=== PATIENT | female | born 1960 | race Caucasian/White ===

== ENCOUNTER 2018-03-18 12:34 | Emergency (ER) | payer OTHER, SELFPAY ==
[2018-03-18 12:35] VITALS: BP 149/80; PULSE 85; RESP 18; TEMP 36.6; O2SAT 100; BMI 21.9
--- NOTE | 2018-03-18 12:49 | CT_ITS ---
STUDY: CT BRAIN WITHOUT CONTRAST REASON FOR EXAM: Female, 57 years old. Hallucinations, mental status change RADIATION DOSAGE (If Supplied By Facility): CTDIvol = ( 44.99 ) mGy, DLP = ( 745.49 ) mGycm TECHNIQUE: Transaxial CT imaging of the brain was performed without administration of intravenous contrast material. Individualized dose optimization techniques were used for this CT. COMPARISON: None. FINDINGS: Normal soft tissue structures. Normal calvarium. Normal size ventricles and extra-axial spaces for the patient's age. Normal white matter tracts of the cerebral hemispheres. Normal basal ganglia and thalami. Normal brainstem. Normal cerebellum. There is no intracranial hemorrhage. There are no findings of an acute ischemic infarction. Normal visualized paranasal sinuses. CT/Brain/Head without Contrast IMPRESSION: Normal unenhanced CT scan of the brain. Electronically Signed: Neal Artis MD at 14:38 EDT , Service support ,
[2018-03-18] MEDS: 0.9% Normal Saline 1,000 ML 150 ML IV (13:20)
[2018-03-18 13:37] LABS: Absolute Lymphocyte Count 2.27 X10^3/ul (0.83-4.51); Absolute Neutrophil Count 6.3 X10^3/uL (2.0-7.7); Basophil# 0.06 X10^3/uL; Basophil% 0.6 % (0-1); Eosinophil# 0.18 X10^3/uL; Eosinophils% 1.9 % (0-5); Hematocrit 42.2 % (37-47); Hemoglobin 13.6 g/dl (12.0-15.0); Lymphocyte # 2.27 X10^3/ul (4.0); Lymphocyte % 23.8 % (19-41); Mean Corp Hgb Conc 32.2 g/gl (32-36); Mean Corpuscular Hgb 32.6 pg (27.0-32.0); Mean Corpuscular Volume 101.2 fL (81-99); Mean Platelet Vol. 10.3 fl (6.2-12.0); Monocyte# 0.68 X10^3/uL; Monocyte% 7.1 % (0-10); Neutrophil # 6.26 X10^3/uL (2.7-7.7); Neutrophil % 65.9 % (47-70); POSITIVE COUNT NO; POSITIVE DIFFERENTIAL NO; POSITIVE MORPHOLOGY NO; Platelet Count 365 K/mm3 (150-450); RBC Distribution Width SD 51.8 fl (35.1-43.9); Red Blood Count 4.17 M/mm3 (4.2-5.4); White Blood Count 9.5 K/mm3 (4.4-11.0)
[2018-03-18 13:48] LABS: ALB/GLOB Ratio 0.8 RATIO (0.9-2.4); AST(SGOT) 16 U/L (15-37); Alanine Aminotransfer ALT/SGPT 27 U/L (13-56); Albumin, Serum 3.3 g/dL (3.2-5.0); Alkaline Phosphatase 120 U/L (45-117); Anion Gap 5 (5-15); BUN 23 mg/dL (7-18); BUN/Creat Ratio 26.9 RATIO (10-20); Calcium,Total 8.8 mg/dL (8.5-10.1); Chloride 109 mmol/L (98-107); Creatinine, Serum 0.86 mg/dL (0.55-1.02); EST Glomerular Filtration Rate 72 mL/min (>60); Est Glom Filt Rate - Afr Amer 87 mL/min (>60); Estimated Creatinine Clearance 60.82 ml/min; Globulin 4.4 g/dL (2.2-4.2); Glucose 80 mg/dL (74-106); Potassium 4.2 mmol/L (3.5-5.1); Protein, Total 7.7 g/dL (6.4-8.2); Sodium Level 143 mmol/L (136-145)
[2018-03-18 14:59] LABS: Mucous, Urine 0 SEEN /hpf (<or=2+); Red Blood Cells-Urine 0 SEEN /hpf (0-5)
[2018-03-18 15:00] LABS: Color, Urine Yellow (Yellow); Glucose, Dipstick Normal (Normal); Ketone-Dipstick Negative (Negative); Leukocyte Esterase-Dipstick 25 /ul (Negative); Nitrite-Dipstick Positive (Negative); Occult Blood-Urine 10 /ul (Negative); Protein-Dipstick Negative (Negative); Urine Bilirubin Dipstick Negative (Negative); Urine Clarity Clear (Clear); Urine Urobilinogen Normal (Normal)
[2018-03-18 15:12] LABS: Bacteria 4+ /hpf (None Seen); Squamous Epithelial Cells - UA 0-5 SEEN /hpf (5-10); White Blood Cells 0-5 SEEN /hpf (0-5)
--- NOTE | 2018-03-18 15:47 | ED.DCSUM_ITS ---
- ER Visit Summary Date of Service: 03/18/18 Chief Complaint: [Wound check] History of Present Illness: The patient is a 57 F [presents the emergency department complaint of concern over her left ring finger. Patient states that she was gardening 4 months ago when she had a thorn from a tomer that she picked up puncture her glove and puncture her left ring finger. Since that time patient feels like there is something in the finger and she continues to pick at it. Patient also feels like the thorn is traveled throughout her body and she scratches at times her neck in different parts of her body and pieces of thorn come out. Patient has been seen by her primary care physician for this and was referred to dermatology who placed her on an antipsychotic. She was told that it could be eczema. Patient states that she only took the antipsychotic a couple of times but did not feel like it was helping her so she discontinued it. Patient denies any fevers. She denies any visual changes or auditory hallucinations. She denies any visual hallucinations otherwise. Patient states that she does not think she is crazy.] Physical Examination: [HEENT-PERRLA, EOMI. Cranial nerves II through XII grossly intact. TMs clear. Mucous membranes moist. No adenopathy. Cardiovascular-regular rate and rhythm without murmur or ectopy Lungs-clear to auscultation, chest wall stable without crepitus or subcu emphysema Abdomen-normoactive bowel sounds, soft, nontender, no rebound or rigidity, no peritoneal signs. Extremities-intact ?4, normal range of motion, normal pulses, atraumatic]. Left ring finger-patient has superficial excoriations over the dorsal lateral aspect of the proximal phalanx. Patient has diffuse excoriations about both hands as well as upper extremities. Patient has excoriations over the base of the neck posteriorly. There is no lymphangitic streaking noted or significant edema noted to the left index finger. She has normal range of motion of all digits. No foreign body palpated over the skin of the PIP joint where the patient states initially she had the puncture wound. Test Results: [CT scan of the brain without contrast was unremarkable. CBC with differential showed a normal white count of 9.5, hemoglobin 13.6, hematocrit 42, platelet 365. Chemistries unremarkable. Urinalysis was positive for nitrites and 0-5 WBCs as well as +4 bacteria. Urine culture was sent.] Emergency Department Course and Treatment: [I discussed results with patient and her daughter who is a nurse. At this point I do not feel any type of imaging is indicated as if there were any type of organic foreign body within the wound would likely would not show up on x-ray. Next step if there is concern for retained foreign body would be to follow-up with a hand surgeon and have the area opened and investigated. Patient's daughter also recommends that they should follow-up with a psychiatrist and I think this would be reasonable in this patient could have some underlying psychosis related to all the picking. She does have a history of anxiety disorder.] Treatment Plan: [Patient will be given referral to orthopedics and advised to follow-up psychiatry. Patient has a follow-up appointment with her engineer booster and exhauster next week.] I will cover patient with Bactrim for 7 days given the suspected UTI and she does state that she has had some dysuria. Disposition: [Discharged home in stable condition.] Impression: [UTI Wound check left index finger-no infection noted] This note was generated with [employer] dictation software. It may contain incorrect words, spelling, and punctuation that were not noted in review of the chart prior to signing ED Disposition - Plan for ED Patient: Chief Complaint: Wound Check Referrals: Judson Kee III, MD [Primary Care Provider] -
--- NOTE | 2018-03-18 15:47 | ED.DEP ---
ED Disposition - Plan for ED Patient: Chief Complaint: Wound Check Instructions: ED UTI Cystitis Female, ED Abrasion Prescriptions: Smz/Tmp Ds [Bactrim Ds] 1 tab PO BID #14 tab Referrals: Judson Kee III, MD [Primary Care Provider] - Jaden Gotti MD [STAFF PHYSICIAN] - 3-5 Days
[2018-03-18 15:54] VITALS: BP 131/70; PULSE 80; RESP 14; O2SAT 97
[2018-03-18] MEDS: Smz/Tmp Ds Tablet 1 TABLET PO (15:57)
== END 2018-03-18 15:59 | disposition home or self-care (01) ==
PROVIDERS: Emergency Provider Emergency Medicine; Family Provider Family Medicine; PCP Family Medicine
DX: Z48.00 Encounter for change or removal of nonsurgical wound dressing (principal); N39.0 Urinary tract infection, site not specified; Z72.0 Tobacco use
CPT/HCPCS: 70450; 80053; 81001; 85025; 87086; 87088; 87186; 96360; 96361; 99284; J7030

== ENCOUNTER 2019-01-31 09:23 | Outpatient (RCR) | payer OTHER, SELFPAY ==
--- NOTE | 2019-01-31 10:11 | BH.SGPN.GN ---
Behaviors/Verbalizations/Mental Status: [Client alert and oriented, casually dressed and groomed. Eye contact good. Motor activity appropriate. Speech within normal limits. Affect congruent, mood anxious. Thoughts linear, logical, no signs of hallucinations or delusions. ] Client Response/Progress/Benefit: [Pt receptive of session, attentive, taking notes, and provided input despite being first day in program. Pt connected with discussion on different types of anxiety, as well as the difference between ?normal? anxiety and anxiety disorders. Pt reported she has never previously received any education on education and could relate to much of what was discussed. Pt provided examples of the various ways anxiety manifests and symptoms associated with thoughts, physical symptoms, and safety behaviors. Pt gained awareness of personal physical symptoms which included: itch scalp and ears, sweating, and beliefs that black stuff is coming out of her skin. Pt also identified safety behaviors she has engaged in that provide short term relief but increase anxiety over time. Pt?s safety behaviors included: isolating, denial, skin picking. Pt appeared to benefit from gaining insight to safety behaviors and how anxiety manifests itself, as well as harmful impact of safety behaviors on mental health. Pt appeared to progress with increasing awareness of her symptoms and better understanding of anxiety. Will continue IOP to increase insight, further improve functioning, and decrease depression and anxiety symptoms.] Narrative Note: []
--- NOTE | 2019-01-31 12:04 | BH.DR.ITP ---
Initial Treatment Plan - Patient Information Visit Information: ADMISSION DATE: EXPECTED LOS: 4-6 weeks - Problems/Symptoms Problem #1:: Depression Symptom:: Sadness, hopelessness, increased desire to sleep, anhedonia Problem #2:: Anxiety Symptom:: Rumination, fear of cancer and aging
--- NOTE | 2019-01-31 12:09 | PCM.BH.PSYEV ---
Psychiatric Evaluation - Initial Evaluation Initial Evaluation: Chief Complaint: [I wish I had come here much sooner.] History of Present Illness: [] Patient is a 58-year-old female who presents with a history of depression and anxiety which is worsened slowly over the past 5 years. Her father 5 years ago and since that time the patient says she has had difficulty accepting that her father . She was her father's favorite and felt very close to him. She says she is always been afraid of since she was 6 to 8 years of age. Her only brother about 18 months after her father from dementia due to alcohol abuse. She is a decent historian but her estimate of time or the timeline of her illnesses a little inconsistent and hard to follow. The patient says that about 1 to 2 years ago she was diagnosed with a basal cell skin cancer and a squamous cell skin cancer. She had surgery to remove these cancers on her nose in June 2018. Since that time she has been afraid of having cancer and dying and aging. She was also had her finger pricked by a tomer thorn 1 to 2 years ago and her finger swelled up a little. 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 During this time she has been upset with her appearance mostly since the skin surgery and currently she hates the way she looks. Denies any specific feature about herself that she hates although she does focus on a scar near her nose where they took off the skin cancer. She also wears a baseball cap because she has pulled out her hair and has patchy baldness according to her. She says she is very ashamed of pulling out her hair and how her scalp looks. Her mood and her functioning worsened even more in the past few months. 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 The patient loves and enjoys her job but when her symptoms worsened over the past few months she was unable to go to work on a consistent basis. She says she may have been on FMLA twice in the past few months and has also used her vacation days to call off work. She is back to work now and is able to function okay at work when she is there. She is able to do the job but she feels unable to go some days. Lives in a house that her dad owns. She lives there with her boyfriend of 35 years. In addition to feeling sad and down but trying to ignore my feelings she also endorses some hopelessness and occasional worthlessness. Her sleep is increased at times due to her depression she feels like sleeping and escaping the world. But she denies fatigue and most nights sleeps 6 to 7 hours. ConCentration is okay most of the time according to the patient. She denies guilt, suicidal ideation, homicidal ideation, hallucinations, delusions, yoel symptoms. She also has no history of head trauma or seizure. She admits to being anxious over having had cancer and over aging in her appearance. She worries about this. She also has a history of skin picking and trichotillomania that have been diagnosed in the past year or 2 but she says that for the past 3 months she no longer pulls her hair out or picks at her skin. She is seeing a cycle analyst for this and has treatment on her scalp. She has twirled her hair since being a small child but never pulled it out until the past few months. She is not enjoying anything she does but she does feel better when she is working. Denies panic attacks. She does get anxious at times and occasionally has tingling in her hands and arms but denies any other symptoms of panic attack. For primary support she says I do not talk. She has no history of eating disorder or OCD or PTSD. She admits to using methamphetamine daily for several months and she thinks she last used it 6 to 12 months ago. Current Psychiatric Medications: [Zoloft 100 mg/day (started 6 months ago and dose was increased 2 months ago from PCP)] Past Psychiatric History: [] Has no previous psychiatric treatment. She feels that this is the first time that she has been significantly depressed but she says that she is not sure because she feels that she is not able to identify her feelings well. She has never had counseling. She has never taken any psychiatric meds until the current Zoloft treatment for the past 6 months. Admits to using Valium for anxiety after her dad's 5 years ago. She took Valium 5 mg 1 p.o. daily until about 6 months ago. She then was able to stop using the Valium. Substance Use History: Smokes cigarettes less than 1 pack/day for 45 years, no marijuana use, had alcohol use disorder after her father but has been completely sober from alcohol since she got a DUI 5 years ago. She now drinks a few times a year only and has only one drink when she does drink. Denies any blackouts or withdrawal symptoms. She has never been to rehab. She stopped her methamphetamine use on her own. She used methamphetamine daily for several months and she is unclear on the time she has been sober from meth. She feels she last used methamphetamine anywhere from 6 to 12 months ago. But she clearly used methamphetamine daily at some point during 2018 or 2019 for several months. [] Allergies: [No known allergies Current medications: Zoloft 100 mg p.o. daily, vitamin D, multivitamin] Past Medical History: [Negative except for history of squamous cell skin cancer and basal cell skin cancer diagnosed 1 to 2 years ago. Postmenopausal with no issues there. 3 para 2 AB 1 with 1 miscarriage and 2 vaginal deliveries.] Family Psychiatric History: There is 86 years old and pretty healthy. Father at age 84 of heart issues. Patient has 1 brother who of alcohol dementia at age 59. This brother she thinks also had depression. No completed suicides in the family. Brother, mother had issue of alcohol abuse and opiate dependence. [] Personal/Social History: Patient was born and raised in [place]. She describes her childhood as pretty good. Even as a child she was sometimes scared that someone would come in their house when her father was outside. She also had a fear of getting cancer even as young as age 8-10. She had one brother 3 years older who she was very close to. This brother helped her raise her children. He 18 months after her father . She describes her mother as loving but her father was not very expressive of his love. Patient was his favorite though and was very close to him. She denies any soft physical or emotional or sexual abuse. She did okay in school but did not graduate high school. She became at age 14 and dropped out of high school. She at age 14 the marriage lasted 8 years. They . She has 2 sons from this one marriage who are now ages 34 and 43 years. She is close to her sons. 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 She has a boyfriend of 35 years . She describes her relationship as okay. Boyfriend is 63 years of age;he is sober now but had issues with alcohol before. Friend tries to be supportive. She has friends also but she says she tends did not be a talker when she is not feeling down. [] Legal History: [DUI x1 5 years ago. She quit alcohol after her DUI. No other arrests or care home issues.] Review of Systems: [View of systems done and negative except as noted in present illness.] Vital Signs: [] Taken from nurse's notes and within normal limits. Mental Status Examination: [Patient is a 58-year-old female who appears older than her stated age. She is wearing a baseball cap. She has no make-up and is casually groomed and dressed. Hygiene is good. She is cooperative and pleasant during the interview. She has good eye contact and speech is normal rate and rhythm and fluent with no pressure. Mood is depressed. Affect is constricted and she is tearful at times. Says is organized and goal-directed but patient seems very uncertain of the timeline of her issues in the past few years. Thought content: No evidence of suicidal or homicidal ideation. No evidence of hallucinations or delusions. Reality testing intact. Intelligence average. Judgment fair. Insight: Some present. Impulsivity moderate. Labs and testing: Her cycle analyst checked her thyroid and vitamin D and she saw many other doctors who checked all her other labs and they were all okay during her work-up for her skin cancer and possible skin infection.] Summary: [] Diagnoses: [] Kent I: [Major depressive disorder, single episode severe without psychosis. ( F 32.2]). Yoel, history of methamphetamine abuse full remission for 6 months., history of alcohol abuse?sober for 5 years. History of somatizations disorder versus illness anxiety disorder which seems to be resolving now. Kent II: Negative [] Kent III: [History of skin cancer, rule out cognitive issues due to methamphetamine abuse history] Plan: [Start the IOP program at [facility] behavioral health unit. The education, support, structure, individual and group therapy will be necessary to prevent worsening of the patient's condition which might require hospitalization. The patient is able to contract for safety and if she is feeling unsafe at any time she will notify the IOP program or go to the emergency room. The risks options and possible complications of her medications were discussed with the patient and she understands and accepts these. She agrees to keep regular sleep-wake hours. She agrees to stay sober completely from methamphetamine and alcohol. She agrees to follow-up with her outpatient medical and psychiatric providers as scheduled. She agrees to find out what shots she is getting in her head for inflammation. She also agrees to increase her Zoloft to 150 mg p.o. daily. She will follow-up with me in 2 weeks.]
--- NOTE | 2019-01-31 14:15 | BH.NOTE ---
BH: Inpatient Note - Notes Behavioral Health Inpatient Note: Per written order from Dr. Guthrie, the following prescription was called into [facility] pharmacy in [place], [place]: Zoloft 100mg, 1.5 tabs PO daily #45, NO refills Duyen Babin, MSN, RN
--- NOTE | 2019-02-01 09:05 | BH.SGPN.GN ---
Behaviors/Verbalizations/Mental Status: []Client alert and oriented, casually dressed and groomed. Eye contact good. Motor activity appropriate. Speech within normal limits. Affect congruent, mood anxious. Thoughts linear, logical, no signs of hallucinations or delusions. Reviewed client?s symptom tracker, no risk for suicidal ideation, plan, or intent as of 02/01/19. Client Response/Progress/Benefit: []Client responded well to session, receptive to supportive feedback from peers. Client reports feeling ?tired and glad? today. Client shared she learned ?so much? from her first day of group yesterday. Client reported she used to not want to learn, but now she wants to continue to learn coping skills and learn about herself. Client?s mental health win today is that she has not picked her skin or pulled her hair for ?a while.? Client has a history of trichotillomania, so this is significant. Client?s current stressor is she has conflicting feelings about setting boundaries with loved ones. Client appeared to benefit from connecting with peers and increasing comfort in the group setting. Will continue IOP tx to prevent decompensation of symptoms and improve daily functioning.
--- NOTE | 2019-02-01 10:10 | BH.SGPN.GN ---
Behaviors/Verbalizations/Mental Status: [] Eye contact is good. Motor activity is appropriate. Appearance is disheveled. Speech is Appropriate. Mood is depressed. Affect is flat. Thoughts are linear and logical. No evidence of psychosis. Client Response/Progress/Benefit: [] Participated at times during discussions providing some insight. Attentive during psychoeducation on differences between fixed and growth mindset. Worked with group to identify how a fixed mindset can impact our mental health which included; not trying new coping skills, believing we can't get better, keeping us stuck, reinforcing fear of failure, decreasing motivation, and avoiding challenges. Group identified the impact that a growth mindset can have on mental health which includes; More likely to embrace challenges, encourages us to try new skills, learn from setbacks rather than ruminate on them, encourages us to believe in ourselves. Pt was able to identify some examples of fixed mindset that she often has. Benefited from group by increasing awareness of how one's mindset impacts our mental health. Narrative Note: []
--- NOTE | 2019-02-01 11:13 | BH.SGPN.GN ---
Behaviors/Verbalizations/Mental Status: [Client alert and oriented, casually dressed and groomed, wearing winter cap to cover hair. Eye contact good. Motor activity appropriate. Speech within normal limits. Affect congruent, mood euthymic and anxious. Thoughts linear, logical, no signs of hallucinations or delusions. ] Client Response/Progress/Benefit: [Pt attentive and remained engaged during discussion and activity. She contributed during discussion on how fixed mindset thoughts experienced in the challenge activity initially impacted ability to complete the task. Pt indicated she struggled with not wanting to let others down which caused her to get anxious. Pt at times struggled with making off topic comments. Pt acknowledged the consequences of fixed thinking. She struggled at first to apply cognitive restructuring to reframe fixed thoughts. With assistance pt was able to take fixed thought of ?Something must be wrong with me? and reframe this to ?I can learn more about my mental health and seek help with getting better?. Benefitted from discussing benefits of growth mindset and strategies for reframing fixed thoughts. Indicated plans to continue challenging herself to be more open to new things in order to further develop growth mindset. Pt made progress with improving ability to challenge negative thoughts. Recommended continued IOP tx to further improve insight and understanding of mental health sx and improve ability to better manage mental health, as well as prevent decompensation. ] Narrative Note: []
--- NOTE | 2019-02-01 13:31 | BH.COMM ---
Communication Note - Communication with Client Communication Note: Therapist attempted to meet with client for an individual session today, but client was unable to stay after group due to work. Client agreed to meet with therapist next week for an individual session.
--- NOTE | 2019-02-02 09:04 | BH.SGPN.GN ---
Behaviors/Verbalizations/Mental Status: []Client alert and oriented, casual dress, hygiene tended to. Eye contact good. Motor activity appropriate. Speech within normal limits. Affect congruent, mood anxious. Thoughts linear, logical, no signs of hallucinations or delusions. Reviewed client?s symptom tracker, no signs of suicidal ideation, plan, or intent as of today. Client Response/Progress/Benefit: []Pt was an engaged participant in group discussion, providing input and openly processing with the group. Emotion for today is positive. Pt noted progress as being able to stay at work last night despite not feeling well and having thoughts of wanting to leave work early. Pt stated she was able to use positive self-talk to keep her at work instead of going to her comfort zone being home and sleeping. Pt stated she is starting to recognize how her mental health symptoms can impact her physically. Additional positive as trying to keep a positive mindset instead of focusing on negatives or what hasn't gone well. Continued IOP tx recommended to increase healthy coping skills, prevent decompensation, and increase awareness of negative thought patterns. Narrative Note: []
--- NOTE | 2019-02-02 10:13 | BH.SGPN.GN ---
Behaviors/Verbalizations/Mental Status: [Client alert and oriented, casually dressed, appropriate grooming. Eye contact good. Motor activity WNL. Speech appropriate rate and tone. Affect congruent, mood dysthymic, anxious. Thoughts linear, logical, no signs of hallucinations or delusions. ] Client Response/Progress/Benefit: [Pt responded well to session, provided input and able to reflect on content discussed throughout. Connected with the quote AEJonathan nodding and reporting agreement with other participants comments. Pt participated in group discussion regarding mental health benefits of change and identified ?I tried to do it on my own in the past, but I?ve realized I can?t keep ignoring it?. Pt identified three small personal changes to improve mental health as: practicing opposite action via cleaning, following through with things she knows will be helpful, and taking more time for self-care. Pt appeared to benefit from gaining awareness of personal changes that would improve mental health and the barriers keeping client stuck. Barriers identified as: fear of the outcome, fear of the unknown, and lack of follow through. Progress noted in pt ability to make connections with topics discussed and reports increased awareness of own mental health symptoms. Continue IOP to further increase understanding and application of healthy coping skills, improve emotion regulation, and prevent decompensation.] Narrative Note: []
--- NOTE | 2019-02-02 11:15 | BH.SGPN.GN ---
Behaviors/Verbalizations/Mental Status: []Client alert and oriented, casually dressed and groomed. Eye contact good. Motor activity appropriate. Speech rambling at times. Affect constricted, mood anxious, hopeful. Thoughts logical, no signs of hallucinations or delusions. Client Response/Progress/Benefit: []Client was engaged during activity and participating in discussion. Helped group members identify connections between activity and strategies for overcoming barriers to making changes. Client reported the activity was difficult, but her motivation to overcome the task helped client stay positive. Identified a specific change she would like to make for her mental health, barriers to making that change, and a SMART goal to reach that change. Shared change she wants to make is following through with the things she says she will do. Client?s barriers include: being scared of the outcomes and fear of the unknown. Client stated her SMART goal is to say out loud to herself once a day the reason she wants to make changes. Client wrote a statement of encouragement to motivate herself to follow through with this goal. Benefited from group as she was able to identify strategies to overcome barriers to change and create a plan for implementing one small change promoting personal growth. Will continue IOP level of care to prevent decompensation and increase healthy coping skills.
--- NOTE | 2019-02-07 10:05 | BH.SGPN.GN ---
Behaviors/Verbalizations/Mental Status: [Client alert and oriented, casually dressed and appropriate grooming. Eye contact good. Motor activity appropriate. Speech within normal limits. Affect congruent, mood anxious and euthymic. Thoughts linear, logical, no signs of hallucinations or delusions. ] Client Response/Progress/Benefit: [Client was an active participant in group discussion and activity. Engaged during discussion, actively listening as group reflected on the quote and noted that ?Change is necessary but hard if we aren?t ready to deal with the negative things we?re doing to ourselves? and provided personal example of unhealthy coping she engaged in prior to IOP tx. Worked with the group to identify benefits to making changes in our lives which included: improving one?s mental health, increasing confidence, personal growth, and reducing unhealthy coping skills. Group identified barriers to change or what keeps us from making changes which included: it is easier to not change, lack of motivation, past negative experiences, lack of awareness as to how to make changes, limited support, negative thinking, and fear. Client participated along with group in activity where they identified and discussed the emotions related to change. Client expressed that change makes her feel anxious as she doesn?t know what to expect but that she is learning how to start seeing it as positive and important to progress. She was attentive during psychoeducation on the change process and provided input regarding different emotions that may be experienced throughout the process. Pt benefited from increased awareness and understating of emotions, benefits, and barriers related to change. Progress noted as shown by client?s report of reduction of depression and anxiety levels. Will continue IOP tx to promote gains, continue to improve mental health sx management, and reinforce healthy coping skills.] Narrative Note: []
--- NOTE | 2019-02-07 11:10 | BH.SGPN.GN ---
Behaviors/Verbalizations/Mental Status: []Client alert and oriented, casually dressed and groomed. Eye contact good. Motor activity appropriate. Speech within normal limits. Affect congruent, mood anxious. Thoughts linear, logical, no signs of hallucinations or delusions Client Response/Progress/Benefit: []Client responded well to session, attentive and engaged throughout. Client participated in the activity and processed emotions and barriers associated with making change. Client appeared to connect with discussion on weighing the pros and cons associated with change and benefited from learning to do so through use of decisional balance sheet. Identified a change she would like to make to improve mental health as: admitting she has a problem. Client reported potential benefits of change as: improved mental and physical health and improved relationships. While the costs of not making the change included: worsened anxiety, ?self-destruction? and making people mad. Progress noted in ability to identify how making this change may promote additional healthy behaviors and thinking patterns. Recommended continued IOP to continue to promote sobriety, increase knowledge of healthy coping skills, and improve mood stability.
--- NOTE | 2019-02-07 14:50 | BH.PSA ---
Source of Information - Presenting Problems/Circumstances Problems, Referral Source, Mental Status, Client: Client is a 58-year-old woman with a history of MDD and substance use. Client has no previous psychiatric admissions and was brought into [facility] by her two sons. Client currently endorses a depressed mood that has been worsening for the past several months. Client's symptoms include lack of motivation, low energy, isolation, avoidance, anhedonia, and increased sleep. 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 Client reports she has not been able to function at her baseline as shown by client not being able to cook, keep her house clean, attend work consistently, and avoiding family activities. Client has a history of substance abuse including alcohol and methamphetamine. Client has been sober from alcohol for several years, but she is only recently sober from methamphetamine. Client's symptoms are currently impacting her social, occupational, and familial functioning. Cooperative and engaged during the assessment. Good eye contact. Motor activity appropriate. Affect constricted, mood anxious and depressed. Speech within normal limits. Psychiatric Presentation - Psych Issues & Need for Admission Psychiatric Issues:: Major depressive disorder, single episode severe without psychosis. ( F 30.2]). Rach, history of methamphetamine abuse, history of alcohol abuse?sober for 5 years. History of somatizations disorder versus illness anxiety disorder which seems to be resolving now. Past Psychiatric History - Treatment Hx Treatment History: Has no previous psychiatric treatment. Client feels that this is the first time that she has been significantly depressed. Client has never had counseling. Client has never taken any psychiatric meds until the current Zoloft treatment for the past 6 months. Admits to using Valium for anxiety after her dad's 5 years ago. She took Valium 5 mg 1 p.o. daily until about 6 months ago and was able to stop using the Valium. Denies Rehab First hospitalization:: n/a Most recent hospitalization:: n/a Medication Trials:: Yes ECT Therapy:: No Age of first mental health symptoms: Client was unable to identify when her mental health symptoms starting and shared mental health is all new for me. Reports belief her current depressive episode is the most depressed I've been. Client's father 5 years ago and she was very close with him. Describe (age, circumstance, etc) any past hospitalizations: Client denies any history of hospitalizations Current providers for mental health treatment (counselor, psychiatrist, catalytic case operator, etc.): Client has never been to therapy and does not have a psychiatrist. Development & Family of Origin - Childhood Significant Childhood Events: Client was at age 14 and reported becoming young. Client shared her mother treated her poorly because of this. - Family Who currently lives in your home?: Client lives with her boyfriend of 35 years in [place]. Client lives in her late father's house. Describe family composition:: Client was born and raised in [place]. Client describes her childhood as pretty good. Client had one brother 3 years older who she was very close to. This brother helped her raise her children. Client's brother 18 months after her father . Client describes her mother as loving but treated client poorly after client became . her father was not very expressive of his love. - Family History Family Hx of Psychiatric or AOD Problems: Client has one brother who of alcohol dementia at age 59. This brother she thinks also had depression. No completed suicides in the family. Brother, mother had issue of alcohol abuse and opiate dependence. Ethnicity - Culture Do you identify yourself with any particular cultural, ethnic background, or community?: No - Sexuality Sexual Orientation: Heterosexual Spirituality - Alevism Do you currently identify with any organized tenriism?: Episcopalian - Has not been to jainism for a while, but reports her raghavendra is very important to her. - Beliefs Is there a particular form of support from this community you can use for your recovery?: Yes Mental Status - Memory Recent Memory: Fair Remote Memory: Fair - Concentration Concentration: Good - Eye Contact Eye Contact: Good - Speech Speech: Articulate - Thought Process Thought Process: Logical, Ruminations Insight: Fair Judgment: Fair Behavior: Calm - Orientation Orientation: Time, Person, Place, Situation - Appearance Appearance: Appropriate - Mood Mood: Anxious, Depressed - Affect Affect: Alert Suicide Assessment - Suicidal Ideation Have you ever felt like hurting yourself?: No Were you using ETOH/drugs at the time?: No Suicidal Intentional Rating Scale (SIRS): No suicidal thoughts (past or present) Physician Notification: If Active suicidal thoughts/Will not contract for safety is checked, contact physician and document in the Physician Notification section below. Violent Behavior/Abuse History - Homicidal Ideation Do you have any homicidal thoughts? If so, explain:: No Is there a known potential victim? If yes, who:: No - Abuse Have you ever been abused?: No Please explain:: Client denies any abuse. However, client shared her mother treated her poorly after finding out client was . Client has had a complicated relationship with her mother since. Client also shared her father was not very expressive of his love, but client had a good relationship with her father. - Life Events Are there any other significant life events?: - Her father 5 years ago and since that time the patient says she has had difficulty accepting that her father . Her brother also 18 months after client's father ., Hardships - The patient says that about 1 to 2 years ago she was diagnosed with a basal cell skin cancer and a squamous cell skin cancer. She had surgery to remove these cancers on her nose in June 2018. Since that time she has been afraid of having cancer and dying and aging. - Safety Do you ever feel threatened in your home? If yes, describe:: No Adult Social History - Age 16 to Present Describe your current support system:: Client's sons are her biggest support as well as client's grandchildren. Client lives with her boyfriend of 35 years and she gets some support from him. In the past client's raghavendra has been a huge support for her. Substance Use - Substance Substance Use Type: Alcohol, Methamphetamine, Tobacco - Specific Drugs What specific drugs have you used?: Smokes cigarettes less than 1 pack/day for 45 years, no marijuana use, had alcohol use disorder after her father but has been completely sober from alcohol since she got a DUI 5 years ago. Client now drinks a few times a year only and has only one drink when she does drink per her report. Denies any blackouts or withdrawal symptoms. Client has never been to rehab. Client used methamphetamine daily for several months and she is unclear on the timeframe that she has been sober from meth. She feels she last used methamphetamine anywhere from 3-6 months ago. Client stopped her methamphetamine use on her own. - IV Substance Use Do you have a history of IV use?: denies Leisure/Social Activities - Interests What do you enjoy or might be interested in learning about?: Client enjoys being with her family, listening to music, spending time outdoors, and watching her grandchildren play sports. Education & Occupational Histo - Education What is your level of education?: Some High School - Client reported she did okay in school but did not graduate high school. She became at age 14 and dropped out of high school. 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 Service - Service Have you ever been in the ?: No Legal History - Records Have you had any past legal charges?: Yes - DUI five years ago Do you have any current legal charges?: No Have you ever been incarcerated? If yes, describe:: Yes - for the DUI - Court Orders Have you had any past court orders for psychiatric treatment?: No Do you have a present court order for psychiatric treatment?: No Problem Checklist - Current Problem Areas Problem List: Nutritional/Eating pattern changes - decreased appetite., Depressed mood/sad - Depressed mood, inability to work on a consistent basis, worthlessness, lack of motivation, anhedonia, and hopelessness., Bereavement - Continues to grieve the loss of her father and brother., Anxiety - Frequent worries about getting cancer, ruminations about past choices, some symptoms of panic including tingling hands, difficulty concentrating, and history of trichotillomania., Inattention - difficulty focusing at work., Substance use - History of alcohol abuse and methamphetamine use. Has not drank in 5 years. Quit Meth on her own and per her report she is 3 months sober., Pertinent health issues - History of squamous cell skin cancer and basal cell skin cancer diagnosed 1 to 2 years ago., Additional psychosocial stressors - issues with her boyfriend, newly sober from methamphetamine, poor self-esteem, and limited insight to her mental health symptoms. Discharge Planning Needs - Anticipated Follow-Up Mental Health Center (Name/Phone Number):: n/a Private Therapist/Psychiatrist:: n/a Release of Information Signed:: No Community Agency Contacts: n/a Electrical Laboratory Technician Name/Phone Number: n/a Form Carpenter's Assessment - Client's Needs What are the client's feelings about the program?: Client reported coming to [facility] has been a good experience thus far and I already feel so much relief. What are the client's goals?: Client identified her treatment goals to be setting boundaries, maintaining sobriety, improving motivation, and better managing her symptoms. What are the client's strengths?: Client presents as a kind, motivated, and receptive woman who wants to improve her mental health. Client has been sober from alcohol for several years and she is recently sober from methamphetamine. Client identifies her family as a support. Diagnoses - Diagnoses Diagnosis #1:: Major depressive disorder, single episode severe without psychosis. ( F 30. Diagnosis #2:: History of methamphetamine abuse Diagnosis #3:: History of alcohol abuse Diagnosis #4:: History of somatization disorder Interpretive Summary - Interpretive Summary Interpretive Summary: Client is a 58-year-old woman with a history of MDD and substance use. Client has no previous psychiatric admissions and was brought into [facility] by her two sons. Client has not participated in mental health treatment before, but client is open to receiving treatment. Client currently endorses a depressed mood that has been worsening for the past several months. Client's symptoms include lack of motivation, low energy, isolation, avoidance, anhedonia, and increased sleep. Client also reports poor self-esteem and ruminations about her past choices. Client denies any suicidal ideations and denies any history of suicide attempts. No family history of completed suicides. 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 Client sees a grey tender for this and is getting treatments. Client wears a hat to hide her hair. Client reports she has not been able to function at her baseline as shown by client not being able to cook, keep her house clean, attend work consistently, and avoiding family activities. Client has a history of substance abuse including alcohol and methamphetamine. Client has been sober from alcohol for several years, but she is only recently sober from methamphetamine. Client reports a family history of alcohol abuse and opiate use. Client denies any history of trauma, but she reports when she got young her mother treated her poorly. Client?s primary supports are her sons and her boyfriend. Client?s boyfriend was also using methamphetamine with client. Client and therapist discussed the potential risks of continuing to stay in this relationship. Client reports belief her home is safe and drug free. Client's symptoms are currently impacting her social, occupational, and familial functioning. Treatment Plan Recommendations - Recommendations Guidelines: Special needs identified to be included in the development of an individualized treatment plan regarding past psychiatric history and treatment, developmental events, family relationships/events/culture, past and/or current educational, occupational, social, and residential experience, and legal status. Recommendations:: Client will participate in the IOP program at [facility] as the education, support, structure, individual and group therapy will be necessary to prevent worsening of the patient's condition which might require hospitalization. Client able to contract for safety and if she is feeling unsafe at any time she will notify the IOP program or go to the emergency room. Client agrees to stay sober completely from methamphetamine and alcohol. Discussed options for support groups to promote sobriety. Client will follow up with her primary care provider for medication management. Client will continue to get treatment for her head. Client?s Zoloft was increased per IOP psychiatrist?s recommendation.
--- NOTE | 2019-02-07 15:05 | BH.MTP ---
[facility] - Patient Information Program Physician:: Ivett Guthrie Primary Therapist:: Susi Davalos - Psychiatric Diagnoses Psychiatric Diagnoses:: Major depressive disorder, single episode severe without psychosis. ( F 32.2). Rach, history of methamphetamine abuse full remission for 6 months., history of alcohol abuse?sober for 5 years. History of somatizations disorder Diagnosis Code(s):: F 32.2 - Estimated LOS Estimated LOS (in weeks):: 6 Problem/Goal #1 - Problem/Goal #1 Stated Goal:: Client will decrease depressive symptoms, hopelessness, and negative thinking due to Major Depressive Disorder. Description of Barriers: Client is recently sober from methamphetamine and she is currently living with her boyfriend who was also using methamphetamine. Client reports she has set a boundary with him and he knows it will have to be over. Client reports limited mental health knowledge, coping skills, and resources. Client endorses numerous negative core beliefs about herself and reports guilt for her past actions that client continues to ruminate about. Functional Impact: Client is a 58-year-old woman with a history of MDD and substance use. Client has no previous psychiatric admissions and was brought into IOP by her two sons. Client currently endorses a depressed mood that has been worsening for the past several months. Client's symptoms include lack of motivation, low energy, isolation, avoidance, anhedonia, and increased sleep. 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 Client reports she has not been able to function at her baseline as shown by client not being able to cook, keep her house clean, attend work consistently, and avoiding family activities. Client has a history of substance abuse including alcohol and methamphetamine. Client has been sober from alcohol for several years, but she is only recently sober from methamphetamine. Client's symptoms are currently impacting her social, occupational, and familial functioning. Goal Relevant Strengths/Supports: Client presents as a kind, motivated, and receptive woman who wants to improve her mental health. Client has been sober from alcohol for several years and she is recently sober from methamphetamine. Client identifies her family as a support. - Objectives Objective #1 Stated Objective: Client will learn and utilize 2-3 healthy coping strategies to better manage depressive symptoms as shown by a reduced DSM-5 score for depression. Interventions: Through group and individual sessions, therapist will help client identify triggers and warning signs of depression and emotional dysregulation including emotional, physical, and behavioral changes. Therapist will teach client various coping skills to manage her symptoms and give client tangible resources to use to regulate emotions. Therapist will use cognitive restructuring techniques and help client gain awareness of negative thoughts that reinforce depressive cycles. Therapist will help client incorporate behavioral activation and assist client in setting SMART goals. Discharge Criteria: Client will have met this goal when she can report learning and using at least 2 coping skills to manage depressive symptoms. Additionally, client will have met this goal when her DSM-5 scores reflect a reduction in symptoms. Target Date: 03/14/19 Review Date: 03/02/19 Status: open Objective #2 Stated Objective: Client will identify and replace 2-3 negative thinking patterns that mediate feelings of self-blame, low self-esteem, and negative core beliefs to reduce depressive symptoms. Interventions: Therapist will assist client in developing an awareness of the cognitive messages that reinforce depressive, self-blaming thinking. Therapist will also assist client in challenging, reframing, and replacing negative thinking patterns. Therapist will provide psychoeducation on depression and help client increase awareness of warning signs and triggers. Therapist will promote client self-empowerment and self-esteem by helping client identify strengths, personal resilience factors, and positives of boundary setting. Discharge Criteria: Client will have achieved this goal when can identify at least 2 negative thinking patterns, replace negative thinking with more positive, affirmative messages. Target Date: 03/14/19 Review Date: 03/02/19 Status: open Problem/Goal #2 - Problem/Goal #2 Stated Goal:: Client will reduce duration, intensity, and frequency of anxiety on a daily basis through Intensive Outpatient Program. Description of Barriers: Client is recently sober from methamphetamine and she is currently living with her boyfriend who was also using methamphetamine. Client reports she has set a boundary with him and he knows it will have to be over. Client reports limited mental health knowledge, coping skills, and resources. Client endorses numerous negative core beliefs about herself and reports guilt for her past actions that client continues to ruminate about. Functional Impact: Client is a 58-year-old woman with a history of MDD and substance use. Client has no previous psychiatric admissions and was brought into [facility] by her two sons. Client currently endorses a depressed mood that has been worsening for the past several months. Client's symptoms include lack of motivation, low energy, isolation, avoidance, anhedonia, and increased sleep. 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 Client reports she has not been able to function at her baseline as shown by client not being able to cook, keep her house clean, attend work consistently, and avoiding family activities. Client has a history of substance abuse including alcohol and methamphetamine. Client has been sober from alcohol for several years, but she is only recently sober from methamphetamine. Client's symptoms are currently impacting her social, occupational, and familial functioning. Goal Relevant Strengths/Supports: Client presents as a kind, motivated, and receptive woman who wants to improve her mental health. Client has been sober from alcohol for several years and she is recently sober from methamphetamine. Client identifies her family as a support. - Objectives Objective #1 Stated Objective: Client will identify 2-3 anxiety and emotional dysregulation triggers and 2 calming coping skills to reduce anxiety as shown by decreased DSM-5 cross-cutting scores for anxiety. Interventions: Therapist will help client increase awareness of anxiety and emotional dysregulation triggers and warning signs. Client will educate client on ways anxiety impacts overall health and will also provide psychoeducation on how substances impact anxiety. Therapist will teach client various calming strategies to promote emotional regulation and reduction of anxiety. Therapist will assist client in identifying warning signs and triggers. Discharge Criteria: Client will have accomplished this goal when can report at least 2 triggers for anxiety and state using 2 calming strategies to manage symptoms. Additionally, client will have accomplished this goal when her DSM-5 cross-cutting scores show a decrease in anxiety. Target Date: 03/14/19 Review Date: 03/03/19 Status: open Objective #2 Stated Objective: Client will identify 2-3 pros and cons of substance use, identify personal use triggers, and complete a relapse prevention plan. Interventions: Therapist will help client explore triggers for substance use including situations, people, and places. Therapist will assist client in establishing pros and cons of substance use to increase client?s awareness of the biopsychosocial impact substances have on mental health. Therapist will assist client in creating a relapse prevention plan and help client gain resources to promote sobriety. Discharge Criteria: Client will have completed this objective when can identify 2-3 pros and cons of substance use, triggers to substance use, and reports using her relapse prevention plan. Target Date: 03/14/19 Review Date: 03/03/19 Status: open
--- NOTE | 2019-02-07 15:20 | BH.MDN_ITS ---
Multi-Disciplinary Note - Note 30-min Individual Time Started:: 09:26 Date: 02/07/19 Purpose of session/treatment goals addressed:: The purpose of this session was to gather information on client's current stressors, symptoms, and treatment goals. Another goal was to build rapport. Eye Contact:: Good Motor Activity:: Appropriate Appearance:: Casual Speech:: Rambling Mood:: Anxious Affect:: Constricted Thoughts:: Circular, No evidence of hallucinations/delusions noted Staff Interventions:: Therapist used active listening and open-ended questions to explore client's current stressors, symptoms, history, and treatment goals. Therapist used strengths perspective to build rapport and help client identify personal resilience factors. Therapist provided psychoeducation on depression, anxiety, and addiction. Therapist discussed possible consequences of staying in a triggering environment and risk facts of relapse. Client Response:: Client responded well to session, visibly anxious at the beginning of session, but then became gradually more comfortable. Client shared she had denied her mental health and substance issues for a long time, but now client is finally ready to admit she has a problem. Client stated she has made terrible choices and it's my fault. Client shared she struggles with forgiving herself for how she has coped over the years. Receptive to discussion on self- compassion. Client reported she is currently sober from both alcohol and methamphetamine. Client shared she has been sober from alcohol for years, but she is only recently sober from meth. Client stated, I have no desire to go back to it. Client's boyfriend, who client lives with, was also using meth with client. Client stated she told her boyfriend he needs to get everything out of the house. Per client's report, he did, and that she has accepted if her boyfriend cannot respect her boundaries, client will have to end the relationship. Client and therapist discussed the consequences of staying in a triggering relationship. Client able to acknowledge the risk factors of relapse and reports she is willing to complete a relapse prevent plan in future sessions. Client also receptive to learning more about substance IOPs as well. Client shared she is ready to learn coping skills and improve her mental health. Client stated she does not know much about mental health and has never been to therapy before. Client shared she feels grateful for coming to the IOP program and stated, it's nice to be around other people that have problems. Risks/Concerns:: Client denies any suicidal ideations, plan, or intent as of 02/07/19. Client is recently sober from methamphetamine, client reported three weeks sober. Client stated she lives with her boyfriend who also used methamphetamine. Client reported she told him to get rid of all his drugs, and per client's report, her boyfriend did. However, there is a concern for relapse due to risk factors in client's environment. Progress Toward Goals/Plan:: Due to client recently starting IOP, there is no progress to document currently. Client reported she finally realizes she has a problem with both substances and mental health. Client stated, ?I?ve made some really terrible choices.? Client currently endorses anxiety, a depressed mood, negative thinking, worthlessness, and thoughts of ?wanting to sleep to escape everything.? Client identified her treatment goals to be setting boundaries, maintaining sobriety, improving motivation, and better managing her symptoms. Will continue tx to prevent further decompensation, maintain sobriety, and improve ability to cope with mental health symptoms. Time Stopped:: 09:53
--- NOTE | 2019-02-08 09:07 | BH.SGPN.GN ---
Behaviors/Verbalizations/Mental Status: [Eye contact is good. Motor activity is appropriate, at times restless. Appearance is casual. Speech is Appropriate rate and tone. Mood is anxious, euthymic. Affect is congruent. Thoughts are linear and logical. No evidence of psychosis. Reviewed daily check in sheet and pt denies any active SI, plan, or intent. ] Client Response/Progress/Benefit: [Pt responded well to session, open to processing with the group. Pt indicated current emotion as ?content? and discussed that this is due to beginning to see improvements in her mental health since beginning IOP tx. Appeared to connect with support and encouragement provided by fellow participants. Pt identified current mental health ?wins? as successfully coping with anxiety while at work previous night and reminding herself to progress with her mental health will take time. Current stressor indicated as trying to take in all the information learned; however, is doing well to remind herself to take things one at a time. Pt appearing to benefit from support and structure of group environment. She continues to make progress in application of coping skills. Recommended continued IOP tx to prevent decompensation, maintain stability, and promote ongoing application of healthy coping skills.] Narrative Note: []
--- NOTE | 2019-02-08 10:14 | BH.SGPN.GN ---
Behaviors/Verbalizations/Mental Status: []Client alert and oriented, casually dressed and groomed. Eye contact good. Motor activity appropriate. Speech within normal limits. Affect constricted, mood euthymic. Thoughts linear, logical, no signs of hallucinations or delusions. Client Response/Progress/Benefit: []Client responded well to session, attentive and participating in small group discussion. Group identified the benefits to setting boundaries as well as the consequences of not setting healthy boundaries. Benefits included: improved mental wellness, improved self-worth, self-love, less stress, less resentment, and avoid being taken advantage of. Group discussed the consequences of not setting boundaries which included: worsening mental health, lack of progress, and staying stuck in unhelpful situations. Client shared ?without boundaries you lose control? and that one has to take care of themselves before one can take care of others. Client attentive during discussion of the different types of boundaries and engaged in the self-assessment activity. Client able to recognize her own mental health suffers when she does not set boundaries. Client seemed to benefit from increased awareness how poor boundaries can negatively impact mental health. Client to continue IOP to maintain sobriety, increase coping skills, and improve mood stability.
--- NOTE | 2019-02-09 09:03 | BH.SGPN.GN ---
Behaviors/Verbalizations/Mental Status: []Client alert and oriented, casual dress, hygiene tended to. Eye contact fair. Motor activity appropriate. Speech within normal limits. Affect constricted, mood depressed and anxious. Thoughts linear, logical, no signs of hallucinations or delusions. Reviewed client?s symptom tracker, no signs of suicidal ideation, plan, or intent as of today. Client Response/Progress/Benefit: []Pt appeared to listen attentively to others and openly shared thoughts and feelings with group. Emotion for today is sad. Pt reported she can't think of a current stressor today. Pt identified a mental health positive as going to work and not feeling physically sick. Pt stated another positive as looking forward to seeing her grandchildren this week. Progress noted with pt's increased self-awareness of negative thoughts and applying skills to challenge negativity. Continued IOP tx recommended to increase healthy coping skills, prevent decompensation, and continue to identify and challenge distorted thoughts. Narrative Note: []
--- NOTE | 2019-02-09 10:15 | BH.SGPN.GN ---
Behaviors/Verbalizations/Mental Status: [] Eye contact is good. Motor activity is appropriate. Appearance is casual. Speech is Appropriate. Mood is euthymic. Affect is full. Thoughts are linear and logical. No evidence of psychosis Client Response/Progress/Benefit: [] Pt was an active participant in group discussion and activity. Attentive during psycho-education. Worked with group to define stress. Group settled on the definition of a reaction to change. Group also identified warning signs to stress and had a discussion on how certain types of stressors can actually be beneficial. Attentive during psycho-education on [place]ress (motivates, encourages growth) and distress (overwhelmed, hopelessness, low energy, anger, worry). Pt was given a worksheet in which she identified the current stressors and their impact on her life and her mental health which she shared with the group. Narrative Note: []
--- NOTE | 2019-02-09 11:15 | BH.SGPN.GN ---
Behaviors/Verbalizations/Mental Status: [Client alert and oriented, casual appearance, wearing bandana to cover hair, appropriate grooming. Eye contact good. Motor activity appropriate. Speech within normal limits. Affect congruent, mood euthymic. Thoughts linear, logical, no signs of hallucinations or delusions.] Client Response/Progress/Benefit: [Pt engaged in session as evidenced by pt listening attentively to others, participating in activity, and providing some input throughout session. Pt appears to be making progress in her ability to connect with materials discussed and remain on topic with comments. She worked with the group to complete the challenge activity and did well to remain engaged while being challenged to manage in the moment stressors. Pt was able to identify barriers encountered that may also impact managing stress in daily life, indicating that negative self-talk can be a barrier in stress management. Pt actively listening during discussion about the 4 A's of managing stress. Expressed wanting to utilize acceptance in order to continue to learn and understand more about her mental health as well as develop improved means of managing mental health symptoms. Pt seemed to benefit from increased awareness of the impact of stress on mental health and increasing repertoire of stress management strategies. Pt to continue in IOP to prevent decompensation, continue to increase awareness, and promote use of healthy coping and thought challenging skills.] Narrative Note: []
--- NOTE | 2019-02-09 11:20 | BH.SGPN.GN ---
Behaviors/Verbalizations/Mental Status: []Client alert and oriented, casual dress, hygiene tended to. Eye contact good. Motor activity appropriate. Speech within normal limits. Affect congruent, mood euthymic and positive. Thoughts linear, logical, no signs of hallucinations or delusions. Client Response/Progress/Benefit: []Pt responded well to session, active participant AEB providing input at times and taking notes throughout. Pt worked with group to further process the self-assessment activity. Pt participated in the discussion reviewing different boundary setting styles and reported connecting with the ?porous? boundary setting type with relation to saying no to others. Pt reported she can be rigid with some things being close minded to others thoughts and opinions and doesn't like to ask for help. She appeared to benefit from increasing awareness of personal boundary style and from learning ways to increase healthy boundaries. Pt progress noted as pt reports increased insight into how her current boundaries are impacting her mental health. Pt to continue IOP level of care to maintain sobriety, mood stability, and prevent decompensation. Narrative Note: []
== END 2019-02-12 23:59 ==
LOC: BHIOP 09:23
PROVIDERS: Family Provider Family Medicine; PCP Family Medicine; Referring Provider Psychiatry & Neurology Psychiatry; Visit Provider Psychiatry & Neurology Psychiatry
DX: F32.2 Major depressive disorder, single episode, severe without psychotic features (principal); F17.210 Nicotine dependence, cigarettes, uncomplicated
CPT/HCPCS: H0035; 90832; 90853

== ENCOUNTER 2019-02-14 09:00 | Outpatient (RCR) | payer OTHER, SELFPAY ==
--- NOTE | 2019-02-14 10:09 | BH.SGPN.GN ---
Behaviors/Verbalizations/Mental Status: [Client alert and oriented, casually dressed and groomed. Eye contact good. Motor activity appropriate. Speech within normal limits. Affect congruent, mood euthymic. Thoughts linear, logical, no signs of hallucinations or delusions.] Client Response/Progress/Benefit: [Client was an active participant throughout, did well to engage via providing input, note-taking, and listening attentively to peers. The group discussed the quote and how the emotion anger is not good or bad, but one can respond to anger in healthy or harmful ways. Client worked with the group to define anger and its causes, as well as the internal and external impacts of anger. Group identified potential consequences of unhealthy management of anger to include: increased stress, loss of relationships, guilt, more problems being created, unhealthy coping habits, and worsening mental health symptoms. Client identified underlying factors of her anger which included: anxiety, feeling taken advantage of, fear of disappointing/failing, denial, and being overwhelmed/stressed. Client stated verbally lashing out, panic, shutting down, and giving up/quitting, and crying are common responses she has when feeling angry. Benefited from group by increasing awareness of the negative impacts of unmanaged anger and underlying factors that contribute to personal anger. Progress noted as client reports increased self-awareness and ability to cope with anxiety related sx in order to prevent escalating to panic. Will continue IOP tx to further increase consistent skill application, promote mood stability, and prevent decompesation.] Narrative Note: []
--- NOTE | 2019-02-14 11:15 | BH.SGPN.GN ---
Behaviors/Verbalizations/Mental Status: []Client alert and oriented, casually dressed and groomed. Eye contact good. Motor activity appropriate. Speech within normal limits. Affect congruent, mood euthymic. Thoughts linear, logical, no signs of hallucinations or delusions Client Response/Progress/Benefit: []Client responded well to session, positive contributions and attentive throughout. Client participated in group activity and able to connect how managing anger takes patience, calming skills, and acceptance. Group identified the benefits of effectively managing anger which included; advocating for oneself, reducing negative consequences, reducing mental health symptoms, and expressing one?s needs. Client reported anger is not good or bad, but there are consequences if one does not learn to effectively manage anger. Client shared she has tried to ignore anger, but ?it only makes things worse.? Client helped the group identify coping skills to more effectively manage anger which included; deep breathing, self-compassion, taking a step back, DDD, challenging perspective, and using S.T.O.P. Client appeared to benefit from gaining coping skills to more effectively manage anger. Will continue IOP level of care to maintain sobriety and increase the use of healthy coping skills.?
--- NOTE | 2019-02-14 14:10 | BH.MDN_ITS ---
Multi-Disciplinary Note - Note 30-min Individual Time Started:: 09:11 Date: 02/14/19 Purpose of session/treatment goals addressed:: The purpose of this session was to address current symptoms, emotions, and application of healthy coping skills. Another goal was to identify positive supports and complete a relapse prevent plan. Eye Contact:: Good Motor Activity:: Appropriate Appearance:: Casual Speech:: Appropriate Mood:: Euthymic Affect:: Congruent Thoughts:: Linear, Logical, No evidence of hallucinations/delusions noted Staff Interventions:: Therapist used active listening and open-ended questions to explore client's current stressors, symptoms, and emotions. Therapist helped client identify positive supports and coping skills to promote maintenance. Therapist provided psychoeducation on relapse and assisted client in filling out a relapse prevention worksheet. Therapist helped client explore her warning signs and triggers for relapse as well as healthy coping skills to utilize. Therapist encouraged ongoing application of coping skills and small goal setting to prevent feeling overwhelmed. Client Response:: Client responded well to session, open to meeting with therapist. Client reported she has been doing better since starting IOP. Client shared she feels less anxiety and she has been using the coping skills discussed in group which helps client manage her symptoms. Client reported she used SMART goal setting over the weekend and it helped client accomplish things without becoming overwhelmed. Client also shared that learning the correct way to breathe has helped client manage anxiety. Client receptive to discussing relapse prevention and creating a plan to prevent relapse. Client was ambivalent at first, sharing ?but I have no desire to use.? However, after gaining more psychoeducation and further exploring the benefits, client was able to acknowledge ways this could help client maintain sobriety. Client identified her triggers and high-risk situations for use which included: work stress, being around her mother, feeling overwhelmed, and being around it. Client identified her protective factors and coping skills to prevent relapse which included: her family, her health, using deep breathing, setting boundaries, setting small goals, and reminding herself of why she wants to stay sober. Client receptive to learning new coping skills as well which included problem-solving strategies, mi ndfulness techniques, and self-talk statements. Risks/Concerns:: Client denies any suicidal ideations, plan, or intent as of 02/14/19. Per client's report, she continues to maintain sobriety. Progress Toward Goals/Plan:: Client is demonstrating progress towards her treatment goals as shown by her report of ongoing sobriety and increased self-awareness. Client stated she has been practicing coping skills she has learned in group which has helped client manage her anxiety. Client receptive to completing a relapse prevention plan. Client continues to endorse ruminative anxiety, tangential thinking, guilt, restlessness, and difficulty concentrating. Client also continues to report interpersonal relationship issues that cause client distress. Will continue tx to prevent further decompensation, maintain sobriety, and improve ability to cope with mental health symptoms. Time Stopped:: 09:42
--- NOTE | 2019-02-15 09:05 | BH.SGPN.GN ---
Behaviors/Verbalizations/Mental Status: [] Eye contact is good. Motor activity is appropriate. Appearance is casual. Speech is Appropriate. Mood is euthymic. Affect is full. Thoughts are linear and logical. No evidence of psychosis. Reviewed daily check in sheet and no reports of suicidal ideations or intent. Client Response/Progress/Benefit: [] Pt participated at times during the group discussion. Emotion for today is HAPPY. Shared with the group that she is feeling positive. Notes being less stress and tense which has improved some of her physical pain as well. She discussed several occurrences yesterday at work in which she utilized mindfulness and breathing skills learned in group while at work. Benefited from group support and encouragement. Progress noted per pt report. Will continue in IOP to prevent decompensation, stabilize mood, and increase healthy coping skills for depression. Narrative Note: []
--- NOTE | 2019-02-15 10:05 | BH.SGPN.GN ---
Behaviors/Verbalizations/Mental Status: []Client alert and oriented, casual dress, hygiene tended to. Eye contact good. Motor activity appropriate. Speech within normal limits. Affect congruent, mood euthymic and positive. Thoughts linear, logical, no signs of hallucinations or delusions. Client Response/Progress/Benefit: []Pt engaged in session as evidenced by pt listening to others and providing input throughout. Pt stated it's easier to run away from own problems because don't want to admit something is wrong. Pt stated she has run away from her problems by isolating from others. Pt worked cooperatively with peers during problem solving activity, able to work through problem by using A,B,C,D,E problem solving method. Pt seemed to benefit from learning about problem solving method and rehearsing problem solving skills in the moment. Pt to continue IOP level of care to stabilize moods, increase utilization of healthy coping, and prevent decompensation. Narrative Note: []
--- NOTE | 2019-02-15 11:05 | BH.SGPN.GN ---
Behaviors/Verbalizations/Mental Status: []Client alert and oriented, casually dressed and groomed. Eye contact good. Motor activity appropriate. Speech off topic and tangential at times. Affect congruent, mood euthymic. No signs of hallucinations or delusions. Loose associations at times. Client Response/Progress/Benefit: []Client was an active participant in group activity and discussion. Client processed challenge activity with fellow participants and made connections with the barriers to problem solving encountered. Client completed a problem-solving worksheet in which she identified a current problem impacting mental health history of lack of follow through and developed a [id number] plan to address this problem. Client struggled at times to stay on topic with the worksheet, but she was receptive to feedback. Client identified steps such as setting boundaries with her ?other half,? challenging guilt, and reminding herself why she wants to change. Client identified barriers to include; toxic people and feeling not worthy. Client did well to brainstorm strategies for addressing this and was open to feedback from the group.? Benefited from creating a personalized plan which client identified barriers and steps to work on a mental health problem. Will continues IOP tx to promote sobriety, reduce negative thinking, and increase healthy coping skills.?
--- NOTE | 2019-02-16 09:00 | BH.SGPN.GN ---
Behaviors/Verbalizations/Mental Status: [] Eye contact is good. Motor activity is appropriate. Appearance is casual. Speech is Appropriate. Mood is euthymic. Affect is full. Thoughts are linear and logical. No evidence of psychosis. Reviewed daily check in sheet and no reports of suicidal ideations or intent. Client Response/Progress/Benefit: [] Pt participated at times during group discussion. Emotion for today is happy. She shared that she has had 2 days with improved mood and is more hopeful about the future. Less ruminations on herself and her somatic concerns. Increased communication with BF at home. Looking forward to grandson's [employer] game tomorrow as opposed to the past were she was avoiding family events. Is actually encouraging her mother to join her for the game. Improved mood and increased socialization. Using skills on a daily basis and seeing results. Progress noted. Will continue in IOP to maintain safety, increase healthy coping, and prevent decompensation. Narrative Note: []
--- NOTE | 2019-02-16 10:03 | BH.SGPN.GN ---
Behaviors/Verbalizations/Mental Status: []Client alert and oriented, neatly dressed and groomed. Eye contact good. Motor activity appropriate. Speech within normal limits. Affect congruent, mood anxious. Thoughts linear, logical, no signs of hallucinations or delusions. Client Response/Progress/Benefit: []Client receptive of session, engaged in discussion and activity. Client discussed the quote and shared she has hurt others and herself in the past when she did not manage her emotions well. Client gave an example of how isolation can hurt self and others. Client helped group identify the consequences of not effectively managing emotions which included; strained relationships, guilt, increased negative thinking, increase mental health symptoms, and impulsive behaviors. Group identified barriers that impact one?s ability to communicate when emotions are high. These barriers included; acting on impulse, shutting down, physical aggression, assumptions, and misinterpretations. Client participated in the activity and did well to regulate her emotions. Client reported she was anxious during the activity because she did not want to let others down. Client able to use self-talk and focusing on her supports to cope in the moment. Client appeared to benefit from increasing awareness of how emotions can impact communication and practicing in the moment coping skills. Will continue IOP tx to promote sobriety and improve mood stability.
--- NOTE | 2019-02-21 09:05 | BH.SGPN.GN ---
Behaviors/Verbalizations/Mental Status: [Client alert and oriented, casual dress, hygiene tended to. Eye contact good. Motor activity appropriate. Speech within normal limits. Affect congruent, mood dysthymic and anxious. Thoughts linear, logical, no signs of hallucinations or delusions. Reviewed client?s symptom tracker, no signs of suicidal ideation, plan, or intent as of today. ] Client Response/Progress/Benefit: [Pt was an active participant AEB engagement in group discussion and openly processing with the group. Emotion for today is anxious as pt indicated struggling with work related stress and is having difficulties not letting it impact her at home. She did well to identify healthy means for coping and expressed telling herself ?I?ll feel better if I do something?. Identified mental health wins as going to her grandson?s football game as well as cleaning up around the house when she didn?t want to. Progress identified in pt self-reported improvements in applying healthy coping and anxiety management skills outside of tx environment. Continued IOP tx recommended to continue to promote application of healthy coping and emotion regulation skills, decrease anxiety, and prevent decompensation.?] Narrative Note: []
--- NOTE | 2019-02-21 10:54 | BH.NA ---
Physical Data - Vital Signs Pulse Rate: 88 Respiratory Rate: 18 Blood Pressure: 160/96 - Height/Weight Height: 1.63 m Weight:: 56.699 kg Weight in Pounds: 125.0 lbs Current Medication Compliance - Medication Compliance Do you take your medication as prescribed?: Yes Do you need assistance with taking medication?: No Have you had side effects from medication?: No Nutritional History - Appetite Nutritional Instructions:: If client shows signs of a swallowing problem, weight change of 10 pounds or more in the last month, or is on a diabetic diet, the physician will review and request a dietitian consult, as appropriate. All unintentional weight loss will be referred to the physician for decision on need for dietitian consult. Describe your appetite:: Good Have you noticed a change in your eating habits lately?: No Functional Assessment - Sleep Pattern Describe any problems with sleeping: Client describes some difficulty falling asleep, but this has been better since starting melatonin. - Activities Motor Activity:: Functional Sensory/Communication Assess - Communication Problems Do you have difficulty understanding what people are saying?: No Do you have trouble putting your thoughts into words or expressing what you want to say?: No Do people ever have trouble understanding what you say?: No What is your primary language?: [place] Learning Assessment - Learning Barriers Learning Barriers:: Ready to learn Medical Problems/History - Pain Assessment Do you have acute or chronic pain?: Yes - Female Reproductive Do you think you may be ?: No Have you reached menopause?: No Do you have any history of breast disease?: No Substance Abuse - Substance Abuse Please describe substance abuse in the last 30 days:: Past use of methamphetamines. Current 0.5ppd cigarette smoker. Denies ETOH use. Mental Status Summary - Mental Status Significant Findings/Observations on Appearance and Mood:: Dottie is A&Ox4, cooperative with interview, and makes fair eye contact. Speech is clear and of normal rate and volume. Moderate depression and anxiety. Mood congruent affect. Suicide Assessment - Suicidal Ideation Are you currently or have you been suicidal in the past?: No Suicidal Intentional Rating Scale (SIRS): No suicidal thoughts (past or present) Physician Notification: If Active suicidal thoughts/Will not contract for safety is checked, contact physician and document in the Physician Notification section below. Past Psychiatric History - MH Treatment Hx ECT Therapy Details:: N/A Fall Risk Assessment - Age Age: 60-70 - Mental Status Mental Status: Willing & able to ask for assistance when needed - Physical Status Physical Status: No problems - Impairments Impairments: None - Elimination Elimination: Continent AND independent - Gait or Balance Gait or Balance: Walks independently - Hx of Falls History of falls in the past 6 months: Near falls OR fear of falling - Medications/Substances Psychotropics:: Antidepressants Medications/substances used within the past 24 hours or ordered to administer: 1-2 of the medications/substances listed above - Total Score Total Points:: 3 RN Summary of Impressions - Impressions Recommendations: Include psychiatric and medical issues, treatment planning recommendations, and discharge planning needs. Impression: General Medical Conditions: ?HTN (hypertensive without formal HTN diagnosis) - Level of Care How do the client's current symptoms and functional deficits support need for this level of care?: Dottie notes that she has been struggling with her mental health for approximately 4 years, but has had an acute decompensation for the past 2 months. She endorses that she has had multiple losses of family members over the past 4 years, which she hasn't dealt with and the grief is becoming overwhelming. Client notes that she finds no pleasure in anything, has difficulty completing work tasks and ADLs, and has been actively avoiding/isolating. Physically, she has been engaging in skin-picking and hair pulling to a severe extent. IOP will provide social support and skills training to promote gains and prevent further decompensation.
--- NOTE | 2019-02-21 12:40 | PCM.BH.PN_ITS ---
Progress Note Progress Note: ] History of Present Illness/Interim History: Patient is a 58-year-old female who is seen in follow-up for depression and anxiety. She states that her mood is much better since increasing her Zoloft to 150 mg daily about 3 weeks ago. She is much less depressed and very much less suicidal. She denies any suicidal thoughts at this time or thoughts of . She also agrees that she is picking her skin much less. She agrees that this is due may be to an improvement in her anxiety and also because she is no longer using methamphetamine. She is making progress in the program and feels she is learning skills such as breathing and relaxation to help her cope with anxiety. She feels she is also learning self-care skills. She feels supported and cared for in the program also. She states that she has not used any methamphetamine for 1 month now. Of interest in the initial visit 3 weeks ago she told me she had not used any methamphetamine for 6 months. She denies any drug use at all including alcohol. She feels she is benefiting from the program and making progress. [] Current Psychiatric Medications: Zoloft 150 mg p.o. daily (increased 3 weeks ago). [] Mental Status Examination: She is a 58-year-old female who appears normal for stated age. She is casually dressed and groomed with good hygiene. She is cooperative during the interview and has good eye contact. Speech is normal rate and rhythm and fluent with no pressure. Mood is approaching euthymia and much less depressed. Affect is full and euthymic. She thought processes organized and goal-directed. Thought content: No evidence of suicidal or homicidal ideation. No evidence of hallucinations or delusions. Judgment fair. Insight: Improving some present. Impulsivity low. [] Diagnoses: [] [place] I: [Major depressive disorder, single episode severe without psychosis (F 32.2); history of methamphetamine abuse (has not used for 1 month]; history of alcohol abuse: Sober for 5 years. History of somatizations disorder. [place] II: [Negative] [place] III: [History of skin cancer ] Plan: [The patient will continue in the IOP program as the structure, education, support, individual and group therapy are benefiting her and preventing her symptoms from exacerbating. Patient felt safe during the interview and if she feels unsafe at any time she will notify the IOP program or go to the emergency room. The risks, options, possible side effects and complications of the medication were discussed with the patient and she understands and accepts these. She will stay on her Zoloft 150 mg p.o. daily as it seems to have really improved her symptoms. She agrees to stay sober completely from methamphetamine, alcohol and any other drugs. She will continue to follow-up with her outpatient medical and psychiatric providers.]
--- NOTE | 2019-02-22 10:10 | BH.SGPN.GN ---
Behaviors/Verbalizations/Mental Status: []Client alert and oriented, neatly dressed and groomed. Eye contact good. Motor activity appropriate. Speech within normal limits, but off topic at times. Affect congruent, mood euthymic. Thoughts linear, logical, no signs of hallucinations or delusions. Client Response/Progress/Benefit: []Client active participant as shown by client?s contribution to discussion and engagement in activity. Client agreed with peers that self-care is important because ?you need it to survive and have good mental health.? Client reported she used to think she was taking care of herself, ?but I wasn?t. I wasn?t paying attention.? Client shared she now views self-care as a priority. Client participated in the discussion of the common myths about self-care including self-care is selfish, self-indulgent, take too much time, and is always fun. Client gave examples of self-care activities such as setting boundaries, taking medication, going to therapy, and admitting one needs help. Client engaged in activity and able to connect how sometimes to make self-care a priority, a person must set boundaries in other areas of their lives. Client seemed to benefit from increased awareness of the importance of self-care. Client showing progress AEB her self-report of reduced depression and anxiety. Client continues to maintain sobriety as well. Can benefit from IOP level of care to promote gains, maintain sobriety, and increase use of healthy coping skills.
--- NOTE | 2019-02-22 11:15 | BH.SGPN.GN ---
Behaviors/Verbalizations/Mental Status: [Client alert and oriented, casually dressed and appropriately groomed. Eye contact good. Motor activity appropriate. Speech within normal limits, at times rambling. Affect congruent, mood anxious. Thoughts linear, logical, no signs of hallucinations or delusions. ] Client Response/Progress/Benefit: [Pt responded well to session, actively listening and willing participant in both discussion and worksheet activity. Worked with the group to further process the activity and discussion on the importance of self-care in management mental health and preventing burnout. Pt engaged in the discussion and self-assessment of the different areas of self-care, noting she has struggled with emotional components of self-care and has previously relied on substances to numb her emotions rather than effectively process and cope with them. Pt reports connecting with discussion on the mental health effects of not making self-care a priority. Pt set a goal to improve in the area of psychological self-care by improving understanding of mental health and ability to apply healthy coping skills moving forward. Pt appeared to benefit from increasing awareness of how she can improve self-care balance. Pt progress noted in pt ability to identify impact current lack of self-care activities has had on mental health and maintaining anxiety. Recommended continued IOP to continue to reduce depression and anxiety, improve emotion regulation and self-care skills, and prevent decompensation.] Narrative Note: []
--- NOTE | 2019-02-22 11:22 | BH.MDN ---
Multi-Disciplinary Note - Note 30-min Individual Time Started:: 09:34 Date: 02/22/19 Purpose of session/treatment goals addressed:: The purpose of this session was to address current symptoms, stressors, and application of coping skills. Another goal was to practice calming coping skills and boundary setting. Eye Contact:: Good Motor Activity:: Appropriate Appearance:: Neat Speech:: Appropriate Mood:: Euthymic Affect:: Congruent Thoughts:: Linear, Logical, No evidence of hallucinations/delusions noted Staff Interventions:: Therapist used active listening and open-ended questions to explore client's current stressors, symptoms, and application of coping skills. Therapist reflected on client's progress and used strengths perspective to empower client. Therapist taught client different calming coping skills and reviewed healthy boundary setting. Therapist discussed expectations for progress and encouraged client to be realistic with her expectations. Therapist gave client resources to increase social support. Client Response:: Client responded well to session, open to meeting with therapist. Client reported I feel so much better since starting [facility]. Client shared she is glad she was receptive to getting help and finally admitting something was wrong. Client reports she continues to be sober and she recognizes she will eventually need to set stricter boundaries with her significant other should he not seek substance counseling. Client shared she is feeling less anxious daily by using positive self-talk and deep breathing. Client reported she also enjoying things again and has been being productive which is significant because before client felt like she needed to use drugs to feel this way. Client and therapist discussed realistic expectations for progress and reviewed relapse prevention strategies. Client receptive to learning new coping skills to promote emotional regulation. Client shared she is worried about what will happen when she graduates from [facility] as client reports high benefit from the social support she receives. Client receptive to resources for [facility] and outpatient counseling. Risks/Concerns:: Client denies any suicidal ideations, plan, or intent as of 02/22/19. Client also continues to report sobriety. Progress Toward Goals/Plan:: Client is demonstrating progress towards her treatment goals as shown by her report of ongoing sobriety and improved mood. Client stated she has been using deep breathing and self-talk to manage anxiety and reported ?I feel less tense.? Client continues to endorse guilt, negative thinking, difficulty setting boundaries, and difficulty concentrating. Client also continues to report interpersonal relationship issues that cause client distress. Will continue tx to maintain sobriety and improve ability to manage mental health symptoms. Time Stopped:: 10:01
--- NOTE | 2019-02-23 09:02 | BH.SGPN.GN ---
Behaviors/Verbalizations/Mental Status: []Client alert and oriented, casual dress, hygiene tended to. Eye contact good. Motor activity appropriate. Speech within normal limits. Affect congruent, mood euthymic and positive. Thoughts linear, logical, no signs of hallucinations or delusions. Reviewed client?s symptom tracker, no signs of suicidal ideation, plan, or intent as of today. Client Response/Progress/Benefit: []Pt was an active participant in group discussion, providing input and openly processing with the group. Emotion for today is excited. Pt noted mental health positive as getting out of bed this morning despite having negative thoughts to stay in bed and cancel attending IOP today. Pt stated she used self-talk to remind her of the consequences of skipping IOP, which helped motivate her to get to IOP this morning. Pt identified another positive as having a positive week at work so far with decreased anxiety and improved attitude while working. Pt reported current stressor is still having mornings in which she wakes up already in a bad mood. Progress noted in application of challenging negative thoughts and using healthy coping skills outside treatment environment. Continued IOP tx recommended to maintain gains, prevent decompensation, and continue to improve emotion regulation skills. Narrative Note: []
--- NOTE | 2019-02-23 10:18 | BH.SGPN.GN ---
Behaviors/Verbalizations/Mental Status: [Client alert and oriented, casual dress, hygiene tended to. Eye contact good. Motor activity appropriate. Speech within normal limits. Affect congruent, mood euthymic. Thoughts linear, logical, no signs of hallucinations or delusions. ] Client Response/Progress/Benefit: [Pt receptive of session, engaged throughout. She did well to work with the group to reflect on the quote and discussed the ways in which perspective can impact mental health and ability to make personal progress in life. Pt indicated that a negative perspective can lead to giving up or turning to self-sabotaging behavior.. Expressed that a positive perspective can improve motivation and willingness to ?keep going? when things get hard. Pt did well to engage in the challenge activity and was an active participant in identifying how perspective impacted ability to complete the task at hand. Pt appeared to benefit from increasing understanding of mental health benefits of a positive perspective and potential consequences to progress when perspective is negative or pessimistic. Pt progress noted in her ability to better manage stressors without turning to unhealthy means for coping. Recommended continued IOP tx to promote continued progress, further promote application of skills learned, and prevent decompensation.] Narrative Note: []
--- NOTE | 2019-02-23 11:15 | BH.SGPN.GN ---
Behaviors/Verbalizations/Mental Status: []Client alert and oriented, neatly dressed and groomed. Eye contact good. Motor activity appropriate. Speech within normal limits. Affect congruent, mood euthymic. Thoughts linear, logical, no signs of hallucinations or delusions. Client Response/Progress/Benefit: []Client responded well to session, participating in the discussion of strengths and how perspective impacts seeing personal strengths. Benefits of recognizing strengths included; improved self-esteem, better relationships, and resilience. Client stated it has always been hard for her to identify her strengths, but she is learning how to. Group identified the barriers that have prevented them from acknowledging their strengths and successes. These barriers included; negative thoughts, self-depreciation, mistaken beliefs, and not feeling allowed to acknowledge strengths. Group identified strategies to overcome barriers that prevent them from seeing strengths. These strategies included; keeping track of progress, practicing self-compassion, and challenging distortions. Client able to identify personal strengths she possesses which included; wisdom, self-control, and spirituality. Appeared to benefit from recognizing personal strengths and identifying strategies to overcome barriers. Will continue IOP tx to promote gains, further maintain sobriety, and reduce anxiety.
--- NOTE | 2019-02-28 09:03 | BH.SGPN.GN ---
Behaviors/Verbalizations/Mental Status: [Eye contact is good. Motor activity is appropriate. Appearance is casual, wearing winter cap. Speech is Appropriate rate and tone. Mood is euthymic. Affect is congruent. Thoughts are linear and logical. No evidence of psychosis. Reviewed daily check in sheet and pt denies any active SI, plan, or intent.] Client Response/Progress/Benefit: [Pt responded well to session and actively participated in group discussion. Emotion for today is anxious and confused. Pt reports this is due to seeing the progress she has made in IOP treatment and with managing mental health sx but is unsure as to how she will sustain this or how to adjust to a less chaotic baseline. Discussed that her baseline has primarily been scattered and high anxiety, and with reduce levels of anxiety she no longer ?feels normal?. Pt did well to identify this as a typical response to change and that her uncomfortable feelings are also indicative of progress. Identified a current win as applying positive self-talk to reduce anxiety this morning when running late for IOP group. Additional win as reminding herself to ?take small steps?, especially when feeling overwhelmed by learning new coping and distress tolerance skills. Will continue in IOP to reduce anxiety, increase healthy coping skill application, and prevent decompensation.] Narrative Note: []
--- NOTE | 2019-02-28 10:20 | BH.SGPN.GN ---
Behaviors/Verbalizations/Mental Status: []Client alert and oriented, casually dressed and groomed. Eye contact good. Motor activity appropriate. Speech within normal limits. Affect congruent. Mood euthymic, slightly anxious Thoughts linear, logical, no signs of hallucinations or delusions. Client Response/Progress/Benefit: []Client attentive and engaged throughout session. Client reported she knows conflict is inevitable and it is vital to your mental health to be able to effectively deal with conflict. Client stated she continues to struggle with applying healthy conflict resolution styles. Client reported when she tries to ignore conflict it typically makes the situation worse. Worked together with the group to define and identify differences between internal and external conflict. Group identified and discussed consequences of ignoring conflict. Client worked with group to identify barriers to addressing conflict. Client stated fear is a barrier that keeps her from addressing conflict. Attentive during psychoeducation on different conflict styles such as avoiding, accommodating, competing, and collaborative. The group began to review benefits and drawbacks to each style and client provided insight to discussion. Benefited as she was able to identify and define conflict as well as increase awareness of how conflict style impacts mental health. Progress noted with increased self-awareness and application of skills outside treatment environment. Will continue IOP tx to prevent decompensation, challenge distorted thoughts and increase consistent healthy coping skills. Narrative Note: []
--- NOTE | 2019-02-28 11:20 | BH.SGPN.GN ---
Behaviors/Verbalizations/Mental Status: []Client alert and oriented, neatly dressed and groomed. Eye contact good. Motor activity appropriate. Speech within normal limits. Affect congruent, mood dysthymic. Thoughts linear, logical, no signs of hallucinations or delusions. Client Response/Progress/Benefit: []Client responded well to session, providing to discussion and activity. Contributed to ongoing discussion of the different conflict resolution styles, drawbacks, and appropriate times of use. Client indicated connecting most with the ?avoiding? approach when dealing with conflict.? Client reported she will avoid conflict which only increased her anxiety, stress, and resentment. Client shared coming to IOP has helped client be more assertive and collaborative when faced with conflict. Client engaged in the activity and did well to practice using a collaborative approach as shown by her contributions. Client attentive during psychoeducation on different conflict resolution strategies. Client appeared to benefit from increasing awareness of her personal conflict resolution style and from learning ways to increase healthy conflict resolution. Progress noted as client continues to report sobriety and reduced anxiety. Will continue IOP tx to promote maintenance, further increase emotional regulation, and decrease negative self-talk.?
--- NOTE | 2019-03-01 09:10 | BH.SGPN.GN ---
Behaviors/Verbalizations/Mental Status: [] Eye contact is good. Motor activity is appropriate. Appearance is casual. Speech is Appropriate. Mood is depressed. Affect is flat. Thoughts are linear and logical. No evidence of psychosis. Reviewed daily check in sheet and no reports of suicidal ideations or intent. Client Response/Progress/Benefit: [] Pt participated at times. Attentive. Notes feeling weird today however had trouble describing her emotions. Appears to be anxiety. States that the last few days have been more challenging. No identifiable cause. Also reported decreased motivation stating that it has been challenging to get moving. Able to identify some upcoming positives. Group provided feedback on progress not being linear and encouraged her to utilize skills to make it through difficult parts. Pt benefited from this. Will continue in IOP to prevent decompensation and to stabilize mood. Narrative Note: []
--- NOTE | 2019-03-01 10:10 | BH.SGPN.GN ---
Behaviors/Verbalizations/Mental Status: []Client alert and oriented, neatly dressed and groomed. Eye contact good. Motor activity appropriate. Speech within normal limits. Affect constricted, mood anxious. Thoughts linear, logical, no signs of hallucinations or delusions. Client Response/Progress/Benefit: []Client responded well to session, attentive and providing occasional input. Client connected with the group topic of crisis and did well to work with group to define crisis. Client identified examples of potential crisis to include emergencies, hardships, and . Connected with discussion on how coping with external crisis by using unhealthy coping skills could lead to personal crisis. Group identified unhealthy coping skills to include; substances, isolation, impulsive behaviors, yelling, and pushing people away. Client shared unmanaged, crisis can make a person overreact to even small situations. Group identified warning signs for crisis which included; increased sleep, irritability, decreased appetite, and negative thoughts. Client completed the personal warning signs worksheet and identified crisis warning signs to include; loss of memory, lack of self-care, and apathy. Benefited from group by increasing awareness of crisis and personal warning signs. Progress noted as client continues to be sober and reports improved mood. Will continue IOP tx to promote gains and further improve symptom management to prevent relapse. Narrative Note: []
--- NOTE | 2019-03-01 13:11 | BH.MTP_ITS ---
Treatment Plan Review Date of Admission:: 01/31/19 Date of Treatment Plan Review:: 03/01/19 Admitting Diagnoses:: Major depressive disorder, single episode severe without psychosis. ( F 32.2). Rach, history of methamphetamine abuse full remission for 6 months., history of alcohol abuse?sober for 5 years. History of somatizations disorder Current Diagnoses:: Major depressive disorder, single episode severe without psychosis. ( F 32.2). Rach, history of methamphetamine abuse full remission for 6 months., history of alcohol abuse?sober for 5 years. History of somatizations disorder Patient's Response to Treatment:: Client is responding well to treatment as shown by her overall consistent attendance, active participation, and reduction of DSM-5 symptoms since admission. Client is an active participant in group sessions as she is attentive, contributes to discussions, and provides supportive statemetns to peers. In individual sessions, client is receptive to learning new coping skills, practicing skills during session, and she is engaged in her treatment. Client often reports she feels grateful for IOP because she did not know ?about these coping skills before? and now client feels more able to deal with daily stressors.. Client has been demonstrating consistent application of coping skills outside of group and is motivated to maintain sobriety and reduce her mental health symptoms. Client?s high involvement in her treatment is likely a contributor to her progress thus far. Client self- identified her progress as feeling more present and joyful, reduced depression and isolation, increased self-awareness, decreased anxiety, and a positive outlook on life. Client also continues to be sober and reports no symptoms of trichotillomania. Client has been working on setting boundaries with her co- workers and her significant other. At review, client?s DSM-5 symptom scores decreased by 43%. Client?s DSM-5 scores for depression decreased 75%, from 8/8 at admission to 2/8 at review. Client?s anxiety decreased by 50% since admission as well going from 6/12 to 3/12 at discharge. Client recognizes she can continue to improve on challenging her guilt and being kinder to herself. Status of Current Problems and Symptoms: Client continues to endorse guilt, negative thinking, unrealistic expectations of self, and difficulty concentrating. Client also reports occasional irritability and ongoing anxiety of reduced intensity. Client's relationships have improved, but she wants to continue to work on setting boundaries and being more assertive in her communication. Problem #1 Problem Name:: Pt will decrease depressive symptoms, hopelessness, and negative thinking Status of Goals:: Objective 1- complete, but recommended to continue working on this goal. Client can identify healthy coping skills to better manage depressive symptoms such as opposite action, self-care, and setting small goals. Client?s DSM-5 scores have decreased by 75% since admission. Objective 2- partially complete. Client has awareness of negative thoughts that reinforce feelings of self-blame and low self-esteem. Client can also challenge these thoughts on a more consistent basis, but she still struggles with unjustified guilt and self- forgiveness. Team Recommendations:: Client encouraged to continue working on this treatment goal to reinforce healthy coping skills and continue to decrease depressive symptoms. Client and therapist currently working on maintenance strategies, boundaries, and challenging negative thoughts that cause guilt. Client encouraged to establish aftercare and maintain sobriety. Problem #2 Problem Name:: Pt will reduce duration, intensity, and frequency of anxiety Status of Goals:: Objective 1- complete, but ongoing work recommended. Client can identify anxiety triggers and she reports actively using calming coping skills such as deep breathing, positive self-talk, and focusing on the positives. Client?s DSM-5 symptoms for anxiety decreased by 50% since admission. Objective 2- complete. Client has created a relapse prevention plan which includes triggers, coping skills, resources for recovery, and supports. Client continues to report sobriety. Team Recommendations:: Client encouraged to continue working on this treatment goal to reinforce healthy coping skills and continue to decrease frequency and duration of anxiety symptoms. Client and therapist currently working on reinforcing calming coping skills, assertive communication, and self-care. Client encouraged to establish aftercare and ongoing sobriety.
--- NOTE | 2019-03-01 14:24 | BH.MDN_ITS ---
Multi-Disciplinary Note - Note 30-min Individual Time Started:: 11:29 Date: 03/01/19 Purpose of session/treatment goals addressed:: The purpose of this session was to address current symptoms, stressors, and application of coping skills. Another goal was to practice calming coping skills. Other topics included; differentiating between self-care and isolation. Eye Contact:: Good Motor Activity:: Appropriate Appearance:: Neat Speech:: Appropriate Mood:: Anxious Affect:: Congruent Thoughts:: Linear, Logical, No evidence of hallucinations/delusions noted Staff Interventions:: Therapist used active listening and open-ended questions to explore client's current stressors, symptoms, and application of coping skills. Therapist reflected on client's progress and used strengths perspective to empower client. Therapist taught client different calming coping skills and practicing progressive muscle relaxation with client. Therapist helped client distinguish the different between self-care versus isolation. Therapist gave client questions to ask herself to increase self-reflection. Therapist discussed expectations for progress and encouraged client to be realistic with her expectations. Therapist gave client homework to practice self-reflecting and PMR. Client Response:: Client responded well to session, open to meeting with therapist. Client continues to report that her mood and energy levels have improved since starting IOP and practicing coping skills. Client shared she continues to feel tense at times, but she has been able to use positive self- talk and deep breathing to reduce anxiety in the moment. Client receptive to learning and practicing another calming coping skill, progressive muscle relaxation. Client did well to practice purposely tensing and relaxing different muscle groups while deep breathing. Client willing to practice this over the weekend. Client shared she is struggling with knowing the difference between self-care and isolation. Client reported ?sometimes I want to be lazy but is that me being depressed?? Client and therapist discussed the differences between taking breaks for self-care versus ignoring responsibilities due to isolation or avoidance. Client able to identify self-reflection questions to ask herself to help distinguish the difference. Client plans to ask herself ?why am I doing this?? ?will this make me feel better?? Client willing to practicing self- reflection over the weekend. Risks/Concerns:: Client denies any suicidal ideations, plan, or intent as of 03/01/19. Future oriented and hopeful throughout session. Progress Toward Goals/Plan:: Client is demonstrating progress towards her treatment goals as shown by her report of ongoing sobriety and improved mood. Client stated she has been able to decrease her tension more easily using self- talk. Client receptive to discussion on self-care versus isolation and willing to apply self-reflection strategies. Client continues to endorse guilt, negative thinking, unrealistic expectations of self, and difficulty concentrating. Will continue tx to maintain sobriety, reduce negative self-talk, and improve ability to manage mental health symptoms. Time Stopped:: 11:55
--- NOTE | 2019-03-07 09:05 | BH.SGPN.GN ---
Behaviors/Verbalizations/Mental Status: []Client alert and oriented, neatly dressed and groomed. Eye contact good. Motor activity appropriate. Speech within normal limits. Affect congruent, mood euthymic. Thoughts linear, logical, no signs of hallucinations or delusions. Reviewed client?s symptom tracker, no risk for suicidal ideation, plan, or intent as of 03/07/19. Client Response/Progress/Benefit: []Client responded well to session, attentive and providing supportive statements to peers. Client reports feeling ?wonderful? today. Client shared she is starting to feel like her old self again and she recognizes she is paying attention to the little things again. Client reported she is learning to relax and has been using deep breathing consistently. Client reported self-talk has also helped client better regulate her emotions. Client reported she does not have many stressors, but she is concerned about maintaining progress after she discharges from IOP. Appeared to benefit from reflecting on gains. Will continue IOP tx to promote mood stability, sobriety, and use of healthy coping skills.? Narrative Note: []
--- NOTE | 2019-03-07 10:20 | BH.SGPN.GN ---
Behaviors/Verbalizations/Mental Status: [Client alert and oriented, casually dressed and groomed. Eye contact good. Motor activity restless. Speech within normal limits. Affect congruent, mood anxious/euthymic. Thoughts linear, logical, no signs of hallucinations or delusions. ] Client Response/Progress/Benefit: [Client was an active participant during session AEB taking notes, providing input, and asking questions when needing clarification. Client appeared to connect with the quote and discussed the importance of celebrating small strides forward, indicating that ?if you don?t realize progress it sets you back?. Client listened as the group defined goals and pt discussed the benefits of developing goals. Shared one benefit as increasing self-confidence and feeling proud of self. Client expressed relating to some of the identified consequences of not setting and working towards goals on mental health. Share that this can keep you stuck and lead to agitation. Attentive during education on developing SMART goals and did well to assist group in defining and processing the various characteristics of each SMART goal criteria. Benefited from increasing awareness of goal-setting methods and practicing goal setting. Client has been demonstrating progress with managing her symptoms of anxiety and reducing urges to engage in unhealthy means of coping by applying healthy coping and thought challenging skills. Will continue IOP tx to prevent decompensation, promote change behaviors, and continue to stabilize mood.?] Narrative Note: []
--- NOTE | 2019-03-08 09:06 | BH.SGPN.GN ---
Behaviors/Verbalizations/Mental Status: [Client alert and oriented, casual dress - wearing winter cap to cover hair, hygiene appropriate. Eye contact good. Motor activity appropriate. Speech within normal limits. Affect congruent, mood euthymic. Thoughts linear, logical, no signs of hallucinations or delusions. Reviewed client?s symptom tracker, no signs of suicidal ideation, plan, or intent as of today. ] Client Response/Progress/Benefit: [Pt was an active participant in group discussion, providing input and openly processing with the group. Emotion for today is proud. Pt indicated that she had a mental health win yesterday in which she was able to finally accept for herself the fact that she has struggled with addiction in her past and that it no longer has to control her. Shared feeling empowered and relieved in her ability to take steps in owning her past rather than denying or avoiding it. Reports additional mental health win as using positive self-talk and encouraging statements to remind herself that she can learn to cope with emotions in healthy ways rather than attempt to numb or hide from them. Current stressor is anxiety about continuing to maintain the gains she has made. Progress noted in pt ability to identify specific skills for managing anxiety and self-doubt, though struggle with consistent application of such. Continued IOP tx recommended to improve anxiety management skills, increase consistent skill application, and prevent decompensation. ] Narrative Note: []
--- NOTE | 2019-03-08 10:12 | BH.SGPN.GN ---
Behaviors/Verbalizations/Mental Status: []Client alert and oriented, neatly dressed and groomed. Eye contact good. Motor activity appropriate. Speech within normal limits. Affect constricted, mood dysthymic. Thoughts linear, logical, no signs of hallucinations or delusions. Client Response/Progress/Benefit: []Client was an active participant during session, connecting to the quote and peers. Group discussed the MH benefits to having open and clear communication with support and providers. Client reported effective communication positivity impacts one?s mental health and relationships. Client shared she struggles with communicating effectively and she has said things she does not mean before. Client agreed with peers that one can assume that their supports know how to help them, when they might not. Group discussed the barriers that tend to impact clear and open communication which include: fear, negative thinking, unregulated emotions, poor body-language, and tone of voice. Client was attentive during psycho-education on communications styles (aggressive, passive, passive-aggressive, and assertive). Also contributed to the pros and cons to each communication style. Client seemed to benefit from increased insight on how the way she communicates impacts her mental health. Progress noted as client continues to report sobriety and improving mood. Client currently reports difficulty with negative self-talk and self-forgiveness. Will continue IOP tx to decrease negative self-talk and promote gains. Narrative Note: []
--- NOTE | 2019-03-08 11:16 | BH.SGPN.GN ---
Behaviors/Verbalizations/Mental Status: []Client alert and oriented, neatly dressed and groomed. Eye contact good. Motor activity appropriate. Speech within normal limits. Affect constricted, mood dysthymic. Thoughts linear, logical, no signs of hallucinations or delusions. Client Response/Progress/Benefit: []Client active participant AEB her attentiveness during discussion and engagement in activity. Client reported she is mostly a passive or an aggressive communicator. Client reported this communication style causes negative consequences for both her mental health and relationships, but she is working on improving her communication skills. Client participating during the activity and able to connect how ineffective communication negatively impacts mental health and relationships. Client recognized that during the activity she started to shut down when she did not know how to communicate. However, client reported she challenged herself to ?at least say something.? Client shared she wants to work on forgiving herself for her past. Client reports belief this will help her communicate better with her supports. Client seemed to benefit from increased insight into how her communication style impacts her mental health and relationships. Client progressing as shown by her report ongoing sobriety and application of healthy coping skills. Client continues to struggle with negative self-talk that reinforces depressive symptoms. Narrative Note: []
--- NOTE | 2019-03-09 09:05 | BH.SGPN.GN ---
Behaviors/Verbalizations/Mental Status: [Client alert and oriented, casual dress - wearing winter cap to cover hair, hygiene tended to. Eye contact good. Motor activity appropriate. Speech within normal limits. Affect congruent, mood euthymic and positive. Thoughts linear, logical, no signs of hallucinations or delusions. Reviewed client?s symptom tracker, no signs of suicidal ideation, plan, or intent as of today. ] Client Response/Progress/Benefit: [Pt was receptive of session, actively listening throughout and providing input to the group. Emotion for today is ?relaxed?. She indicated that this was due to increased ability to self-regulate and noted observing increased improvement in her ability to manage symptoms of anxiety. Expressed that she has noticed this specifically when dealing with work related stressors and indicated an ability to check-in with herself during those times and remind herself ?slow down, this isn?t as big a deal as you?re making it?. Pt able to identify mental health wins despite current stressors. Wins identified as continuing to use self-talk statements when beginning to feel anxious about running late or not knowing something. Additional win noted as practicing deep breathing. Pt appeared to benefit from the supportive feedback and encouragement provided by the group. Pt progress noted in reported application of skills learned outside tx environment. Recommended continued tx to prevent decompensation, continue to increase emotion regulation and reduce anxiety, as well as promote healthy change behaviors. ] Narrative Note: []
--- NOTE | 2019-03-09 13:56 | BH.MDN_ITS ---
Multi-Disciplinary Note - Note 45-min Individual Time Started:: 10:39 Date: 03/09/19 Purpose of session/treatment goals addressed:: The purpose of this session was to address current symptoms, stressors, and application of coping skills. Another goal was to challenge negative self-talk and practice self-forgiveness. Eye Contact:: Good Motor Activity:: Appropriate Appearance:: Neat Speech:: Appropriate Mood:: Euthymic Affect:: Congruent, Other - tearful when discussing self-forgiveness. Thoughts:: Linear, Logical, No evidence of hallucinations/delusions noted Staff Interventions:: Therapist used active listening and open-ended questions to explore client?s symptoms, stressors, and application of coping skills. Therapist used strengths perspective to empower client on her use of healthy coping skills. Therapist explored negative thoughts that continue to reinforce guilt and keep client feeling stuck. Therapist used a self-forgiveness worksheet and exercise to help client identify barriers to self-forgiveness and help client see the physical and mental impacts of not forgiving herself. Therapist helped client reframe distorted thoughts and identify self-compassion statements to promote self-forgiveness. Client Response:: Client responded well to session, open to meeting with therapist. Client shared she was able to use self-talk this morning which prevented client from isolating. Client reported overall, she is doing well, but she continues to struggle with guilt about her past. Client shared it is easy for her to forgive others, but it is a lot more difficult to challenge personal negative thoughts and forgive herself. Client reported she still has thoughts of I used my brother, I wasn't the best mother, and I wasn't nice to my parents. With help from therapist, client was able to see that she has been holding herself to a double standard and that other people have done these things as well, but that does not make them bad people. Client able to verbalize her conflicting emotions about her past, especially about her mother. Through verbal processing, client was able to get to a point where she forgives her mother and is starting to forgive herself. Client participated in an activity where client carried books that represented the guilt and burdens client carries by not forgiving herself. Client became tearful and reported this activity helped her realize how much not forgiving herself and moving on has negatively impacted client. Client willing to work on the self-forgiveness worksheet. Client created positive self-talk statements to help combat distortions that prevent forward progress. Client reminded herself that she deserves the forgiveness she gives others. Risks/Concerns:: Client denies any suicidal ideations, plan, or intent as of 03/09/19. Progress Toward Goals/Plan:: Client is demonstrating progress towards her treatment goals as shown by her report of ongoing sobriety and improved mood. Client continues to endorse guilt, negative thinking, and unrealistic expectations of self which have caused client to feel stuck at times. Client shared she also has a difficult time forgiving herself for her past decisions, but she did well during session today to practice self-forgiveness. Will continue tx to maintain sobriety, reduce negative self-talk, and increase self- forgiveness. Time Stopped:: 11:21
--- NOTE | 2019-03-14 09:06 | BH.SGPN.GN ---
Behaviors/Verbalizations/Mental Status: [Client alert and oriented, casual dress - wearing a winter cap, hygiene tended to. Eye contact good. Motor activity appropriate. Speech within normal limits. Affect congruent, mood anxious, irritable. Thoughts linear, logical, no signs of hallucinations or delusions. Reviewed client?s symptom tracker, no signs of suicidal ideation, plan, or intent as of today.?] Client Response/Progress/Benefit: [Pt was an active participant in group discussion, providing input and openly processing with the group. Emotion for today is tense as pt explained she has been experiencing increased stress in the workplace. Pt did well to problem solve ways she may reduce her current stress and prevent becoming dysregulated in the workplace. Pt did well to identify two current mental health positives which included using calming skills she has learned in IOP tx to manage agitation while at work on previous date. Additional positive identified as using the bracelet her son gave her as a reminder to focus on the positives. Pt appeared to benefit from the structured supportive environment. Progress noted in pt self-report as well as observable improved ability to apply healthy coping skills to better regulate emotions. Pt recommended continued IOP tx to continue to promote change behaviors, increase consistent skill application, and prevent decompensation. Narrative Note: []
--- NOTE | 2019-03-14 10:20 | BH.SGPN.GN ---
Behaviors/Verbalizations/Mental Status: []Eye contact is good. Motor activity is appropriate. Appearance is casual. Speech is Appropriate. Mood is anxious. Affect is congruent. Thoughts are linear and logical. No evidence of psychosis. Client Response/Progress/Benefit: []Participated throughout group discussions providing input and listening attentively to peers comments. Attentive during psychoeducation about fixed mindset. Worked with group to identify how a fixed mindset can impact our mental health which included: not trying new things, believing can't get better, keeping us stuck, decreasing motivation, and avoiding challenges. Pt identified one fixed thought she has is, I'm a bad person because of my past choices. Pt stated this fixed thought makes her feel guilty and increases her depressive symptoms. Benefited from group by increasing awareness of how one's mindset impacts our mental health. Pt to continue IOP level of care to continue utilization of healthy coping skills, challenge distorted thoughts, and prevent decompensation. Narrative Note: []
--- NOTE | 2019-03-14 11:23 | BH.SGPN.GN ---
Behaviors/Verbalizations/Mental Status: []Client alert and oriented, neatly dressed and groomed. Eye contact good. Motor activity appropriate. Speech within normal limits. Affect congruent, mood anxious. Thoughts linear, logical, no signs of hallucinations or delusions Client Response/Progress/Benefit: []Client attentive, engaged during discussion and activity. Contributed to discussion on how the group was successful in the activity because they were encouraging and had growth-mindset thoughts. Client did well to apply cognitive restructuring to reframe previously identified fixed thoughts, transforming her fixed thought from previous group to ?I?m not a bad person.? Client participated as the group brainstormed strategies to promote growth-mindset thinking. Client selected the strategy of practicing self-compassion to improve her growth-mindset thinking. Benefitted from discussing benefits of growth mindset and brainstorming strategies for prompting growth-mindset. Client displaying progress in ability to maintain stability, maintain sobriety, and regulate her emotions. Will continue IOP tx as client can continue to reduce guilt and negative self-talk. Narrative Note: []
--- NOTE | 2019-03-15 09:05 | BH.SGPN.GN ---
Behaviors/Verbalizations/Mental Status: [] Eye contact is good. Motor activity is appropriate. Appearance is casual. Speech is Appropriate. Mood is euthymic. Affect is full. Thoughts are linear and logical. No evidence of psychosis. Reviewed daily check in sheet and no reports of suicidal ideations or intent. Client Response/Progress/Benefit: [] Pt participated at times during the group discussion. Emotion for today is patricia ...at peace Shared that she was assertive with a co-worker yesterday which she is very proud of stating this was a big win for me. Identified how this action was beneficial and how avoiding the issue could have led to rumination and more distress. Notes that the interaction with co-worker was positive. Also overcame another obstacle regarding visiting family which she had been avoiding. Notes again how being assertive and not avoiding has improved her mental wellness. Progress noted per pt report. Benefited from group feedback, support, and encouragement. Will continue in IOP to maintain gains and increase healthy coping strategies. Narrative Note: []
--- NOTE | 2019-03-15 11:14 | BH.SGPN.GN ---
Behaviors/Verbalizations/Mental Status: [Client alert and oriented, casually dressed and well groomed. Eye contact good. Motor activity appropriate. Speech within normal limits. Affect congruent, mood euthymic, anxious. Thoughts linear, logical, no signs of hallucinations or delusions.] Client Response/Progress/Benefit: [Client responded well to session, active participant. Client further processed the group activity and shared that taking time to remain patient helped the group accomplish the activity. Client completed the fear of failure worksheet and reported that fear of failure is keeping her from advocating for herself in the work place. Client reported her barriers for overcoming her fear of failure are second guessing and anxiety/rumination . Client shared she has been able to bounce back from setbacks in the past and the positive thing she has learned from past failures is that failure can make you more resilient. Client selected a goal to help her overcome her fear of failure. Client appeared to benefit from gaining awareness and setting a goal to reduce fear of failure. Client showing progress in utilizing healthy coping to skills to manage emotions. Recommended continued IOP tx to prevent decompensation, improve mood management, and increase anxiety coping skills.] Narrative Note: []
--- NOTE | 2019-03-15 14:03 | BH.MDN_ITS ---
Multi-Disciplinary Note - Note 30-min Individual Time Started:: 10:22 Date: 03/15/19 Purpose of session/treatment goals addressed:: The purpose of this session was to address current stressors, symptoms, and application of coping skills. Another goal was to begin client's maintenance plan and discuss aftercare. Eye Contact:: Good Motor Activity:: Appropriate Appearance:: Neat Speech:: Appropriate Mood:: Euthymic Affect:: Congruent Thoughts:: Linear, Logical, No evidence of hallucinations/delusions noted Staff Interventions:: Therapist used active listening and open-ended questions to explore client's current symptoms, stressors, and application of coping skills. Therapist used cognitive restructuring to help client identify and combat distorted thoughts. Therapist used strengths perspective to empower client on her progress and gave client a maintenance plan to begin. Therapist gave client a list of options of outpatient counselors for aftercare. Therapist gave client homework to call her PCP. Client Response:: Client responded well to session, open to meeting with therapist. Client reported she continues to feel thankful that she came IOP because her mood has improved, and she has been able to appreciate life again. Client reported she now recognizes the benefits of ongoing maintenance and is willing to see an outpatient counselor. Therapist gave client several options and client selected a therapist that client believes will be a good fit for her. Client reported she is nervous about seeing a new therapist, but client was able to easily challenge her anxious thoughts. Client and therapist reviewed st rategies to combat distorted thoughts and improve positive self-talk. Client receptive to working on the maintenance plan provided by therapist. Client and therapist discussed warning signs to stay aware of for both anxiety and depression. Client identified her warning signs as isolation, low energy, negative self-talk, and anhedonia. Client also began identifying coping skills that can help client break unhealthy maintenance cycles. Client's coping skills included: opposite action, positive self-talk, and deep breathing. Client receptive to finishing her maintenance plan for homework. Risks/Concerns:: Client denies any suicidal ideations, plan, or intent as of 03/15/19. Progress Toward Goals/Plan:: Client continues to demonstrate progress towards her treatment goals as shown by her report of ongoing sobriety, reduce anxiety, and decreased depression. Client continues to report use of healthy coping skills which has helped client better manage irritability and conflict. Client?s symptoms have decreased in intensity and durations, but she continues to experience ruminative anxiety, guilt about her past, and negative self-talk. Client will continue IOP tx to promote gains, maintain sobriety, and further combat negative thoughts. Time Stopped:: 10:57
[2019-04-11 12:42] VITALS: BP 160/96; PULSE 88; RESP 18
== END 2019-03-15 23:59 ==
LOC: BHIOP 09:00
PROVIDERS: Family Provider Family Medicine; PCP Family Medicine; Referring Provider Psychiatry & Neurology Psychiatry; Visit Provider Psychiatry & Neurology Psychiatry
DX: F33.2 Major depressive disorder, recurrent severe without psychotic features (principal); F10.21 Alcohol dependence, in remission; F15.21 Other stimulant dependence, in remission
CPT/HCPCS: H0035; 90832; 90834; 90853

== ENCOUNTER 2019-03-16 09:00 | Outpatient (RCR) | payer OTHER, SELFPAY ==
--- NOTE | 2019-03-16 09:05 | BH.SGPN.GN ---
Behaviors/Verbalizations/Mental Status: []Client alert and oriented, casually dressed and groomed. Eye contact good. Motor activity appropriate. Speech within normal limits. Affect constricted, mood dysthymic, slightly anxious Thoughts linear, logical, no signs of hallucinations or delusions. Reviewed client?s symptom tracker, no risk for suicidal ideation, plan, or intent as of today. Client Response/Progress/Benefit: []Pt was an engaged participant in group discussion, providing input and openly processing with the group. Emotion for today is sad. Pt identified a mental health positive was recognizing she was ruminating yesterday evening while at work. Pt stated she initially starting researching on her phone to reassure herself she was okay. Pt reported she was able to stop herself from researching because she has learned from therapy that reassurance makes her anxiety worse. Pt stated she has had some negative thoughts towards herself for spending anytime researching, but is trying to have self-compassion. Progress noted in pt ability to actively apply anxiety reduction skills outside of tx environment. Continued IOP tx recommended to continue application of healthy coping skills, identify and reframe distorted thought patterns, and prevent decompensation. Narrative Note: []
--- NOTE | 2019-03-16 10:15 | BH.SGPN.GN ---
Behaviors/Verbalizations/Mental Status: [Client alert and oriented, casually dressed and appropriately groomed. Eye contact good. Motor activity appropriate. Speech within normal limits. Affect congruent, mood euthymic. Thoughts linear, logical, no signs of hallucinations or delusions] Client Response/Progress/Benefit: [Client active participant in group AEB providing relevant input, listening attentively to peers, and taking notes throughout. Group worked together to identify barriers to making changes or taking action in their lives which included: fear of the unknown, lack of awareness of problem, fear of how others will react, fear of leaving one?s comfort zone, denial of need to change, and lack of motivation. Group also identified the benefits of change which included; improved relationships, improved sense of hope for future, increased confidence, and improved sense of emotion regulation. Client identified areas she would like to take back control over to include: self-confidence, lack of follow-through, and ruminating on other?s opinions of her. Benefited from group through awareness of personal areas she wants to improve and benefits to taking action towards mental wellness. Progress noted in personal reflection of areas she would benefit from making changes for her mental health. Pt is recommended continued IOP level of care to reinforce healthy coping skills, promote healthy change behaviors, and improve emotional regulation.] Narrative Note: []
--- NOTE | 2019-03-16 11:18 | BH.SGPN.GN ---
Behaviors/Verbalizations/Mental Status: []Client alert and oriented, neatly dressed and groomed. Eye contact fair. Motor activity appropriate. Speech within normal limits. Affect constricted, mood anxious. Thoughts linear, logical, no signs of hallucinations or delusions. Client Response/Progress/Benefit: []Client was an active participant AEB client participating in discussion and working well in her small group. Client attentive and providing input to discussion of the different zones of taking action as well as the pros and cons of each. Client agreed with peers that it best to push oneself, but one does not want to set themselves up for failure. Client completed worksheet in which she identified a problem area to focus on, a SMART goal to help work on problem area, and identify additional supports needed to be successful. Client identified she wants to stop putting things off and increase her follow through. Client identified a small goal which is to communicate her boundaries with her significant other once this week. Client stated additional supports needed to be successful with goal include: positive self-talk and reminding herself of why she wants to follow through. Appeared to benefit from creating a small goal to help client increase follow through which will benefit her mental health. Will continue IOP tx as client can continue to benefit from increasing mood stability, maintaining sobriety, and reducing anxiety symptoms. Narrative Note: []
--- NOTE | 2019-03-21 09:05 | BH.SGPN.GN ---
Behaviors/Verbalizations/Mental Status: []Client alert and oriented, casually dressed and groomed. Eye contact good. Motor activity appropriate. Speech within normal limits. Affect constricted, mood anxious. Thoughts linear, logical, no signs of hallucinations or delusions. Reviewed client?s symptom tracker, no risk for suicidal ideation, plan, or intent Client Response/Progress/Benefit: []Pt engaged in session as shown by pt openly expressing thoughts and emotions. Pt identified emotion for today as happy. Pt identified a mental health positive as using self-talk last night at work to remind her that her boss' reaction does not have to dictate how pt feels. Pt stated she no longer wants to allow negative interactions with her boss to impact her mood and day. Pt stated another mental health positive as sitting down with her significant other for dinner that did not result in them arguing with each other. Pt identified current stressor is work, but stated by using her skills she is reducing the size of her work stress. Pt showing progress with increased awareness of distorted thoughts and improved ability to challenge negative perspective. Pt to continue IOP to continue use of healthy coping, challenge negative thoughts, and prevent decompensation. Narrative Note: []
--- NOTE | 2019-03-21 10:22 | BH.SGPN.GN ---
Behaviors/Verbalizations/Mental Status: []Client alert and oriented, neatly dressed and groomed. Eye contact good. Motor activity appropriate. Speech within normal limits. Affect congruent, mood euthymic. Thoughts linear, logical, no signs of hallucinations or delusions. Client Response/Progress/Benefit: []Client was an active participant as evidenced by providing input through session and listening attentively to peers. The group discussed the quote and how anger is not good or bad, rather it is one?s response to anger. Client worked with the group to define anger and its causes, as well as the internal and external impacts of anger. Group identified potential consequences of unhealthy management of anger to include: losing relationships, guilt, increased stress, and worsening mental health symptoms. Client identified underlying factors of her anger which included: guilt, pride, grief, and feeling overwhelmed. Client stated shutting down, crying, yelling, and being sarcastic are common responses she has when feeling angry. Benefited from group by increasing awareness of the negative impacts of unmanaged anger and underlying factors that contribute to her personal anger. Progress noted as client continues to report improved mood stability, but she can continue IOP tx to promote gains. Narrative Note: []
--- NOTE | 2019-03-21 11:53 | PCM.BH.PN ---
Progress Note Progress Note: History of Present Illness/Interim History: [] Patient is a 58-year-old female who is seen in follow-up for depression and anxiety. She was last seen about 1 month ago. The patient states that she feels she is really making progress in the IOP program. She says that her mood is much better and much less depressed than she was before. In fact she says that she does not feel her mood is really depressed anymore. She feels she has a long way to go and her request of self improvement but feels she has made much progress during her IOP participation. She has much less anxiety and has much less skin picking what at all. She states she has not been picking her skin or pulling her hair. She had a recent appointment with her accounts payable bookkeeper and they were very impressed with the progress she is made. She denies any drug use whatsoever. She throughout any leftover drugs she had in her house. She is very committed to her sobriety in the future. She enjoyed seeing her grandkids this weekend and looks forward to continue to enjoy them. She has been able to get out of the house and do things. Denies any passive thoughts of , suicidal ideation or homicidal ideation. Current Psychiatric Medications: [] Zoloft 150 mg p.o. daily (about 5 weeks on this dose) Mental Status Examination: [] Patient is a 58-year-old female who appears normal for stated age. She is casually dressed and groomed with good hygiene and is cooperative during the interview. Eye contact is good. Speech is normal rate and rhythm and fluent with no pressure. Mood is euthymic. Affect is full and euthymic. Thought processes: Organized and goal-directed. Thought content: No evidence of suicidal or homicidal ideation. No evidence of hallucinations or delusions. Judgment: Intact. Insight: Good. Impulsivity low. Diagnoses: [] [place] I: [] Major depressive disorder, single episode severe without psychosis (resolving); history of methamphetamine abuse; history of alcohol abuse (sober for 5 years), history of somatizations disorder [place] II: [] Negative [place] III: [] History of skin cancer [place] IV:[]] Primary support Plan: [] Patient will continue the IOP program as the structure, support, education, individual and group therapy are necessary to prevent worsening of her symptoms. She felt safe during the interview and if she does not feel safe in the future she will contact the IOP program or go to the emergency room. The risks, options, possible complications and side effects of medication were discussed with the patient and she understands and accepts these. She will continue her Zoloft 150 mg p.o. daily. She will continue to stay sober from any drug or alcohol use. She will follow-up with her outpatient medical and psychiatric providers. She has refills on her Zoloft.
--- NOTE | 2019-03-22 10:20 | BH.SGPN.GN ---
Behaviors/Verbalizations/Mental Status: []Client alert and oriented, neatly dressed and groomed. Eye contact good. Motor activity appropriate. Speech within normal limits. Affect full, mood euthymic. Thoughts linear, logical, no signs of hallucinations or delusions. Client Response/Progress/Benefit: []Client responded well to session, attentive and participating in discussion. Client commented on quote and shared certain ?dee? in life are placed by external circumstances, but some dee are put up by us ?for protection to not be hurt.? Participated in discussion of things that can keep people feeling trapped or stuck in life including; fixed thinking, alcohol and drugs, lack support, and lack of confidence. Group discussed the connection between thoughts, emotions, and behaviors as well as how negative thinking can keep a person stuck. Client attentive during psychoeducation on maintenance cycles and reported she has been stuck in a depressive maintenance cycle before. Client able to identify negative thoughts that have reinforced depression and kept client feeling trapped. Client shared a negative thought that has kept her stuck such as ?they are trying to upset me.? Appeared to benefit from gaining awareness of how negative thoughts reinforce mental health symptoms and keep people stuck. Progress noted in client?s report of overall improved mood and less depression. Will continue IOP to promote mood stability and reinforce healthy coping skills. Narrative Note: []
--- NOTE | 2019-03-22 11:22 | BH.SGPN.GN ---
Behaviors/Verbalizations/Mental Status: []Client alert and oriented, casual in appearance. Eye contact fair. Motor activity appropriate. Speech within normal limits. Affect congruent, mood anxious. Thoughts linear, logical, no signs of hallucinations or delusions. Client Response/Progress/Benefit: []Client responded well to session, quiet, participating when prompted. Client appeared to connect with how negative thinking can keep a person stuck. Client struggled with identifying a specific thought that keeps her stuck. Pt able to identify personalizing others comments and guilt as things that keep her stuck. With assistance pt stated one that impacts her is when she thinks That person is talking about me. Pt stated sometimes she can take other people's comments out of context which leads to increased anger and frustration towards others. Pt recognizes importance of not allowing other's actions impact her emotions. Client appeared to benefit from learning about how to challenge negative thinking. Client progressing with decreased anxious symptoms and applying healthy skills outside treatment environment. Client to continue IOP to maintain gains, continue utilization of healthy coping, and prevent decompensation. Narrative Note: []
--- NOTE | 2019-03-22 13:36 | BH.MDN_ITS ---
Multi-Disciplinary Note - Note 30-min Individual Time Started:: 09:31 Date: 03/22/19 Purpose of session/treatment goals addressed:: The purpose of this session was to address current stressors, symptoms, and application of coping skills. Another goal was to challenge negative thoughts and set up aftercare. Eye Contact:: Good Motor Activity:: Appropriate Appearance:: Neat Speech:: Appropriate Mood:: Euthymic Affect:: Congruent Thoughts:: Linear, Logical, No evidence of hallucinations/delusions noted Staff Interventions:: Therapist used active listening and open-ended questions to explore client's current symptoms, stressors, and application of coping skills. Therapist used cognitive restructuring to help client identify and combat distorted thoughts. Therapist used strengths perspective to empower client on her progress and use of coping skills. Therapist and client called [facility] during session to set up aftercare for client. Therapist gave client homework to challenge personalizations. Client Response:: Client responded well to session, open to meeting with therapist. Client shared she has been utilizing her coping skills, especially self-talk. 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 Client stated she has been reminding herself to just let it go but finds that she continues to ruminate and think about it. Therapist and client discussed taking care of emotions rather than trying to just not think about them. Client able to identify reflection questions she can ask herself to help client stop ruminating. Client also recognizes that if these issues with her mobile product manager persist, client will need to confront the conflict. Client reported she continues to struggle with personalizing which she recognizes is a cognitive distortion. Client and therapist discussed techniques to challenge personalization. Client receptive to calling [facility] to schedule with Sandra Zazueta for outpatient counseling. Client left a message and will hopefully hear back by the end of the week. Client was able to get an appointment with her PCP for ongoing medication management. Risks/Concerns:: Client denies any suicidal ideations, plan, or intent as of 03/22/19. Progress Toward Goals/Plan:: Client continues to demonstrate progress towards her treatment goals as shown by her report of ongoing sobriety, reduce anxiety, and improved mood. Client continues to report use of healthy coping skills which has helped client better manage irritability and conflict. Client?s symptoms have decreased in intensity and durations, but she continues to experience ruminative anxiety and negative self-talk. Client will continue IOP tx and graduate next week. Client can benefit from another week of IOP to promote gains, establish aftercare, and further increase mood stability. Time Stopped:: 09:55
--- NOTE | 2019-03-23 09:05 | BH.SGPN.GN ---
Behaviors/Verbalizations/Mental Status: []Client alert and oriented, neatly dressed and groomed. Eye contact good. Motor activity appropriate. Speech within normal limits. Affect congruent, mood euthymic. Thoughts linear, logical, no signs of hallucinations or delusions. Reviewed client?s symptom tracker, no risk for suicidal ideation, plan, or intent as of 03/23/19. Client Response/Progress/Benefit: []Client responded well to session, connecting with peers and providing positive feedback. Client reports feeling ?happy? today and stated that overall her week has been positive. Client reported there were highs and lows throughout her week, but she has become much more equipped to manage stressors. Client identified her mental health wins today which included: ?feeling real emotions again,? being able to move past a stressful situation at work, and actively uses healthy coping skills. Client reported she does not have any major stressors this week, but she would like to continue working on maintaining the progress she has made while in IOP. Client reported self-reflection has been beneficial for her throughout her time in IOP and it has helped client be more proactive and hopeful. Appeared to benefit from connecting with peers and reflecting on the positives of the week. Will continue IOP tx to promote gains, maintain sobriety, and reinforce the use of healthy coping skills. Narrative Note: []
--- NOTE | 2019-03-23 10:22 | BH.SGPN.GN ---
Behaviors/Verbalizations/Mental Status: [Client alert and oriented, casually dressed and groomed, wearing hat to cover hair. Eye contact good. Motor activity appropriate. Speech within normal limits. Affect congruent, mood euthymic. Thoughts linear, logical, no signs of hallucinations or delusions] Client Response/Progress/Benefit: [Client was an active participant in group activity and discussion. Pt providing some insight and asking questions throughout. She connected with the topic and worked with group to identify common internal barriers that keep people stuck. Barriers discussed included; denial, lack of willingness to address personal barriers, and anxiety. Client connected with discussion regarding how these barriers can impact relationships and mental health. Shared how difficulties managing anxious thoughts has impacted her own mental health and resulted in unhealthy coping in the past. Client completed self-reflection activity and identified current reality as feeling as though she has traveled down a long road and come to a stop light where she remained stuck for a very long time but now is at ready to move forward and that the light has turned to green. Shared feeling increased confidence in her ability to cope and challenge negative thoughts but struggles in consistency. Client shared a realistic, desired reality would be maintaining progress she has made and continuing to use healthy skills to keep from being caught at another long red light. Client benefited from group as client was able to identify current mental health state and barriers that are impacting progress. Progress noted in ability to discuss how internal barriers have kept her stuck and impacted emotion regulation. Will continue IOP to increase consistent skill application, improve emotion regulation, and prevent decompensation.] Narrative Note: []
--- NOTE | 2019-03-23 11:22 | BH.SGPN.GN ---
Behaviors/Verbalizations/Mental Status: []Eye contact is good. Motor activity is appropriate. Appearance is casual. Speech is Appropriate. Mood is anxious. Affect is congruent. Thoughts are linear and logical. No evidence of psychosis. Client Response/Progress/Benefit: []Pt was an active participant in group discussion and activity. Able to identify low self-esteem and poor follow through as obstacles which are preventing her from achieving her desired reality which included. Active during activity. Pt along with peers identified various obstacles during the activity and developed 3 strategies to overcome those obstacles to wellness and desired reality. Group wrote down the strategies and added them to their program binder. Benefited from group by identifying obstacles and solutions to desired reality. Narrative Note: []
--- NOTE | 2019-03-28 07:19 | BH.IGGP_ITS ---
Aftercare Plan - Demographics Treatment End Date:: 03/28/19 Psychiatrist:: Ivett Guthrie Psychiatrist Office #:: [id number] [facility]/IOP Therapist:: Susi Davalos Therapist Phone #:: [phone] - Medications Home Medications: Home Medications Sertraline HCl [Zoloft] 150 mg PO DAILY 30 Days #45 tab 03/15/19 - Plan Details Progress/Aftercare Plan Details:: Stefanie has made significant strides since starting IOP as shown by her improved mood and increased ability to cope with her mental health symptoms. When Stefanie started IOP she was experiencing anxiety, depression, isolative behaviors, and low self-esteem. Now, Stefanie is more confident, is spending time with family consistently, and can manage her anxiety better. Stefanie has worked to become more assertive, set boundaries, and apply healthy coping skills daily. Stefanie has maintained sobriety and has completed a relapse prevention plan. Stefanie has worked on challenging negative thoughts, self-compassion, and self-forgiveness. Stefanie reports an improved mood, more motivation, and decreased isolation. Stefanie has been able to enjoy the little things in life again and she reports ?feeling like old Stefanie.? Stefanie has made connections in [facility] and recognizes the importance maintaining social support to promote mental wellness. Stefanie plans to continue outpatient counseling and psychiatric services. Stefanie plans to see her PCP, Dr. Kee, for medication management. Stefanie also plans to follow up with Sandra Zazueta at [facility] for individual counseling. Lastly, tSefanie has information for [facility] groups which include; [facility], [facility], and [facility]. Strategies for Success:: 1. Continue to reflect on your growth, emotions, and responses to situations. Remember to reflect, but not to ruminate. 2. Continue using self-talk and positive affirmations. you can get through this. 3. Opposite action! Remember you feel better when you do things you feel better. 4. Deep breathing, when you are angry, anxious, or overwhelmed. 5. Continue to set boundaries and be assertive! 6. Stick to your values and be the boss of your emotions! Remember you have the power to say no and change situations. 7. Stay connected with supports and be social. 8. Self-care!! Maintenance is important! Continue to take time for your emotional, mental, spiritual, physical, and social needs. 9. Self-compassion! Remember you deserve the love and understanding you give to others. 10. Challenge negative thoughts and give yourself credit for all the effort you put into changing! - Appointments Appointments/Referrals to Other Services:: 1. Dr. Kee for medication management. Appointment on 05/21/19. 2. Follow up with Sandra Zazueta waiting to hear back to schedule an appointment. 3. Follow up with me on 04/13/19 at 2:00pm.
--- NOTE | 2019-03-28 09:04 | BH.SGPN.GN ---
Behaviors/Verbalizations/Mental Status: []Client alert and oriented, neatly dressed and groomed. Eye contact good. Motor activity appropriate. Speech within normal limits. Affect congruent, mood euthymic. Thoughts linear, logical, no signs of hallucinations or delusions. Reviewed client?s symptom tracker, no risk for suicidal ideation, plan, or intent as of 03/28/19. Client Response/Progress/Benefit: []Client responded well to session, last day of IOP and reflecting on progress. Client reports feeling ?excited? today and was expressing her gratitude for [facility] and the people she has meet through the program. Client reflected on her progress since day one in [facility]. Client stated when she first started, she did not know healthy coping skills or how to manage her mental health symptoms. Client shared now she can cope with stressors, she no longer isolates, and she has begun to forgive herself and practice self-love. Client stated now she also has more self-awareness and has healthier boundaries. Client is still sober, and she has been enjoying time with her family. Appeared to benefit from reflecting on her gains and reduced mental health symptoms. Will discharge from [facility] today as client has made significant progress and no longer meets criteria for IOP level of care. Narrative Note: []
--- NOTE | 2019-03-28 11:07 | BH.SGPN.GN ---
Behaviors/Verbalizations/Mental Status: [Client alert and oriented, casually dressed and appropriately groomed - wearing winter cap. Eye contact good. Motor activity appropriate. Speech within normal limits. Affect congruent and mood euthymic and anxious. Thoughts linear, logical, no signs of hallucinations or delusions.] Client Response/Progress/Benefit: [Client willing to participate in activity, provided some input during discussion and did well to encourage fellow participants throughout the activity. Client completed reflection worksheet identifying positive and negative forces impacting life and mental wellness. Client identified positive forces that aid in progressing toward mental health goals include: family, therapy, positive self-talk, and self-awareness. Client indicated negative forces include: self-doubt, anxiety, and lack of follow through. Client reported she believes she has made significant progress towards her goals since beginning IOP program. Expressed that learning the importance of addressing negative forces rather than avoiding has been most helpful. Client seemed to benefit from increased awareness of personal positive and negative forces in life and impact they have on mental health and wellness. Client to discharge from IOP level of care given gains made and step down to individual outpatient care to continue to challenge distorted thought patterns, regulate emotions, and prevent decompensation.] Narrative Note: []
--- NOTE | 2019-03-28 11:23 | BH.MDN_ITS ---
Multi-Disciplinary Note - Note 30-min Individual Time Started:: 10:20 Date: 03/28/19 Purpose of session/treatment goals addressed:: The purpose of this session was to review client's progress and review strategies that will promote mood stability and gains made in [facility]. Another goal was to discuss discharge recommendations. Eye Contact:: Good Motor Activity:: Appropriate Appearance:: Neat Speech:: Appropriate Mood:: Euthymic Affect:: Congruent Thoughts:: Linear, Logical, No evidence of hallucinations/delusions noted Staff Interventions:: Therapist used open-ended questions to explore client's thoughts on personal progress. Therapist reviewed supports, warning signs, and coping skills with client to promote gains and prevent setbacks. Therapist discussed aftercare plan with client and used strengths-perspective to empower client on the goals client has accomplished. Therapist discussed the benefits of ongoing maintenance and use of daily coping skills. Therapist gave client a quote collage for closure. Client Response:: Client responded well to session, open to meeting with therapist. Client reflected on her progress since starting [facility] and shared belief that she has made ?night and day? changes in her life. Client reports increased confidence in herself, improved ability to cope with daily stressors, and denies depressive symptoms. Client has been able to maintain sobriety and reports she is able to feel excited about life again without substances. Client has been working on setting healthy boundaries and assertively communicating her needs. Client shared she has been spending time with her family more and she is looking forward to things again. Client also recognizes that she can continue to work on maintaining a balance in her life and following through with her goals. Client reviewed coping skills that will promote gains and mood stability. Client's coping skills included; taking time to reflect, deep breathing, positive self- talk, opposite action, and challenging negative thoughts. Client has an appointment scheduled with Sandra Zazueta at [facility] next Tuesday. Client also plans to follow up with her PCP for medication management. Risks/Concerns:: Client denies any suicidal ideations, plan, intent as of 03/28/19. Progress Toward Goals/Plan:: Client to discharge from [facility] today as she has met her treatment goals. Client reports ongoing sobriety, reduced anxiety, and improved mood. Client's DSM-5 symptoms have significantly decreased since admission. Client continues to report use of healthy coping skills which has helped client better manage irritability and conflict. Client?s symptoms have decreased in intensity and durations. Client recommended to follow up with Sandra Zazueta for outpatient counseling and client's PCP for medication management. Time Stopped:: 10:55
--- NOTE | 2019-03-28 11:27 | BH.DS ---
Discharge Summary - Demographics Date of Admission:: 01/31/19 Discharge Date: 03/28/19 Presenting Problems at Admission:: Client is a 58-year-old woman with a history of MDD and substance use. Client has no previous psychiatric admissions and was brought into [facility] by her two sons. At admission, client endorsed a depressed mood that had been worsening for the past several months. Client's symptoms included lack of motivation, low energy, isolation, avoidance, anhedonia, and increased sleep. 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 At admission, client reported she was not able to function at her baseline as shown by client not being able to cook, keep her house clean, or attend work consistently. Client had also been avoiding family activities. Client has a history of substance abuse including alcohol and methamphetamine. Client had been sober from alcohol for several years, but she was only recently sober from methamphetamine at admission. Client's symptoms were impacting her social, occupational, and familial functioning. Discharge Diagnoses:: Major depressive disorder, single episode severe without psychosis. ( F 32.2). Rach, history of methamphetamine abuse full remission for 6 months., history of alcohol abuse?sober for 5 years. History of somatizations disorder Reason for Discharge:: Client has demonstrated significant progress towards her treatment goals as shown by her reduced depression and anxiety, ongoing sobriety, and improved mood stability. Client no longer meets criteria for [facility] level of care. - Treatment Progress During Treatment & Response: Client responded well to treatment as shown by her overall consistent attendance, active participation, and significant reduction of DSM-5 symptoms. Client was an active participant in group sessions and often provided supportive statements to peers. In individual sessions, client was receptive to learning new coping skills and was engaged in her treatment. Client often shared she was grateful for coming to [facility] because the knowledge and coping skills she gained have helped client cope and manage daily stressors. Client demonstrated consistent application of coping skills outside of group and was motivated throughout treatment. Client?s high involvement in her treatment is likely a contributor to her significant progress. Client self-identified her progress as increased self-confidence, reduced depression and isolation, increased self-awareness, decreased anxiety, and a positive outlook on life. Client also continues to be sober and reports no symptoms of trichotillomania. At discharge, client?s DSM-5 symptom scores decreased by 75%. Client?s DSM-5 scores for depression decreased 100%, from 8/8 at admission to 0/8 at discharge. Client?s anxiety decreased by 83% since admission as well going from 10/25 to 05/27 at discharge. Client recognizes she will continue to experience stressors throughout her life, but she reports improved ability to cope with these stressors. Issues Still to be Addressed:: Client has made significant strides to improve her mental health and better manage her symptoms. Client can continue to benefit from ongoing counseling to reinforce healthy coping skills, maintain sobriety, and promote self-care. Client would like to continue working on challenging negative thoughts, setting boundaries, and increasing self-forgiveness. Client acknowledges that in the future she can benefit from setting boundaries if people in her life are doing things that do not align with client?s value and goals. Client would also like to continue improving her mood, relationships, and ability to cope with daily stressors. Discharge Recommendations/Instructions:: Client is recommended to follow up with her outpatient providers for continuity of care purposes. Client will be seeing her PCP, Dr. Kee, for medication management. Client's next appointment is 05/21/19. Client also plans to follow up with Sandra Zazueta at [facility] for individual counseling. Client's next appointment is 04/04/19. Client has information for [facility] and understands that she can attend the free groups there such as women in recovery. Discharge Handout: Complete Discharge Handout with client on aftercare options and continuity of care.
== END 2019-03-28 13:00 | disposition home or self-care (01) ==
LOC: BHIOP 09:00
PROVIDERS: Family Provider Family Medicine; PCP Family Medicine; Referring Provider Psychiatry & Neurology Psychiatry; Visit Provider Psychiatry & Neurology Psychiatry
DX: F33.2 Major depressive disorder, recurrent severe without psychotic features (principal); F10.21 Alcohol dependence, in remission; F15.21 Other stimulant dependence, in remission
CPT/HCPCS: H0035; 90832; 90853

== ENCOUNTER 2020-02-20 10:18 | Outpatient (RCR) | payer MEDICAID, SELFPAY ==
--- NOTE | 2020-02-20 11:00 | BH.NA ---
Physical Data - Vital Signs Pulse Rate: 75 Blood Pressure: 157/73 - Height/Weight Height: 1.63 m Weight:: 56.699 kg Weight in Pounds: 125.0 lbs Current Medication Compliance - Medication Compliance Do you take your medication as prescribed?: No - stopped medications in June when she lost her insurance Nutritional History - Appetite Nutritional Instructions:: If client shows signs of a swallowing problem, weight change of 10 pounds or more in the last month, or is on a diabetic diet, the physician will review and request a dietitian consult, as appropriate. All unintentional weight loss will be referred to the physician for decision on need for dietitian consult. Describe your appetite:: Good Functional Assessment - Sleep Pattern Describe any problems with sleeping: Client states she sleeps about 6 hours per night. - Activities Motor Activity:: Functional Sensory/Communication Assess - Communication Problems Do you have difficulty understanding what people are saying?: Yes Medical Problems/History - Cancer History Type of Cancer:: Skin (non-melanoma) - Additional History Additional comments:: trichotillomania Surgical History - Surgical History Have you had any surgeries? If so, list type and date:: Yes - skin cancer removal Substance Abuse - Substance Abuse Please describe substance abuse in the last 30 days:: Client denies alcohol use. Client states she has smoked about 1 pack per day of cigarettes since she was 12 years old. Client states she has used crystal meth in the past, stating last use was 1 month ago. Client states she drinks coffee/iced tea. Mental Status Summary - Mental Status Significant Findings/Observations on Appearance and Mood:: Client is wearing a mask due to COVID19 pandemic. Client is alert and oriented x4. Client makes good eye contact. Clients voice normal rate. Client appears mildly depressed during assessment. Client denies delusions/hallucinations. Client denies SI. Suicide Assessment - Suicidal Ideation Are you currently or have you been suicidal in the past?: No - denies SI this day Suicidal Intentional Rating Scale (SIRS): Suicidal thoughts (past) Physician Notification: If Active suicidal thoughts/Will not contract for safety is checked, contact physician and document in the Physician Notification section below. Past Psychiatric History - MH Treatment Hx Past Psychiatric Medications:: Zoloft, an antipsychotic she got from dermatology office but states she does not know what it was Age of first mental health symptoms: Client states she was first diagnosed with depression in the past couple of years when her dad . Describe (age, circumstance, etc) any past hospitalizations: None. Current providers for mental health treatment (counselor, psychiatrist, bilingual patient support caseworker, etc.): was previously going to [facility] for therapy but has not been there since she lost her health insurance in June. Fall Risk Assessment - Age Age: Less than 60 - Mental Status Mental Status: Willing & able to ask for assistance when needed - Physical Status Physical Status: No problems - Impairments Impairments: None - Elimination Elimination: Continent AND independent - Gait or Balance Gait or Balance: Walks independently - Hx of Falls History of falls in the past 6 months: No known history - Medications/Substances Medications/substances used within the past 24 hours or ordered to administer: None of the medications/substances list above - Total Score Total Points:: 0 RN Summary of Impressions - Impressions Recommendations: Include psychiatric and medical issues, treatment planning recommendations, and discharge planning needs. Impressions: Psychiatric Issues: major depressive disorder, recurrent, moderate. History of methamphetamine abuse. History of alcohol dependence but sober for 5 years. Impression: General Medical Conditions: Clients BP 157/73- discussed with client see needed to see her PCP to discuss. - Level of Care How do the client's current symptoms and functional deficits support need for this level of care?: Client states her mental health has been worsening since she was asked to resign from her job in June 2019. Client states this has caused financial stress. Client states her job was her security in life. Client reports feelings of ruminating, isolation, avoidance, crying spells, decreased concentration, and anger outbursts. Client denies SI. IOP will promote gains and prevent further decompensation while providing social support and skills training.
--- NOTE | 2020-02-20 11:15 | BH.SGPN.GN ---
Behaviors/Verbalizations/Mental Status: []Client alert and oriented, neatly dressed and groomed. Eye contact good. Motor activity appropriate. Speech within normal limits. Affect unable to gather due to wearing a mask for COVID-19 protocol, mood depressed. Thoughts linear, logical, no signs of hallucinations or delusions. Client Response/Progress/Benefit: []Client responded well to session, connecting with the topic, but reports having a difficult time ?grasping everything.? Client attentive during psychoeducation on the change process. Client identified a change she would like to make to improve her mental health which was to ?do something active today.? Client shared being active has always boosted client?s mood. Client unable to identify which stage of change client is currently in. Client?s goal today is to take her dog for a walk and to reach out to her significant other to talk. Appeared to benefit from identifying what stage of change client is in and setting a small goal to promote that change. First week of IOP tx. Will continue IOP to prevent decompensation, improve emotional regulation, and reduce negative thinking. Narrative Note: []
[2020-02-20 12:16] VITALS: BP 157/73; PULSE 75
--- NOTE | 2020-02-20 12:19 | BH.PSY.EVA_ITS ---
Psychiatric Evaluation - Initial Evaluation Initial Evaluation: History of Present Illness: [] The patient is a 59-year-old female who referred herself back to the behavioral health IOP program at [facility]. The patient participated in the IOP program from January to March 2019. She felt the program was helpful. Patient did well until June 2019 when the patient was asked to resign from her job of 43 years. She is not sure why she was asked to resign and she never asked. The patient did resign and now regrets this. She has financial stress from not working and has no senior care benefits and lost her health insurance and had to obtain it elsewhere. She is very stressed by all of this and by not having a job. The patient is always worked and does not like to be taking care of. Patient is living with her boyfriend and they are still doing well. For primary support the patient says she has no one. She tries to deal with her problems herself. After losing her job the patient stopped her Zoloft and all her medications. Her symptoms of depression and anxiety increased in recent weeks. She endorses feeling depressed but says not as depressed as she was when she came in January 2019. She is isolating and avoiding things. She is enjoying her [employer] but not much else. She does enjoy the IOP program and feels that she really benefited from it the last time she was here. Her appetite is good and her weight is stable. She is sleeping about 6 hours a night. Her energy level is a little low and she has some fatigue but she says that she makes herself do things and then she feels more energetic. Patient is somewhat of a minimize her of her symptoms. Concentration is okay at times and at other times it is low. Sometimes she feels guilty. She denies any suicidal ideation or having a plan for suicide. She denies any passive thoughts of . Denies homicidal ideation, hallucinations, delusions, symptoms of yoel. All negative. She does have anxiety and is ruminating. She denies hopelessness and occasionally feels worthless. She has no panic attacks. She denies OCD, eating disorder, trauma, PTSD, history of self-harm and seizure. Current Psychiatric Medications: [] Patient stopped her Zoloft in June 2019. She is on no medications now. Past Psychiatric History: [] The patient to the IOP at [facility] from March to from January to March 2019. She has no psychiatric admissions. No history of suicide attempts. Her only medication that she is taken for psychiatric reasons is the Zoloft. She did use Valium for anxiety after her dad's 5 years ago which was very traumatic for her. She also took Valium 5 mg 1 a day until about a year ago. She feels she very much benefited from the IOP program Substance Use History: [] She smokes cigarettes less than 1 pack a day for 45 years. No marijuana use. She had an alcohol use disorder after her father 5 years ago but she says she has been completely sober from alcohol since she got a DUI 5 years ago. She denies any blackouts or withdrawal symptoms. She has never had rehab. She stopped methamphetamine use on her own and she used it daily for several months and is unclear at the time she has been sober from meth. She last used methamphetamine 1 month ago but only a small amount and she feels that she does not need meth to motivate her now. Allergies: [] No known allergies Medications: [] She stopped her multivitamin and vitamin D due to financial issues but may restart them soon now that she has insurance. Past Medical History: [] She has a history of squamous cell skin cancer and basal cell skin cancer diagnosed 2 years ago. She is postmenopausal and doing well. 3 para 2 AB 1 with 1 miscarriage and 2 vaginal deliveries. She has some mild hypertension but they are observing it for now. Family Psychiatric History: [] Mother is 87 years old and fairly healthy. Father at age 84 of heart issues. Patient has a brother who of alcohol dementia at age 59 and he also had depression. Brother and mother had a history issue of alcohol abuse and opiate dependence. No completed suicides in the family. Personal/Social History: [] Patient was born and raised in [place]. She describes her childhood as pretty good. Even as a child she was sometimes scared that someone would come into their house when her father was outside. She also had a fear of getting cancer even as young as age 6. She had one brother 3 years older who she was very close to and this brother helped her raise her children. He 18 months after her father . She describes her mother as loving but her father was not very expressive of his love. The patient was her dad's favorite though was very close to him. She denies any physical, sexual or emotional abuse ever. She did okay in school but did not graduate high school. She became at age 14 and dropped out of high school. She at age 14 and the marriage lasted 8 years and then they . She has 2 sons from this marriage who are now ages 34 and 43 years. She is close to her sons. 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 She misses her job now. She has a boyfriend of 35 years who she lives with. She describes her relationship as okay. Her boyfriend is 63 years old and he is sober now but had issues with alcohol in the past. She has friends but says she does not tend to be a talker when she is not feeling well. Legal History: [] She had one DUI 5 years ago. She quit alcohol after her DUI. No other arrests or snf issues. Review of Systems: [] Neck pain but this is improving by using hemp which does not contain any THC. Vital Signs: [] Will be reviewed in nurse's notes. Mental Status Examination: [] Patient is a 58-year-old 59-year-old female who appears older than stated age and is seen wearing a mask due to the pandemic. She is casually dressed and groomed with good hygiene. She is cooperative during the interview and has good eye contact. Speech is normal rate and rhythm and fluent with no pressure. Mood is depressed. Affect is constricted. Thought process is organized and goal-directed. Thought content: There is no evidence of suicidal ideation, thoughts of , or homicidal ideation. There is no evidence of hallucinations or delusions. Reality testing is intact. Judgment is intact. Insight: Some present. Impulsivity: Low. Diagnoses: [] [place] I: [] Major depressive disorder, recurrent, moderate; history of methamphetamine abuse (last used methamphetamine 1 month ago); history of alcohol dependence but sober for 5 years; history of somatizations disorder versus illness anxiety disorder [place] II: [] Negative [place] III: [] History of skin cancer [place] IV: [] Job, financial and primary support issues Plan: [] The patient will start the IOP program at [facility] as the structure, education, support, individual and group therapy will hopefully prevent worsening of the patient's symptoms which might require hospitalization. The risks, options, possible side effects and complications of the medication were discussed with the patient and she understands and accepts these. The patient felt safe during the interview and if at any time she is not feel safe she will let us know or go to the emergency room. The patient is going to restart Zoloft as she did okay on it before and hopefully it will help her anxiety and depression. Prescription was sent in for Zoloft 50 mg p.o. daily, #30, 0 refills. The patient will stay sober from all drug use. P I will follow-up with the patient in 2 to 3 weeks.
--- NOTE | 2020-02-20 12:32 | BH.PSY.EVA_ITS ---
Initial Treatment Plan - Patient Information Visit Information: ADMISSION DATE: EXPECTED LOS: 4-6 weeks - Problems/Symptoms Problem #1:: Depression Symptom:: sadness, worthlessness, decreased concentration, guilt, decreased mot ivation Problem #2:: Anxiety Symptom:: Rumination, worry
--- NOTE | 2020-02-21 09:05 | BH.SGPN.GN ---
Behaviors/Verbalizations/Mental Status: []Client alert and oriented, casual dress, hygiene tended to. Eye contact good. Motor activity appropriate. Speech within normal limits. Affect constricted, mood euthymic. Thoughts linear, logical, no signs of hallucinations or delusions. Reviewed client?s symptom tracker, pt denies current suicidal thoughts or intention to date. Client Response/Progress/Benefit: []Client responded well to session, attentive and providing supportive statements to peers. Client reports feeling positive and neutral this morning. Client stated she has been working on looking at the positives in her life and wants to work on acceptance with the things client cannot control. Client reported she has stressors in her life that client wants to reduce, but client recognizes this will take one step at a time. Client shared she has a history of saying she is okay but then stressors eat away at me which client would like to change. Appeared to benefit from connecting with peers and focusing on the positives. Will continue IOP tx to reduce depressive symptoms and increase healthy coping skills to manage anxiety. Narrative Note: []
--- NOTE | 2020-02-21 10:20 | BH.SGPN.GN ---
Behaviors/Verbalizations/Mental Status: []Client alert and oriented, casually dressed. Eye contact good. Motor activity appropriate. Speech within normal limits. Affect unable to gather due to wearing a mask for COVID-19 protocol, mood anxious. Thoughts linear, logical, no signs of hallucinations or delusions. Client Response/Progress/Benefit: []Client responded well to group and actively engaged throughout the session. Client provided input as the group brainstormed positive and negative aspects of stress on physical and mental health. Client agreed with the quote and stated that she accepts her stressors and chooses to reframe her negative thoughts. Client identified her stressors as: job loss, finances, connecting to resources on her own, accessing help for mental health, disability, and relationship. Client stated her stress jar is 50% full. Client has a previous history of minimizing stressors so it is likely that client is experiencing more stress than client reports in session. Progress noted as client engaged throughout her second day in IOP. Client will continue IOP to decrease depressive symptoms, improve mood, and prevent avoidance behaviors. Narrative Note: []
--- NOTE | 2020-02-21 11:23 | BH.SGPN.GN ---
Behaviors/Verbalizations/Mental Status: []Client alert and oriented, casually dressed and groomed. Eye contact good. Motor activity appropriate. Speech within normal limits. Affect unable to gather due to wearing a mask for COVID-19 protocol, mood dysthymic. Thoughts linear, logical, no signs of hallucinations or delusions. Client Response/Progress/Benefit: []Client engaged participant in session AEB client listening attentively to others, taking notes during session, and providing input throughout. Client actively listening during discussion about the 4 A's of managing stress. Noted that she has struggled with acceptance in the past, specifically regarding accepting she is aging and accepting that her mental health is going to be an area for ongoing improvement and not a ?one-time fix?. Identified she wants to work on managing her stressors of her relationship and obtaining disability as a stressor, shared that this will help to improve her hope and outlook in life. Discussed that by adapting her mindset and trying to focus on what is in her control she will be able to adapt a more positive mindset and better accept her own limitations as well as be less likely to give up. Client seemed to benefit from increased awareness of the impact of stress on mental health and increasing repertoire of stress management strategies. Will continue IOP tx to promote use of healthy coping skills, improve mood management, as well as prevent decompensation. Narrative Note: []
--- NOTE | 2020-02-21 14:24 | BH.COMM_ITS ---
Communication Note - Communication with Client Communication Note: Therapist and SW supply chain intern met with client to build rapport, identify treatment goals for IOP, and provide emotional support.
--- NOTE | 2020-02-21 14:24 | BH.COMM ---
Communication Note - Communication with Client Communication Note: Therapist and SW buyer internship met with client to build rapport, identify treatment goals for IOP, and provide emotional support.
--- NOTE | 2020-02-22 09:00 | BH.SGPN.GN ---
Behaviors/Verbalizations/Mental Status: []Client alert and oriented, casually dressed. Eye contact good. Motor activity appropriate. Speech within normal limits. Affect unable to gather due to wearing a mask for COVID-19 protocol, mood anxious. Thoughts linear, logical, no signs of hallucinations or delusions. Reviewed client?s symptom tracker, risk for suicidal ideation below client?s baseline. No plan or intent plan, or intent as of 02/22/20. Client Response/Progress/Benefit: []Client responded well to session and engaged and provided feedback to other group members. Client shared she was feeling anxious today as she applied for social security. Client stated she felt guilty for applying for financial help because she does not have a job. Client stated, ?without a job, I feel worthless and stuck.? Group helped client identify strengths and coping skills to manage stress. Client shared she felt ?at ease? 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 Progress noted as client gained insight and communicated with group members. Client will continue IOP to decrease depressive symptoms and improve daily functioning. Narrative Note: []
--- NOTE | 2020-02-22 10:10 | BH.SGPN.GN ---
Behaviors/Verbalizations/Mental Status: []Client alert and oriented, casual dress, hygiene tended to. Eye contact fair. Motor activity appropriate. Speech within normal limits. Affect unable to gather due to client wearing a mask for COVID protocol, mood low. Thoughts linear, logical, no signs of hallucinations or delusions. Client Response/Progress/Benefit: []Client responded well to session, attentive throughout. Listening and participating throughout group discussion defining conflict and the differences between internal and external conflict. Group reported the benefits of addressing conflict as well as identified and discussed consequences of not addressing conflict. Client attentive and contributing during psychoeducation of the different conflict resolution styles. Client reports her conflict style ?depends on my mood and the trigger? but avoiding conflict has the most negative impact on client. Client benefited from group as she learned new conflict resolution styles and the benefits. Client will continue IOP to decrease depressive symptoms, improve mood, and prevent avoidance behaviors. Narrative Note: []
--- NOTE | 2020-02-22 11:10 | BH.SGPN.GN ---
Behaviors/Verbalizations/Mental Status: []Client alert and oriented, neatly dressed and groomed. Eye contact good. Motor activity appropriate. Speech within normal limits. Affect unable to gather due to wearing a mask for COVID-19 protocol, mood depressed. Thoughts linear, logical, no signs of hallucinations or delusions. Client Response/Progress/Benefit: []Client engaged in session AEB listening attentively to others and providing input to activity. Client further processed her conflict resolution style and connects most with the avoiding style. Client reports she connects with all of the styles ?depending on my mood and the trigger.? However, client shared avoiding conflict has the most negative impact on client?s mental wellbeing. Client did well to participate during the activity in which participants were challenged to eliminate various items through group consensus. Client contributed to discussion of the barriers that occurred during the activity as well as the conflict resolution strategies. Client identified wanting to work on listening without interrupting and asking for feedback to better manage conflict. Progress limited as it is client?s first week of IOP, appears to be assimilating well in group. Will continue IOP tx to prevent decompensation, reduce avoidance behaviors, and improve daily functioning. Narrative Note: []
--- NOTE | 2020-02-26 09:03 | BH.SGPN.GN ---
Behaviors/Verbalizations/Mental Status: []Client alert and oriented, neatly dressed and groomed. Eye contact good. Motor activity appropriate. Speech within normal limits. Affect unable to gather due to wearing a mask for COVID-19 protocol, mood dysthymic. Thoughts linear, logical, no signs of hallucinations or delusions. Reviewed client?s symptom tracker, no risk for suicidal ideation, plan, or intent as of 02/26/20. Client Response/Progress/Benefit: []Client responded well to session, attentive and engaged. Client reports feeling a little anxious this morning as client shared she isolated this weekend. Client stated she plans to be active this week and has written out a schedule for her chores. Client reports being active and accomplishing tasks makes client feel good mentally and physically. Client shared she has been struggling with feeling confused about past events in her life and client wants to work on changing her thinking. Appeared to benefit from interacting with peers and setting goals for today. Will continue IOP tx to prevent decompensation and challenge negative thinking that reinforces depression. Narrative Note: []
--- NOTE | 2020-02-26 11:20 | BH.SGPN.GN ---
Behaviors/Verbalizations/Mental Status: []Client alert and orient. Appearance casual and appropriately groomed. Speech an appropriate rate and tone, quiet. Motor activity WNL. Mood depressed, affect unable to determine as client wearing mask per COVID-19 protocol. No evidence of delusion or hallucinations.? Client Response/Progress/Benefit: []Client receptive of group, attentive during the discussion AEB providing some input and taking notes, though appeared less engaged than in prior sessions. Client remained engaged and actively listened as group worked to identify importance of having balanced sources of motivation. Group noted benefits to include; needs getting met, continued motivation when supports aren?t available as well as using supports when internally ?exhausted?, greater sense of accountability, motivation is more sustainable, and improved ability to accomplish goals. Client helped group brainstorm potential strategies for improving internal motivation and identified a specific strategy she can apply to improve her own internal motivation levels. Identified wanting to focus on working on internal motivating factor of improving her personal awareness and mental health understanding by reminding herself that continuing to attend IOP tx will further increase her ability to understand her own mental health. Client appeared to benefit from increasing awareness of strategies for improving internal motivation. Progress limited as client new to IOP program and continues to struggle with active skill application, though reports ongoing motivation to improve healthy coping repertoire. Client will continue IOP tx to further improve symptom management, promote healthy coping skill application, and improve daily functioning. Narrative Note: []
--- NOTE | 2020-02-28 08:16 | BH.MTP ---
Master Treatment Plan - Patient Information Program Physician:: Dr. 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 Description of Barriers: Client has a history of mental illness and substance abuse. Client often minimizes her negative thoughts and feelings. Functional Impact: Client is a 59 sandie old female with history of MDD and Meth Use D/O. No previous psychiatric admissions. Client has called IOP staff several times in the past weeknot decompenensation and was encouraged to come in for assessment. Client completed [facility] IOP in 03/2019. Report stability until 06/2019 when she lost her job at 41 years. Client reports she was asked to resign however is not sure he reason. Cient agreed and said goodbye to co-workers. Excessive ruminations on this. Numerous regrets for not asking for clarification or fight for her job. Since job loss, she has deplented finances and lost insurance. Without insurance, she has been off her medications (psych and medical). Increased isolation and avoidance. Anxious and fearful of the future. No purpose or goals. Endorses poor sleep, poor concentration, restlessness, anger outbursts, and significant regfret and ruminations. Denies suicidal ideations, plan, or intent. Hx of intrustive thoughts and minimizing feelings. treated at times. Significant psychosocial stressors which are impacting mental health. Denies HI or psychosis. Denies substance abuse. Due to MH impact functioning and significant stressors recomment IOP to provide support, evaluating to start back on meds, and prevent decompensation. Goal Relevant Strengths/Supports: Client presents as open with communication and motivated to decrease depressive symptoms. Client contains self-awareness and obtains a positive mindset to complete treatment. - Objectives Objective #1 Stated Objective: Client will identify 2-3 depressive thinking patterns and be able to challenge and reduce negative thoughts per DSM-5 scores. Interventions: Therapist will assist client in identifying depressive thinking patterns and provide client with resources to help teach client strategies in defeating negative thoughts. Discharge Criteria: Client will have met this objective when can identify at least two depressive thinking patterns and be able to defeat depressive and suicidal thoughts. Target Date: 04/02/20 Review Date: 03/19/20 Status: Open Objective #2 Stated Objective: Client will increase social activity to at least one additional activity per week to increase social engagement and sense of purpose. Interventions: Therapist will help client explore social connection opportunities, and process ways to get the most out of the experience. Discharge Criteria: Client will have met this goal when attends at least one additional social activity. Target Date: 04/02/20 Review Date: 03/19/20 Status: Open Problem/Goal #2 - Problem/Goal #2 Stated Goal:: Stabilize anxiety level while increasing ability to function on daily basis. Description of Barriers: Client has a history of mental illness and substance abuse. Client often minimizes her negative thoughts and feelings. Functional Impact: Client is a 59 sandie old female with history of MDD and Meth Use D/O. No previous psychiatric admissions. Client has called IOP staff several times in the past weeknot decompenensation and was encouraged to come in for assessment. Client completed [facility] IOP in 03/2019. Report stability until 06/2019 when she lost her job at 41 years. Client reports she was asked to resign however is not sure he reason. Cient agreed and said goodbye to co-workers. Excessive ruminations on this. Numerous regrets for not asking for clarification or fight for her job. Since job loss, she has deplented finances and lost insurance. Without insurance, she has been off her medications (psych and medical). Increased isolation and avoidance. Anxious and fearful of the future. No purpose or goals. Endorses poor sleep, poor concentration, restlessness, anger outbursts, and significant regfret and ruminations. Denies suicidal ideations, plan, or intent. Hx of intrustive thoughts and minimizing feelings. treated at times. Significant psychosocial stressors which are impacting mental health. Denies HI or psychosis. Denies substance abuse. Due to MH impact functioning and significant stressors recomment IOP to provide support, evaluating to start back on meds, and prevent decompensation. Goal Relevant Strengths/Supports: Client presents as open with communication and motivated to decrease depressive symptoms. Client contains self-awareness and obtains a positive mindset to complete treatment. - Objectives Objective #1 Stated Objective: Client will learn and implement 2-3 calming skills to reduce overall anxiety and manage anxiety symptoms. Interventions: Therapist will teach client calming/relaxation skills and how to apply these skills to everyday life. Discharge Criteria: Client will have achieved this goal when can verbalize at least 2 calming strategies and have practiced techniques to help reduce anxiety. Target Date: 04/02/20 Review Date: 03/19/20 Status: Open Objective #2 Stated Objective: Client will identify 2-3 anxiety triggers and 2 coping skills to use when feeling anxious. Level of anxiety will decrease per DSM-5 scores. Interventions: Therapist will assist client in exploring what triggers anxiety and teach client coping strategies to effectively manage anxiety symptoms. Discharge Criteria: Client will have met this goal when can identify at least 2 triggers to anxiety and verbalize two healthy ways to cope with feelings of anxiety. Target Date: 04/02/20 Review Date: 03/19/20 Status: Open
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
--- NOTE | 2020-02-28 08:18 | BH.MDN ---
Multi-Disciplinary Note - Note 30-min Individual Time Started:: 11:50 Date: 02/28/20 Purpose of session/treatment goals addressed:: The purpose of this session was to address current symptoms, stressors, and negative thoughts. Another goal was to review homework and practice mindfulness and grounding. Eye Contact:: Good Motor Activity:: Appropriate Appearance:: Casual Speech:: Soft Mood:: Anxious, Dysthymic Affect:: Other - Unable to gather affect due to COVID 19 protocol by wearing face mask. Thoughts:: Linear, Logical Staff Interventions:: Therapist used active listening and open-ended questions to explore client's current symptoms, stressors, and negative thoughts. Therapist provided emotional support as client shared her stressors. Therapist reviewed client's homework and discussed the benefits to practicing breathing excersises and PMR to manage high anxiety. Therpist explained the importance of self-care and taught strategies to incorportate self-care daily. Therapist gave client homework to promote routine. Client Response:: Client responded well to session and engaged throughout. Client explained current stressors of being unemployed and mother being hospitalized. Client practiced breathing exercises with the help of therapist. Client learned the best way to breath by using the diaphram. Client was provided resources to help guide her through PMR as client felt too stressed to practice during the session. Client asked questions and was reassured on directions for homework. Risks/Concerns:: Client denies and suicidal risk, ideation, or plan as of 02/28/20. Client remains positive and future oriented. Progress Toward Goals/Plan:: Progress was noted as client learned breathing techniques and PMR as healthy coping skills to decrease anxiety. With the homework assigned, client will increase awareness to daily behaviors throughout her schedules. Client endorses a depressed mood, lack of energy, increased fatigue, negative thinking, and anxiety. Client aware that challenging and replacing these beliefs will take time and effort. Will continue IOP tx to decrease depressive symptoms, increase healthy coping skills, and improve self-confidence. Time Stopped:: 12:20
--- NOTE | 2020-02-28 09:00 | BH.SGPN.GN ---
Behaviors/Verbalizations/Mental Status: []Client alert and oriented, casually dressed. Eye contact good. Motor activity appropriate. Speech within normal limits. Affect unable to gather due to wearing a mask for COVID-19 protocol, mood anxious and dysthymic. Thoughts linear, logical, no signs of hallucinations or delusions. Reviewed client?s symptom tracker, no risk or plan for suicide ideation as of 02/28/20. Client Response/Progress/Benefit: []Client responded well to group, participated and engaged throughout group discussion. Client shared feeling overwhelmed as her mother is sick and in the hospital. Client had a positive check-in and appeared to be minimizing AEB overwhelmed. Client stated she has support to talk to concerning the stressor of her ill mother, but they are busy with their own lives. Client reported she is happy to come to IOP today as she used opposite action to attend and increase her coping skills. Client stated she is thankful and taking responsibility for her actions. Client benefited to group as she related to other group members and could provide positive feedback. Client will continue IOP to decrease depressive symptoms and improve the use of healthy coping skills. Narrative Note: []
--- NOTE | 2020-02-28 11:22 | BH.SGPN.GN ---
Behaviors/Verbalizations/Mental Status: [] Client alert and orient. Appearance casual, and appropriately groomed. Speech an appropriate rate and tone Motor activity WNL. Mood dysthymic, affect unable to determine as client wearing mask per COVID-19 protocol. No evidence of delusion or hallucinations.? Client Response/Progress/Benefit: [] Client remained an active participant throughout. She did well to provide input as well as make personal connections with materials discussed. Provided personal examples throughout regarding instances in which she has struggled with different thought distortions. Client engaged in group discussion continuing to define the different cognitive distortions and ways in which each distorted thought pattern may impact mental health progress. Client attentive during psychoeducation on T.H.I.N.K. (True, Helpful, Important, Necessary, Kind) acronym as a strategy for identifying and challenging distorted thought patterns. Indicated she often struggles with negative self-talk and unrealistic expectation of herself and others. Expressed she would like to begin asking herself ?Is this thought kind?? to reduce negative self-talk and focus more on the positives. Appeared to benefit from increasing insight into distorted thinking patterns, the impacts they have on mental health, and identifying possible strategies for beginning to reduce negative thoughts. Progress limited as client struggles at times to retain information discussed due to becoming distracted by own thoughts. Recommended continued IOP tx to improve mood stability, promote healthy change behaviors, and prevent decompensation Narrative Note: []
--- NOTE | 2020-02-29 09:00 | BH.SGPN.GN ---
Behaviors/Verbalizations/Mental Status: [] Eye contact is good. Motor activity is appropriate. Appearance is casual. Speech is Appropriate. Mood is anxious. Affect is congruent. Thoughts are linear and logical. No evidence of psychosis. Reviewed daily check in sheet and no reports of suicidal ideations or intent. Client Response/Progress/Benefit: [] Pt participated in group discussions. Provided appropriate feedback. EmShared with the group that she developed a game plan with her therapist yesterday and Stuck with it. She followed through with the plan and felt that it improved her mental health. She liked having a routine and while she struggled and wanted to give up in the end was proud of herself. Continues to struggle with coping with stressors and current life stating I need to learn how to cope with things. Progress noted per pt report. Benefited from group support and encouragement. Will continue in IOP to prevent decompensation, increase health coping, and improve functioning. Narrative Note: []
--- NOTE | 2020-02-29 10:20 | BH.SGPN.GN ---
Behaviors/Verbalizations/Mental Status: []Client alert and oriented, neatly dressed and groomed. Eye contact good. Motor activity appropriate. Speech within normal limits. Affect unable to gather due to wearing a mask for COVID-19 protocol, mood dysthymic. Thoughts linear, logical, no signs of hallucinations or delusions. Client Response/Progress/Benefit: []Client was an active participant AEB client providing input throughout discussion and attentively listening to peers. Client connected with how having a negative perspective can keep you stuck, prevent a person from getting help, and cause worsening mental health symptoms. Client stated this is her second time in IOP and client reports belief having a more positive perspective on getting help. Client worked with group to identify how negative perspective can impact mental health which included: self-fulfilling prophecy, worse mood, and negative thinking.?Client helped group discuss ways a positive perspective can impact mental health such as: seeking treatment, challenging distortions, and improved mood. Client appeared to benefit from increasing understanding of mental health benefits of a positive perspective and potential consequences to progress when perspective is negative. Client will continue IOP tx to prevent decompensation, improve daily functioning, and reduce negative thinking. Narrative Note: []
--- NOTE | 2020-02-29 11:20 | BH.SGPN.GN ---
Behaviors/Verbalizations/Mental Status: [] Eye contact is good. Motor activity is appropriate. Appearance is casual. Speech is Appropriate. Mood is anxious. Affect is congruent. Thoughts are linear and logical. No evidence of psychosis. Client Response/Progress/Benefit: [] Pt was an active participant in group discussion. Attentive during psycho-education. Active participant in group discussion on the impact of perspective on how we view ourselves. Pt worked with the group to develop a working definition of the term strengths and the importance of recognizing one's strengths. Pt was given a worksheet and was asked to [place] at least 3 strengths which she completed. Group then worked together to identify strategies to remind themselves of their strengths which included; picking one strength per day, asking support to tell us one of our strengths, track our accomplishments, daily affirmations, and creating a gratitude journal. Progress noted. Benefited from increased awareness of the role of perspective and strengths in daily mental health wellness. Will continue in IOP to increase coping skills and improve functioning. Narrative Note: []
--- NOTE | 2020-03-04 09:04 | BH.SGPN.GN ---
Behaviors/Verbalizations/Mental Status: [] Client alert and oriented, casually dressed and groomed. Eye contact good. Motor activity appropriate. Speech within normal limits. Affect unable to assess as pt wearing mask per COVID-19 protocol, mood dysthymic and anxious. Thoughts linear, logical, no signs of hallucinations or delusions. Reviewed client?s symptom tracker, no risk for suicidal ideation, plan, or intent as of 03/04/20. Client Response/Progress/Benefit: []Pt receptive to session, actively listening and willing to process with group. Pt reports feeling ?anxious and calm this morning which she attributed to continuing to struggle with stress related to her mothers health, but improving in overall ability to cope. Identified current positives as using deep breathing and thought challenging to reduce anxiety when using catastrophizing thoughts regarding her mother?s health state. Additional win noted as having a positive conversation with her support person about her mental health needs while her mother is ill. Shared taking breaks during the discussion to prevent becoming overwhelmed. Pt appeared to benefit from group support and structure. Progress noted in self-report of improved communication, application of skills learned, and anxiety management, though continues to struggle with consistency. Pt recommended continued IOP tx to further promote healthy change behaviors, improve emotion regulation, as well as prevent decompensation. Narrative Note: []
--- NOTE | 2020-03-04 10:13 | BH.SGPN.GN ---
Behaviors/Verbalizations/Mental Status: []Client alert and oriented, casual dress, hygiene tended to. Eye contact good. Motor activity appropriate. Speech within normal limits. Affect unable to gather due to wearing a mask for COVID-19 protocol, mood anxious and dysthymic. Thoughts linear, logical, no signs of hallucinations or delusions. Client Response/Progress/Benefit: []Client responded well to session, attentive and occasionally contributing to discussion. Client worked cooperatively with the group to identify factors that contributed to how we define ourselves which included: upbringing, societal expectations, culture/environment, how well we function, failures, trauma, and how others view us. Client reported she has experienced the impacts of mental health stigma and shared ?it was hard to admit to myself for a long time that I had a problem.? Client worked with group to identify and discuss social and perceived stigma. Client stated stigma can lead to minimizing and denial. Client seemed to benefit from increased awareness of how mental health stigma can impact progress and self-worth. Client to continue IOP tx to prevent decompensation and increase mood stability. Narrative Note: []
--- NOTE | 2020-03-04 11:20 | BH.SGPN.GN ---
Behaviors/Verbalizations/Mental Status: []Client alert and oriented, casually dressed, hygiene appeared to be tended to. Eye contact fair. Motor activity appropriate. Speech within normal limits. Affect constricted, mood depressed. Thoughts linear, logical, no signs of hallucinations or delusions. Client Response/Progress/Benefit: []Client responded well to session AEB listening and taking notes, as well as providing input at times during session. Engaged in activity about facts and statistics of mental illness. Group connected with the mental health statistics, recognizing the prevalence of mental health. Group brainstormed strategies to combat social and perceived stigma which included: educating others, no longer using negative language about mental illness, being open about mental health, self-compassion and not reinforcing stigma with behaviors or labels. Client stated she would benefit from working on not blaming self for her mental health and focus on building self confidence in order to reduce perceived mental health stigma. Client stated she also would like to understand her own mental illness better so she can educate others. Appeared to benefit from increasing awareness of strategies to combat stigma. Will continue IOP tx to reduce depression, increase healthy coping and prevent decompensation. Narrative Note: []
--- NOTE | 2020-03-05 09:00 | BH.SGPN.GN ---
Behaviors/Verbalizations/Mental Status: []Client alert and oriented, casually dressed and appropriately groomed. Eye contact fair. Motor activity appropriate. Speech within normal limits. Affect constricted, mood anxious and dysthymic. Thoughts linear, logical, no signs of hallucinations or delusions. Client Response/Progress/Benefit: []Pt engaged participant AEB pt listening attentively to others and sharing thoughts and feelings. Pt reported she has been working on her goal of creating a daily routine. Pt reported she followed a morning routine yesterday which seemed to help. Pt stated having a routine helps her feel less scattered. Pt stated she has been feeling more positive and confident recently. Pt identified being stressed about money and work. Pt stated she is anxious because waiting on a decision from disability. Pt reported it's hard not to worry about it since she needs money. Pt stated she has been practicing her breathing techniques to manage anxiety. Pt is to continue IOP to increase healthy coping, challenge negative thoughts and prevent decompensation. Narrative Note: []
--- NOTE | 2020-03-05 10:03 | BH.SGPN.GN ---
Behaviors/Verbalizations/Mental Status: []Client alert and oriented, casually dressed. Eye contact good. Motor activity appropriate. Speech within normal limits. Affect could not be assessed due to pt wearing a mask as a requirement during COVID-19 pandemic. Mood dysthymic and anxious. Thoughts linear, logical, no signs of hallucinations or delusions. Client Response/Progress/Benefit: []Pt remained a mostly passive participant throughout session AEB pt providing limited input to discussion; however, did do well with taking notes, and willing to complete worksheet. Group discussed impacts of anger on mental health and identified triggers of anger to include: feeling disrespected by others, feeling overwhelmed/stressed, high expectations of self, anxiety, grief, and feeling out of control. Pt shared connecting with anger stemming from sadness. Shared her emotions underlying anger include: disappointment, fear, and grief or sadness. Group discussed common ways anger is expressed and Pt identified the following way she expresses anger: slamming things, increased volume and tone, as well as minimizing. Pt seemed to benefit from increased awareness of how unmanaged anger can impact self and others. Progress noted in pt self-report of improved communication with supports and use of self-care, though continues to struggle with consistent skill application and distorted thinking impacting progress. Pt to continue IOP to increase ability to challenge thoughts, increase internal healthy coping skills, and prevent decompensation. Narrative Note: []
--- NOTE | 2020-03-05 11:10 | BH.SGPN.GN ---
Behaviors/Verbalizations/Mental Status: []Client alert and oriented, casually dressed and groomed. Eye contact fair. Motor activity appropriate. Speech within normal limits. Affect unable to gather due to client wearing a mask for COVID-19 protocol. mood dysthymic. Thoughts linear, logical, no signs of hallucinations or delusions. Client Response/Progress/Benefit: []Client was an engaged participant throughout group. Client helped the group identify common warning signs of anger and identified personal warning signs of anger which included: skin irritation, muscle tension, and increased heart rate. Group brainstormed with group healthy coping skills to help manage anger which included: deep breathing, opposite action, exercise, taking breaks, music, slow tempo, and communication with supports. Client selected slow her tempo, asking for clarification, and thought challenging as the coping skills client wants to incorporate this week to manage anger. Client appeared to benefit from identifying different techniques to manage anger as well as gaining awareness of warning signs. Progress noted as client reports practicing calming skills outside IOP. Will continue IOP tx to prevent decompensation of depressive symptoms, improve use of healthy coping skills, and reduce cognitive distortions. Narrative Note: []
--- NOTE | 2020-03-07 09:00 | BH.SGPN.GN ---
Behaviors/Verbalizations/Mental Status: []Client alert and oriented, casually dressed. Eye contact good. Motor activity appropriate. Speech within normal limits. Affect unable to gather due to wearing a mask for COVID-19 protocol, mood anxious. Thoughts linear, logical, no signs of hallucinations or delusions. Reviewed client?s symptom tracker, no risk or plan for suicide ideation as of 03/07/20. Client Response/Progress/Benefit: []Client responded well to session, engaged and participated throughout discussion. Client reported not completing her goal of completing housework in her basement as her stressors became overwhelming. Client reported using breathing techniques and reading positive affirmations as coping skills. Client minimized her stressors and feelings as client stated she tries to have a positive attitude although feeling highly stressed from her job loss and mother?s illness. Client benefited from group as she increased self-awareness. Client will continue IOP to decrease depressive symptoms, increase healthy coping skills, and improve daily functioning. Narrative Note: []
--- NOTE | 2020-03-07 11:19 | BH.SGPN.GN ---
Behaviors/Verbalizations/Mental Status: [] Eye contact is good. Motor activity is appropriate. Appearance is casual. Speech is Appropriate. Mood is anxious, euthymic. Affect congruent. Thoughts are linear and logical. No evidence of psychosis. Client Response/Progress/Benefit: [] Pt receptive of session, provided support to participants throughout the activity, and input to discussion. Group processed the challenge activity and identified positive and negative forces impacting ability to complete the challenge. Pt reflected upon the positive impact of encouragement from peers on group success. She was attentive during psychoeducation and appeared to benefit from increased insight on the impact of negative and positive forces on her own mental wellness. Identified wanting to improve her ability to be honest with supports as a positive force in her life by more actively asking for help and letting them know when she is struggling. Progress in pt self-report of improved overall ability tobegin applying more self-care strategies and make more efforts to reach out to supports despite struggling in this area. Pt recommended continued IOP tx to improve skill application, symptom management, and continue to work on increasing active utilization of healthy supports. Narrative Note: []
--- NOTE | 2020-03-07 12:16 | BH.MDN ---
Multi-Disciplinary Note - Note 30-min Individual Time Started:: 10:55 Date: 03/07/20 Purpose of session/treatment goals addressed:: Purpose of session today was to complete a psychosocial assessment, and check in on client's use of healthy coping skills, and problem solve for homework assignment to decrease anxiety. Eye Contact:: Good Motor Activity:: Appropriate Appearance:: Casual Speech:: Appropriate, Soft Mood:: Anxious, Dysthymic Affect:: Congruent Thoughts:: Linear, Logical Staff Interventions:: Therapist engaged client in problem solving to decrease stressors. Therapist also discussed the importance of self-care and helping self before helping others. Therapist expressed the benefits of vulnerability and completed a psychosocial assessment to build rapport and learn more about client previous trauma and presenting stressors. Client Response:: Client responded well to session and discussed problem solving strategies and practiced relaxation techniques to reduce anxiety and stress. Client was vulnerable and expressed significant life events including current stressors and childhood trauma that client has not processed. Client receptive to focusing on her strengths and challenging unrealistic expectations. Client and therapist discussed the importance of self-care as client shared that she spends a great amount of time with her mother which impacts client's stress and MH symptoms. Client shared she wants to help her mother as much she can, but client recognized that she has to help herself before helping others. Risks/Concerns:: Client denies any suicidal risk, ideation, or plan as of 03/07/20. Client remains positive and future oriented. Progress Toward Goals/Plan:: Client is practicing healthy coping strategies and relaxation techniques as progress towards current goals. Client's current homework allows client to problem solve in which will lessen anxiety symptoms. Client endorses symptoms of anxiety, fatigue, lack of energy, and soreness of muscles. Client will continue IOP to decrease depressive symptoms, increase healthy coping skills, and improve self-confidence. Time Stopped:: 11:30
--- NOTE | 2020-03-11 09:01 | BH.SGPN.GN ---
Behaviors/Verbalizations/Mental Status: [] Client alert and oriented, casually dressed and groomed. Eye contact good. Motor activity appropriate. Speech within normal limits. Affect congruent, mood euthymic. Thoughts linear, logical, no signs of hallucinations or delusions. Reviewed client?s symptom tracker, no risk for suicidal ideation noted as of 03/11/20. Client Response/Progress/Benefit: []Client receptive to session, engaged in discussion and provided supportive feedback throughout. Client reports feeling happy and calm this morning. Attributes current emotions to having a positive weekend in which she was able to practice self-care and effectively communicate with her partner. Discussed current stressor continues to be her mother?s health, but that she is doing better to set boundaries with herself so she does not overwhelm herself with caretaking responsibilities. Discussed current positives as securing employment that is flexible with her caregiving responsibilities, as well as challenging self-doubt related to her ability to complete the new job without assistance. Expressed applying thought challenging and positive self-talk to best address doubts. Progress noted in pt self-report of improved anxiety and stress management, as well as improved skill application. Continues to struggle with consistency and combating distorted thoughts. Will continue IOP tx to prevent decompensation, continue to promote mood stability, and further promote thought challenging skill application. Narrative Note: []
--- NOTE | 2020-03-11 11:19 | BH.SGPN.GN ---
Behaviors/Verbalizations/Mental Status: []Client alert and oriented, neatly dressed and groomed. Eye contact good. Motor activity appropriate. Speech within normal limits. Affect constricted, mood dysthymic. Client Response/Progress/Benefit: []Client responded well to session, connecting with peers and receptive to supportive statements. Client engaged in the boundary self-assessment activity and attentive during psychoeducation on the different boundary styles. Client reported she used to be both porous and rigid with her boundaries. Client stated she had a hard time asking for help, and client would also say yes to too many people. Client shared she now recognizes this is unhealthy and recently moved towards more flexible boundaries which has benefit client. Client participated in brainstorming strategies to improve boundary setting and reports wanting to work on improving her time management and creating a schedule which will help client set healthy boundaries. Progress noted in client?s increased insight, but she continues to struggle with negative thinking. Will continue IOP tx to reduce distortions, improve boundary setting, and improve mood stability. Narrative Note: []
--- NOTE | 2020-03-13 09:00 | BH.SGPN.GN ---
Behaviors/Verbalizations/Mental Status: []Client alert and oriented, casual dress, hygiene tended to. Eye contact fair. Motor activity appropriate. Speech within normal limits. Affect congruent, mood euthymic, slightly anxious. Thoughts linear, logical, no signs of hallucinations or delusions. Reviewed client?s symptom tracker, pt denies current suicidal thoughts or intention to date. Client Response/Progress/Benefit: []Patient responded well to session as evidenced by her sharing thoughts and feelings and appeared to listen attentively to others. Pt reported her she is still working on her game plan of time management. Pt stated her new job has her working from home which she reported is why she needs to have a better structure and routine. Pt reported she is trying to break her tasks up throughout the day. Pt stated a positive was getting herself up from a nap after 50 minutes versus laying in bed for hours. Pt reported she was able to be productive and feels proud of herself. Pt identified her emotion for today to be happy. Progress noted with pt reporting use of healthy coping skills to be productive. Pt is to continue IOP to increase consistent use of healthy coping, improve confidence and prevent decompensation. Narrative Note: []
--- NOTE | 2020-03-13 10:10 | BH.SGPN.GN ---
Behaviors/Verbalizations/Mental Status: []Client alert and oriented, casually dressed and groomed. Eye contact good. Motor activity appropriate. Speech within normal limits. Affect unable to gather due to wearing mask per COVID-19 protocol, mood anxious. Thoughts linear, logical, no signs of hallucinations or delusions. Client Response/Progress/Benefit: []Client engaged and actively listened to others as client took notes. Client connected with discussion on the difference between ?normal? anxiety and when anxiety becomes problematic. Client gained awareness of personal physical symptoms of anxiety which included: blurred vision, neck tension, insomnia, shortness of breath, and high blood pressure. Client reported her safety behavior as avoiding thoughts or behaviors by ?over researching on the internet? to decrease her anxiety symptoms for temporary relief. Client also identified catastrophizing and ?what if? as her common cognitive distortions when experiencing anxiety. Client benefited from group as client gained insight into physical signs of anxiety, safety behaviors, and common cognitive distortions. Client will continue IOP to increase the use of healthy coping skills, decrease depressive symptoms, and improve daily functioning. Narrative Note: []
--- NOTE | 2020-03-13 11:12 | BH.SGPN.GN ---
Behaviors/Verbalizations/Mental Status: []Client alert and oriented, neatly dressed and groomed. Eye contact good. Motor activity appropriate. Speech within normal limits. Affect constricted, mood anxious and euthymic. Thoughts linear, logical, no signs of hallucinations or delusions. Client Response/Progress/Benefit: []Client was an active participant in group discussion and provided insight on group topic. Attentive during psychoeducation on mindfulness coping skills and their impact on mental health wellness. Practiced 5-senses, guided imagery, and PMR with group. Client was able to identify self-soothing and mind-based coping skills client wants to incorporate into current coping skill practice. The skills client chose to practice counting while breathing and taking a hot bath. Appeared to benefit from practicing in the moment coping skills. Progress noted in client?s report of setting boundaries with her mother. Will continue IOP tx to reduce negative thinking, improve healthy coping skills, and improve mood stability. Narrative Note: []
--- NOTE | 2020-03-14 09:05 | BH.SGPN.GN ---
Behaviors/Verbalizations/Mental Status: []Client alert and oriented, casually dressed. Eye contact good. Motor activity appropriate. Speech within normal limits. Affect unable to gather due to wearing a mask for COVID-19 protocol, mood anxious. Thoughts linear, logical, no signs of hallucinations or delusions. Reviewed client?s symptom tracker, no risk or plan for suicide ideation as of 03/14/20. Client Response/Progress/Benefit: []Client responded well to group, engaged and participated throughout discussion. Client?s goal has been to improve time management and be organized with work to promote work-life balance. Client shared her new job has given her a purpose in life and has decreased her depressive symptoms. Client gained insight from other group member who could relate to the new work and sense of purpose. Client benefited from group as client increased self-awareness and confidence. Client will continue IOP to decrease depressive symptoms, increase the use of healthy coping skills, and improve daily functioning. Narrative Note: []
--- NOTE | 2020-03-14 10:20 | BH.SGPN.GN ---
Behaviors/Verbalizations/Mental Status: []Client alert and oriented, casual dress, hygiene tended to. Eye contact good. Motor activity appropriate. Speech within normal limits, quiet. Affect constricted. Mood anxious, euthymic. Thoughts linear, logical, no signs of hallucinations or delusions. Client Response/Progress/Benefit: [] Pt receptive of session AEB taking notes and remaining attentive during discussion about quote and defining resilience. Pt remained an active listener during discussion of the costs of resisting change and the benefits of adapting to adversity. Shared that to her resilience is something that requires a lot of courage and practice. Group identified costs of resisting change to include: staying stuck, difficulty managing crises, not seeing opportunities to improve current situation, and decrease in self-care. Attentive during psychoeducation on various damon factors in developing personal resilience. Pt reported that accepting change as a part of living is something she has been working on doing in regard to her current life stressors but finds it difficult at times. Pt seemed to benefit from increasing awareness of strategies to increase personal resilience and the impacts of resilience on managing mental health sx. Progress noted in pt improved ability to challenge anxiety provoking thoughts though continues to struggle with minimization. Will continue IOP tx to promote the use of healthy coping skills, self-care, and prevent decompensation. Narrative Note: []
--- NOTE | 2020-03-14 12:41 | BH.MDN_ITS ---
Multi-Disciplinary Note - Note 45-min Individual Time Started:: 11:35 Date: 03/14/20 Purpose of session/treatment goals addressed:: Purpose of session today was to complete a self-care assessment to address which self-care practices have been most helpful to decrease depressive symptoms. Previous homework and stressors were addressed as well as discussing client's new job and what it entails. Eye Contact:: Good Motor Activity:: Appropriate Appearance:: Neat Speech:: Appropriate Mood:: Anxious Affect:: Full Thoughts:: Linear, Logical Staff Interventions:: Therapist discussed the importance of self-care and ahving a healthy work life balance. Therapist engaged client in discussing the benefits of self-care and the importance of practicing self-care daily throughout client's schedule. Therapist helped client complete a self-care asssessment and explained the self-care wheel. Client Response:: Client responded well to session and discussed which self-care practices would be most beneficial to her. Client was anxious to discuss self- care from the occupational standpoint, as client started a new job working from home. Client stated she would implement some new self-care practices into her weekly schedule that includes: taking bubble baths, buying herself a scented candle, dance more frequently, make two doctor appointments, and take mental health days for herself from her job to remind herself the importance of treating mental health symptoms. Risks/Concerns:: Client denies any suicidal risk, ideation, or plan as of 03/14/20. Client remains positive and future oriented. Progress Toward Goals/Plan:: Client is practicing healthy coping skills like breathing and self-care as progress towards current goals. Client stated the new job she has began has given her a sense of purpose and worth. Client's current homework allows client to try new healthy self-care strategies throughout her week, as well as practicing to schedule self-care into daily routine. Client will continue IOP to increase the use of healthy coping skills, decrease depressive symptoms, and improve daily functioning. Time Stopped:: 12:20
--- NOTE | 2020-03-21 14:31 | BH.COMM ---
Communication Note - Communication with Client Communication Note: Client unable to meet with individual therapist the week of 03/17/20-03/21/20 due to client canceling all of her scheduled IOP days. Client canceled due to caring for her mother and work. Client reports plan to return to group next week on Tuesday.
--- NOTE | 2020-03-26 09:21 | BH.COMM_ITS ---
Communication Note - Communication with Client Communication Note: Client unable to see individual therapist the week of 03/24/20-03/28/20 due to client canceling her scheduled IOP group and individual sessions. Client reports she canceled this week due to medical appointments and plans to return to [facility] next week.
== END 2020-03-15 23:59 ==
LOC: BHIOP 10:18
PROVIDERS: Referring Provider Psychiatry & Neurology Psychiatry; Visit Provider Psychiatry & Neurology Psychiatry
DX: F33.1 Major depressive disorder, recurrent, moderate (principal); F15.10 Other stimulant abuse, uncomplicated; F17.210 Nicotine dependence, cigarettes, uncomplicated; Z85.828 Personal history of other malignant neoplasm of skin; I10 Essential (primary) hypertension; Z79.899 Other long term (current) drug therapy
CPT/HCPCS: 90792; H0035; H2012; H2020; T1002; 90832; 90834

== ENCOUNTER 2020-03-31 09:00 | Outpatient (RCR) | payer MEDICAID, SELFPAY ==
[2020-03-16 00:37] VITALS: BP 157/73; PULSE 75
--- NOTE | 2020-03-31 09:05 | BH.SGPN.GN ---
Behaviors/Verbalizations/Mental Status: [] Client alert and oriented, casual dress, hygiene tended to. Eye contact fair to good. Motor activity appropriate. Speech within normal limits, quiet. Affect constricted, mood depressed and anxious. Thoughts linear, logical, no signs of hallucinations or delusions. Reviewed client?s symptom tracker, no signs of suicidal ideation, plan, or intent as of today. Client Response/Progress/Benefit: [] Client responded well to session, actively listening and willing to process with group. Client identified emotion today as ?happy?; however appeared to be minimizing. This is evidenced by client describing several stressors including work, lack of time for self-care, her mother?s health, her own health, and finances. Despite noting these stressors, client indicated ?It?s not that bad though and I?m just trying to focus on the positives?. Client has struggled consistently with attendance due to being overwhelmed by external stressors/responsibilities. Lack of boundaries in this area and poor self-care may continue to impede progress. Client appeared to benefit from supportive feedback provided by fellow participants. Recommended continued IOP tx to encourage client to make her mental health a priority, improve application of skills, continue to work on independent mood management, and prevent decompensation. Narrative Note: []
--- NOTE | 2020-03-31 10:20 | BH.SGPN.GN ---
Behaviors/Verbalizations/Mental Status: []Client alert and oriented, casually dressed. Eye contact fair to good. Motor activity appropriate. Speech within normal limits, quiet. Affect constricted, mood anxious, depressed. Thoughts linear, logical, no signs of hallucinations or delusions. Client Response/Progress/Benefit: []Client engaged throughout session AEB providing input when prompted, remaining attentive throughout, as well as taking notes. Remained mostly passive throughout. Appeared to connect with discussion on crisis development and how unhealthy coping could result in a personal crisis. Nodding as others shared impacts of limited self-care on reinforcing sx of depression. Group reflected on the importance of having awareness of personal warning signs in order to prevent reaching crisis point. Client appeared to connect with this, as well as group discussion identifying potential warning signs for crisis. Client completed the personal warning signs worksheet. Client identified personal crisis warning signs to include: isolation, reduced self-care, and difficulties concentrating. Client benefited from increasing awareness of what leads to crisis and personal warning signs. Progress remains variable as client continues to struggle with independent application of skills and isolation. Lack of attendance may also be impeding ability to get full benefit of group. Will continue IOP tx to increase consistency of attendance and use of healthy coping skills, reduce isolation, as well as prevent decompensation. Narrative Note: []
--- NOTE | 2020-04-03 09:00 | BH.SGPN.GN ---
Behaviors/Verbalizations/Mental Status: []Client alert and oriented, casually dressed. Eye contact good. Motor activity appropriate. Speech within normal limits. Affect constricted, mood anxious and dysthymic. Thoughts linear, logical, no signs of hallucinations or delusions. Reviewed client?s symptom tracker, no risk or plan for suicide ideation as of 04/03/20. Client Response/Progress/Benefit: []Client responded well to session, engaged and participated throughout discussion. Client reported feeling ?stuck? as she stated she does not know what decision to make about work. Client reported having little to no motivation to complete self-care as her goal has been ?getting back to herself and be happier.? Client stated the only self-care she has completed has been to schedule doctor appointments. Client benefited from group as other group members related her little motivation and other group members offered feedback to possibly improve motivation and the use of healthy coping skills. Client will continue IOP to increase the use of healthy coping skills, improve mood, and decrease depressive symptoms. Narrative Note: []
--- NOTE | 2020-04-03 10:10 | BH.SGPN.GN ---
Behaviors/Verbalizations/Mental Status: []Client alert and oriented, casually dressed, hygiene appeared to be tended to. Eye contact fair. Motor activity appropriate. Speech within normal limits. Affect constricted, mood anxious and dysthymic. Thoughts linear, logical, no signs of hallucinations or delusions. Client Response/Progress/Benefit: []Client responded well to session, attentive and engaged throughout discussion and activity. Client related to the quote as she stated ?you have to take chances in life to change the outcome of depression.? Client reported past experiences and mistakes have held her back from making changes as failure is scary. The group concluded many impacts of fear of failure: cognitive distortions increase, keeps us from trying something new, keeps us from revisiting previous experiences, fear of judgement from others or forming new relationships. Client seemed to connect how failures can lead to positive changes. Client appeared to benefit from gaining awareness of the impact fear of failure can have on one?s mental health and wellbeing. Will continue IOP to increase the use of healthy coping skills and improve mood. Narrative Note: []
--- NOTE | 2020-04-03 12:12 | BH.COMM_ITS ---
Communication Note - Communication with Client Communication Note: Pt was not able to come into IOP ON 03/21, 03/26, 04/02, or 04/07 to meet with psychiatrist. 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 Having to take mother to [place] for medical appts. She met with PCP last week who has agreed to manage her psych medications and actually made some adjustments.
--- NOTE | 2020-04-04 07:37 | BH.MDN ---
Multi-Disciplinary Note - Note 30-min Individual Time Started:: 11:25 Date: 04/04/20 Purpose of session/treatment goals addressed:: Purpose of today's session was to update therpaist on current stressors or goals, as client has not seen therapist since 03/14/20. Client and therapist discussed current gameplan and upcoming discharge plan. Client updated therapist on new job, progress on goals, as well as homework of individual sessions. Eye Contact:: Good Motor Activity:: Appropriate Appearance:: Casual Speech:: Appropriate Mood:: Anxious, Irritable Affect:: Flat Thoughts:: Linear, Logical Staff Interventions:: Therapist engaged client in session by asking questions about current stressors and updates on client homelife. Therapist discussed with client pros, cons, and consquences if client stays or quits her job. Therapist also discussed importance of self-care and mental health as over working self can be damaging to client well-being. Therapist also discussed upcoming discharge in two weeks and provided ideas of expectations and follow up appointments for after IOP program. Client Response:: Client responded well to session, engaged in discussion. Client shared feeling agitated easily as her job has been a stressor and detrimental to her physical and mental wellbeing. Client shared she no longer wants to work and wants to work until she is able to get social security in May 2020. Client told therapist she had not been practicing self-care, as she has been busy with work and feels a lack of motivation. Client stated feeling stuck because she does not want to work, but needs an income. Client reported decreased neck pain, a change in anxiety medication, and will stop smoking soon as her doctor gave her nicotine patches. Client agreed to writing down pros and cons to her employment and agreed to complete self-care on a daily basis. Risks/Concerns:: Client denies any suicidal risk, ideation, or plan as of 04/04/20. Progress Toward Goals/Plan:: Client was making progress, current regression in symptoms as client reports feeling overwhelmed with her job and missing IOP for two weeks. Client endorses low motivation, easy agitation, increased stress, and decreased sleep. Client will continue IOP to increase mood and the use of healthy coping skills. Client plans to discharge the first week of April. Time Stopped:: 11:45
--- NOTE | 2020-04-04 09:00 | BH.SGPN.GN ---
Behaviors/Verbalizations/Mental Status: []Client alert and oriented, casually dressed. Eye contact fair. Motor activity appropriate. Speech within normal limits. Affect constricted, mood anxious. Thoughts linear, logical, no signs of hallucinations or delusions. Reviewed client?s symptom tracker, no risk or plan for suicide ideation as of 04/04/20. Client Response/Progress/Benefit: []Client responded well to session, engaged and participated throughout discussion. Client reported feeling ?good and anxious? as she stated she has been working on her goal of not overworking herself. Client shared she understands her capabilities and the importance of self-care. Client told the group she was going to quit her job after the weekend, as it has caused a lot of stress and physical pain to her hands. Client recognized she was setting boundaries for herself and felt it was necessary to quit. Client benefited from group as she had a positive outlook of being unemployed, rather than ruminating. Client will continue IOP to increase the use of healthy coping skills and improve daily functioning. Narrative Note: []
--- NOTE | 2020-04-04 10:05 | BH.SGPN.GN ---
Behaviors/Verbalizations/Mental Status: []Client alert and oriented, casual dress, hygiene tended to. Eye contact fair. Motor activity appropriate. Speech within normal limits. Affect constricted, mood anxious. Thoughts linear, logical, no signs of hallucinations or delusions. Client Response/Progress/Benefit: []Client responded well to session, providing feedback to peers and insight to discussion. Engaged during psychoeducation portion reviewing fixed mindset. Client connected with traits of the fixed mindset and worked with group to identify how a fixed mindset can impact our mental health which included: increased distortions, negative self-talk, ruminations, all or nothing thinking, self-fulfilling prophecies, unchanging mindset, and keeps us from accomplishing tasks/goals. Client reported a fixed thought she encounters is ?I cannot complete something, so why try?? Client reported the impact of her fixed mindset leads to not working towards goals as well as negative self talk. Benefited from group by increasing awareness of how one's mindset impacts mental health. Client?s attendance has been inconsistent, but client still reports progress in symptom management. Client will continue IOP to continue using healthy coping skills and decrease MH symptoms. Narrative Note: []
--- NOTE | 2020-04-04 11:15 | BH.SGPN.GN ---
Behaviors/Verbalizations/Mental Status: []Client alert and oriented, casually dressed and groomed. Eye contact good. Motor activity appropriate. Speech within normal limits. Affect congruent. mood anxious, depressed. Thoughts linear, logical, no signs of hallucinations or delusions. Client Response/Progress/Benefit: []Client actively listening, attentive during discussion, and taking notes throughout. Remained mostly passive throughout, however. Client did well to work with group on identifying characteristics and benefits of adopting a growth mindset. Client provided input during activity in which participants helped reframe example fixed thoughts into growth mindset thoughts. Reports that being able to reframe her own fixed thoughts could improve self-care and continue to reduce overall anxiety & depression levels. Client worked to apply skills learned to reframe own personal fixed thoughts. Reframed thought of ?I can?t do this? with growth mindset thought of ?Even though this is hard, I know I will feel better and can still learn something if I at least try?. Benefitted from discussing benefits of growth mindset and brainstorming strategies for prompting a growth-mindset. Client progress remains variable as she continues to struggle with minimizing her emotions which has reinforced negative thoughts impacting depression and anxiety levels. Some progress noted in client self-reports of improved communication with his supports. Will continue IOP tx to continue to promote active thought challenging and skill application as well as improve healthy coping repertoire. Narrative Note: []
--- NOTE | 2020-04-09 10:15 | BH.SGPN.GN ---
Behaviors/Verbalizations/Mental Status: []Client alert and oriented, casually dressed and groomed. Eye contact fair to good. Motor activity appropriate. Speech within normal limits. Affect congruent, mood dysthymic. Thoughts linear, logical, no signs of hallucinations or delusions. Client Response/Progress/Benefit: []Client was an engaged participant AEB client taking notes and attentively listening to peers throughout session, though remained mostly passive during discussion. Client connected with group topic of perspective and the impacts of one?s perspective on mental health. She shared that it can be difficult to find the positives in a situation when we are so used to ?looking for the negatives?. Worked with group to identify how negative perspective can impact mental health which included: self-fulfilling prophecy, maintain unhealthy mental health cycles, and lead to more negative thinking.?Client remained attentive as group discussed ways a positive perspective can impact mental health such as: be more willing to keep trying when faced with setbacks, be more open to new experiences and new relationships, as well as improve self-confidence. Client appeared to benefit from increasing understanding of mental health benefits of a positive perspective and potential consequences to progress when perspective is negative. Progress continues to remain limited due to client difficulties in active application of thought challenging outside tx environment. Due to outside responsibilities, client is to discharge from IOP program at this time. Is encouraged to continue with individual outpatient tx to prevent decompensation, further improve symptom management, and continue to make gains. Narrative Note: []
--- NOTE | 2020-04-09 11:17 | BH.SGPN.GN ---
Behaviors/Verbalizations/Mental Status: []Eye contact is good. Motor activity is appropriate. Appearance is casual. Speech is Appropriate. Mood is euthymic. Affect is constricted. Thoughts are linear and logical. No evidence of psychosis. Client Response/Progress/Benefit: []Client was an active participant in group discussion. Attentive during psychoeducation. Active participant in group discussion on the impact of perspective on how we view ourselves. Client worked with the group to develop a working definition of the term strengths and the importance of recognizing one's strengths. Client was given a worksheet and was asked to [place] at least 3 strengths which client selected: honesty, kindness, and forgiveness. Group then worked together to identify strategies to remind themselves of their strengths and client selected keeping her worksheet from group visible as her strategy. Progress noted AEB client?s self-report of improved ability to cope with stressors. Benefited from increased awareness of the role of perspective and strengths in daily mental health wellness. Will discharge from [facility] today as client reports improved mood stability and wishes to transition to outpatient counseling. Narrative Note: []
--- NOTE | 2020-04-09 14:06 | BH.MDN ---
Multi-Disciplinary Note - Note 30-min Individual Time Started:: 09:05 Date: 04/09/20 Purpose of session/treatment goals addressed:: The purpose of this session was to review application of coping skills, establish aftercare, and practice cognitive restructuring. Eye Contact:: Good Motor Activity:: Appropriate Appearance:: Neat Speech:: Appropriate Mood:: Euthymic Affect:: Congruent Thoughts:: Linear, Logical, No evidence of hallucinations/delusions noted Staff Interventions:: Therapist used active listening and open-ended questions to gather information on client's current symptoms, stressors, and application of coping skills. Therapist used cognitive restructuring to gently challenge client's distortions and encourage self-compassion. Therapist gave client resources at [facility] for outpatient therapy and discussed IOP aftercare. Client Response:: Client responded well to session, open to meeting with therapist. Client acknowledges that although she has not completed the entirety of IOP, client feels ready to discharge. Client stated she has quit her job that has been causing client significant mental and physical stress. Client shared since making this decision she has been feeling less anxious and depressed. Client feels more motivated at home and more at peace. Client no longer admits to feeling worthless or confused with her life. Client's DSM-5 scores have decreased by 52% since admission and she reports less self-depreciating talk. Client continues to struggle with scheduling time for self-care and minimizing. Receptive to discussion of using outpatient counseling and IOP aftercare to promote mood stability and act as maintenance for client's well-being. Client and therapist reviewed healthy coping skills such as self-care, positive self-talk, communicating needs, and setting boundaries. Risks/Concerns:: Client denies any suicidal ideations, plan, or intent as of 04/09/20. Progress Toward Goals/Plan:: Client wishes to discharge from IOP tx as client's DSM-5 scores have significantly decreased and client feels she has received the full benefit of IOP tx. Client no longer meets criteria for IOP level of care and will pursue outpatient counseling to maintain mood stability. Client was undecided about IOP aftercare and therapist will follow up with client. Time Stopped:: 09:35
--- NOTE | 2020-04-09 14:11 | BH.DS_ITS ---
Discharge Summary - Demographics Date of Admission:: 02/20/20 Discharge Date: 04/09/20 Presenting Problems at Admission:: Client is a 59-year-old female with history of MDD and Meth Use D/O. No previous psychiatric admissions. Prior to admission, client called [facility] staff several times due to decompensation and was encouraged to come in for assessment. Client completed [facility] IOP in 03/2019. Report stability until 06/2019 when she lost her job of 43 years. Client reported she was asked to resign however is not sure the reason. Client had numerous regrets for not asking for clarification or fighting for her job. Since job loss, she had depleted finances and lost insurance. Without insurance, she has been off her medications (psych and medical). Increased isolation and avoidance. Anxious and fearful of the future. No purpose or goals. At admission, client endorsed poor sleep, poor concentration, restlessness, anger outbursts, and significant regret and ruminations. Denies suicidal ideations, plan, or intent. Hx of intrusive thoughts and minimizing feelings. Denies HI or psychosis. Denies current substance abuse. Significant psychosocial stressors which were impacting mental health and daily functioning at admission. 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 Client no longer meets criteria for [facility] level of care and will transition to outpatient counseling and potentially IOP aftercare. - Treatment Progress During Treatment & Response: Client responded well to treatment and demonstrated progress towards her treatment goals AEB a 52% reduction in DSM-5 scores and engagement in group and individual sessions. Client?s scores for depression decreased by 50% and anxiety decreased by 67% since admission. Client missed two weeks of IOP due to medical appointments, work, and caregiving for her mother. Client was mostly consistent with applying healthy coping skills, but when client got a new job, she struggled to implement self-care which resulted in worsening depressive symptoms for a week. Client decided to quit this job and focus more on her mental health. Client was an active group member who often gave insight to discussion, feedback to peers, and connects the topics to her daily life. Client was engaged in her individual sessions and was mostly consistent with homework and skill utilization outside of group. Client will follow up with [facility] for outpatient counseling and her PCP for medication management. Issues Still to be Addressed:: Client can benefit from ongoing counseling to reinforce healthy coping skills such as self-care, thought challenging, and boundary setting. Client struggles with minimizing her symptoms at times and asking for help which could present as barriers to maintenance following IOP discharge. Discharge Recommendations/Instructions:: Client was provided options for outpatient therapy at [facility]. Client plans to call and schedule an appointment. Client receptive to IOP aftercare and can see benefits, but client was still undecided at time of discharge. Therapist will follow up with client. Discharge Handout: Complete Discharge Handout with client on aftercare options and continuity of care.
== END 2020-04-14 23:59 ==
LOC: BHIOP 09:00
PROVIDERS: Referring Provider Psychiatry & Neurology Psychiatry; Visit Provider Psychiatry & Neurology Psychiatry
DX: F33.2 Major depressive disorder, recurrent severe without psychotic features (principal); F15.10 Other stimulant abuse, uncomplicated
CPT/HCPCS: H0035; H2012; H2020; 90832

== ENCOUNTER 2022-05-16 10:22 | Observation (INO) | payer BC, MEDICAID, SELFPAY ==
[2022-05-16] VITALS (15 sets, daily range): BP systolic 114–138; BP diastolic 64–99; PULSE 68–98; RESP 16–20; TEMP 36.6–37.2; O2SAT 93–97; BMI 22.9; BMI 22.6
--- NOTE | 2022-05-16 10:34 | NURSING ---
NO OLD EKGS
--- NOTE | 2022-05-16 10:39 | EKG12_ITS ---
Test Reason : CHEST PAIN Blood Pressure : / mmHG Vent. Rate : 085 BPM Atrial Rate : 085 BPM P-R Int : 138 ms QRS Dur : 088 ms QT Int : 382 ms P-R-T Axes : 068 064 127 degrees QTc Int : 454 ms Normal sinus rhythm Possible Left atrial enlargement T wave abnormality, consider lateral ischemia Poor R wave progression Abnormal ECG Confirmed by TOMAS RODRIGUEZ, BÁRBARA ([id number]), editorial assistant REGAN GODINEZ ([id number]) on 05/18/2022 1:13:09 PM Referred By: HERIBERTO Confirmed By:BÁRBARA MARIN MD
--- NOTE | 2022-05-16 10:40 | RAD_ITS ---
EXAM: XR CHEST, 1 VIEW CLINICAL INDICATION: Chest pain. TECHNIQUE: Frontal view of the chest. This report was created using [employer] report generation technology. COMPARISON: None. FINDINGS: LUNGS AND PLEURAL SPACES: Multifocal ill-defined interstitial infiltrates involving both lungs. No pneumothorax. No effusion. HEART: Mild cardiomegaly. MEDIASTINUM: Central airways and mediastinal contour are unremarkable. BONES/JOINTS: Unremarkable. SOFT TISSUES: Unremarkable. RAD/Chest 1 View (Portable) IMPRESSION: Suspicious interstitial pneumonitis in both lungs worrisome for Covid-19 pneumonia. Electronically Signed: Jasmeet Mcdonald MD at 11:20 EST ,
[2022-05-16 10:54] LABS: Absolute Lymphocyte Count 2.14 X10^3/uL (0.83-4.51); Basophil# 0.09 X10^3/uL; Basophil% 0.9 % (0-1); Eosinophils% 5.2 % (0-5); Hematocrit 46.2 % (37-47); Hemoglobin 14.7 g/dL (12.0-15.0); Lymphocyte # 2.14 X10^3/ul (0.83-4.51); Lymphocyte % 22.2 % (19-41); Mean Corp Hgb Conc 31.8 g/dL (32-36); Mean Corpuscular Hgb 31.1 pg (27.0-32.0); Mean Corpuscular Volume 97.7 fL (81-99); Mean Platelet Vol. 11.5 fl (6.2-12.0); Monocyte# 0.89 X10^3/uL; Monocyte% 9.2 % (0-10); NRBC Flagged by Analyzer 0 % (0-5); Neutrophil # 5.98 X10^3/uL (2.7-7.7); Neutrophil % 62.2 % (47-70); Platelet Count 241 K/mm3 (150-450); RBC Distribution Width CV 14.6 % (11.6-14.6); RBC Distribution Width SD 52.7 fl (35.1-43.9); Red Blood Count 4.73 M/mm3 (4.2-5.4); White Blood Count 9.6 K/mm3 (4.4-11.0)
--- NOTE | 2022-05-16 10:56 | EDS_ITS ---
HPI History of Present Illness Chief Complaint: Chest Pain Informant: patient Narrative Narrative: 61-year-old female presenting with shortness of breath. She states she has been short of breath since and this has been progressively worsening. She saw her primary care physician and had pulmonary function testing and echo ordered which are scheduled for this week. She states last night she had left- sided chest pain that was intermittent and worsened with coughing. No chest pain currently. Denies PE/DVT risk factors. Denies fever. States she quit smoking today. Prior similar symptoms: Yes Recent Illness/Hospitalization: No PFSH PFSH Medical History History of alcohol dependence History of methamphetamine abuse Major depressive disorder, recurrent, moderate Home Medications albuterol sulfate 90 mcg/actuation aerosol inhaler 1 - 2 puff inhalation Q4H PRN Shortness Of Breath 05/16/22 [History Last Taken Unknown] Allergy/AdvReac Type Severity Reaction Status Date / Time No Known Allergies Allergy Verified 05/16/22 10:25 Social History Smoking Status: Current every day smoker tobacco type: cigarettes ROS ROS ED Constitutional Constitutional ED: Denies fever(s) Eyes Eyes: Denies change in vision ENT ENT ED: Denies rhinorrhea or sore throat Cardiovascular Cardiovascular: Reports chest pain; Denies palpitations Respiratory/Chest Respiratory/Chest: Reports cough, dyspnea and dyspnea on exertion Gastrointestinal Gastrointestinal: Denies abdominal pain, diarrhea, nausea or vomiting Genitourinary Genitourinary ED: Denies dysuria Musculoskeletal Musculoskeletal: Denies myalgias Integumentary Denies rash Neurologic Neurologic: Denies headache(s) Psychiatric Psychiatric: Denies suicidal thoughts EXAM Physical Exam Const Vital Signs: 05/16/22 10:23 05/16/22 10:32 05/16/22 11:04 Temperature 97.8 F Temperature Source Temporal Pulse Rate 94 75 Respiratory Rate 18 16 Respiratory Effort Short of Breath Blood Pressure 138/73 H Blood Pressure Mean 94 Pulse Ox 95 Oxygen Delivery Method Room Air 05/16/22 10:39 05/16/22 11:22 05/16/22 12:17 Temperature Temperature Source Pulse Rate 88 Respiratory Rate 16 Respiratory Effort Blood Pressure 114/99 H 114/99 H Blood Pressure Mean 104 104 Pulse Ox 93 95 Oxygen Delivery Method Room Air Room Air Positive well nourished and well developed General Appearance ED: well developed HEENT Reports normocephalic and head/scalp atraumatic Eyes PERRL and EOMs intact bilaterally Neck supple General: Negative for tenderness Chest Wall inspection of chest normal Resp normal respiratory effort Auscultation: wheezes and diminished lung sounds Cardio regular rate and regular rhythm GI non-tender and non-distended Palpation: soft; Negative for guarding or rebound tenderness present no CVA tenderness Extremity normal to inspection Neuro oriented x3 Sensorium / Orientation: alert Psych mental status grossly normal MDM MDM MDM Narrative Medical decision making narrative: Patient was given DuoNeb aerosol. CBC, chemistries are unremarkable. Troponin is negative. BNP 1933.8. Chest x-ray read by myself and radiology shows interstitial pneumonitis. D-dimer was elevated. CTA chest shows no PE, or dissection. Multifocal groundglass opacities and nodules in both lungs which are nonspecific. She is given Solu-Medrol, Rocephin, Zithromax IV. With ambulation her pulse ox dropped to 86% on room air. She does not wear home oxygen. Discussed with hospitalist for admission. Lab Data Attestation: I reviewed the patient's lab results. Labs: Laboratory Results - last 24 hr 05/16/22 05/16/22 05/16/22 10:30 10:30 10:30 WBC 9.6 RBC 4.73 Hgb 14.7 Hct 46.2 MCV 97.7 MCH 31.1 MCHC 31.8 L RDW Std Deviation 52.7 H RDW Coeff of Rick 14.6 Plt Count 241 MPV 11.5 Immature Gran % (Auto) 0.300 Neut % (Auto) 62.2 Lymph % (Auto) 22.2 [place] % (Auto) 9.2 Eos % (Auto) 5.2 H Baso % (Auto) 0.9 Absolute Neuts (auto) 6.0 Absolute Lymphs (auto) 2.14 Nucleated RBC % 0 D-Dimer Quant (PE/DVT) 0.85 H* Sodium 141 Potassium 3.9 Chloride 110 H Carbon Dioxide 24.0 Anion Gap 7 BUN 13 Creatinine 0.73 Estim Creat Clear Calc 70.98 Est GFR (MDRD) Af Amer 103 Est GFR (MDRD) Non-Af 85 BUN/Creatinine Ratio 17.7 Glucose 110 H Calcium 8.8 Troponin I High Sens 28 B-Natriuretic Peptide 05/16/22 10:30 WBC RBC Hgb Hct MCV MCH MCHC RDW Std Deviation RDW Coeff of Rick Plt Count MPV Immature Gran % (Auto) Neut % (Auto) Lymph % (Auto) [place] % (Auto) Eos % (Auto) Baso % (Auto) Absolute Neuts (auto) Absolute Lymphs (auto) Nucleated RBC % D-Dimer Quant (PE/DVT) Sodium Potassium Chloride Carbon Dioxide Anion Gap BUN Creatinine Estim Creat Clear Calc Est GFR (MDRD) Af Amer Est GFR (MDRD) Non-Af BUN/Creatinine Ratio Glucose Calcium Troponin I High Sens B-Natriuretic Peptide 1933.8 H Radiography Chest X-Ray - ED: 1 View, Read by ED Physician and Read by Radiologist Diagnostic Testing: Clinical Impression(s) from Imaging Studies Chest X-Ray 05/16/22 10:40 IMPRESSION: Suspicious interstitial pneumonitis in both lungs worrisome for Covid-19 pneumonia. Electronically Signed: Jasmeet Mcdonald MD at 11:20 EST , Chest CTA 05/16/22 12:01 IMPRESSION: 1. No CTA evidence of pulmonary thromboemboli, thoracic aortic aneurysm or dissection. 2. Multifocal groundglass opacities and nodules in both lungs, more in the upper lobes. They''re nonspecific. Pneumonia versus pulmonary mass. Advise clinical correlation. 3. Mild to moderate bilateral posterior pleural fluid, atypical for Covid-19 pneumonia. RECOMMENDATION: Follow up CT chest to ensure infectious rather than pulmonary metastatic disease. Electronically Signed: Jasmeet Mcdonald MD at 12:35 EST , EKG Initial EKG: Attestation: I personally reviewed and interpreted this EKG as follows: Interpretation: Sinus Rhythm and No Acute Injury Pattern Discharge Plan Triage Chief Complaint: Chest Pain ED Provider: Geraldine Rodriguez Dx/Rx/DC Orders Clinical Impression: Acute dyspnea, Hypoxia Prescriptions: No Action albuterol sulfate 90 mcg/actuation HFA aerosol inhaler 1 - 2 puff INHALATION Q4H PRN (Reason: Shortness Of Breath) Label Comments: Inhale 2 Puffs as instructed every 6 hours as needed. Primary Care Provider: Rola Pickens NP Referrals: Care Physician,No Primary [Non-Staff] - Disposition Disposition: Acute Care Hospital [facility]
[2022-05-16 11:03] LABS: Anion Gap 7 (5-15); BUN 13 mg/dL (7-18); BUN/Creat Ratio 17.7 RATIO (10-20); Calcium,Total 8.8 mg/dL (8.5-10.1); Chloride 110 mmol/L (98-107); Creatinine, Serum 0.73 mg/dL (0.55-1.02); EST Glomerular Filtration Rate 85 mL/min (>60); Est Glom Filt Rate - Afr Amer 103 mL/min (>60); Estimated Creatinine Clearance 70.98 ml/min; Glucose 110 mg/dL (74-106); Potassium 3.9 mmol/L (3.5-5.1); Sodium Level 141 mmol/L (136-145); Troponin-I HS 28 pg/mL (3.0-54.0)
[2022-05-16] MEDS: Ipratropium/Albuterol Sulfate 3 ML AMPUL.NEB INHALATION ×3 (11:03→23:16)
[2022-05-16 11:28] LABS: BNP,B-Type NATRIURETIC PEPTIDE 1933.8 pg/mL (0-100)
[2022-05-16 11:43] LABS: D-Dimer Quantitative (DVT/PE) 0.85 FEU/ug/m (0.27-0.49)
--- NOTE | 2022-05-16 12:01 | CT_ITS ---
EXAM: CT ANGIOGRAPHY CHEST WITHOUT AND WITH INTRAVENOUS CONTRAST CLINICAL INDICATION: r/o PE TECHNIQUE: Helically acquired angiography images were obtained of the chest without and with intravenous contrast. This CT exam was performed using one or more of the following dose reduction techniques: automated exposure control, adjustment of the mA and/or kV according to patient size, and/or use of iterative reconstruction technique. This report was created using [employer] report generation technology. MIP reconstructed images were created and reviewed. CONTRAST: IV 100mL [id number]-370 RADIATION DOSE: CTDIvol = 6.76 mGy, DLP = 219.01 mGy-cm COMPARISON: None. FINDINGS: PULMONARY ARTERIES: Unremarkable. Normal in caliber. No evidence of pulmonary embolism. AORTA: Unremarkable. Normal in caliber. No evidence of dissection. GREAT VESSELS OF AORTIC ARCH: Unremarkable. Normal in caliber. No evidence of dissection. LUNGS AND PLEURAL SPACES: Mild to moderate bilateral posterior pleural fluid. Pulmonary hyperinflation with mild flattening of the hemidiaphragms. Ill-defined multifocal groundglass opacities and nodules in both upper lobes more than the lower lobes. No pneumothorax. HEART: Unremarkable. Heart size is normal. No pericardial effusion. No signs of right heart strain, ratio of right ventricle to left ventricle measures less than 1. MEDIASTINUM: Unremarkable. No mediastinal or hilar adenopathy. Esophagus is unremarkable. No hiatal hernia. THYROID: Unremarkable. No thyroid lesions. BONES/JOINTS: Unremarkable. No suspicious lytic or blastic abnormality. CT/CTA Chest W/WO Contrast IMPRESSION: 1. No CTA evidence of pulmonary thromboemboli, thoracic aortic aneurysm or dissection. 2. Multifocal groundglass opacities and nodules in both lungs, more in the upper lobes. They''re nonspecific. Pneumonia versus pulmonary mass. Advise clinical correlation. 3. Mild to moderate bilateral posterior pleural fluid, atypical for Covid-19 pneumonia. RECOMMENDATION: Follow up CT chest to ensure infectious rather than pulmonary metastatic disease. Electronically Signed: Jasmeet Mcdonald MD at 12:35 EST ,
--- NOTE | 2022-05-16 13:43 | ECHOD_ITS ---
Reason For Study: Other Procedure This was a 2D Doppler, Color Flow transthoracic echocardiogram. Exam performed portable in patient room. Left Ventricle Severely dilated left ventricle. Moderately severe global left ventricular systolic dysfunction. The estimated ejection fraction is 25 %. Stage 2 diastolic dysfunction. Right Ventricle Normal RV size. Normal systolic function. Atria The left atrium is mildly enlarged. Normal right atrium. No doppler evidence for ASD. Mitral Valve There is no mitral annular calcification. Mild diffuse mitral valve thickening. Moderate (2+) eccentric mitral valve insufficiency. Tricuspid Valve Normal tricuspid valve. Mild to moderate (1-2+) tricuspid valve insufficiency. Right ventricular systolic pressure estimated to be 54 mmHg. Aortic Valve Trisinus/trileaflet aortic valve. Mild diffuse aortic valve thickening. Mild-Moderate (1-2+) aortic valve insufficiency. Pulmonic Valve The pulmonic valve is not well visualized. Mild (1+) pulmonic valve insufficiency. Great Vessels Normal sized aortic root. Pericardium/Pleural Trivial pericardial effusion. There are no echocardiographic indications of cardiac tamponade. MMode/2D Measurements & Calculations LVIDd: 6.4 cm IVSd: 1.0 cm Ao root diam: 3.6 cm LVIDs: 5.7 cm LVPWd: 0.63 cm RVDd: 3.7 cm FS: 10.4 % LAV(MOD-bp): 70.4 ml LVAd ap4: 38.6 cm2 SV(MOD-sp4): 47.7 ml LAV(MOD-bp) Indexed: 42.6 ml/m2 LVLd ap4: 8.6 cm LAV(MOD-sp2): 67.9 ml EDV(MOD-sp4): 145.6 ml LAV(MOD-sp4): 69.3 ml EDV(sp4-el): 147.1 ml LVAs ap4: 30.5 cm2 LVLs ap4: 8.0 cm ESV(MOD-sp4): 97.9 ml ESV(sp4-el): 98.9 ml EF(MOD-sp4): 32.8 % EF(sp4-el): 32.8 % SV(sp4-el): 48.2 ml LA A4 area: 22.5 cm2 LA dimension(2D): 4.7 cm RA A4 area: 14.5 cm2 Time Measurements MV dec time: 0.34 sec Doppler Measurements & Calculations MV E max gael: 107.8 cm/sec Lat Peak E' Gael: 7.6 cm/sec Med Peak E' Gael: 5.1 cm/sec MV A max gael: 119.1 cm/sec E/E' lat: 14.3 E/E' med: 21.1 MV E/A: 0.91 Ao V2 max: 192.8 cm/sec AI max gael: 418.8 cm/sec LV V1 max: 146.5 cm/sec Ao max P.9 mmHg AI max P.2 mmHg LV V1 max P.6 mmHg Ao V2 mean: 135.9 cm/sec Ao mean P.1 mmHg AI dec slope: 309.7 cm/sec2 Ao V2 VTI: 35.2 cm AI P1/2t: 396.1 msec PA V2 max: 100.7 cm/sec TR max gael: 337.1 cm/sec TR max P.5 mmHg ECHO/Echo Complete Interpretation Summary Severely dilated left ventricle. Moderately severe global left ventricular systolic dysfunction. The estimated ejection fraction is 25 %. The left atrium is mildly enlarged. Mild diffuse mitral valve thickening. Moderate (2+) eccentric mitral valve insufficiency. Mild to moderate (1-2+) tricuspid valve insufficiency. Mild diffuse aortic valve thickening. Mild-Moderate (1-2+) aortic valve insufficiency. Mild (1+) pulmonic valve insufficiency. Trivial pericardial effusion. There are no echocardiographic indications of cardiac tamponade. Right ventricular systolic pressure estimated to be 54 mmHg. Stage 2 diastolic dysfunction. Ordering Physician: Monisha Hernandez Referring Physician: Rola Pickens NP Performed By: Naheed Smart, CHAUNCEY, RVT
--- NOTE | 2022-05-16 13:45 | HP.PCM.HOS_ITS ---
HPI - General General Date of Admission: 05/16/22 Date of Service: 05/16/22 Chief Complaint: SOB HPI Narrative RACHEL TOBIAS,61-year-old female with a history of tobacco use who presented to [facility] 05/16/2022 for worsening shortness of breath. She reports her breathing has been worsening since Thanksgi but overnight significantly worsened and she had some possible tightness in her chest and it concerned her so she presented today to the emergency department. D-dimer very mildly elevated so CTA obtained which showed no PE, multifocal groundglass opacities and nodules in both lungs more in the upper lobes that are nonspecific. Pneumonia versus pulmonary mass, and mild to moderate bilateral posterior pleural fluid. Given Rocephin, Zithromax, neb, Solu-Medrol in the ED with some improvement though still feels she has a hard time catching her breath. BNP elevated in the ED as well. Hospitalist consulted for admission. Patient reports since she was given the steroid and breathing treatment the wheezing that she was able to hear audibly last night has improved but she still does have some shortness of breath, has been having cough over the past few weeks which is intermittently productive of green sputum. Just recently began work-up for the shortness of breath and had PFTs so she is unsure what they showed. Supposed to go in about a week to have further work-up. Currently 93 to 95% on room air but reportedly had dropped to the 80s with ambulation. Denies fever, no weight loss or night sweats, unsure if she has swelling in her lower extremities. Denies other complaints at this time. [facility] Medical History History of alcohol dependence History of methamphetamine abuse Major depressive disorder, recurrent, moderate Home Medications albuterol sulfate 90 mcg/actuation aerosol inhaler 1 - 2 puff inhalation Q4H PRN Shortness Of Breath 05/16/22 [History Last Taken Unknown] Allergy/AdvReac Type Severity Reaction Status Date / Time No Known Allergies Allergy Verified 05/16/22 10:25 Social History Smoking Status: Current every day smoker tobacco type: cigarettes ROS Constitutional Constitutional: Denies change in weight, chills, fever(s) or night sweats Eyes Eyes: Denies change in vision ENT HEENT: Denies headache(s), nasal congestion or sore throat Cardiovascular Cardiovascular: Denies chest pain or palpitations Respiratory/Chest Respiratory/Chest: Reports cough and shortness of breath with exertion Gastrointestinal Gastrointestinal: Reports other Details: denies changes in bowel or bladder ; Denies abdominal pain Genitourinary Genitourinary: Reports other Details: denies changes in urination Musculoskeletal Musculoskeletal: Reports joint pain and other Details: Reports history of arthritis Neurologic Neurologic: Denies dizziness, focal weakness, headache(s), numbness or tingling Psychiatric Psychiatric: Denies anxiety Hematologic/Lymphatic Hematologic/Lymphatic: Denies easy bleeding Allergic/Immunologic Allergic/Immunologic: Reports other Details: denies rashes Vital Signs Vital Signs Vital Signs: 05/16/22 10:23 05/16/22 10:32 05/16/22 11:04 Temperature 97.8 F Temperature Source Temporal Pulse Rate 94 75 Respiratory Rate 18 16 Respiratory Effort Short of Breath Blood Pressure 138/73 H Blood Pressure Mean 94 Pulse Ox 95 Oxygen Delivery Method Room Air 05/16/22 10:39 05/16/22 11:22 05/16/22 12:17 Temperature Temperature Source Pulse Rate 88 Respiratory Rate 16 Respiratory Effort Blood Pressure 114/99 H 114/99 H Blood Pressure Mean 104 104 Pulse Ox 93 95 Oxygen Delivery Method Room Air Room Air Weight Weight: 62.596 kg Body Mass Index (BMI) 22.9 Physical Exam Const alert and oriented x3 General Appearance: cooperative HEENT normocephalic and head/scalp atraumatic Eyes EOMs intact bilaterally Neck supple Resp normal respiratory effort Resp Narrative: Diminished at the bases Cardio regular rate and regular rhythm GI soft to palpation, non-tender and non-distended Extremity normal to inspection Extremity Narrative: Trace bilateral lower extremity pitting edema Skin no rashes or lesions noted Neuro moves all extremities Psych Psych Narrative: Appears anxious Results Lab / Micro Data Result Diagrams: 05/16/22 10:30 05/16/22 10:30 Labs: Laboratory Results - last 24 hr 05/16/22 10:30: WBC 9.6, RBC 4.73, Hgb 14.7, Hct 46.2, MCV 97.7, MCH 31.1, MCHC 31.8 L, RDW Std Deviation 52.7 H, RDW Coeff of Rick 14.6, Plt Count 241, MPV 11.5, Immature Gran % (Auto) 0.300, Neut % (Auto) 62.2, Lymph % (Auto) 22.2, [place] % (Auto) 9.2, Eos % (Auto) 5.2 H, Baso % (Auto) 0.9, Absolute Neuts (auto) 6.0, Absolute Lymphs (auto) 2.14, Nucleated RBC % 0 05/16/22 10:30: Sodium 141, Potassium 3.9, Chloride 110 H, Carbon Dioxide 24.0, Anion Gap 7, BUN 13, Creatinine 0.73, Estim Creat Clear Calc 70.98, Est GFR (MDRD) Af Amer 103, Est GFR (MDRD) Non-Af 85, BUN/Creatinine Ratio 17.7, Glucose 110 H, Calcium 8.8, Troponin I High Sens 28 05/16/22 10:30: D-Dimer Quant (PE/DVT) 0.85 H* 05/16/22 10:30: B-Natriuretic Peptide 1933.8 H Micro: Microbiology 05/16/22 11:07 Nasal Secretion SARS-CoV-2 & FLU Antigen (Rapid) - Final Radiology Impression Chest X-Ray 05/16/22 10:40 IMPRESSION: Suspicious interstitial pneumonitis in both lungs worrisome for Covid-19 pneumonia. Electronically Signed: Jasmeet Mcdonald MD at 11:20 EST Reading Location ID and State: [address] [place] [address] , Service support , Chest CTA 05/16/22 12:01 IMPRESSION: 1. No CTA evidence of pulmonary thromboemboli, thoracic aortic aneurysm or dissection. 2. Multifocal groundglass opacities and nodules in both lungs, more in the upper lobes. They''re nonspecific. Pneumonia versus pulmonary mass. Advise clinical correlation. 3. Mild to moderate bilateral posterior pleural fluid, atypical for Covid-19 pneumonia. RECOMMENDATION: Follow up CT chest to ensure infectious rather than pulmonary metastatic disease. Electronically Signed: Jasmeet Mcdonald MD at 12:35 EST , Assessment & Plan Assessment/Plan (1) Shortness of breath: PLAN: Plan #Worsening shortness of breath Possible AECOPD, versus pneumonia versus heart failure Has had long tobacco use history and reports she quit today, did have wheezing and has had progressive shortness of breath which may indicate underlying COPD with acute worsening since yesterday CT also suggestive of possible pneumonia and she does have effusions and elevated BNP Will obtain echo, respiratory panel, sputum culture, urinary antigens Will give dose of lasix Continue nebs and steroids Daily weights, incentive spirometry CT recommended follow-up for resolution/to assess if pneumonia versus malignancy Of note it was listed elsewhere possible history of amphetamine use but this was not endorsed during interview Will obtain HIV and UDS as HIV would alter diagnostic work-up to some extent #Tobacco use Reports she is quitting as of today #DVT ppx: Yariel Hernandez MD Charges/Coding Visit Charges Inpatient E&M: 94570 Init Hosp L2
[2022-05-16] MEDS: Ceftriaxone 1 GM/50 ML BAG IV (13:58)
[2022-05-16] MEDS: MethylPREDNISolone 125 MG/2 ML Vial IV (13:58)
--- NOTE | 2022-05-16 14:00 | NURSING ---
PCU RICHARDSON DYSPNEA
[2022-05-16] MEDS: Furosemide 20 MG/2 ML VIAL IV (18:36)
[2022-05-16 18:37] LABS: Probe Check PASS; Specimen Processing Control NPN
[2022-05-16 19:55] LABS: Bacteria 0 SEEN /hpf (None Seen); Mucous, Urine 0 SEEN /hpf (<or=2+); Red Blood Cells-Urine 0 SEEN /hpf (0-5); White Blood Cells 0 SEEN /hpf (0-5)
[2022-05-16 20:19] LABS: Color, Urine Straw (Yellow); Glucose, Dipstick Normal (Normal); Ketone-Dipstick Negative (Negative); Leukocyte Esterase-Dipstick Negative /ul (Negative); Nitrite-Dipstick Negative (Negative); Occult Blood-Urine Negative /ul (Negative); Protein-Dipstick 15 mg/dl (Negative); Urine Bilirubin Dipstick Negative (Negative); Urine Clarity Clear (Clear); Urine Urobilinogen Normal (Normal)
[2022-05-16 21:32] LABS: Amphetamine Urine VISTA NEGATIVE (<1000 ng/mL); Barbiturate Urine VISTA NEGATIVE (< 200 ng/mL); Benzodiazepine Urine VISTA NEGATIVE (< 200 ng/mL); Cocaine Urine VISTA NEGATIVE (< 300 ng/mL); Ecstacy Urine VISTA NEGATIVE (< 500 ng/mL); Methadone Urine VISTA NEGATIVE (< 300 ng/mL); PCP Urine VISTA NEGATIVE (< 25 ng/mL); THC Urine VISTA NEGATIVE (< 50 ng/mL); Vista UDS pH Range 6
[2022-05-16] MEDS: guaiFENesin 600 MG Tablet PO (21:43)
[2022-05-16] MEDS: 0.9% Saline Lock 10 ML Syringe IV (21:43)
[2022-05-16 22:22] LABS: Squamous Epithelial Cells - UA 0-5 SEEN /hpf (5-10)
[2022-05-16] MEDS: Acetaminophen 325 MG Tablet 650 MG PO (23:48)
[2022-05-17] VITALS (14 sets, daily range): BP systolic 113–128; BP diastolic 69–81; PULSE 70–100; RESP 15–20; TEMP 36.6–36.9; O2SAT 94–98
[2022-05-17] MEDS: Ipratropium/Albuterol Sulfate 3 ML AMPUL.NEB INHALATION ×5 (02:23→19:26)
--- NOTE | 2022-05-17 03:12 | EKG12_ITS ---
Test Reason : RHYTHM CHANGE Blood Pressure : / mmHG Vent. Rate : 068 BPM Atrial Rate : 068 BPM P-R Int : 136 ms QRS Dur : 094 ms QT Int : 558 ms P-R-T Axes : 069 033 247 degrees QTc Int : 593 ms Sinus rhythm with Premature atrial complexes and inferior ischemia Marked T wave abnormality, consider anterolateral ischemia Prolonged QT Abnormal ECG Confirmed by TOMAS RODRIGUEZ, BÁRBARA ([id number]), health editor REGAN GODINEZ ([id number]) on 05/19/2022 10:11:11 AM Referred By: DYLAN Confirmed By:BÁRBARA MARIN MD
[2022-05-17 04:38] LABS: Absolute Lymphocyte Count 1.07 X10^3/uL (0.83-4.51); Absolute Neutrophil Count 6.6 X10^3/uL (2.0-7.7); Basophil# 0.02 X10^3/uL; Basophil% 0.3 % (0-1); Eosinophil# 0.03 X10^3/uL; Eosinophils% 0.4 % (0-5); Hematocrit 45.5 % (37-47); Hemoglobin 15.3 g/dL (12.0-15.0); Lymphocyte # 1.07 X10^3/ul (0.83-4.51); Lymphocyte % 13.4 % (19-41); Mean Corp Hgb Conc 33.6 g/dL (32-36); Mean Corpuscular Hgb 32.2 pg (27.0-32.0); Mean Corpuscular Volume 95.8 fL (81-99); Mean Platelet Vol. 11.6 fl (6.2-12.0); Monocyte# 0.16 X10^3/uL; NRBC Flagged by Analyzer 0 % (0-5); Neutrophil # 6.64 X10^3/uL (2.7-7.7); Neutrophil % 83.3 % (47-70); Platelet Count 250 K/mm3 (150-450); RBC Distribution Width CV 14.3 % (11.6-14.6); RBC Distribution Width SD 50.4 fl (35.1-43.9); Red Blood Count 4.75 M/mm3 (4.2-5.4)
[2022-05-17 04:53] LABS: Magnesium 1.9 mg/dL (1.6-2.6)
[2022-05-17 05:13] LABS: ALB/GLOB Ratio 0.8 RATIO (0.9-2.4); AST(SGOT) 28 U/L (15-37); Alanine Aminotransfer ALT/SGPT 80 U/L (13-56); Albumin, Serum 3.1 g/dL (3.2-5.0); Alkaline Phosphatase 135 U/L (45-117); Anion Gap 9 (5-15); BUN 18 mg/dL (7-18); BUN/Creat Ratio 22.9 RATIO (10-20); Calcium,Total 8.9 mg/dL (8.5-10.1); Chloride 105 mmol/L (98-107); Creatinine, Serum 0.78 mg/dL (0.55-1.02); EST Glomerular Filtration Rate 79 mL/min (>60); Est Glom Filt Rate - Afr Amer 95 mL/min (>60); Estimated Creatinine Clearance 66.43 ml/min; Globulin 3.8 g/dL (2.2-4.2); Glucose 157 mg/dL (74-106); Potassium 3.9 mmol/L (3.5-5.1); Protein, Total 6.9 g/dL (6.4-8.2); Sodium Level 137 mmol/L (136-145)
[2022-05-17] MEDS: 0.9% Saline Lock 10 ML Syringe IV ×3 (05:13→14:17)
--- NOTE | 2022-05-17 09:21 | PN.HOSP_ITS ---
Subjective Subjective Follow-up on dyspnea/probable acute COPD exacerbation: Patient was seen and examined. She stated that her breathing is slightly better. She has been coughing. Denies any fever or chills. Objective Data Objective Data Vital Signs: Vital Signs Temp Pulse Resp BP Pulse Ox O2 Del Method 98.5 F 80 18 117/81 H 96 Room Air 05/17/22 04:10 05/17/22 07:16 05/17/22 07:16 05/17/22 04:10 05/17/22 04:10 05/17/22 04:10 Oxygen Delivery Method Room Air Weight: 59.7 kg Body Mass Index (BMI) 22.6 Intake & Output: Intake and Output for Last 24 Hours 05/15/22 05/16/22 05/17/22 23:59 23:59 23:59 Intake Total 545 / 545 240 / 240 Output Total 200 / 200 550 / 550 Balance 345 / 345 -310 / -310 Lab / Micro Data Result Diagrams: 05/17/22 04:22 05/17/22 04:22 Labs: Laboratory Results - last 24 hr 05/16/22 10:30: WBC 9.6, RBC 4.73, Hgb 14.7, Hct 46.2, MCV 97.7, MCH 31.1, MCHC 31.8 L, RDW Std Deviation 52.7 H, RDW Coeff of Rick 14.6, Plt Count 241, MPV 11.5, Immature Gran % (Auto) 0.300, Neut % (Auto) 62.2, Lymph % (Auto) 22.2, [place] % (Auto) 9.2, Eos % (Auto) 5.2 H, Baso % (Auto) 0.9, Absolute Neuts (auto) 6.0, Absolute Lymphs (auto) 2.14, Nucleated RBC % 0 05/16/22 10:30: Sodium 141, Potassium 3.9, Chloride 110 H, Carbon Dioxide 24.0, Anion Gap 7, BUN 13, Creatinine 0.73, Estim Creat Clear Calc 70.98, Est GFR (MDRD) Af Amer 103, Est GFR (MDRD) Non-Af 85, BUN/Creatinine Ratio 17.7, Glucose 110 H, Calcium 8.8, Troponin I High Sens 28 05/16/22 10:30: D-Dimer Quant (PE/DVT) 0.85 H* 05/16/22 10:30: B-Natriuretic Peptide 1933.8 H 05/16/22 15:07: COVID-19 (YEHUDA) Not Detected 05/16/22 18:40: Urine Opiates Screen NEGATIVE, Urine Methadone Screen NEGATIVE, Ur Barbiturates Screen NEGATIVE, Ur Phencyclidine Scrn NEGATIVE, Ur Amphetamines Screen NEGATIVE, MDMA (Ecstasy) Screen NEGATIVE, U Benzodiazepines Scrn NEGATIVE, Urine Cocaine Screen NEGATIVE, U Cannabinoids Screen NEGATIVE, Ur Drug Screen Comment 05/16/22 18:40: Urine Color Straw, Urine Clarity Clear, Urine pH 7.0, Ur Specific [place] 1.010, Urine Protein 15 H, Urine Glucose (UA) Normal, Urine Ketones Negative, Urine Occult Blood Negative, Urine Nitrite Negative, Urine Bilirubin Negative, Urine Urobilinogen Normal, Ur Leukocyte Esterase Negative, Urine RBC 0 SEEN, Urine WBC 0 SEEN, Ur Squamous Epith Cells 0-5 SEEN, Urine Bacteria 0 SEEN, Urine Mucus 0 SEEN 05/17/22 04:22: WBC 8.0, RBC 4.75, Hgb 15.3 H, Hct 45.5, MCV 95.8, MCH 32.2 H, MCHC 33.6 D, RDW Std Deviation 50.4 H, RDW Coeff of Rick 14.3, Plt Count 250, MPV 11.6, Immature Gran % (Auto) 0.600, Neut % (Auto) 83.3 H, Lymph % (Auto) 13.4 L, [place] % (Auto) 2.0, Eos % (Auto) 0.4, Baso % (Auto) 0.3, Absolute Neuts (auto) 6.6, Absolute Lymphs (auto) 1.07, Nucleated RBC % 0 05/17/22 04:22: Sodium 137, Potassium 3.9, Chloride 105, Carbon Dioxide 23.0, Anion Gap 9, BUN 18, Creatinine 0.78, Estim Creat Clear Calc 66.43, Est GFR (MDRD) Af Amer 95, Est GFR (MDRD) Non-Af 79, BUN/Creatinine Ratio 22.9 H, Glucose 157 H, Calcium 8.9, Total Bilirubin 0.40, AST 28, ALT 80 H, Alkaline Phosphatase 135 H, Total Protein 6.9, Albumin 3.1 L, Globulin 3.8, Albumin/Globulin Ratio 0.8 L, TSH 0.40 05/17/22 04:22: Magnesium 1.9 Micro: Microbiology 05/16/22 17:30 Mucosa - Nasopharyngeal Respiratory Panel (PCR) - Final 05/16/22 18:40 Urine, Clean Catch Legionella Antigen - Final 05/16/22 18:40 Urine, Clean Catch Streptococcus pneumoniae Antigen (M - Final 05/16/22 11:07 Nasal Secretion SARS-CoV-2 & FLU Antigen (Rapid) - Final Radiography Diagnostic Testing: Radiology Impression Chest X-Ray 05/16/22 10:40 IMPRESSION: Suspicious interstitial pneumonitis in both lungs worrisome for Covid-19 pneumonia. Electronically Signed: Jasmeet Mcdonald MD at 11:20 EST , Chest CTA 05/16/22 12:01 IMPRESSION: 1. No CTA evidence of pulmonary thromboemboli, thoracic aortic aneurysm or dissection. 2. Multifocal groundglass opacities and nodules in both lungs, more in the upper lobes. They''re nonspecific. Pneumonia versus pulmonary mass. Advise clinical correlation. 3. Mild to moderate bilateral posterior pleural fluid, atypical for Covid-19 pneumonia. RECOMMENDATION: Follow up CT chest to ensure infectious rather than pulmonary metastatic disease. Electronically Signed: Jasmeet Mcdonald MD at 12:35 EST , Physical Exam Narrative Physical exam: General: Alert, Oriented x3, Cooperative, not on oxygen HEENT: Atraumatic Oral: Moist Mucosa Neck: Supple Lungs: Diminished to auscultation Cardiovascular: HS I+II, regular, no murmurs Abdomen: Bowel Sounds Present, Soft, Non Tender Extremities: No edema Skin: No rashes, No breakdown Neurological: Grossly intact Psych/Mental Status: Appropriate Assessment & Plan Assessment/Plan (1) Acute dyspnea: PLAN: Plan 1. Dyspnea, unclear etiology for now, probable acute COPD exacerbation Patient is a known smoker, who quit 2 days prior to admission No known history of COPD Chest x-ray independently reviewed and showed interstitial pneumonitis CTA of the chest showed multifocal groundglass opacities and nodules in both lungs COVID-19 rapid antigen test, as well as influenza screen, urine antigen and streptococcal antigen were negative Continue with IV Solu-Medrol and azithromycin as well as symptomatic treatment with Mucinex Follow-up on 2D echo ordered 2. Nicotine dependence, advised to quit, not on replacement, continue to monitor 3. Polycythemia, probably secondary secondary to smoking, will need to be trended in the outpatient 4. DVT Prophylaxis?Lovenox subcu Charges/Coding Addendum Addendum: Total time spent: 35 minutes of which more > 50% was spent in reviewing patient's chart, going over laboratory investigations, imaging, talking to nursing and auxillary staff. Visit Charges Inpatient E&M: 70885 Subs Hosp L2
[2022-05-17] MEDS: Azithromycin 250 MG Tablet 500 MG PO (10:22)
[2022-05-17] MEDS: Acetaminophen 325 MG Tablet 650 MG PO ×2 (10:22→22:16)
[2022-05-17] MEDS: Enoxaparin 40 MG/0.4 ML Syringe SC (10:22)
[2022-05-17] MEDS: guaiFENesin 600 MG Tablet PO ×2 (10:22→22:15)
[2022-05-17] MEDS: FLU VACC QS2022-23(6MOS UP)/PF 60 MCG/0.5 ML SYRINGE IM (10:23)
[2022-05-18] VITALS (7 sets, daily range): BP systolic 95–130; BP diastolic 64–86; PULSE 67–95; RESP 16–18; TEMP 36.3–37.1; O2SAT 93–95
[2022-05-18] MEDS: Acetaminophen 325 MG Tablet 650 MG PO (05:55)
[2022-05-18] MEDS: Ipratropium/Albuterol Sulfate 3 ML AMPUL.NEB INHALATION ×2 (07:27→11:22)
[2022-05-18] MEDS: predniSONE 20 MG Tablet 40 MG PO (08:28)
[2022-05-18 09:19] LABS: HIV - WCH Non-Reactive (Nonreactive)
[2022-05-18] MEDS: 0.9% Saline Lock 10 ML Syringe IV (10:19)
[2022-05-18] MEDS: Enoxaparin 40 MG/0.4 ML Syringe SC (10:19)
[2022-05-18] MEDS: guaiFENesin 600 MG Tablet PO (10:20)
[2022-05-18] MEDS: Azithromycin 250 MG Tablet 500 MG PO (10:20)
--- NOTE | 2022-05-18 11:45 | CASEMGMT ---
RN CM REMOTE SENSING TECHNICIAN CM to room to meet with patient for initial transition planning/care coordination assessment. RN CM introduced self and role at [facility].? Pt voices understanding and consents to assessment at this time.? Pt resting in bed in no distress at this time.? Pt is A/O at this time and answers all questions appropriately.?? Care providers, pharmacy, and demographics verified/updated at this time. PCP: Rola Pickens NP Specialists: [employer]. Has an upcoming appt 05/24, to get established as a new pt. Preferred Pharmacy: [facility] Retail Insurance: [employer] Prescription Benefit:? Yes LNOK: 2 kids. Mother, Maliha. DIL, Izabela. Living Arrangements: Lives w/sig other in 2-story home w/2 steps to enter. Does okay w/stairs. Works full-time @ [employer]. Independent. Transportation: Pt states drives self and states no transportation concerns at this time.? DME: ?Has a pulse ox. Pt states no need for further DME at this time.? HHC/SNF: No hx of either. No needs identified. Pt wishes to return home and states has no concerns with going home at time of discharge.? Pt states she smoked for about 50 yrs, about 1 PPD, but states just quit [place] 's [place] and states is trying to go cold turkey for now. CM to follow for home oxygen needs and any further discharge planning/needs.? Pt voices no further concerns/needs at this time.? Advised pt to ask for CM if any further questions/concerns/needs arise.? Voices understanding. PLAN: ?Home. Follow for any home O2 needs @ d/c. Uyen AMBROSION BLAYNE CALHOUN
--- NOTE | 2022-05-18 12:27 | PCM.DC ---
Discharge Instructions Diet Discharge Diet: No restrictions Activity Discharge Activity: Return to Normal Activity Follow Up Care Test Results: Test results from this visit will be discussed in further detail at your follow-up appointment, if applicable. Discharge Plan Admission Admit Date/Time: 05/16/22 13:31 Primary Reason for Your Visit: Acute COPD exacerbation Attending Provider: Mireya Lindo Primary Care Provider: Rola Pickens NP Consulting Providers: Monisha Hernandez Instructions Additional Instructions / Restrictions: Continue to use your incentive spirometer. Complete your prednisone burst. Follow-up with your pulmonology appointment as scheduled Discharge Orders/Prescriptions Prescriptions: New azithromycin 250 mg Tablet 500 mg PO Q24 3 Days Qty: 6 0RF prednisone 20 mg Tablet 40 mg PO DAILY@0800 5 Days Qty: 10 0RF guaifenesin [Mucus Relief ER] 600 mg Tablet Extended Release 12hr 600 mg PO BID 7 Days Qty: 14 0RF Continued albuterol sulfate 90 mcg/actuation HFA aerosol inhaler 1 - 2 puff INHALATION Q4H PRN (Reason: Shortness Of Breath) Label Comments: Inhale 2 Puffs as instructed every 6 hours as needed. Referrals / Follow Up: Care Physician,No Primary [Non-Staff] - Rola Pickens NAPPER FIXER, NAPPER FIXER-C [Primary Care Provider] - Disposition Disposition (needs filled in before D/C Order can be placed): Home, Self Care
--- NOTE | 2022-05-18 12:33 | DS.PCM_ITS ---
Providers Date of Admission: 05/16/22 Date of Discharge: 05/18/22 Primary Care Physician: COCO Benito Reason For Visit: WORSENING SOB Diagnosis Discharge Diagnosis (1) Acute dyspnea: Status: Acute Code(s): R06.00 - Dyspnea, unspecified Plan 1. Acute COPD exacerbation 2. Nicotine dependence 3. Polycythemia Medications at Discharge Home Medications albuterol sulfate 90 mcg/actuation aerosol inhaler 1 - 2 puff inhalation Q4H PRN Shortness Of Breath 05/16/22 azithromycin 250 mg tablet 500 mg PO Q24 3 days #6 tabs 05/18/22 guaifenesin 600 mg tablet, extended release 12 hr (Mucus Relief ER) 600 mg PO BID 7 days #14 tabs 05/18/22 prednisone 20 mg tablet 40 mg PO DAILY@0800 5 days #10 tabs 05/18/22 Hospital Course Operations None Procedures None Summary of Care Provided Minutes Spent on Discharge: 35 Hospital Course: 61-year-old female with past medical history of nicotine abuse who comes in with progressive shortness of breath. Patient stated that her breathing has been worsening since Thanksgi. However 1 day prior to admission, she had progressive chest discomfort with shortness of breath. In the emergency room, her D-dimer was elevated. CTA of the chest showed no acute PE but showed multifocal groundglass opacities and nodules in both lungs. COVID-19 rapid antigen test as well as PCR, influenza screen were all negative. Respiratory p josue was also negative. [facility] and managed on breathing treatments, IV azithromycin, Rocephin, Solu-Medrol. Patient did improve and did not require oxygen at discharge. She was discharged on a short burst of prednisone 40 mg daily. She was discharged on 3 more days of azithromycin making a total of 5 days. She had an outpatient pulmonology appointment coming up in about a week. She was strongly advised to follow-up with that. She was also strongly advised to quit smoking. She will need to also follow-up with the primary care doctor within 1 week. Physical Exam Narrative Physical exam: General: Alert, Oriented x3, Cooperative, not on oxygen HEENT: Atraumatic Oral: Moist Mucosa Neck: Supple Lungs: Diminished to auscultation Cardiovascular: HS I+II, regular, no murmurs Abdomen: Bowel Sounds Present, Soft, Non Tender Extremities: No edema Skin: No rashes, No breakdown Neurological: Grossly intact Psych/Mental Status: Appropriate Weight / BMI Weight Weight: 59.7 kg Body Mass Index (BMI) 22.6 ABG / Lab / Microbiology Data Result Diagrams: 05/17/22 04:22 05/17/22 04:22 Laboratory: Laboratory Results - last 24 hr 05/18/22 05:27: HIV 1&2 Antibody Non-Reactive Microbiology: Microbiology 05/16/22 17:30 Mucosa - Nasopharyngeal Respiratory Panel (PCR) - Final 05/16/22 18:40 Urine, Clean Catch Legionella Antigen - Final 05/16/22 18:40 Urine, Clean Catch Streptococcus pneumoniae Antigen (M - Fin al 05/16/22 11:07 Nasal Secretion SARS-CoV-2 & FLU Antigen (Rapid) - Final Radiography Diagnostic Testing: Radiology Impression Echocardiogram 05/16/22 13:43 Interpretation Summary Severely dilated left ventricle. Moderately severe global left ventricular systolic dysfunction. The estimated ejection fraction is 25 %. The left atrium is mildly enlarged. Mild diffuse mitral valve thickening. Moderate (2+) eccentric mitral valve insufficiency. Mild to moderate (1-2+) tricuspid valve insufficiency. Mild diffuse aortic valve thickening. Mild-Moderate (1-2+) aortic valve insufficiency. Mild (1+) pulmonic valve insufficiency. Trivial pericardial effusion. There are no echocardiographic indications of cardiac tamponade. Right ventricular systolic pressure estimated to be 54 mmHg. Stage 2 diastolic dysfunction. Ordering Physician: Monisha Hernandez Referring Physician: Rola Pickens ACCESS DEVELOPER Performed By: Naheed Smart RDCS, RVT D/C Instructions Discharge Diet: No restrictions Meaningful Use Info Meaningful Use Diagnoses (Choose all that apply): None applicable Discharge Plan Admission Admit Date/Time: 05/16/22 13:31 Primary Reason for Your Visit: Acute COPD exacerbation Attending Provider: Nuamah,Brainard Primary Care Provider: Rola Pickens NP Consulting Providers: Monisha Hernandez Instructions Additional Instructions / Restrictions: Continue to use your incentive spirometer. Complete your prednisone burst. Follow-up with your pulmonology appointment as scheduled Discharge Orders/Prescriptions Prescriptions: New azithromycin 250 mg Tablet 500 mg PO Q24 3 Days Qty: 6 0RF prednisone 20 mg Tablet 40 mg PO DAILY@0800 5 Days Qty: 10 0RF guaifenesin [Mucus Relief ER] 600 mg Tablet Extended Release 12hr 600 mg PO BID 7 Days Qty: 14 0RF Continued albuterol sulfate 90 mcg/actuation HFA aerosol inhaler 1 - 2 puff INHALATION Q4H PRN (Reason: Shortness Of Breath) Label Comments: Inhale 2 Puffs as instructed every 6 hours as needed. Referrals / Follow Up: Care Physician,No Primary [Non-Staff] - Rola Pickens NP, ACCESS DEVELOPER-C [Primary Care Provider] - Disposition Disposition (needs filled in before D/C Order can be placed): Home, Self Care Charges/Coding Visit Charges Inpatient E&M: 77214 Disch Hosp >30min
== END 2022-05-18 13:45 | disposition home or self-care (01) | DRG 192 ==
LOC: ED 13:57 → MS2 05-17 07:11
PROVIDERS: Hospitalist; Admitting Provider Internal Medicine; Emergency Provider Emergency Medicine; PCP Registered Nurse; Visit Provider Internal Medicine
DX: J44.1 Chronic obstructive pulmonary disease with (acute) exacerbation (principal); J84.89 Other specified interstitial pulmonary diseases; D75.1 Secondary polycythemia; F17.210 Nicotine dependence, cigarettes, uncomplicated; R09.02 Hypoxemia; Z23 Encounter for immunization
CPT/HCPCS: 36415; 71045; 71275; 80048; 80053; 80307; 81001; 83735; 83880; 84443; 84484; 85025; 85379; 86703; 87428; 87449; 87633; 87635; 93005; 93306; 94640; 94762; 96365; 96366; 96367; 96372; 96375; 96376; 99221; 99252; 99285; J7050; Q9967; 90686; A4216; G0378; G0463; J0696; J1940; U0003; U0005

== ENCOUNTER 2022-06-18 16:03 | Emergency (ER) | payer BC, MEDICAID, SELFPAY ==
[2022-06-18 16:04] VITALS: BP 126/91; PULSE 107; RESP 18; TEMP 35.9; O2SAT 95; BMI 23.4
--- NOTE | 2022-06-18 16:40 | RAD_ITS ---
STUDY: XR Chest 1 View 06/18/2022 4:50 PM REASON FOR EXAM: Female, 62 years old. CHEST PAIN SOB COMPARISON: 05.16.22 TECHNIQUE: XR Chest 1 View FINDINGS: There are bilateral pleural effusions. There are bilateral infiltrates. Normal heart size. Normal mediastinum. Normal sancho. Prominent appearing increased interstitial lung markings. Normal visualized pulmonary arteries. There is atherosclerotic calcification of the aortic arch with tortuosity. There are diffuse degenerative changes of the visualized thoracic spine. There is degenerative osteoarthritis of the bilateral shoulders. There is no demonstrated abnormality of the visualized soft tissue structures of the upper abdomen. RAD/Chest 1 View (Portable) IMPRESSION: There are bilateral pleural effusions. There are bilateral infiltrates. This is worse. Electronically Signed: Frank Palomino MD at 16:52 EST ,
--- NOTE | 2022-06-18 18:55 | EKG12_ITS ---
Test Reason : SOB Blood Pressure : / mmHG Vent. Rate : 072 BPM Atrial Rate : 072 BPM P-R Int : 128 ms QRS Dur : 092 ms QT Int : 424 ms P-R-T Axes : 029 054 134 degrees QTc Int : 464 ms Sinus rhythm with Premature atrial complexes Nonspecific ST and T wave abnormality Abnormal ECG Confirmed by MAREN RODRIGUEZ, SHAKIR ([id number]), graphic editor DOLORES URIOSTEGUI ([id number]) on 06/21/2022 11:12:00 AM Referred By: Confirmed By:SHAKIR ENGEL MD
[2022-06-18] MEDS: Albuterol 2.5 MG/3 ML VIAL.NEB. INHALATION (19:02)
[2022-06-18] MEDS: Ipratropium/Albuterol Sulfate 3 ML AMPUL.NEB INHALATION (19:02)
--- NOTE | 2022-06-18 19:04 | EDS_ITS ---
HPI History of Present Illness Chief Complaint: Shortness of Breath Informant: patient Narrative Narrative: Comes in, planing of shortness of breath for about a month. She is still smoking but states she is in the process of quitting. She is coughing but not bringing up sputum. No fevers or chills. No chest pain. No hemoptysis. No leg pain or swelling. She does have a history of COPD. She states she has an inhaler at home that is albuterol. It sounds like she has a steroid inhaler also that she takes once a day but does not know the name of this. I reviewed her chart from recent visit. She had not mention 1 word to me that she was here and actually admitted a month ago. I reviewed both her emergency department visit as well as her inpatient visit, discharge summary. She had a CTA of the chest. She had steroids and antibiotics given. She was sent home on prednisone. She was on azithromycin. At that time she had quit smoking also. PFSH PFSH Medical History Cancer Chest pain Depression History of alcohol dependence History of methamphetamine abuse Major depressive disorder, recurrent, moderate Rheumatoid arthritis Smoker Home Medications albuterol sulfate 90 mcg/actuation aerosol inhaler 1 - 2 puff inhalation Q4H PRN Shortness Of Breath 05/16/22 [History Last Taken Unknown] azithromycin 250 mg tablet 500 mg PO Q24 3 days #6 tabs 05/18/22 [Rx Last Taken Unknown] guaifenesin 600 mg tablet, extended release 12 hr (Mucus Relief ER) 600 mg PO BID 7 days #14 tabs 05/18/22 [Rx Last Taken Unknown] prednisone 20 mg tablet 40 mg PO DAILY@0800 5 days #10 tabs 05/18/22 [Rx Last Taken Unknown] doxycycline monohydrate 100 mg capsule 100 mg PO BID #20 CAPSULES 06/18/22 [Rx Last Taken Unknown] prednisone 20 mg tablet 60 mg PO DAILY #15 TABLETS 06/18/22 [Rx Last Taken Unknown] Allergy/AdvReac Type Severity Reaction Status Date / Time No Known Allergies Allergy Verified 06/18/22 16:06 Social History Smoking Status: Current every day smoker tobacco type: cigarettes ROS ROS ED Constitutional Constitutional ED: Denies chills or fever(s) Eyes Eyes: Denies change in vision ENT ENT ED: Denies rhinorrhea or sore throat Cardiovascular Cardiovascular: Denies chest pain, palpitations or racing heartbeat Respiratory/Chest Respiratory/Chest: Reports cough and dyspnea; Denies sputum Gastrointestinal Gastrointestinal: Denies abdominal pain, nausea or vomiting Genitourinary Genitourinary ED: Denies dysuria Musculoskeletal Musculoskeletal: Denies myalgias Integumentary Denies rash Neurologic Neurologic: Denies headache(s), paresthesias or weakness Endocrine Endocrinology: Denies polydipsia or polyuria Hematologic/Lymphatic Hematologic/Lymphatic: Denies easy bleeding or easy bruising Allergic/Immunologic Allergic/Immunologic ED: Denies urticaria EXAM Physical Exam Narrative Exam Narrative: Patient is awake alert. She is sitting comfortably in bed. No acute distress. She carries on normal conversation. HEENT shows moist mucous membranes. No thrush. No exudate. Voice is normal. Eyes show no pallor. Neck shows no JVD. No stridor. Lungs have decreased breath sounds throughout. Mild expiratory wheeze just at end expiration. No rales. No pain with a deep breath. Heart is regular but is borderline tachycardic at about 80-100 when I listen. Peripheral pulses are equal Abdomen is soft and nontender shows no CVA or suprapubic tenderness. Extremities show no edema cords tenderness along deep venous system or asymmetry. No peripheral cyanosis. Patient is awake alert with no focal deficit Const Vital Signs: 06/18/22 16:04 06/18/22 19:05 06/18/22 19:14 Temperature 96.7 F L Temperature Source Temporal Pulse Rate 107 H 110 H Respiratory Rate 18 18 Respiratory Effort Blood Pressure 126/91 H Blood Pressure Mean 102 Pulse Ox 95 95 Oxygen Delivery Method Room Air Room Air 06/18/22 19:14 Temperature Temperature Source Pulse Rate Respiratory Rate Respiratory Effort Short of Breath Blood Pressure Blood Pressure Mean Pulse Ox Oxygen Delivery Method Positive well nourished and well developed General Appearance ED: well developed and NAD MDM MDM MDM Narrative Medical decision making narrative: My independent interpretation of the patient's single AP chest x-ray shows some chronic appearing changes. There may be just a hint of effusion or blunting. Minimal change from prior. Official reading shows bilateral effusions and bilateral infiltrates and is worse. However, looking at this this is not a marked change to me. I talk with him again. She states that she did get better after she left the hospital. But the symptoms are really only come back within the last few days to a week. She has been wheezing more. She does have her 2 inhalers at home although she is not sure the name of her other inhaler. We we will try her on doxycycline and prednisone. She does not want to come in the hospital for it. She feels much better after treatments. She is moving air much better and I am not hearing wheezing now. Radiography Diagnostic Testing: Clinical Impression(s) from Imaging Studies Chest X-Ray 06/18/22 16:40 IMPRESSION: There are bilateral pleural effusions. There are bilateral infiltrates. This is worse. Electronically Signed: Frank Palomino MD at 16:52 EST , EKG Initial EKG: Comments: My independent interpretation of patient's EKG for dyspnea shows a normal sinus rhythm with occasional PACs and overall rate of 72. No ventricular ectopy. No acute ST elevation or depression. She does have nonspecific diffuse changes. MN interval, QRS duration and QTc are normal. Discharge Plan Triage Chief Complaint: Shortness of Breath ED Provider: Wenceslao Rodas Dx/Rx/DC Orders Clinical Impression: COPD with exacerbation, Tobacco abuse disorder Instructions: ED COPD Flare Prescriptions: New prednisone 20 mg tablet 60 mg PO DAILY Qty: 15 0RF doxycycline monohydrate 100 mg capsule 100 mg PO BID Qty: 20 0RF No Action albuterol sulfate 90 mcg/actuation HFA aerosol inhaler 1 - 2 puff INHALATION Q4H PRN (Reason: Shortness Of Breath) Label Comments: Inhale 2 Puffs as instructed every 6 hours as needed. azithromycin 250 mg Tablet 500 mg PO Q24 3 Days Qty: 6 0RF prednisone 20 mg Tablet 40 mg PO DAILY@0800 5 Days Qty: 10 0RF guaifenesin [Mucus Relief ER] 600 mg Tablet Extended Release 12hr 600 mg PO BID 7 Days Qty: 14 0RF Primary Care Provider: Rola Pickens NP Referrals: Rola Pickens NP, [employer] MAINTENANCE SUPERVISOR-C [Primary Care Provider] - 3-5 Days if not improving Activity Restrictions/Additional Instructions: Follow-up with your health record technician at [facility] next week. Disposition Disposition: Home, Self Care
[2022-06-18 19:05] VITALS: PULSE 110; RESP 18
[2022-06-18 19:14] VITALS: O2SAT 95
[2022-06-18] MEDS: predniSONE 20 MG Tablet 60 MG PO (19:27)
== END 2022-06-18 21:31 | disposition home or self-care (01) ==
PROVIDERS: Emergency Provider Emergency Medicine; PCP Registered Nurse; Visit Provider Emergency Medicine
DX: J44.1 Chronic obstructive pulmonary disease with (acute) exacerbation (principal); F17.210 Nicotine dependence, cigarettes, uncomplicated; F32.A Depression, unspecified
CPT/HCPCS: 71045; 87811; 93005; 94640; 94760; 99282

== ENCOUNTER 2022-06-22 22:22 | Emergency (ER) | payer BC, MEDICAID, SELFPAY ==
[2022-06-22 22:23] VITALS: BP 143/96; PULSE 104; RESP 20; TEMP 36.6; O2SAT 95; BMI 24.9
--- NOTE | 2022-06-22 22:56 | EKG12_ITS ---
Test Reason : DYSRHYTHMIA Blood Pressure : / mmHG Vent. Rate : 084 BPM Atrial Rate : 084 BPM P-R Int : 122 ms QRS Dur : 094 ms QT Int : 400 ms P-R-T Axes : 078 060 109 degrees QTc Int : 472 ms NSR with PAC's Nonspecific T wave abnormality Abnormal ECG Confirmed by MAREN RODRIGUEZ, SHAKIR ([id number]), videotape editor REGAN GODINEZ ([id number]) on 06/24/2022 11:45:21 AM Referred By: BB Confirmed By:SHAKIR ENGEL MD
--- NOTE | 2022-06-22 22:58 | ED.VIS.DYS ---
HPI History of Present Illness Chief Complaint: Shortness of Breath Informant: patient Onset/Context/Timing Onset: Month(s) (1 or more) Context: gradual and onset Timing: Continuous Quality: Positive for Dyspnea on exertion Current Severity: Severe Maximum Severity: Severe Worsened by: Exertion and Lying flat Relieved by: Rest Associated Symptoms cough Chest Pain: Positive for Tightness Narrative Narrative: Patient stated she has been having exertional chest tightness and dyspnea for the past month or more. She was seen here on Tuesday, 4 days ago, and prescribed antibiotics and prednisone for COPD exacerbation. She states none of it is helping. She has maintenance COPD inhaler, and rescue albuterol. It is not helping. She does not have an aerosol machine. She denies any leg swelling. She denies any fevers or chills but she does have a cough that is nonproductive. She states she was seen by Dr. Sandoval [facility] pulmonology this past month and had pulmonary function tests and was diagnosed with COPD. She does not require home oxygen. She states she had a stress test yesterday. She states that when she rests she is better, but with any light activity or any exertion she is extremely dyspneic and is not sure what to do. I reviewed an outpatient echocardiogram that the patient had 1 month ago. It shows severely dilated LV, global LV systolic dysfunction, and an EF of 25% with stage II diastolic dysfunction and valvular abnormalities including mitral insufficiency, aortic insufficiency, pulmonic insufficiency, and tricuspid insufficiency. She also has right ventricular systolic pressures that are significantly elevated. There was a trivial pericardial effusion but no signs of cardiac tamponade. I went back to asked the patient about this echocardiogram. It then became evident that she had an appointment with cardiology about this because it was so significant, but she missed it because she did not want to miss work. She has not seen cardiology yet. PFSH PFS Medical History Cancer Chest pain Depression History of alcohol dependence History of methamphetamine abuse Major depressive disorder, recurrent, moderate Rheumatoid arthritis Smoker Home Medications albuterol sulfate 90 mcg/actuation aerosol inhaler 1 - 2 puff inhalation Q4H PRN Shortness Of Breath 05/16/22 [History Last Taken Unknown] doxycycline monohydrate 100 mg capsule 100 mg PO BID #20 CAPSULES 06/18/22 [Rx Last Taken Unknown] umeclidinium 62.5 mcg-vilanterol 25 mcg/actuation powdr for inhalation (Anoro Ellipta) 1 inh inhalation DAILY 06/22/22 [History Last Taken Unknown] carvedilol 3.125 mg tablet (Coreg) 3.125 mg PO BID #60 tabs 06/23/22 [Rx Last Taken Unknown] furosemide 40 mg tablet 40 mg PO DAILY #30 tabs 06/23/22 [Rx Last Taken Unknown] losartan 25 mg tablet 25 mg PO DAILY #30 tabs 06/23/22 [Rx Last Taken Unknown] Allergy/AdvReac Type Severity Reaction Status Date / Time No Known Allergies Allergy Verified 06/18/22 16:06 Social History Smoking Status: Former smoker ROS ROS ED Constitutional Constitutional ED: Denies chills or fever(s) Eyes Eyes: Denies change in vision or diplopia ENT ENT ED: Denies rhinorrhea or sore throat Cardiovascular Cardiovascular: Reports chest pain and orthopnea; Denies leg edema or palpitations Respiratory/Chest Respiratory/Chest: Reports chest tightness, cough, dyspnea, dyspnea on exertion and orthopnea; Denies sputum Gastrointestinal Gastrointestinal: Reports constipation; Denies abdominal pain, diarrhea, nausea or vomiting Genitourinary Genitourinary ED: Denies dysuria or hematuria Musculoskeletal Musculoskeletal: Denies back pain or neck pain Integumentary Denies abscess or rash Neurologic Neurologic: Denies headache(s), paresthesias or weakness Psychiatric Psychiatric: Denies anxiety or suicidal thoughts EXAM Physical Exam Const Vital Signs: 06/22/22 22:23 06/22/22 23:55 Temperature 97.8 F Temperature Source Temporal Pulse Rate 104 H Respiratory Rate 20 H Respiratory Effort Short of Breath Labored Respiratory Depth Normal Blood Pressure 143/96 H Blood Pressure Mean 111 Pulse Ox 95 Oxygen Delivery Method Room Air Room Air Positive well nourished and well developed General Appearance ED: well developed and NAD HEENT Reports moist mucous membranes normocephalic and atraumatic Eyes PERRL and EOMs intact bilaterally Neck full ROM, supple and no JVD Resp normal respiratory effort and clear to auscultation bilaterally Resp Narrative: diminished at bases, symmetrically Cardio no murmurs Cardio Narrative: Mostly regular occasionally irregular heartbeat. No tachycardia. GI non-tender and non-distended Auscultation: normoactive bowel sounds Palpation: soft Back/Spine no CVA tenderness General Back: other FROM Extremity normal to inspection General Extremety ED: Negative for edema, pulses abnormal or tenderness General Extremity: Negative for edema or pulses abnormal Neuro oriented x3, CN's II-XII intact bilaterally and no sensory deficits noted Sensorium / Orientation: awake and alert Motor Exam: strength 5/5 throughout Skin no rashes or lesions noted and no wounds MDM MDM MDM Narrative Medical decision making narrative: Given the information that the patient has a severely dilated left ventricular cardiomyopathy, multiple valvular insufficiencies, and not improving with COPD treatment with antibiotic, I suspect she is not getting better because the etiology of her dyspnea is cardiac. Chest x-ray from a couple days ago showed bilateral pleural effusions and infiltrates, these may have been cardiogenic pulmonary edema. I am repeating this, as well as a cardiac work-up with a BNP, and giving her Lasix 40 mg IV in the meantime. She urinated multiple times and was feeling better, ambulatory from the room to the bathroom, down the campos in the ER without significant dyspnea, and without any hypoxemia on multiple checks. Her work-up is consistent with this being related to her congestive heart failure. I discussed that with her. Given all of that, as well as the last visit where aerosols really helped her breathing and she was having acute cough, I would recommend discontinuing the prednisone but continuing antibiotic. The prednisone could increase her fluid retention. I do not think she needs to be admitted to the hospital clinically, but her heart failure needs to be addressed pharmacologically since she does not a follow-up appointment for over 1 month from now given when she could reschedule her missed cardiology appointment. I discussed with cardiology on-call Dr. Bird, he agrees with all the and recommends putting her on Coreg, Lasix, losartan. I will prescribe those for her so she can start them. She is in agreement with this plan, her vital signs look really good on reevaluation. Lab Data Attestation: I reviewed the patient's lab results. Labs: Laboratory Results - last 24 hr 06/22/22 06/22/22 06/22/22 23:40 23:40 23:40 WBC 14.4 H RBC 4.77 Hgb 14.8 Hct 46.6 MCV 97.7 MCH 31.0 MCHC 31.8 L RDW Std Deviation 52.8 H RDW Coeff of Rick 14.6 Plt Count 249 MPV 12.0 Immature Gran % (Auto) 1.500 H Neut % (Auto) 56.5 Lymph % (Auto) 30.6 [place] % (Auto) 10.5 H Eos % (Auto) 0.3 Baso % (Auto) 0.6 Absolute Neuts (auto) 8.1 H Absolute Lymphs (auto) 4.41 Nucleated RBC % 0 Diff Path Review May foll Sodium 140 Potassium 4.0 Chloride 111 H Carbon Dioxide 20.0 L Anion Gap 9 BUN 30 H Creatinine 0.80 Estim Creat Clear Calc 61.35 Est GFR (MDRD) Af Amer 93 Est GFR (MDRD) Non-Af 77 BUN/Creatinine Ratio 37.5 H Glucose 99 Calcium 8.5 Troponin I High Sens 50 B-Natriuretic Peptide 3245.1 H Radiography Chest X-Ray - ED: 2 View, Read by ED Physician and CHF (mild, with possible small pleural effusions bilaterally) Diagnostic Testing: Clinical Impression(s) from Imaging Studies Chest X-Ray 06/23/22 00:00 IMPRESSION: Stable mild cardiomegaly with interstitial disease, small left pleural effusion and pulmonary vascular congestion. Probable mild CHF with interstitial edema. Electronically Signed: Manoj Anderson MD at 0:23 EST , Rhythm Strip Rhythm Strip: Sinus Rhythm Rate: 85 Ectopy: PVC(s) EKG Initial EKG: Interpretation: No Acute Injury Pattern Comments: Wandering pacemaker and occasional nonconducted beat and PVCs Discharge Plan Triage Chief Complaint: Shortness of Breath ED Provider: Gordon Cha Dx/Rx/DC Orders Clinical Impression: Acute CHF (congestive heart failure) Instructions: ED Heart Failure, Congestive (CHF) Prescriptions: New carvedilol [Coreg] 3.125 mg tablet 3.125 mg PO BID Qty: 60 1RF Rx Instructions: must administer with a meal/food furosemide 40 mg tablet 40 mg PO DAILY Qty: 30 1RF losartan 25 mg tablet 25 mg PO DAILY Qty: 30 1RF Continued albuterol sulfate 90 mcg/actuation HFA aerosol inhaler 1 - 2 puff INHALATION Q4H PRN (Reason: Shortness Of Breath) Label Comments: Inhale 2 Puffs as instructed every 6 hours as needed. doxycycline monohydrate 100 mg capsule 100 mg PO BID Qty: 20 0RF Anoro Ellipta 62.5-25 mcg/actuation blister with device 1 inh INHALATION DAILY Label Comments: Inhale 1 Inhalation as instructed once daily. Primary Care Provider: Rola Pickens NP Referrals: Jose Bird MD [Med Staff - Active Staff] - Keep Jesus Alberto appointment (or sooner, w/ first-available provider) Rola Pickens NP, [employer] MACHINE OPERATOR-C [Primary Care Provider] - Activity Restrictions/Additional Instructions: Discontinue your prednisone since it is not helping and could possibly make your breathing worse. Disposition Disposition: Home, Self Care
[2022-06-22] MEDS: Furosemide 40 MG/4 ML Vial IV (23:45)
[2022-06-22 23:54] LABS: Absolute Lymphocyte Count 4.41 X10^3/uL (0.83-4.51); Absolute Neutrophil Count 8.1 X10^3/uL (2.0-7.7); Basophil# 0.08 X10^3/uL; Basophil% 0.6 % (0-1); Eosinophil# 0.05 X10^3/uL; Eosinophils% 0.3 % (0-5); Hematocrit 46.6 % (37-47); Hemoglobin 14.8 g/dL (12.0-15.0); Lymphocyte # 4.41 X10^3/ul (0.83-4.51); Lymphocyte % 30.6 % (19-41); Mean Corp Hgb Conc 31.8 g/dL (32-36); Mean Corpuscular Volume 97.7 fL (81-99); Monocyte# 1.51 X10^3/uL; Monocyte% 10.5 % (0-10); NRBC Flagged by Analyzer 0 % (0-5); Neutrophil # 8.13 X10^3/uL (2.7-7.7); Neutrophil % 56.5 % (47-70); POSITIVE DIFFERENTIAL YES; Platelet Count 249 K/mm3 (150-450); RBC Distribution Width CV 14.6 % (11.6-14.6); RBC Distribution Width SD 52.8 fl (35.1-43.9); Red Blood Count 4.77 M/mm3 (4.2-5.4); White Blood Count 14.4 K/mm3 (4.4-11.0)
[2022-06-22 23:59] LABS: Differential Indicated SCAN CRITERIA MET
[2022-06-23] VITALS: BP 117/79; PULSE 84; RESP 21; O2SAT 96
--- NOTE | 2022-06-23 | RAD_ITS ---
EXAM: XR CHEST, 2 VIEWS CLINICAL INDICATION: dyspnea, chest tightness TECHNIQUE: Frontal and lateral views of the chest. This report was created using [employer] report generation technology. COMPARISON: 06/18/2022. FINDINGS: LUNGS AND PLEURAL SPACES: Small left pleural effusion. Persistent mild interstitial disease with Kay B lines noted in the lower lungs. Pulmonary vascular congestion. No pneumothorax. HEART: Stable mild cardiomegaly. MEDIASTINUM: Central airways and mediastinal contour are unremarkable. BONES/JOINTS: Unremarkable. SOFT TISSUES: Unremarkable. RAD/Chest PA and Lateral IMPRESSION: Stable mild cardiomegaly with interstitial disease, small left pleural effusion and pulmonary vascular congestion. Probable mild CHF with interstitial edema. Electronically Signed: Manoj Anderson MD at 0:23 EST ,
[2022-06-23 00:15] LABS: Anion Gap 9 (5-15); BUN 30 mg/dL (7-18); BUN/Creat Ratio 37.5 RATIO (10-20); Calcium,Total 8.5 mg/dL (8.5-10.1); Chloride 111 mmol/L (98-107); EST Glomerular Filtration Rate 77 mL/min (>60); Est Glom Filt Rate - Afr Amer 93 mL/min (>60); Estimated Creatinine Clearance 61.35 ml/min; Glucose 99 mg/dL (74-106); Sodium Level 140 mmol/L (136-145); Troponin-I HS 50 pg/mL (3.0-54.0)
[2022-06-23 00:18] LABS: BNP,B-Type NATRIURETIC PEPTIDE 3245.1 pg/mL (0-100)
[2022-06-24 13:53] LABS: Pathologist Review Reviewed
== END 2022-06-23 01:43 | disposition home or self-care (01) ==
PROVIDERS: Emergency Provider Emergency Medicine; PCP Registered Nurse; Visit Provider Emergency Medicine
DX: I50.41 Acute combined systolic (congestive) and diastolic (congestive) heart failure (principal); M06.9 Rheumatoid arthritis, unspecified; J44.9 Chronic obstructive pulmonary disease, unspecified; Z79.899 Other long term (current) drug therapy; Z87.891 Personal history of nicotine dependence
CPT/HCPCS: 71046; 80048; 83880; 84484; 85025; 93005; 99285; A4216; J1940

== ENCOUNTER → 2022-07-07 | Day surgery (SDC) | payer BC, MEDICAID, SELFPAY ==
[2022-07-07 07:44] VITALS: BMI 22.4
--- NOTE | 2022-07-07 09:40 | CL.D_ITS ---
Patient Name: RACHEL TOBIAS Study Date: 07/07/2022 Performing: oDt Bella MD Ht: 64 inches 162.56 cm : 1960 Wt: 131 lbs 59.42 kg Age: 62 Gender: female BSA: 1.63 PROCEDURE(S) PERFORMED [id number])LHC/COR/LV CLINICAL PROFILE AND INDICATIONS Indications: LV Dysfunction Heart Failure: NYHA Class: 2 Stress/Imaging Stress/Image Study Performed: No CAD Presentations: No Sxs, no angina. CONCLUSIONS 40% Prox LAD; 70% ostial D1 LVEF 20%, non-ischemic CMP RECOMMENDATIONS Medical therapy DESCRIPTION OF PROCEDURE The patient arrived to the procedure lab. The risks and benefits of the procedure as well as a full description of our services here and current unavailability of surgical backup were fully explained to the patient and/or their significant other prior to the catheterization. The Timeout was completed, verifying the correct patient and procedure. The patient's procedural site was prepped and draped in the usual fashion. Local anesthetic was given subcutaneously to right radial region with Lidocaine 2%. Using a modified Seldinger technique, arterial access was obtained via the right radial artery, a 6Fr sheath was inserted. Left Coronary Artery selective angiography was performed in multiple views using a 5 Fr. 4.0 [place] catheter. Right Coronary Artery selective angiography was then performed in multiple views using a 5 Fr. 4.0 [place] catheter. Left Ventriculography was performed in [place] projection using a 5 Fr. Pigtail catheter. LV to AO pullback pressures were then recorded.The arterial sheath was pulled and a TR Band was applied for hemostasis CORONARY ANGIOGRAPHY DOMINANCE: Right Dominant LEFT HEART ASSESSMENT Left Ventricular Ejection Fraction: by LV Gram 20 % LVEDP: 21 mmHg LEFT MAIN: Tubular 20% Distal lesion in Left Main LEFT ANTERIOR DESCENDING ARTERY: LAD: Tubular 40% Proximal lesion in LAD DIAGONAL 1: Tubular 70% Ostial lesion in 1st Diagonal CIRCUMFLEX ARTERY: Angiographically normal RIGHT CORONARY ARTERY: RCA: Tubular 50% Proximal lesion in RCA COMPLICATIONS No Complications PROCEDURE MEDICATIONS Versed 1 mg IV Fentanyl 25 mcg IV Oxygen: 2 L/min via nasal cannula Heparin given IA 07/07/2022 08:54:39 Verapamil 2.5mg, Ntg 200mcgs, 2000 units of Heparin given IA 07/07/2022 08:54:39 SUMMARY OF HEMODYNAMIC DATA Time AIR REST ECG 08:02:23 AO 84/54 (64) SA 08:57:39 AO 90/58 (69) 08:58:05 AO 95/57 (74) 08:58:47 LV 119/16, 21 09:03:50 LV 113/15, 21 09:03:58 LV 111/23, 28 09:05:12 LVp 109/18, 25 09:05:17 AOp 114/-259 (80) 09:05:24 AIR REST 09:39:09 Signed By Dot Bella MD On 07/07/2022 09:39:46 Dot Bella MD
== END | disposition home or self-care (01) ==
LOC: CLSP 07:35
PROVIDERS: PCP Registered Nurse; Visit Provider Internal Medicine Cardiovascular Disease
DX: I50.22 Chronic systolic (congestive) heart failure (principal); R06.02 Shortness of breath; R05.9 Cough, unspecified; Z82.49 Family history of ischemic heart disease and other diseases of the circulatory system; F17.200 Nicotine dependence, unspecified, uncomplicated; I34.0 Nonrheumatic mitral (valve) insufficiency; I35.1 Nonrheumatic aortic (valve) insufficiency
CPT/HCPCS: 93458; 99152; 99153; J7040; Q9967; C1769; C1894

== ENCOUNTER 2023-07-06 16:19 | Emergency (ER) | payer BC, SELFPAY ==
[2023-07-06 16:19] VITALS: BP 165/86; PULSE 77; RESP 20; TEMP 35.8; O2SAT 99; BMI 24.7
[2023-07-06] MEDS: HYDROcodone Bitartrate/Apap 5/325 Tablet PO (16:38)
[2023-07-06] MEDS: Ketorolac 15 MG/ML Vial IM (16:38)
[2023-07-06 17:10] VITALS: BP 165/86; PULSE 77; RESP 16; TEMP 35.8; O2SAT 99
--- NOTE | 2023-07-06 17:34 | ED.VIS.BACK ---
HPI History of Present Illness Chief Complaint: Back Narrative Narrative: 63-year-old female presenting with right gluteal pain. She states it started a couple days ago. Nontraumatic in nature. She does do some heavy lifting with her job. Denies any direct trauma. Pain is in the right gluteal region radiates to the thigh. No history of sciatica. No back pain above this level. Patient has tried ibuprofen and aspirin at home. Is been no relief. [facility] Medical History Acute CHF (congestive heart failure) Anxiety with somatization Cancer Chest pain Chronic insomnia COPD with exacerbation Depression History of alcohol dependence History of left heart catheterization (LHC) (~07/07/22) History of methamphetamine abuse Lung nodules Major depressive disorder, recurrent, moderate Neurodermatitis Nonischemic cardiomyopathy Nonrheumatic aortic (valve) insufficiency Nonrheumatic mitral (valve) insufficiency Other hyperlipidemia PAH (pulmonary artery hypertension) Post herpetic neuralgia Rheumatoid arthritis Shift work sleep disorder Smoker Tobacco abuse disorder Home Medications doxycycline monohydrate 100 mg capsule 100 mg PO BID #20 CAPSULES 06/18/22 [Rx Last Taken Unknown] umeclidinium 62.5 mcg-vilanterol 25 mcg/actuation powdr for inhalation (Anoro Ellipta) 1 inh inhalation DAILY 06/22/22 [History Last Taken Unknown] carvedilol 3.125 mg tablet (Coreg) 3.125 mg PO BID #60 tabs 06/23/22 [Rx Last Taken Unknown] furosemide 40 mg tablet 40 mg PO DAILY #30 tabs 06/23/22 [Rx Last Taken Unknown] losartan 25 mg tablet 25 mg PO DAILY #30 tabs 06/23/22 [Rx Last Taken 07/07/22] albuterol sulfate 90 mcg/actuation aerosol inhaler 2 puff inhalation Q4H PRN Shortness Of Breath 06/24/22 [History Last Taken Unknown] aspirin 81 mg tablet,delayed release 81 mg PO DAILY 06/29/22 [History Last Taken 07/07/22] buspirone 10 mg tablet 10 mg PO TID 06/29/22 [History Last Taken 07/07/22] atorvastatin 10 mg tablet 10 mg PO QHS #30 tabs 07/08/22 [Rx Last Taken Unknown] hydrocodone-acetaminophen 5-325mg 5mg-325mg 1 tab PO Q6H 3 days #12 TABLETS 07/06/23 [Rx Last Taken Unknown] Allergy/AdvReac Type Severity Reaction Status Date / Time No Known Allergies Allergy Verified 06/29/22 13:59 Family History Mother Heart disease Father Heart disease Brother Alzheimer's dementia Surgical History H/O Mohs micrographic surgery for skin cancer (~06/2018) Social History Smoking Status: Unknown if ever smoked how long ago did patient quit smoking: working on quitting now quit status: considering quitting alcohol intake: former substance use type: does not use and former substance user caffeine: Yes Type: coffee Number of servings: 3 and tea Number of servings: 2 ROS ROS ED Constitutional Constitutional ED: Denies chills, fever(s) or sweats Eyes Eyes: Denies blurry vision or change in vision ENT ENT ED: Denies ear pain or sore throat Cardiovascular Cardiovascular: Denies chest pain, palpitations or racing heartbeat Respiratory/Chest Respiratory/Chest: Denies cough, dyspnea or sputum Gastrointestinal Gastrointestinal: Denies abdominal pain, constipation, diarrhea, nausea or vomiting Genitourinary Genitourinary ED: Denies dysuria, hematuria or urinary frequency Musculoskeletal Musculoskeletal: Reports other Details: Right gluteal pain ; Denies arthralgias, myalgias or neck pain Integumentary Denies abscess, Abrasions or rash Neurologic Neurologic: Denies headache(s), paresthesias or weakness Psychiatric Psychiatric: Denies anxiety, depression, suicidal ideation or suicidal thoughts Endocrine Endocrinology: Denies polydipsia or polyuria EXAM Physical Exam Const Vital Signs: 07/06/23 16:19 07/06/23 17:10 Temperature 96.5 F L 96.5 F L Temperature Source Temporal Pulse Rate 77 77 Respiratory Rate 20 H 16 Blood Pressure 165/86 H 165/86 H Blood Pressure Mean 112 112 Pulse Ox 99 99 Oxygen Delivery Method Room Air Positive well nourished HEENT Reports moist mucous membranes Eyes PERRL and EOMs intact bilaterally Back/Spine Back/Spine Narrative: Tenderness to palpation right gluteal region. No lumbar spinal tenderness, deformity, step-off. No rashes no ecchymosis. Extremity normal to inspection Neuro oriented x3 Sensorium / Orientation: alert Motor Exam: strength 5/5 throughout Psych mental status grossly normal MDM MDM MDM Narrative Medical decision making narrative: Patient presenting with pain in the right gluteal region. I suspect she has sciatica. She is treated with Hildreth and Toradol. I will give her some Hildreth for home. I discussed stretching exercises and follow-up with PCP to ensure resolution. Return precautions discussed. Impression: 1. Sciatica Discharge Plan Triage Chief Complaint: Back ED Provider: Jude Alonso Dx/Rx/DC Orders Instructions: Sciatica Exercise, ED Sciatica Prescriptions: New hydrocodone-acetaminophen 5-325 mg tablet 1 tab PO Q6H 3 Days Qty: 12 0RF No Action buspirone 10 mg tablet 10 mg PO TID aspirin 81 mg tablet,delayed release (DR/EC) 81 mg PO DAILY albuterol sulfate 90 mcg/actuation HFA aerosol inhaler 2 puff INHALATION Q4H PRN (Reason: Shortness Of Breath) doxycycline monohydrate 100 mg capsule 100 mg PO BID Qty: 20 0RF Anoro Ellipta 62.5-25 mcg/actuation blister with device 1 inh INHALATION DAILY Patient Comments: Inhale 1 Inhalation as instructed once daily. carvedilol [Coreg] 3.125 mg tablet 3.125 mg PO BID Qty: 60 1RF Rx Instructions: must administer with a meal/food furosemide 40 mg tablet 40 mg PO DAILY Qty: 30 1RF losartan 25 mg tablet 25 mg PO DAILY Qty: 30 1RF atorvastatin 10 mg tablet 10 mg PO QHS Qty: 30 11RF Primary Care Provider: Rola Pickens NP Referrals: Rola Pickens NP, [employer]ANN[employer]ST-[facility] [Primary Care Provider] - Disposition Disposition: Home, Self Care
--- OUTSIDE RECORDS SUMMARY | 2023-07-06 19:52 | XMS RPT_ITS | CCD ---
Author Name Unknown Address [address] [place] [address] Organization [facility] Care Team Providers Care Terrazzo Layer Helper Name Role Phone JACINTO, DION DO Unavailable Unavailable JACINTO, DION DO Unavailable Unavailable NO, DOCTOR ON Unavailable Unavailable JACINTO, DION DO Unavailable Unavailable NO, DOCTOR ON Unavailable Unavailable WALDO, KAREN E Unavailable Unavailable WALDO, KAREN E Unavailable Unavailable CEBUL, HAILEY III Unavailable Unavailable WALDO, KAREN E Unavailable Unavailable CEBUL, HAILEY III Unavailable Unavailable PROVIDER, UNKNOWN Unavailable Unavailable Haagen REPAIR DEPARTMENT SUPERVISOR.BALLISTICS TESTER, Rola Primary Care Provider Haagen REPAIR DEPARTMENT SUPERVISOR.BALLISTICS TESTER, Rola Primary Care Provider HAAGEN, ROLA Primary Care Unavailable HAAGEN, ROLA Referring Unavailable HAAGEN, ROLA Primary Care Unavailable HAAGEN, ROLA Referring Unavailable HAAGEN, ROLA Attending Unavailable HAAGEN, ROLA Primary Care Unavailable HAAGEN, ROLA Referring Unavailable HAAGEN, ROLA Primary Care Unavailable HAAGEN, ROLA Primary Care Unavailable HAAGEN, ROLA Referring Unavailable KASI, NEETU E Attending Unavailable HAAGEN, ROLA Primary Care Unavailable HAAGEN, ROLA Primary Care Unavailable HAAGEN, ROLA Primary Care Unavailable HAAGEN, ROLA Attending Unavailable HAAGEN, ROLA Primary Care Unavailable KASI, NEETU E Referring Unavailable HAAGEN, ROLA Referring Unavailable HAAGEN, ROLA Primary Care Unavailable HAAGEN, ROLA Attending Unavailable HAAGEN, ROLA Primary Care Unavailable HAAGEN, ROLA Primary Care Unavailable ALLY SANDOVAL Attending Unavailable HAAGEN, ROLA Referring Unavailable HAAGEN, ROLA Primary Care Unavailable HAAGEN, ROLA Referring Unavailable HAAGEN, ROLA Referring Unavailable HAAGEN, ROLA Primary Care Unavailable HAAGEN, ROLA Primary Care Unavailable MATTI WOODS Referring Unavailable HAAGEN, ROLA Attending Unavailable HAAGEN, ROLA Primary Care Unavailable HAAGEN, ROLA Referring Unavailable ROLA PICKENS Primary Care Unavailable Medications Current Medications Medication Drug Class(es) Dates Sig (Normalized) Sig (Original) atorvastatin 40 mg oral tablet (8 sources) HMG-CoA Reductase Inhibitor Start: 07-26-2022 End: 06-28-2024 take 1 tablet by mouth once daily atorvastatin (LIPITOR) 40 mg tablet Take 1 tablet by mouth once daily. 90 tablet 3 06/29/2023 06/28/2024 Active Completed/Discontinued Medications Medication Drug Class(es) Dates Sig (Normalized) Sig (Original) [id number] 200 actuat albuterol 0.09 mg/actuat metered dose inhaler (20 sources) beta2-Adrenergic Agonist Start: 05-24-2022 take 2 puff(s) by inhalation every four hours as needed albuterol HFA (PROAIR HFA) 90 mcg/actuation inhaler Inhale 2 Puffs as instructed every 4 hours as needed. 1 Each 5 05/24/2022 Active Problems Active Problems Problem Classification Problem Date Documented Da te Episodic/Chronic Anxiety disorders (20 sources) Chronic anxiety; Translations: [Anxiety disorder, unspecified] Onset: 06-04-2015 06-04-2015 Chronic Asthma (1 source) Unspecified asthma, uncomplicated; Translations: [Unspecified asthma, uncomplicated] Onset: 03-06-2018 Chronic Chronic obstructive pulmonary disease and bronchiectasis (20 sources) Mild chronic obstructive pulmonary disease; Translations: [Chronic obstructive pulmonary disease, unspecified] Onset: 05-24-2022 Chronic Congestive heart failure; nonhypertensive (5 sources) Acute congestive heart failure; Translations: [Heart failure, unspecified] Onset: 12-23-2022 Chronic Diabetes mellitus without complication (1 source) Type 2 diabetes mellitus without complications; Translations: [Type 2 diabetes mellitus without complications] Onset: 03-06-2018 Chronic Disorders of lipid metabolism (20 sources) Hyperlipidemia; Translations: [Other hyperlipidemia] Onset: 12-29-2020 12-29-2020 Chronic Headache; including migraine (2 sources) Headache; Translations: [Headache] Onset: 03-06-2018 Episodic Heart valve disorders (20 sources) Non-rheumatic mitral regurgitation ; Translations: [Nonrheumatic mitral (valve) insufficiency] Onset: 04-15-2020 04-15-2020 Chronic Miscellaneous mental health disorders (20 sources) Chronic insomnia; Translations: [Psychophysiologic insomnia] Onset: 05-20-2014 05-20-2014 Chronic Mood disorders (20 sources) Recurrent major depressive episodes, severe, with psychosis ; Translations: [Major depressive disorder, recurrent, severe with psychotic symptoms] Onset: 05-22-2018 05-22-2018 Chronic Other liver diseases (2 sources) Elevated liver enzymes level; Translations: [Abnormal levels of other serum enzymes] Episodic Other lower respiratory disease (4 sources) Dyspnea; Translations: [Shortness of breath] Episodic Other nervous system disorders (20 sources) Circadian rhythm sleep disorder of shift work type; Translations: [Circadian rhythm sleep disorder, shift work type] Onset: 07-21-2015 07-21-2015 Chronic Other upper respiratory infections (1 source) Chronic sinusitis, unspecified; Translations: [Chronic sinusitis, unspecified] Onset: 03-06-2018 Chronic Other upper respiratory infections (1 source) Acute upper respiratory infection; Translations: [Acute upper respiratory infection, unspecified] Episodic Enriqueta-; endo-; and myocarditis; cardiomyopathy (except that caused by tuberculosis or sexually transmitted disease) (2 sources) Dilated cardiomyopathy; Translations: [Dilated cardiomyopathy] Chronic Pulmonary heart disease (20 sources) Pulmonary arterial hypertension; Translations: [Secondary pulmonary arterial hypertension] Onset: 05-24-2022 Chronic Substance-related disorders (2 sources) Nicotine dependence, cigarettes, uncomplicated; Translations: [Cigarette smoker ] Onset: 03-06-2018 Chronic Past or Other Problems Problem Classification Problem Date Documented Da te Episodic/Chronic Other inflammatory condition of skin (20 sources) Inflammatory dermatosis; Translations: [Lichen simplex chronicus] Onset: 05-02-2018 05-02-2018 Episodic Other liver diseases (1 source) Abnormal levels of other serum enzymes; Translations: [Elevated liver enzymes] Onset: 07-05-2022 Episodic Other lower respiratory disease (20 sources) Multiple nodules of lung; Translations: [Other nonspecific abnormal finding of lung field] Onset: 05-24-2022 Episodic Other lower respiratory disease (1 source) Shortness of breath; Translations: [SOB (shortness of breath)] Onset: 06-25-2022 Episodic Other lower respiratory disease (1 source) Wheezing; Translations: [Wheeze] Onset: 04-05-2022 Episodic Other screening for suspected conditions (not mental disorders or infectious disease) (20 sources) Patient encounter status; Translations: [Encounter for screening mammogram for malignant neoplasm of breast] Onset: 11-29-2014 Episodic Other skin disorders (20 sources) Non-scarring alopecia; Translations: [Nonscarring hair loss, unspecified] Onset: 10-16-2018 10-16-2018 Episodic Residual codes; unclassified (20 sources) Tobacco user; Translations: [Tobacco use] Onset: 05-20-2014 05-20-2014 Episodic Residual codes; unclassified (1 source) Tobacco use; Translations: [Tobacco abuse] Onset: 05-20-2014 Episodic Viral infection (20 sources) Postherpetic neuralgia; Translations: [Other postherpetic nervous system involvement] Onset: 05-20-2014 05-20-2014 Episodic Results Test Name Value Interpretation Reference Range Facil ity Vital Signs Date Time Vital Sign Value Performing Clinician Faci lity 07-28-2022 10:04-0400 Diastolic blood pressure 72 mm[Hg] Rola Pickens APRN.LE Work Phone: [facility] 07-28-2022 10:04-0400 Heart rate 75 /min Rola Pickens APRN.BALLISTICS TESTER Work Phone: [facility] 07-28-2022 10:04-0400 Respiratory rate 18 /min Rola Pickens APRN.BALLISTICS TESTER Work Phone: [facility] 07-28-2022 10:04-0400 SaO2% (BldA) [Mass fraction] 98 % Rola Pickens APRN.BALLISTICS TESTER Work Phone: [facility] 07-28-2022 10:04-0400 Systolic blood pressure 118 mm[Hg] Rola Pickens APRN.CNP Work Phone: [facility] 07-26-2022 08:59-0400 Body weight 63.05 kg Neetu Hair APRN.CNP Work Phone: [facility] 07-26-2022 08:59-0400 Diastolic blood pressure 84 mm[Hg] Neetu Hair APRN.CNP Work Phone: [facility] 07-26-2022 08:59-0400 Heart rate 84 /min Neetu Hair REPAIR DEPARTMENT SUPERVISOR.BALLISTICS TESTER Work Phone: [facility] 07-26-2022 08:59-0400 Systolic blood pressure 130 mm[Hg] Neetu Kasi REPAIR DEPARTMENT SUPERVISOR.BALLISTICS TESTER Work Phone: [facility] 06-23-2022 16:26-0500 Body weight 59.88 kg Rola Haagen REPAIR DEPARTMENT SUPERVISOR.BALLISTICS TESTER Work Phone: [facility] 06-23-2022 13:41-0500 Diastolic blood pressure 78 mm[Hg] Rola Haagen REPAIR DEPARTMENT SUPERVISOR.BALLISTICS TESTER Work Phone: [facility] 06-23-2022 13:41-0500 Heart rate 74 /min Rola Haagen REPAIR DEPARTMENT SUPERVISOR.BALLISTICS TESTER Work Phone: [facility] 06-23-2022 13:41-0500 Respiratory rate 18 /min Rola Haagen REPAIR DEPARTMENT SUPERVISOR.BALLISTICS TESTER Work Phone: [facility] 06-23-2022 13:41-0500 SaO2% (BldA) [Mass fraction] 96 % Rola Haagen REPAIR DEPARTMENT SUPERVISOR.BALLISTICS TESTER Work Phone: [facility] 06-23-2022 13:41-0500 Systolic blood pressure 110 mm[Hg] Rola Haagen REPAIR DEPARTMENT SUPERVISOR.BALLISTICS TESTER Work Phone: [facility] 05-24-2022 10:56-0500 Body height 162.6 cm Ally Sandoval MD Work Phone: [facility] 05-24-2022 10:56-0500 Body weight 63.05 kg Ally Sandoval MD Work Phone: [facility] 05-24-2022 10:56-0500 Diastolic blood pressure 74 mm[Hg] Ally Sandoval MD Work Phone: [facility] 05-24-2022 10:56-0500 Heart rate 88 /min Ally Sandoval MD Work Phone: [facility] 05-24-2022 10:56-0500 Respiratory rate 12 /min Ally Sandoval MD Work Phone: [facility] 05-24-2022 10:56-0500 SaO2% (BldA) [Mass fraction] 99 % Ally Sandoval MD Work Phone: [facility] 05-24-2022 10:56-0500 Systolic blood pressure 120 mm[Hg] Ally Sandoval MD Work Phone: [facility] 05-06-2022 13:21-0500 Body height 162.6 cm Pulm Wstr Work Phone: [facility] 05-06-2022 13:21-0500 Body weight 61.69 kg Pulm Wstr Work Phone: [facility] 05-04-2022 13:46-0500 Body weight 62.05 kg Rola Haagen REPAIR DEPARTMENT SUPERVISOR.BALLISTICS TESTER Work Phone: [facility] 05-04-2022 13:46-0500 Diastolic blood pressure 82 mm[Hg] Rola Haagen REPAIR DEPARTMENT SUPERVISOR.BALLISTICS TESTER Work Phone: [facility] 05-04-2022 13:46-0500 Heart rate 101 /min Rola Haagen REPAIR DEPARTMENT SUPERVISOR.BALLISTICS TESTER Work Phone: [facility] 05-04-2022 13:46-0500 Respiratory rate 18 /min Rola Haagen REPAIR DEPARTMENT SUPERVISOR.BALLISTICS TESTER Work Phone: [facility] 05-04-2022 13:46-0500 SaO2% (BldA) [Mass fraction] 97 % Rola Haagen REPAIR DEPARTMENT SUPERVISOR.BALLISTICS TESTER Work Phone: [facility] 05-04-2022 13:46-0500 Systolic blood pressure 140 mm[Hg] Rola Haagen REPAIR DEPARTMENT SUPERVISOR.BALLISTICS TESTER Work Phone: [facility] 04-05-2022 11:45-0500 Body temperature 97.81 [degF] Matti Woods PA-C Work Phone: [facility] 04-05-2022 11:45-0500 Body weight 63.32 kg Matti Jonhy PA-C Work Phone: [facility] 04-05-2022 11:45-0500 Diastolic blood pressure 94 mm[Hg] Matti Borjaspencer PA-C Work Phone: [facility] 04-05-2022 11:45-0500 Heart rate 96 /min Matti Borjay PA-C Work Phone: [facility] 04-05-2022 11:45-0500 Respiratory rate 20 /min Matti Borjay PA-C Work Phone: [facility] 04-05-2022 11:45-0500 SaO2% (BldA) [Mass fraction] 98 % Matti Woods PA-C Work Phone: [facility] 04-05-2022 11:45-0500 Systolic blood pressure 140 mm[Hg] Matti Woods PA-C Work Phone: [facility] Encounters Encounter Date Encounter Type Care Provider Facility Start: 06-29-2023 Refill Rola Pickens APRN.LE Work Phone: [facility] Procedures Date Procedure Procedure Detail Performing Clinician Start: 12-23-2022 Echo tthrc r-t 2d w/wom-mode compl spec&colr d Neetumatty Hair REPAIR DEPARTMENT SUPERVISOR.LE Work Phone: Start: 07-05-2022 Us abdominal real ti me w/image limited Rola Pickens APRN.LE Work Phone: Start: 06-25-2022 Lipid 1996 panel - S danial or Plasma Rola Pickens APRN.LE Work Phone: Start: 06-21-2022 Myocardial spect mul tiple studies Rola Pickens APRN.LE Work Phone: Start: 05-06-2022 Brncdilat rspse spmt ry pre&post-brncdilat admn Rola Pickens APRN.LE Work Phone: Start: 04-18-2020 Mammography Rola vora APRN.LE Work Phone: Plan of Treatment Date Care Activity Detail Author Start: 06-25-2027 Lipid 1996 panel - Serum or Plasma Lipid Screening [facility] Start: 06-25-2027 Lipid panel Lipid Screening [facility] Start: 06-25-2027 LIPID SCREEN LIPID SCREEN [facility] Start: 12-15-2025 HPV TESTING HPV TESTING [facility] Start: 12-15-2025 PAP TESTING PAP TESTING [facility] Start: 12-15-2025 Screening for malignant neoplasm of cervix Pap Testing [facility] Start: 11-04-2025 LIPID SCREEN LIPID SCREEN [facility] Start: 06-25-2025 DIABETES SCREEN DIABETES SCREEN [facility] Start: 06-25-2025 Diabetes Screening Diabetes Screening [facility] Start: 05-20-2024 Urine microalbumin profile [facility] Start: 11-05-2023 DIABETES SCREEN DIABETES SCREEN [facility] Start: 07-29-2023 ANNUAL PCP TEAM CHRONIC DISEASE VISIT ANNUAL PCP TEAM CHRONIC DISEASE VISIT [facility] Start: 06-23-2023 ANNUAL PCP TEAM CHRONIC DISEASE VISIT ANNUAL PCP TEAM CHRONIC DISEASE VISIT [facility] Start: 2023 Advance Directive Discussion Advance Directive Discussion [facility] Start: 2023 PNEUMOCOCCAL (3 - PPSV23 if available, else PCV20) PNEUMOCOCCAL (3 - PPSV23 if available, else PCV20) [facility] Start: 2023 PNEUMOCOCCAL (3 - PPSV23 or PCV20) PNEUMOCOCCAL (3 - PPSV23 or PCV20) [facility] Start: 2023 Pneumococcal vaccination Pneumococcal Vaccine (3 - PPSV23 or PCV20) [facility] Start: 2023 Pneumococcal Vaccine: 65+ (3 of 3 - PPSV23 or PCV20) Pneumococcal Vaccine: 65+ (3 of 3 - PPSV23 or PCV20) [facility] Start: 2023 Screening for osteoporosis Bone Density Screening [facility] Start: 05-21-2023 ANNUAL PCP TEAM CHRONIC DISEASE VISIT ANNUAL PCP TEAM CHRONIC DISEASE VISIT [facility] Start: 01-14-2023 Covid-19 Vaccine ( season) Covid-19 Vaccine ( season) [facility] Start: 01-14-2023 Influenza vaccination [facility] Start: 10-26-2022 End: 07-27-2023 Echocardiography ECHO Cardiology Routine Chronic systolic heart failure (HCC) Expected: 10/26/2022, Expires: 07/27/2023 [facility] Work Phone: Immunizations Immunization Date Immunization Notes Care Provider Nehal crow 05-17-2022 influenza, seasonal, injectable Rola Pickens REPAIR DEPARTMENT SUPERVISOR.BALLISTICS TESTER Work Phone: [facility] 05-17-2022 influenza virus vacc ine, unspecified formulation Rola Pickens REPAIR DEPARTMENT SUPERVISOR.BALLISTICS TESTER Work Phone: [facility] 11-02-2020 COVID-19 vaccine, fu ll dose (MODERNA) Rola Pickens REPAIR DEPARTMENT SUPERVISOR.BALLISTICS TESTER Work Phone: [facility] 03-25-2020 influenza, injectabl e, quadrivalent, contains preservative Rola Pickens REPAIR DEPARTMENT SUPERVISOR.BALLISTICS TESTER Work Phone: [facility] 11-11-2015 pneumococcal polysaccharide vaccine, 23 valent Rola Pickens REPAIR DEPARTMENT SUPERVISOR.BALLISTICS TESTER Work Phone: [facility] 11-05-2014 pneumococcal conjuga te vaccine, 13 valent Rola Pickens REPAIR DEPARTMENT SUPERVISOR.BALLISTICS TESTER Work Phone: [facility] 05-20-2014 tetanus toxoid, redu jennifer diphtheria toxoid, and acellular pertussis vaccine, adsorbed Rola Pickens REPAIR DEPARTMENT SUPERVISOR.BALLISTICS TESTER Work Phone: [facility] Payers Date Payer Category Payer Unknown [employer] [id number] 2021-Present [phone] [address] [place] [address] PPO [id number] 2021 Unknown [id number] 2020 Medicaid [employer] [id number] 2020-Present [phone] [address] [place] [address] Medicaid [id number] 2020 Medicaid [id number] 2020 Medicaid [id number] 1960 Unknown [id number] 1960 Unknown [id number] Unknown [id number] Social History Date Type Detail Facility Start: 05-20-2014 End: 05-24-2022 Tobacco smoking status NHIS Smokes tobacco daily [facility] Start: 05-20-2014 End: 06-01-2022 Cigarettes smoked current (pack per day) - Reported 0.5 [facility] Start: 05-20-2014 End: 05-24-2022 Tobacco use and exposure Smokeless tobacco non-user [facility] Start: 07-27-2021 End: 05-06-2022 Alcohol intake Current drinker of alcohol (finding) [facility] Start: 05-20-2014 History SDOH Alcohol Comment socially [facility] Start: 1960 Sex Assigned At Not on file [facility] History of tobacco use Cigarette Smoker [facility] Start: 03-26-2022 End: 04-05-2022 Exposure to SARS-CoV-2 (event) Not sure [facility] Start: 05-24-2022 End: 07-28-2022 Alcohol intake Ex-drinker (finding) [facility] Start: 05-24-2022 Tobacco [facility] Start: 06-01-2022 End: 07-28-2022 Tobacco use panel [facility] National Score (1-10 0), lower number is lower risk 42 [facility] Clinical Notes 04-05-2022 to 06-29-2023 Telephone Encounter - Rola Pickens APRN.CNP - 06/29/2023 3:11 PM ESTTelephone Encounter - Marielena Lim - 06/29/2023 2:41 PM ESTTelephone Encounter - Geri Lee - 02/16/2023 1:45 PM EDT Note Date & Type Note Facility 06-29-2023 Miscellaneous Notes Script sent. Rola Haagen, REPAIR DEPARTMENT SUPERVISOR.BALLISTICS TESTER Patient has been identified by name and date of : Yes Last office visit in this department: Visit date not found RX INSTRUCTIONS: Patient aware RX will be sent to pharmacy. No need to notify patient. Patient phones requesting refills as follows: patient is scheduled for a physical 07/07/23 Requested Prescriptions Pending Prescriptions Disp Refills furosemide (LASIX) 40 mg tablet 90 tablet 1 Sig: Take 1 tablet by mouth once daily. carvedilol (COREG) 3.125 mg tablet 180 tablet 3 Sig: Take 1 tablet by mouth two times a day with meals. busPIRone (BUSPAR) 10 mg tablet 90 tablet 5 Sig: Take 1 tablet by mouth three times a day. atorvastatin (LIPITOR) 40 mg tablet 90 tablet 3 Sig: Take 1 tablet by mouth once daily. losartan (COZAAR) 25 mg tablet 90 tablet 3 Sig: Take 1 tablet by mouth once daily. Please review and advise. Marielena Bartlett documented in this encounter [facility] 02-16-2023 Miscellaneous Notes Patient has been identified by name and date of : Yes Requested Prescriptions Pending Prescriptions Disp Refills furosemide (LASIX) 40 mg tablet 90 tablet 1 Sig: Take 1 tablet by mouth once daily. DANA-07/28/22 Labs-07/06/22 NOV-none RX INSTRUCTIONS: Patient aware RX will be sent to pharmacy. No need to notify patient. Geri Lee documented in this encounter [facility] 12-27-2022 Miscellaneous Notes Pt. notified. Denies questions/ concerns. Nafisa Villalobos RN Left message for pt to return call. Please notify of below and close encounter when pt. calls back. Thank you. Nafisa Villalobos RN ----- Message from Neetu Hair APRN.BALLISTICS TESTER sent at 12/24/2022 7:18 AM EDT ----- Please call patient and notify her of echocardiogram. LV function looks good, EF 50%, no wall motion abnormality, no significant valvular abnormalities. Thank you! documented in this encounter [facility] 12-24-2022 Miscellaneous Notes Please call patient and notify her of echocardiogram. LV function looks good, EF 50%, no wall motion abnormality, no significant valvular abnormalities. Thank you! documented in this encounter [facility] 11-17-2022 Note Patient Outreach (IN [facility]) STEFANIE TOBIAS ([id number]) 1960 F Date Time Provider Department 11/17/22 ROLA PICKENS During your visit today, we recorded the following information about you: Allergies As of Date: 11/17/2022 (No Known Allergies) Date Reviewed: 07/28/2022 Reviewed by: Jony Miller LPN - Fully Assessed Visit Diagnosis:Encounter for screening mammogram for breast cancer [Z12.31] Order(s):[facility] SCREENING [[id number]] Order #: [id number] FUTURE Prescriptions as of 11/22/2022 - furosemide (LASIX) 40 mg tablet Take 1 tablet by mouth once daily. - atorvastatin (LIPITOR) 40 mg tablet Take 1 tablet by mouth once daily. - carvedilol (COREG) 3.125 mg tablet Take 1 tablet by mouth twice daily with meals. - losartan (COZAAR) 25 mg tablet Take 1 tablet by mouth once daily. - busPIRone (BUSPAR) 10 mg tablet Take 1 tablet by mouth three times daily. - umeclidinium-vilanterol (ANORO ELLIPTA) 62.5-25 mcg/actuation inhaler Inhale 1 Inhalation as instructed once daily. - albuterol HFA (PROAIR HFA) 90 mcg/actuation inhaler Inhale 2 Puffs as instructed every 4 hours as needed. 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] 07/21/2015 Abnormal mammogram [R92.8] 11/21/2016 Anxiety and depression [F41.9, F32.A] 08/15/2017 Neurodermatitis [L28.0] 05/02/2018 Severe recurrent depression with psychosis (HCC*05/22/2018 Anxiety with somatization [F41.9, F45.0] 10/16/2018 Non-scarring hair loss [L65.9] 10/16/2018 Toxicologic finding abnormality [R89.2] 11/10/2018 Nonrheumatic mitral valve regurgitation [I34.0] 04/15/2020 Nonrheumatic aortic valve insufficiency [I35.1] 04/15/2020 Other hyperlipidemia [E78.49] 12/29/2020 Stage 1 mild COPD by GOLD classification ([facility]) *05/24/2022 Lung nodules [R91.8] 05/24/2022 PAH (pulmonary artery hypertension) ([facility]) [I27.*05/24/2022 Encounter Status:Closed by KENNY, PRODUSER on 11/22/22 [facility] 07-28-2022 Note HNO ID: [id number] Author: Rola Pickens APRN.BALLISTICS TESTER Service: ? Author Type: Nurse Practitioner Type: Progress Notes Filed: 07/29/2022 1:41 PM Note Text: This is a 62 year old female who presents today with: Patient presents with: Recheck: 1 month follow up HISTORY OF PRESENT ILLNESS: Stefanie Tobias is a 62 year old female. Patient presents with: Recheck: 1 month follow up Pt presents today for 1 month follow-up. She reports that she is doing well. She had a cardiac cath by [facility]. She has follow-up with [facility] cardiology. She will have a repeat echo in 3 months and follow-up with cardiology in 6 months. She has been compliant with medication therapy. She has been completing daily weights. She is down to smoking 4 cigarettes daily. No CP, SOB, palpitations. No swelling. No orthopnea. Some fatigue, but has been working increased hours. 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 MEDICATIONS Current Outpatient Medications Medication Sig atorvastatin (LIPITOR) 40 mg tablet Take 1 tablet by mouth once daily. carvedilol (COREG) 3.125 mg tablet Take 1 tablet by mouth twice daily with meals. losartan (COZAAR) 25 mg tablet Take 1 tablet by mouth once daily. furosemide (LASIX) 40 mg tablet Take 1 tablet by mouth once daily. busPIRone (BUSPAR) 10 mg tablet Take 1 tablet by mouth three times daily. umeclidinium-vilanterol (ANORO ELLIPTA) 62.5-25 mcg/actuation inhaler Inhale 1 Inhalation as instructed once daily. albuterol HFA (PROAIR HFA) 90 mcg/actuation inhaler Inhale 2 Puffs as instructed every 4 hours as needed. guaiFENesin (MUCINEX) 600 mg 12 hr tablet Take 2 tablets by mouth twice daily as needed for cold/allergy symptoms. Current Facility-Administered Medications Medication Dose Route Frequency perflutren lipid microspheres 1.3 mL in NaCl (PF) 0.9% 10 mL injection (DEFINITY) INTRAVENOUS DIRECTED PRN sodium chloride 0.9 % (flush) 10 mL (BD POSIFLUSH) 10 mL INTRAVENOUS DIRECTED PRN perflutren lipid microspheres 1.3 mL in NaCl (PF) 0.9% 10 mL injection (DEFINITY) INTRAVENOUS DIRECTED PRN sodium chloride 0.9 % (flush) 10 mL (BD POSIFLUSH) 10 mL INTRAVENOUS DIRECTED PRN FAMILY HISTORY Problem Relation Age of Onset Heart Mother Heart Father Alzheimer's Disease Brother Dementia None Maternal Grandmother None Maternal Grandfather None Paternal Grandmother None Paternal Grandfather None Son None Son Social History Tobacco Use Smoking status: Every Day Packs/day: 0.50 Years: 34.00 Pack years: 17.00 Types: Cigarettes Smokeless tobacco: Never Tobacco comments: One ppd Vaping Use Vaping Use: Never used Substance Use Topics Alcohol use: Not Currently Comment: socially Drug use: No EXAM: BP 118/72 Pulse 75 Resp 18 SpO2 98% PHYSICAL EXAM: General Appearance: Well appearing, alert, in no acute distress, well-hydrated, well nourished.. Skin: Skin color, texture, turgor normal, no suspicious rashes or lesions. Head: Normocephalic, no masses, lesions, tenderness or abnormalities. Eyes: Anicteric sclera. Extraocular movements are intact. . Lungs: Lungs clear to auscultation. No wheezing, rhonchi, rales.. Heart: RRR without murmur, gallop, or rubs. No ectopy. Neurologic: Gait normal. ASSESSMENT/PLAN: 1. Acute congestive heart failure, unspecified heart failure type (HCC) - ICD9: 428.0, ICD10: I50.9 (primary diagnosis) Stable. Continue on current medication regimen. Continue daily weights. Continue per cardiology, as advised. 2. Cardiac left ventricular ejection fraction 21-40 percent - ICD9: 785.9, ICD10: R94.30 Repeat echo, as planned. 3. Tobacco abuse - ICD9: 305.1, ICD10: Z72.0 Pt is down to 4 cigarettes daily. Continued to work on cessation. Discussed treatment plan and patient voices understanding. Patient's questions answered appropriately. Medications and potential side effects were discussed and patient voices understanding. Return to the office as scheduled or as needed for worsening/no improvement. Rola Pickens APRN.CNP [facility] 07-28-2022 Instructions Rola Pickens APRN.CNP - 07/28/2022 10:30 AM EDT Same medications. Continue daily weights. Recheck in 3 months. documented in this encounter [facility] 07-28-2022 History of Presen t illness Narrative This is a 62 year old female who presents today with: Patient presents with: Recheck: 1 month follow up HISTORY OF PRESENT ILLNESS: Stefanie Tobias is a 62 year old female. Patient presents with: Recheck: 1 month follow up Pt presents today for 1 month follow-up. She reports that she is doing well. She had a cardiac cath by [facility]. She has follow-up with [facility]. She will have a repeat echo in 3 months and follow-up with cardiology in 6 months. She has been compliant with medication therapy. She has been completing daily weights. She is down to smoking 4 cigarettes daily. No CP, SOB, palpitations. No swelling. No orthopnea. Some fatigue, but has been working increased hours. 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 MEDICATIONS Current Outpatient Medications Medication Sig atorvastatin (LIPITOR) 40 mg tablet Take 1 tablet by mouth once daily. carvedilol (COREG) 3.125 mg tablet Take 1 tablet by mouth twice daily with meals. losartan (COZAAR) 25 mg tablet Take 1 tablet by mouth once daily. furosemide (LASIX) 40 mg tablet Take 1 tablet by mouth once daily. busPIRone (BUSPAR) 10 mg tablet Take 1 tablet by mouth three times daily. umeclidinium-vilanterol (ANORO ELLIPTA) 62.5-25 mcg/actuation inhaler Inhale 1 Inhalation as instructed once daily. albuterol HFA (PROAIR HFA) 90 mcg/actuation inhaler Inhale 2 Puffs as instructed every 4 hours as needed. guaiFENesin (MUCINEX) 600 mg 12 hr tablet Take 2 tablets by mouth twice daily as needed for cold/allergy symptoms. Current Facility-Administered Medications Medication Dose Route Frequency perflutren lipid microspheres 1.3 mL in NaCl (PF) 0.9% 10 mL injection (DEFINITY) INTRAVENOUS DIRECTED PRN sodium chloride 0.9 % (flush) 10 mL (BD POSIFLUSH) 10 mL INTRAVENOUS DIRECTED PRN perflutren lipid microspheres 1.3 mL in NaCl (PF) 0.9% 10 mL injection (DEFINITY) INTRAVENOUS DIRECTED PRN sodium chloride 0.9 % (flush) 10 mL (BD POSIFLUSH) 10 mL INTRAVENOUS DIRECTED PRN FAMILY HISTORY Problem Relation Age of Onset Heart Mother Heart Father Alzheimer's Disease Brother Dementia None Maternal Grandmother None Maternal Grandfather None Paternal Grandmother None Paternal Grandfather None Son None Son Social History Tobacco Use Smoking status: Every Day Packs/day: 0.50 Years: 34.00 Pack years: 17.00 Types: Cigarettes Smokeless tobacco: Never Tobacco comments: One ppd Vaping Use Vaping Use: Never used Substance Use Topics Alcohol use: Not Currently Comment: socially Drug use: No EXAM: BP 118/72 Pulse 75 Resp 18 SpO2 98% PHYSICAL EXAM: General Appearance: Well appearing, alert, in no acute distress, well-hydrated, well nourished.. Skin: Skin color, texture, turgor normal, no suspicious rashes or lesions. Head: Normocephalic, no masses, lesions, tenderness or abnormalities. Eyes: Anicteric sclera. Extraocular movements are intact. . Lungs: Lungs clear to auscultation. No wheezing, rhonchi, rales.. Heart: RRR without murmur, gallop, or rubs. No ectopy. Neurologic: Gait normal. ASSESSMENT/PLAN: 1. Acute congestive heart failure, unspecified heart failure type (HCC) - ICD9: 428.0, ICD10: I50.9 (primary diagnosis) Stable. Continue on current medication regimen. Continue daily weights. Continue per cardiology, as advised. 2. Cardiac left ventricular ejection fraction 21-40 percent - ICD9: 785.9, ICD10: R94.30 Repeat echo, as planned. 3. Tobacco abuse - ICD9: 305.1, ICD10: Z72.0 Pt is down to 4 cigarettes daily. Continued to work on cessation. Discussed treatment plan and patient voices understanding. Patient's questions answered appropriately. Medications and potential side effects were discussed and patient voices understanding. Return to the office as scheduled or as needed for worsening/no improvement. Rola Pickens APRN.LE documented in this encounter [facility] 07-26-2022 Note HNO ID: [id number] Author: Neetu Hair APRN.LE Service: ? Author Type: Nurse Practitioner Type: Progress Notes Filed: 07/26/2022 11:53 AM Note Text: Chief Complaint Patient presents with: Established Patient Follow-Up History of Present Illness: Stefanie Tobias is a pleasant 62 year old female who presents for overdue follow up. She has a PMhx of chronic systolic heart failure (nonischemic based on heart catheterization 07/07/2022), mitral valve regurgitation, aortic regurgitation, dyslipidemia, tobacco use. She is known to Dr. Hanley. Last seen in office on 12/29/2020. Since then, she experienced significant shortness of breath and went to [facility] for further evaluation. Echocardiogram revealed severely reduced LV function at 25%. She underwent heart catheterization at [facility] which revealed mild LAD disease D1 branch no intervention and was diagnosed with nonischemic cardiomyopathy. Viral versus stress-induced. Unfortunately, she shares with me her significant other passed in May so possibly stress-induced. She was placed on medication therapy. Today, her son accompanies her for her office visit. She states her symptoms have largely resolved. Her shortness of breath is back to baseline. She denies chest discomfort, dizziness, palpitations, orthopnea, LE swelling. We reviewed cardiac risk factors modifications. She reports taking medications as prescribed. Refills were sent to her pharmacy of choice. We will plan to repeat an echocardiogram 90 days after medical management. 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 Shingles 12/2013 PAST SURGICAL HISTORY Procedure Laterality Date MOHS MICROGRAPHIC H/N/H/F/G 1ST STAGE 5 BLOCKS Left 06/2018 Basal Cell Cancer FAMILY HISTORY Problem Relation Age of Onset Heart Mother Heart Father Alzheimer's Disease Brother Dementia None Maternal Grandmother None Maternal Grandfather None Paternal Grandmother None Paternal Grandfather None Son None Son Social History Tobacco Use Smoking status: Every Day Packs/day: 0.50 Years: 34.00 Pack years: 17.00 Types: Cigarettes Smokeless tobacco: Never Tobacco comments: One ppd Vaping Use Vaping Use: Never used Substance Use Topics Alcohol use: Not Currently Comment: socially Drug use: No ALLERGIES No Known Allergies Medications: Current Outpatient Medications Medication Sig Dispense Refill furosemide (LASIX) 40 mg tablet Take 1 tablet by mouth once daily. 30 tablet 1 busPIRone (BUSPAR) 10 mg tablet Take 1 tablet by mouth three times daily. 90 tablet 5 umeclidinium-vilanterol (ANORO ELLIPTA) 62.5-25 mcg/actuation inhaler Inhale 1 Inhalation as instructed once daily. 1 Each 5 albuterol HFA (PROAIR HFA) 90 mcg/actuation inhaler Inhale 2 Puffs as instructed every 4 hours as needed. 1 Each 5 guaiFENesin (MUCINEX) 600 mg 12 hr tablet Take 2 tablets by mouth twice daily as needed for cold/allergy symptoms. atorvastatin (LIPITOR) 40 mg tablet Take 1 tablet by mouth once daily. 90 tablet 3 carvedilol (COREG) 3.125 mg tablet Take 1 tablet by mouth twice daily with meals. 180 tablet 3 losartan (COZAAR) 25 mg tablet Take 1 tablet by mouth once daily. 90 tablet 3 Current Facility-Administered Medications Medication Dose Route Frequency Provider Last Rate Last Admin perflutren lipid microspheres 1.3 mL in NaCl (PF) 0.9% 10 mL injection (DEFINITY) INTRAVENOUS DIRECTED PRCelestine Hair APRN.CNP sodium chloride 0.9 % (flush) 10 mL (BD POSIFLUSH) 10 mL INTRAVENOUS DIRECTED FAUSTINA Hair APRN.CNP perflutren lipid microspheres 1.3 mL in NaCl (PF) 0.9% 10 mL injection (DEFINITY) INTRAVENOUS DIRECTED FAUSTINA Pickens APRN.CNP sodium chloride 0.9 % (flush) 10 mL (BD POSIFLUSH) 10 mL INTRAVENOUS DIRECTED MAGENN Rola Pickens APRN.CNP Review of Systems Constitutional: Negative for chills, diaphoresis, fever, malaise/fatigue and weight loss. HENT: Negative for congestion, ear pain, nosebleeds, sinus pain and sore throat. Eyes: Negative for pain. Respiratory: Positive for shortness of breath. Negative for cough and wheezing. Cardiovascular: Negative for chest pain, palpitations and leg swelling. Gastrointestinal: Negative for abdominal pain, blood in stool and melena. Genitourinary: Negative for hematuria. Musculoskeletal: Negative for falls. Neurological: Negative for dizziness, tingling, sensory change, speech change, focal weakness, loss of consciousness, weakness and headaches. Endo/Heme/Allergies: Does not bruise/bleed easily. Psychiatric/Behavioral: Negative for depression, memory loss and suicidal ideas. The patient is not nervous/anxious and crawford (more content not included)... [facility] 07-26-2022 Instructions Neetu Hair APRN.LE - 07/26/2022 9:24 AM EDT Images from the original note were not included. CORONARY ARTERY DISEASE View image View image WHAT IS CORONARY ARTERY DISEASE? Coronary artery disease (CAD) is a type of heart disease caused by a problem with the blood vessels that bring blood and oxygen to the heart muscle. These arteries are called the coronary arteries. This disease increases your risk for heart attack and sudden . WHAT IS THE CAUSE? Fatty deposits called plaque may build up in blood vessels and make them narrower. The narrowing decreases the amount of blood flow to the heart. Plaque also increases the chance that blood clots may form and block a blood vessel, which can cause a heart attack or stroke. Your risk for CAD may be higher if you: Have a family history of coronary artery disease at an early age Smoke Have high blood pressure Have diabetes Are very overweight Don t get enough exercise Have high levels of blood fat--for example, high cholesterol WHAT ARE THE SYMPTOMS? Coronary artery disease may not cause any symptoms. When there are symptoms, the most common one is chest pain, called angina. You may feel: A feeling of tightness or heaviness in the chest Squeezing, pressure, or burning in the chest Angina symptoms usually: Last for 5 minutes or less and go away with rest or medicine such as nitroglycerin. Happen when the heart has to work harder, such as after a heavy meal or during physical activity or emotional stress. Angina may also happen when you are resting. Call 911 for emergency help right away if you have symptoms of a heart attack. The most common symptoms include: Chest pain or pressure, squeezing, or fullness in the center of your chest that lasts more than a few minutes, or goes away and comes back (may feel like indigestion or heartburn) Pain or discomfort in one or both arms or shoulders, or in your back, neck, jaw, or stomach Trouble breathing Breaking out in a cold sweat for no known reason If your provider has prescribed nitroglycerin for angina, pain that does not go away after taking your nitroglycerin as directed Along with these symptoms, you may also feel very tired, faint, or be sick to your stomach. HOW IS IT DIAGNOSED? Your healthcare provider will ask about your symptoms and medical history and examine you. Tests may include: Blood tests An ECG (also called an EKG or electrocardiogram), which measures and records your heartbeat. An exercise treadmill test to see how your heart works when you exercise An echocardiogram, which uses sound waves (ultrasound) to see how well your heart is pumping Angiogram, which is a series of X-rays taken after your healthcare provider injects a special dye into your blood vessels to show the dee of the arteries and any blockage CT scan, which uses X-rays and a computer to show detailed pictures of the arteries HOW IS IT TREATED? Your treatment depends on many factors, such as your age, heart muscle function, and other health problems. At first, treatment may include diet changes and an exercise program. Your healthcare provider may prescribe medicine. Many people need to take 2 or more medicines to help prevent a heart attack or stroke. It may take several weeks or months to find the best treatment for you. Your provider may also prescribe other types of medicine to lower blood pressure, help stop chest pain, control an irregular heartbeat, help prevent blood clots, or lower blood fat (cholesterol). Your provider may recommend a daily low dose of aspirin. Taking an aspirin every day may lower your risk for a heart attack or stroke. Not everyone should take aspirin. Daily use of aspirin can cause problems, such as stomach irritation, bleeding, and hearing loss. Ask your healthcare provider if you should take aspirin and if so, how much to take. If your coronary arteries are badly blocked, you may need balloon angioplasty or bypass surgery. A balloon angioplasty opens blocked blood vessels and improves blood flow. A metal mesh device called a stent is usually left in the blood vessels to help keep them open. Bypass surgery uses blood vessels from other parts of the body, or manmade material, to make a new path around a blocked area. HOW CAN I TAKE CARE OF MYSELF? CC If you have coronary artery disease, there are things you can do to take care of yourself now and prevent problems in the future. Follow your provider's advice about activity, exercise, medicine, and follow-up visits. Lower the amount of salt, saturated and trans fats, and cholesterol in your diet. Work with your healthcare provider to control diabetes, blood pressure, or other health problems you may have. Try to keep a healthy weight. If you are overweight, talk to your provider about ways to lose weight. If you smoke, try to quit. Talk to your healthcare provider about ways to quit smoking. Ask your healthcare provider: How and when you will hear your test results How long it will take to recover What activities you should avoid and when you can return to your normal activities How to take care of yourself at home What symptoms or problems you should watch for and what to do if you have them Make sure you know when you should come back for a checkup. HOW CAN I HELP PREVENT CORONARY ARTERY DISEASE? You can prevent this disease with a heart-healthy lifestyle: Eat a healthy diet and keep a healthy weight. Stay fit with the right kind of exercise for you. Find ways to manage stress. Don t smoke. Limit your use of alcohol. Talk to your healthcare provider about your personal and family medical history and your lifestyle habits. This will help you know what you can do to lower your risk for coronary artery disease. If you have a strong family history of CAD, a healthy lifestyle may slow the start of the disease and maybe even keep you from getting it. However, you must have regular checkups to keep a close watch on the health of your heart. Developed by [employer]. Published by [employer]. Copyright 2014 [employer] and/or one of its subsidiaries. All rights reserved. documented in this encounter [facility] 07-26-2022 History of Presen t illness Narrative Chief Complaint Patient presents with: Established Patient Follow-Up History of Present Illness: Stefanie Tobias is a pleasant 62 year old female who presents for overdue follow up. She has a PMhx of chronic systolic heart failure (nonischemic based on heart catheterization 07/07/2022), mitral valve regurgitation, aortic regurgitation, dyslipidemia, tobacco use. She is known to Dr. Hanley. Last seen in office on 12/29/2020. Since then, she experienced significant shortness of breath and went to [facility] for further evaluation. Echocardiogram revealed severely reduced LV function at 25%. She underwent heart catheterization at [facility] which revealed mild LAD disease D1 branch no intervention and was diagnosed with nonischemic cardiomyopathy. Viral versus stress-induced. Unfortunately, she shares with me her significant other passed in May so possibly stress-induced. She was placed on medication therapy. Today, her son accompanies her for her office visit. She states her symptoms have largely resolved. Her shortness of breath is back to baseline. She denies chest discomfort, dizziness, palpitations, orthopnea, LE swelling. We reviewed cardiac risk factors modifications. She reports taking medications as prescribed. Refills were sent to her pharmacy of choice. We will plan to repeat an echocardiogram 90 days after medical management. 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 Shingles 12/2013 PAST SURGICAL HISTORY Procedure Laterality Date MOHS MICROGRAPHIC H/N/H/F/G 1ST STAGE 5 BLOCKS Left 06/2018 Basal Cell Cancer FAMILY HISTORY Problem Relation Age of Onset Heart Mother Heart Father Alzheimer's Disease Brother Dementia None Maternal Grandmother None Maternal Grandfather None Paternal Grandmother None Paternal Grandfather None Son None Son Social History Tobacco Use Smoking status: Every Day Packs/day: 0.50 Years: 34.00 Pack years: 17.00 Types: Cigarettes Smokeless tobacco: Never Tobacco comments: One ppd Vaping Use Vaping Use: Never used Substance Use Topics Alcohol use: Not Currently Comment: socially Drug use: No ALLERGIES No Known Allergies Medications: Current Outpatient Medications Medication Sig Dispense Refill furosemide (LASIX) 40 mg tablet Take 1 tablet by mouth once daily. 30 tablet 1 busPIRone (BUSPAR) 10 mg tablet Take 1 tablet by mouth three times daily. 90 tablet 5 umeclidinium-vilanterol (ANORO ELLIPTA) 62.5-25 mcg/actuation inhaler Inhale 1 Inhalation as instructed once daily. 1 Each 5 albuterol HFA (PROAIR HFA) 90 mcg/actuation inhaler Inhale 2 Puffs as instructed every 4 hours as needed. 1 Each 5 guaiFENesin (MUCINEX) 600 mg 12 hr tablet Take 2 tablets by mouth twice daily as needed for cold/allergy symptoms. atorvastatin (LIPITOR) 40 mg tablet Take 1 tablet by mouth once daily. 90 tablet 3 carvedilol (COREG) 3.125 mg tablet Take 1 tablet by mouth twice daily with meals. 180 tablet 3 losartan (COZAAR) 25 mg tablet Take 1 tablet by mouth once daily. 90 tablet 3 Current Facility-Administered Medications Medication Dose Route Frequency Provider Last Rate Last Admin perflutren lipid microspheres 1.3 mL in NaCl (PF) 0.9% 10 mL injection (DEFINITY) INTRAVENOUS DIRECTED PRN Neetu Hair, MAYUR.BALLISTICS TESTER sodium chloride 0.9 % (flush) 10 mL (BD POSIFLUSH) 10 mL INTRAVENOUS DIRECTED PRN Neetu Hair, REPAIR DEPARTMENT SUPERVISOR.BALLISTICS TESTER perflutren lipid microspheres 1.3 mL in NaCl (PF) 0.9% 10 mL injection (DEFINITY) INTRAVENOUS DIRECTED PRN Rola Pickens APRN.BALLISTICS TESTER sodium chloride 0.9 % (flush) 10 mL (BD POSIFLUSH) 10 mL INTRAVENOUS DIRECTED PRN Rola Pickens APRN.BALLISTICS TESTER Review of Systems Constitutional: Negative for chills, diaphoresis, fever, malaise/fatigue and weight loss. HENT: Negative for congestion, ear pain, nosebleeds, sinus pain and sore throat. Eyes: Negative for pain. Respiratory: Positive for shortness of breath. Negative for cough and wheezing. Cardiovascular: Negative for chest pain, palpitations and leg swelling. Gastrointestinal: Negative for abdominal pain, blood in stool and melena. Genitourinary: Negative for hematuria. Musculoskeletal: Negative for falls. Neurological: Negative for dizziness, tingling, sensory change, speech change, focal weakness, loss of consciousness, weakness and headaches. Endo/Heme/Allergies: Does not bruise/bleed easily. Psychiatric/Behavioral: Negative for depression, memory loss and suicidal ideas. The patient is not nervous/anxious and does not have insomnia. Physical Examination: Vitals:BP 130/84 Pulse 84 Wt 139 lb (63.1kg) Last 2 Encounter Wt Readings: Date: Wt: 06/23/2022 132 lb (59.9 kg) 05/24/2022 139 lb (63 kg) Physical Exam HENT: Head: Normocephalic. Eyes: Pupils: Pupils are equal, round, and reactive to light. Cardiovascular: Rate and Rhythm: Normal rate and regular rhythm. Pulses: Radial pulses are 2+ on the right side and 2+ on the left side. Dorsalis pedis pulses are 2+ on the right side and 2+ on the left side. Heart sounds: S1 normal and S2 normal. Murmur heard. Pulmonary: Effort: Pulmonary effort is normal. No accessory muscle usage or respiratory distress. Breath sounds: Normal breath sounds. Abdominal: General: Bowel sounds are normal. Palpations: Abdomen is soft. Musculoskeletal: General: Normal range of motion. Cervical back: Normal range of motion. Right lower leg: No edema. Left lower leg: No edema. Skin: General: Skin is warm and dry. Neurological: Mental Status: She is alert and oriented to person, place, and time. Gait: Gait is intact. Psychiatric: Mood and Affect: Affect normal. Cognition and Memory: Memory normal. Judgment: Judgment normal. Most Recent Cardiac Testing Echocardiogram 04/11/20: CONCLUSIONS: - Exam indication: Cardiac murmur - The left ventricle is mildly dilated. Left ventricular systolic function is mildly decreased. EF = 50 5% (2D 4-ch.) Left ventricular diastolic function was not evaluated due to >2+ MR. - The right ventricle is normal in size. Right ventricular systolic function is normal. - The left atrial cavity is moderately dilated. - There is moderate (2+ - 3+) mitral valve regurgitation. Regurgitant orifice area (PISA) is 0.10 cm . - There is moderate (2+) aortic valve regurgitation. - The patient has not had a prior CC echocardiographic exam for comparison. PVR 04/14/20: IMPRESSION RIGHT SIDE Resting right ankle brachial index: 1.07 Normal ankle brachial index at rest in the right leg. Right ankle: Normal at rest. Right small vessel disease versus vasoconstriction. LEFT SIDE Resting left ankle brachial index: 1.07 Normal ankle brachial index at rest in the left leg. Left ankle: Normal at rest. Left small vessel disease versus vasoconstriction. Assessment and Plan: Chronic systolic heart failure/ NICM -nonischemic based on heart catheterization 07/07/2022 -compensated on exam -continue coreg, losartan, lasix -recommended heart healthy, 2g low sodium diet, daily weights -repeat echocardiogram after 90 days medication therapy. If EF remains depressed less than 35%, consider ICD for primary prevention of ventricular arrhythmia mediated sudden cardiac -routine lab work in follow up from new medication management Mitral valve regurgitation -moderate -repeat echocardiogram Aortic regurgitation -moderate -repeat echocardiogram Dyslipidemia -lipid panel 06/2022 LDL 114 -continue Lipitor 40 mg -repeat FLP Tobacco use -Encouraged cessation -Physiologic and physical aspects of tobacco addiction as well as strategies for quitting were discussed. -Counseling was given focusing on the harmful effects of this addiction especially given the patient's medical condition(s) which will be worsened because of the chemicals in tobacco. Follow up with Dr. Hanley in 6 months. Patient to call with any issues or concerns prior to then. Electronically signed by Neetu Hair APRN.CNP on July 26, 2022, 8:57 AM documented in this encounter [facility] 07-05-2022 Note HNO ID: [id number] Author: Judie Leblanc RDMS Service: ? Author Type: Rn Corrections Type: Progress Notes Filed: 07/05/2022 10:25 AM Note Text: Radiology Service Progress Note PATIENT NAME: Stefanie Tobias DATE OF SERVICE: July 05, 2022 TIME: 10:25 AM PATIENT IDENTITY VERIFICATION COMPLETED USING TWO (2) IDENTIFIERS: Name and Date of confirmed by patient verbally. FALL SCREENING: Has the patient had 2 falls in the last year or 1 fall with injury or currently using an Ambulatory Assistive Device (Walker, Cane, Wheelchair, Crutches, etc.)? No PATIENT GENDER DATA: Female. status: : No status: NO. PATIENT RELEVANT IMPLANT DATA REVIEWED: Not Applicable RADIOLOGY DEPARTMENT: Ultrasound PERIPHERAL IV DATA: Not applicable SIGNED BY: Judie Leblanc RDMS July 05, 2022 10:25 AM [facility] 07-05-2022 History of Presen t illness Narrative Radiology Service Progress Note PATIENT NAME: Stefanie Tobias DATE OF SERVICE: July 05, 2022 TIME: 10:25 AM PATIENT IDENTITY VERIFICATION COMPLETED USING TWO (2) IDENTIFIERS: Name and Date of confirmed by patient verbally. FALL SCREENING: Has the patient had 2 falls in the last year or 1 fall with injury or currently using an Ambulatory Assistive Device (Walker, Cane, Wheelchair, Crutches, etc.)? No PATIENT GENDER DATA: Female. status: : No status: NO. PATIENT RELEVANT IMPLANT DATA REVIEWED: Not Applicable RADIOLOGY DEPARTMENT: Ultrasound PERIPHERAL IV DATA: Not applicable SIGNED BY: Judie Leblanc RDMS July 05, 2022 10:25 AM documented in this encounter [facility] 06-29-2022 Miscellaneous Notes Letter faxed. Pt notified. Jony Miller LPN Please fax note, as requested. Can please let patient know. Rola Pickens APRN.BALLISTICS TESTER Patient returned call and states she spoke with Pamella NIXNO today at [facility], and Pamella states patient is ok to return to work. Pt states cardiology note was to be faxed to Rola this afternoon as well. Pt asking if Rola will follow through with request below. Please call patient with update. Thank you. Left message to return call to office. Jony Miller LPN Pt notified of provider message. 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 Pt is going to call cardiologists office and then will call back. Thelma Up LPN Can we please check with patient to inquire if cardiology was okay with her returning to work. Can we also please get a copy of cardiology note. Rola Pickens APRN.LE Patient calls and states that she had cardiology appointment today. Patient states that she is getting heart frieda done next Tue. Patient is wanting to go back to work at [employer]. Patient is asking if provider would write her a letter clearing her to go back to work tomorrow? Asking if this could be faxed to [phone]? Please review and advise, Trudi Pulliam RN documented in this encounter [facility] 06-28-2022 Miscellaneous Notes Noted. Rola Pickens APRN.LE Patient notified of results and provider's instructions. Patient verbalizes understanding. Patient states that she has been taking her lasix. It is helping her to feel better. Patient reports that she is feel 95% better. Trudi Pulliam RN Placed call to patient with no answer. Left VM advising her to return call for results. Joleensherrill Vaughan Can please let patient know that I received her lab results. Her BNP was elevated. Please ensure that she is continuing the lasix that was started in the ER. How is her breathing feeling? Her one liver enzyme is elevated. I would like to have her repeat this. I would also like to have her get an ultrasound of her liver. The orders are in. Please help schedule. Please encouraged patient to follow-up at cardiology appointment on 06/29/22, as scheduled. Can we please fax recent labs and stress testing to [facility]. 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 Copy of forms sent to scanning. Jony Miller LPN Form complete. Can please fax for patient. Send copy to scanning. 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 documented in this encounter [facility] 06-23-2022 Note HNO ID: [id number] Author: Rola Pickens APRN.LE Service: ? Author Type: Nurse Practitioner Type: Progress Notes Filed: 06/23/2022 4:32 PM Note Text: This is a 62 year old female who presents today with: Patient presents with: ER F/U: [facility] ER 06/22 dx: shortness of breath HISTORY OF PRESENT ILLNESS: Stefanie Tobias is a 62 year old female. Patient presents with: ER F/U: [facility] ER 06/22 dx: shortness of breath Pt presents today for ER follow-up. She quit smoking - on 06/19/22. Was at the ER on 06/18/22. She presented with complaints of shortness of breath for about a month. She did nonproductive cough. She had a history of COPD. She had a chest x-ray that showed bilateral pleural effusions. Bilateral infiltrates. This is worse. She was placed on doxycycline and prednisone. She was discharged to home. Return to ER on 06/22/22. Refers she was having SOB. Couldn't catch her breath. + cough. Dry in nature. + orthopnea. A little chest tightness. No swelling in the legs. Sometimes toes felt weird. Went to the emergency room via ambulance. Review his records were reviewed and revealed that she did have an echocardiogram a month prior which showed an EF of 25%. Repeat chest x-ray showed stable mild cardiomegaly with interstitial disease, small left pleural effusion and pulmonary vascular congestion. Probable mild CHF with interstitial edema. BNP was 3245. She was treated with Lasix 40 mg IV. Treated with Lasix 40 mg IV. She was also started on lisinopril and carvedilol. Discharged with losartan 25 mg, furosemide 40 mg daily, carvedilol BID. She is feeling improved today. Tremendously. Refers that she has a cardiology appt scheduled with [facility] on 06/29/22. Refers some increased anxiety. Previously treated with buspar, which was helpful. 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 MEDICATIONS Current Outpatient Medications Medication Sig umeclidinium-vilanterol (ANORO ELLIPTA) 62.5-25 mcg/actuation inhaler Inhale 1 Inhalation as instructed once daily. albuterol HFA (PROAIR HFA) 90 mcg/actuation inhaler Inhale 2 Puffs as instructed every 4 hours as needed. guaiFENesin (MUCINEX) 600 mg 12 hr tablet Take 2 tablets by mouth twice daily as needed for cold/allergy symptoms. carvedilol (COREG) 3.125 mg tablet furosemide (LASIX) 40 mg tablet losartan (COZAAR) 25 mg tablet Current Facility-Administered Medications Medication Dose Route Frequency perflutren lipid microspheres 1.3 mL in NaCl (PF) 0.9% 10 mL injection (DEFINITY) INTRAVENOUS DIRECTED PRN sodium chloride 0.9 % (flush) 10 mL (BD POSIFLUSH) 10 mL INTRAVENOUS DIRECTED PRN FAMILY HISTORY Problem Relation Age of Onset Heart Mother Heart Father Alzheimer's Disease Brother Dementia None Maternal Grandmother None Maternal Grandfather None Paternal Grandmother None Paternal Grandfather None Son None Son Social History Tobacco Use Smoking status: Every Day Packs/day: 0.50 Years: 34.00 Pack years: 17.00 Types: Cigarettes Smokeless tobacco: Never Tobacco comments: One ppd Vaping Use Vaping Use: Never used Substance Use Topics Alcohol use: Not Currently Comment: socially Drug use: No EXAM: BP 110/78 Pulse 74 Resp 18 SpO2 96% PHYSICAL EXAM: General Appearance: Well appearing, alert, in no acute distress, well-hydrated, well nourished.. Skin: Skin color, texture, turgor normal, no suspicious rashes or lesions. Head: Normocephalic, no masses, lesions, tenderness or abnormalities. Eyes: Anicteric sclera. Extraocular movements are intact. . Oropharynx: Lips, mucosa, and tongue normal, teeth and gums normal, oropharynx normal. Neck: Supple, no adenopathy; thyroid symmetric, normal size, no bruits. Lungs: Lungs clear to auscultation. No wheezing, rhonchi, rales. Decreased right base. Heart: RRR without gallop, or rubs. No ectopy. + murmur. Abdomen: Abdomen soft, non-tender. Bowel sounds normal. No masses, organomegaly. Extremities: No deformities, edema, skin discoloration, clubbing or cyanosis. Good capillary refill. . Neurologic: Gait normal. ASSESSMENT/PLAN: 1. Acute congestive heart failure, unspecified heart failure type (HCC) - ICD9: 428.0, ICD10: I50.9 (primary diagnosis) Newly diagnosed Continue current medications. Follow-up with cardiology as planned. Start daily weights. 2. Chronic anxiety - ICD9: 300.00, ICD10: F41.9 Restart: - BUSPIRONE 10 MG TABLET 3. Cardiac left ventricular (more content not included)... [facility] 06-23-2022 Instructions Rola Pickens APRN.CNP - 06/23/2022 2:04 PM EST Come in Tuesday or Tuesday for fasting labwork. 2. Restart the buspar. 3. Let us know if trouble sleeping. 4. Recheck in 1 month. documented in this encounter [facility] 06-23-2022 History of Presen t illness Narrative This is a 62 year old female who presents today with: Patient presents with: ER F/U: [facility] ER 06/22 dx: shortness of breath HISTORY OF PRESENT ILLNESS: Stefanie Tobias is a 62 year old female. Patient presents with: ER F/U: [facility] ER 06/22 dx: shortness of breath Pt presents today for ER follow-up. She quit smoking - on 06/19/22. Was at the ER on 06/18/22. She presented with complaints of shortness of breath for about a month. She did nonproductive cough. She had a history of COPD. She had a chest x-ray that showed bilateral pleural effusions. Bilateral infiltrates. This is worse. She was placed on doxycycline and prednisone. She was discharged to home. Return to ER on 06/22/22. Refers she was having SOB. Couldn't catch her breath. + cough. Dry in nature. + orthopnea. A little chest tightness. No swelling in the legs. Sometimes toes felt weird. Went to the emergency room via ambulance. Review his records were reviewed and revealed that she did have an echocardiogram a month prior which showed an EF of 25%. Repeat chest x-ray showed stable mild cardiomegaly with interstitial disease, small left pleural effusion and pulmonary vascular congestion. Probable mild CHF with interstitial edema. BNP was 3245. She was treated with Lasix 40 mg IV. Treated with Lasix 40 mg IV. She was also started on lisinopril and carvedilol. Discharged with losartan 25 mg, furosemide 40 mg daily, carvedilol BID. She is feeling improved today. Tremendously. Refers that she has a cardiology appt scheduled with [facility] on 06/29/22. Refers some increased anxiety. Previously treated with buspar, which was helpful. 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 MEDICATIONS Current Outpatient Medications Medication Sig umeclidinium-vilanterol (ANORO ELLIPTA) 62.5-25 mcg/actuation inhaler Inhale 1 Inhalation as instructed once daily. albuterol HFA (PROAIR HFA) 90 mcg/actuation inhaler Inhale 2 Puffs as instructed every 4 hours as needed. guaiFENesin (MUCINEX) 600 mg 12 hr tablet Take 2 tablets by mouth twice daily as needed for cold/allergy symptoms. carvedilol (COREG) 3.125 mg tablet furosemide (LASIX) 40 mg tablet losartan (COZAAR) 25 mg tablet Current Facility-Administered Medications Medication Dose Route Frequency perflutren lipid microspheres 1.3 mL in NaCl (PF) 0.9% 10 mL injection (DEFINITY) INTRAVENOUS DIRECTED PRN sodium chloride 0.9 % (flush) 10 mL (BD POSIFLUSH) 10 mL INTRAVENOUS DIRECTED PRN FAMILY HISTORY Problem Relation Age of Onset Heart Mother Heart Father Alzheimer's Disease Brother Dementia None Maternal Grandmother None Maternal Grandfather None Paternal Grandmother None Paternal Grandfather None Son None Son Social History Tobacco Use Smoking status: Every Day Packs/day: 0.50 Years: 34.00 Pack years: 17.00 Types: Cigarettes Smokeless tobacco: Never Tobacco comments: One ppd Vaping Use Vaping Use: Never used Substance Use Topics Alcohol use: Not Currently Comment: socially Drug use: No EXAM: BP 110/78 Pulse 74 Resp 18 SpO2 96% PHYSICAL EXAM: General Appearance: Well appearing, alert, in no acute distress, well-hydrated, well nourished.. Skin: Skin color, texture, turgor normal, no suspicious rashes or lesions. Head: Normocephalic, no masses, lesions, tenderness or abnormalities. Eyes: Anicteric sclera. Extraocular movements are intact. . Oropharynx: Lips, mucosa, and tongue normal, teeth and gums normal, oropharynx normal. Neck: Supple, no adenopathy; thyroid symmetric, normal size, no bruits. Lungs: Lungs clear to auscultation. No wheezing, rhonchi, rales. Decreased right base. Heart: RRR without gallop, or rubs. No ectopy. + murmur. Abdomen: Abdomen soft, non-tender. Bowel sounds normal. No masses, organomegaly. Extremities: No deformities, edema, skin discoloration, clubbing or cyanosis. Good capillary refill. . Neurologic: Gait normal. ASSESSMENT/PLAN: 1. Acute congestive heart failure, unspecified heart failure type (HCC) - ICD9: 428.0, ICD10: I50.9 (primary diagnosis) Newly diagnosed Continue current medications. Follow-up with cardiology as planned. Start daily weights. 2. Chronic anxiety - ICD9: 300.00, ICD10: F41.9 Restart: - BUSPIRONE 10 MG TABLET 3. Cardiac left ventricular ejection fraction 21-40 percent - ICD9: 785.9, ICD10: R94.30 Follow-up with cardiology as planned. 4. Chronic obstructive pulmonary disease, unspecified COPD type (HCC) - ICD9: 496, ICD10: J44.9 Stable. Discussed treatment plan and patient voices understanding. Patient's questions answered appropriately. Medications and potential side effects were discussed and patient voices understanding. Return to the office as scheduled or as needed for worsening/no improvement. Rola Pickens APRN.BALLISTICS TESTER Rola Pickens APRN.BALLISTICS TESTER The patient indicates understanding of these issues and agrees with the plan. documented in this encounter [facility] 06-21-2022 Note HNO ID: [id number] Author: Neftali Rodriguez RN Service: ? Author Type: Registered Nurse Type: Progress Notes Filed: 06/21/2022 10:56 AM Note Text: Mild RLL wheezing heard on auscultation. All other lobes clear. RADIOLOGY SERVICE PROGRESS NOTE SERVICE DATE: 06/21/2022 SERVICE TIME: 814 PATIENT IDENTITY VERIFICATION COMPLETED USING TWO (2) METHODS: Patient confirmed name and Date of verbally. ALLERGIES REVIEWED: KIRSTEN/Tate MEDICATIONS REVIEWED BY: Darinel PROCEDURE TYPE: NM STRESS: 0.4 mg of Lexiscan was administered IV at 0837 over 10 Seconds by Neftali Rodriguez RN Reversal agent used:NA LOT [id number] EXP 12/14/2025 IV SITE: IV palced by nuclear tecnologist POST EXAM PIV STATUS: Discontinued by Youth Counselor PATIENT DISCHARGED TO: Nuclear Medicine Department for post stress imaging A Diagnostic radioactive procedure has taken place, with no further precautions necessary other than routine body substance precautions. More information regarding radiation safety can be found using this link: [email or web address]%20Me dicine%[email or web address] SIGNATURE: NEFTALI RODRIGUEZ RN PATIENT NAME: Stefanie Tobias DATE: 06/21/22 TIME: 0845 AM [facility] 06-21-2022 History of Presen t illness Narrative Mild RLL wheezing heard on auscultation. All other lobes clear. RADIOLOGY SERVICE PROGRESS NOTE SERVICE DATE: 06/21/2022 SERVICE TIME: 814 PATIENT IDENTITY VERIFICATION COMPLETED USING TWO (2) METHODS: Patient confirmed name and Date of verbally. ALLERGIES REVIEWED: KIRSTEN/Tate MEDICATIONS REVIEWED BY: Darinel PROCEDURE TYPE: NM STRESS: 0.4 mg of Lexiscan was administered IV at 0837 over 10 Seconds by Neftali Rodriguez RN Reversal agent used:NA LOT [id number] EXP 12/14/2025 IV SITE: IV palced by nuclear tecnologist POST EXAM PIV STATUS: Discontinued by Youth Counselor PATIENT DISCHARGED TO: Nuclear Medicine Department for post stress imaging A Diagnostic radioactive procedure has taken place, with no further precautions necessary other than routine body substance precautions. More information regarding radiation safety can be found using this link: [email or web address]%20N uclear%20Medicine%[email or web address] df SIGNATURE: NEFTALI RODRIGUEZ RN PATIENT NAME: Stefanie Tobias DATE: 06/21/22 TIME: 0845 AM documented in this encounter [facility] 06-21-2022 Note HNO ID: [id number] Author: RT Anna(R) Service: Nuclear Medicine Author Type: Technologist Type: Progress Notes Filed: 06/21/2022 2:04 PM Note Text: RADIOLOGY SERVICE PROGRESS NOTE SERVICE DATE: 06/21/2022 SERVICE TIME: 07:06 AM PATIENT IDENTITY VERIFICATION COMPLETED USING TWO (2) STANDARD IDENTIFIERS: Name and Date of confirmed by patient verbally FALL SCREENING: Has the patient had 2 falls in the last year or 1 fall with injury or currently using an Ambulatory Assistive Device (Walker, Cane, Wheelchair, Crutches, etc.)? No PATIENT GENDER DATA: .female : No ALLERGIES: Reviewed and unchanged MEDICATIONS REVIEWED: No PATIENT RELEVANT IMPLANT DATA REVIEWED: Not Applicable CREATININE: Creatinine Date Value Ref Range Status 11/04/2020 0.63 0.58 - 0.96 mg/dL Final 03/28/2020 0.68 0.58 - 0.96 mg/dL Final 10/06/2018 0.63 0.58 - 0.96 mg/dL Final eGFR-All Other Races Date Value Ref Range Status 11/04/2020 >60 . Final Comment: eGFR (Estimated GFR) Units of measure: mL/min/1.73 meters squared eGFR is derived from the reexpressed MDRD Study equation using the following parameters: serum creatinine, age, gender and race. The creatinine assay has been calibrated to be traceable to IDMS. An eGFR <60 mL/min/1.73m2 for >3 months is consistent with chronic kidney disease. Refer to KDOQI guidelines for clinical interpretation. In patients with unstable renal function, e.g. those with acute kidney injury, the eGFR may not accurately reflect actual GFR. eGFR- Date Value Ref Range Status 11/04/2020 >60 Final P.O.C.T. RESULTS: N/A June 21, [address] PERFORMED: No IV SITE: Ambulatory: A peripheral IV was started in the Left antecubital site with a Angio cath: 22 gauge. POST EXAM PIV STATUS: Discontinued PROCEDURE TYPE: NM Stress: 12 mCi [id number]-Ezgvqon was administered IV for Rest Imaging at 07:20 by Holli Gan. 32.2 mCi [id number] was administered IV for Stress Imaging at 08:37 by Holli Gan. ADMINISTRATION TIME: PATIENT DISCHARGED TO: Ambulatory patient, left NM department area. A Diagnostic radioactive procedure has taken place, with no further precautions necessary other than routine body substance precautions. More information regarding radiation safety can be found using this link: [email or web address] %[email or web address]%20Nuclear%20Me dicine%20Procedures.pdf SIGNATURE: RT Anna(R) PATIENT NAME: Stefanie Tobias DATE: June 21, 2022 TIME: 09:35 AM PAGER/CONTACT #: [facility] 06-21-2022 History of Presen t illness Narrative RADIOLOGY SERVICE PROGRESS NOTE SERVICE DATE: 06/21/2022 SERVICE TIME: 07:06 AM PATIENT IDENTITY VERIFICATION COMPLETED USING TWO (2) STANDARD IDENTIFIERS: Name and Date of confirmed by patient verbally FALL SCREENING: Has the patient had 2 falls in the last year or 1 fall with injury or currently using an Ambulatory Assistive Device (Walker, Cane, Wheelchair, Crutches, etc.)? No PATIENT GENDER DATA: .female : No ALLERGIES: Reviewed and unchanged MEDICATIONS REVIEWED: No PATIENT RELEVANT IMPLANT DATA REVIEWED: Not Applicable CREATININE: Creatinine Date Value Ref Range Status 11/04/2020 0.63 0.58 - 0.96 mg/dL Final 03/28/2020 0.68 0.58 - 0.96 mg/dL Final 10/06/2018 0.63 0.58 - 0.96 mg/dL Final eGFR-All Other Races Date Value Ref Range Status 11/04/2020 >60 . Final Comment: eGFR (Estimated GFR) Units of measure: mL/min/1.73 meters squared eGFR is derived from the reexpressed MDRD Study equation using the following parameters: serum creatinine, age, gender and race. The creatinine assay has been calibrated to be traceable to IDMS. An eGFR <60 mL/min/1.73m2 for >3 months is consistent with chronic kidney disease. Refer to KDOQI guidelines for clinical interpretation. In patients with unstable renal function, e.g. those with acute kidney injury, the eGFR may not accurately reflect actual GFR. eGFR- Date Value Ref Range Status 11/04/2020 >60 Final P.O.C.T. RESULTS: N/A June 21, [address] PERFORMED: No IV SITE: Ambulatory: A peripheral IV was started in the Left antecubital site with a Angio cath: 22 gauge. POST EXAM PIV STATUS: Discontinued PROCEDURE TYPE: NM Stress: 12 mCi [id number]-Qfodhzm was administered IV for Rest Imaging at 07:20 by Holli Gan. 32.2 mCi Jz04m-Pupgqdy was administered IV for Stress Imaging at 08:37 by Holli Gan. ADMINISTRATION TIME: PATIENT DISCHARGED TO: Ambulatory patient, left [place] department area. A Diagnostic radioactive procedure has taken place, with no further precautions necessary other than routine body substance precautions. More information regarding radiation safety can be found using this link: [email or web address] SIGNATURE: LELIA Castillo) PATIENT NAME: Stefanie Tobias DATE: June 21, 2022 TIME: 09:35 AM PAGER/CONTACT #: documented in this encounter [facility] 06-15-2022 Miscellaneous Notes Left message on voicemail for pt to call back and reschedule appt. Please schedule with Dr. Hanley, Neetu Hair or Dr. Mack next available when pt returns call. Thank you. Nafisa Villalobos RN Patient called stating that she is unable to come to her appointment that was tentatively scheduled for today at 3:00 pm. 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 Please contact the patient with another appointment offer that Dr. Hanley has approved. Per Dr. Hanley, ok to schedule pt with him on 06/14/22. Voicemail left for pt to call office to schedule appt. Please schedule for 3pm on 06/14/22 when pt. calls back. Thank you. Nafisa Villalobos RN Yes, that's ok. Thank you for checking. Nafisa Villalobos RN May we use your July 12 slot at 4:20 for this patient as you have no openings until December. Lakeshia PSS Yes please. Rola Pickens APRN.LE Est Patients for [facility] are scheduling out until December 27, 2022 are you wanting this sooner? Lakeshia PSS Pt is known to cardiology. She has had a change in clinical status and needs follow-up. Please assist her in scheduling with cardiology. Rola Pickens APRN.LE documented in this encounter [facility] 05-24-2022 Note HNO ID: [id number] Author: Ally Sandoval MD Service: ? Author Type: Physician Type: Progress Notes Filed: 05/24/2022 5:40 PM Note Text: . Respiratory Monument Note Patient name: Stefanie Tobias PCP: Rola Pickens APRN.CNP Referring Physician: same Consultation requested by Rola Damian for an opinion regarding SOB. My final recommendations will be communicated back to the requesting physician by way of shared Medical record or letter to requesting physician via US mail. CC: Shortness of breath HPI: Stefanie Tobias 61 year old female current smoker for greater than 30 years with PMH significant for AI/MR, being referred for evaluation of SOB. Recently hospitalized [facility] for COPD exacerbation . Symptoms included nonproductive cough when lying supine, occasional wheezing and severe shortness of breath. She was unable to walk from her home to the car. She felt as if she was suffocating. No sputum production, no fevers, no chills or chest pain. Treated for COPD exacerbation with antibiotics and steroids. Discharged with albuterol to use as needed which she states has helped her dyspnea. Respiratory viral panel negative. Chest CT pertinent for bilateral pleural effusions, evidence of congestive heart failure as well as multifocal pneumonia. Echocardiogram pertinent for dilated cardiomyopathy. Patient pending cardiology evaluation. She did not have any significant edema or weight gain at the time. DATA: PFT: Review pulmonary function test show restriction and small airways obstruction. Diffusing capacity normal Labs: CBC from [facility] normal. No eosinophils Natriuretic peptide B (Bld) [Mass/Vol] 1933.8 pg/mL Normal Reference Range = Not Detected Resp path 12b Pnl Spec YEHUDA+probe Nucleic acid amplification test method ADENOVIRUS Not Detected INFLUENZA A Not Detected INFLUENZA A (SUBTYPE H1) Not Detected INFLUENZA A (SUBTYPE H3) Not Detected INFLUENZA B Not Detected HUMAN METAPHNEUMO Not Detected PARAINFLUENZA 1 Not Detected PARAINFLUENZA 2 Not Detected PARAINFLUENZA 3 Not Detected PARAINFLUENZA 4 Not Detected RHINOVIRUS Not Detected RSV A Not Detected RSV B Not Detected Imaging / Diagnostic Studies: PCP: Rola Pickens DIRECTOR FUNDS DEVELOPMENT-C Status: REG ER Study: CTA Chest W/WO Contrast Date of Exam: 05/16/22 COMPARISON: None. FINDINGS: PULMONARY ARTERIES: Unremarkable. Normal in caliber. No evidence of pulmonary embolism. AORTA: Unremarkable. Normal in caliber. No evidence of dissection. GREAT VESSELS OF AORTIC ARCH: Unremarkable. Normal in caliber. No evidence of dissection. LUNGS AND PLEURAL SPACES: Mild to moderate bilateral posterior pleural fluid. Pulmonary hyperinflation with mild flattening of the hemidiaphragms. Ill-defined multifocal groundglass opacities and nodules in both upper lobes more than the lower lobes. No pneumothorax. HEART: Unremarkable. Heart size is normal. No pericardial effusion. No signs of right heart strain, ratio of right ventricle to left ventricle measures less than 1. MEDIASTINUM: Unremarkable. No mediastinal or hilar adenopathy. Esophagus is unremarkable. No hiatal hernia. THYROID: Unremarkable. No thyroid lesions. BONES/JOINTS: Unremarkable. No suspicious lytic or blastic abnormality. CT/CTA Chest W/WO Contrast IMPRESSION: 1. No CTA evidence of pulmonary thromboemboli, thoracic aortic aneurysm or dissection. 2. Multifocal groundglass opacities and nodules in both lungs, more in the upper lobes. They''re nonspecific. Pneumonia versus pulmonary mass. Advise clinical correlation. 3. Mild to moderate bilateral posterior pleural fluid, atypical for Covid-19 pneumonia. RECOMMENDATION: Follow up CT chest to ensure infectious rather than pulmonary metastatic disease. 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 Shingles 12/2013 ALLERGIES No Known Allergies guaiFENesin (MUCINEX) 600 mg 12 hr tabletTake 2 tablets by mouth twice daily as needed for cold/allergy symptoms.Disp: Rfl: umeclidinium-vilanterol (ANORO ELLIPTA) 62.5-25 mcg/actuation inhalerInhale 1 Inhalation as instructed once daily.Disp: 1 EachRfl: 5 albuterol HFA (PROAIR HFA) 90 mcg/actuation inhalerInhale 2 Puffs as instructed every 4 hours as needed.Disp: 1 EachRfl: 5 Social History Tobacco Use Smoking status: Every Day Packs/day: 0.50 Years: 34.00 Pack years: 17.00 Types: Cigarettes Smokeless tobacco: Never Tobacco comments: One ppd Vaping Use Vaping Use: Never used Substance Use (more content not included)... [facility] 05-24-2022 History of Presen t illness Narrative Images from the original note were not included. . Respiratory Monument Note Patient name: Stefanie Tobias PCP: Rola Pickens APRN.BALLISTICS TESTER Referring Physician: same Consultation requested by Rola Damian for an opinion regarding SOB. My final recommendations will be communicated back to the requesting physician by way of shared Medical record or letter to requesting physician via US mail. CC: Shortness of breath HPI: Stefanie Tobias 61 year old female current smoker for greater than 30 years with PMH significant for AI/MR, being referred for evaluation of SOB. Recently hospitalized [facility] for COPD exacerbation . Symptoms included nonproductive cough when lying supine, occasional wheezing and severe shortness of breath. She was unable to walk from her home to the car. She felt as if she was suffocating. No sputum production, no fevers, no chills or chest pain. Treated for COPD exacerbation with antibiotics and steroids. Discharged with albuterol to use as needed which she states has helped her dyspnea. Respiratory viral panel negative. Chest CT pertinent for bilateral pleural effusions, evidence of congestive heart failure as well as multifocal pneumonia. Echocardiogram pertinent for dilated cardiomyopathy. Patient pending cardiology evaluation. She did not have any significant edema or weight gain at the time. DATA: PFT: Review pulmonary function test show restriction and small airways obstruction. Diffusing capacity normal Labs: CBC from [facility] normal. No eosinophils Natriuretic peptide B (Bld) [Mass/Vol] 1933.8 pg/mL Normal Reference Range = Not Detected Resp path 12b Pnl Spec YEHUDA+probe Nucleic acid amplification test method ADENOVIRUS Not Detected INFLUENZA A Not Detected INFLUENZA A (SUBTYPE H1) Not Detected INFLUENZA A (SUBTYPE H3) Not Detected INFLUENZA B Not Detected HUMAN METAPHNEUMO Not Detected PARAINFLUENZA 1 Not Detected PARAINFLUENZA 2 Not Detected PARAINFLUENZA 3 Not Detected PARAINFLUENZA 4 Not Detected RHINOVIRUS Not Detected RSV A Not Detected RSV B Not Detected Imaging / Diagnostic Studies: PCP: Rola Pickens DIRECTOR [employer]DS DEVELOPMENT-C Status: REG ER Study: CTA Chest W/WO Contrast Date of Exam: 05/16/22 COMPARISON: None. FINDINGS: PULMONARY ARTERIES: Unremarkable. Normal in caliber. No evidence of pulmonary embolism. AORTA: Unremarkable. Normal in caliber. No evidence of dissection. GREAT VESSELS OF AORTIC ARCH: Unremarkable. Normal in caliber. No evidence of dissection. LUNGS AND PLEURAL SPACES: Mild to moderate bilateral posterior pleural fluid. Pulmonary hyperinflation with mild flattening of the hemidiaphragms. Ill-defined multifocal groundglass opacities and nodules in both upper lobes more than the lower lobes. No pneumothorax. HEART: Unremarkable. Heart size is normal. No pericardial effusion. No signs of right heart strain, ratio of right ventricle to left ventricle measures less than 1. MEDIASTINUM: Unremarkable. No mediastinal or hilar adenopathy. Esophagus is unremarkable. No hiatal hernia. THYROID: Unremarkable. No thyroid lesions. BONES/JOINTS: Unremarkable. No suspicious lytic or blastic abnormality. CT/CTA Chest W/WO Contrast IMPRESSION: 1. No CTA evidence of pulmonary thromboemboli, thoracic aortic aneurysm or dissection. 2. Multifocal groundglass opacities and nodules in both lungs, more in the upper lobes. They''re nonspecific. Pneumonia versus pulmonary mass. Advise clinical correlation. 3. Mild to moderate bilateral posterior pleural fluid, atypical for Covid-19 pneumonia. RECOMMENDATION: Follow up CT chest to ensure infectious rather than pulmonary metastatic disease. 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 Shingles 12/2013 ALLERGIES No Known Allergies guaiFENesin (MUCINEX) 600 mg 12 hr tablet^Take 2 tablets by mouth twice daily as needed for cold/allergy symptoms.^Disp: ^Rfl: umeclidinium-vilanterol (ANORO ELLIPTA) 62.5-25 mcg/actuation inhaler^Inhale 1 Inhalation as instructed once daily.^Disp: 1 Each^Rfl: 5 albuterol HFA (PROAIR HFA) 90 mcg/actuation inhaler^Inhale 2 Puffs as instructed every 4 hours as needed.^Disp: 1 Each^Rfl: 5 Social History Tobacco Use Smoking status: Every Day Packs/day: 0.50 Years: 34.00 Pack years: 17.00 Types: Cigarettes Smokeless tobacco: Never Tobacco comments: One ppd Vaping Use Vaping Use: Never used Substance Use Topics Alcohol use: Not Currently Comment: socially Drug use: No Significant occupational exposure history. Worked in a [employer] for 30 years Pets: 2 cats and a dog FAMILY HISTORY Problem Relation Age of Onset Heart Mother Heart Father Alzheimer's Disease Brother Dementia None Maternal Grandmother None Maternal Grandfather None Paternal Grandmother None Paternal Grandfather None Son None Son PAST SURGICAL HISTORY Procedure Laterality Date MOHS MICROGRAPHIC H/N/H/F/G 1ST STAGE 5 BLOCKS Left 06/2018 Basal Cell Cancer PMH, Social history, family history and surgical history reviewed and updated in EMR REVIEW OF SYSTEMS: CONSTITUTIONAL: No fevers, chills, nightsweats, unintended weight loss, fatigue HEENT: Denies nasal congestion/sinus symptoms, allergy problems. EYES: No diplopia or blurry vision. CARDIOVASCULAR: No chest pain, palpitations, orthopnea, PND, edema. PULM: See HPI GI: No dysphagia/odynophagia, problematic reflux, constipation, diarrhea, changes in stool habits : No urinary complaints, including dysuria, gross hematuria, or recurrent urinary tract infections NEURO: No balance problems, peripheral weakness/paresthesias or numbness of concern. MUSC-SKEL: No swelling, or erythema. Hand arthritis PSY: No concerns regarding depression, anxiety INTEGUMENTARY: No new skin changes or rashes PHYSICAL EXAMINATION: BP 120/74 Pulse 88 Resp 12 Ht 5' 4 (1.63m) Wt 139 lb (63.1kg) SpO2 99% BMI 23.85 kg/(m^2). General Appearance: Appears older than her chronologic age, NAD Skin: Skin color, texture, turgor normal, no suspicious rashes or lesions. Head: Normocephalic, no masses, lesions, tenderness or abnormalities. Eyes: Sclera, conjunctiva normal Oropharynx: Upper plate, no oral lesions or thrush Neck: No JVD, no masses, no thyromegaly Lungs: Dullness to percussion left base, no wheezes or crackles, not labored Heart: Regular rate and rhythm, no murmurs or gallops Extremities: Minimal pretibial edema, no clubbing Musculoskeletal: No joint deformities or effusions Neurologic: Alert and oriented, no focal findings Lymph Nodes: No cervical lymphadenopathy and No supraclavicular lymphadenopathy. Assessment/Plan: 1. Mild COPD -Mild COPD by pulmonary function tests -Smoking cessation recommended -Continue albuterol as needed -Started Anoro Ellipta 2. Pulmonary nodularity -Pattern consistent with inflammatory/infectious process -Will require follow-up CT 3. Dilated cardiomyopathy -Pending cardiology evaluation 4. Pulmonary artery hypertension -Probable WHO group 2. WHO group 3 unlikely based on pulmonary function testing 5. Cigarette smoker -Current smoker with sequelae of COPD -Smoking cessation strongly recommended Ally Sandoval MD Respiratory Monument documented in this encounter [facility] 05-21-2022 Note HNO ID: [id number] Author: Rola Pickens APRN.BALLISTICS TESTER Service: ? Author Type: Nurse Practitioner Type: Progress Notes Filed: 05/21/2022 6:14 PM Note Text: This is a 61 year old female who presents today with: Patient presents with: Hospital Follow Up: [facility] dx: COPD exacerbation; dc'd 05/18/22; follow up with Pulm on 05/24/22 HISTORY OF PRESENT ILLNESS: Stefanie Tobias is a 61 year old female. Patient presents with: Hospital Follow Up: [facility] dx: COPD exacerbation; dc'd 05/18/22; follow up with Pulm on 05/24/22 Pt presents today for hospital follow-up. Admitted on 05/16/22 and discharged 05/18/22. Per the discharge summary, she presented to the emergency room with progressive shortness of breath. She had developed progressive chest discomfort with shortness of breath. Her D-dimer was elevated. She did CT of the chest which showed no acute PE but showed multifocal groundglass opacities and nodules in both lungs. She had negative COVID and influenza screening. Respiratory panel was negative. She was admitted to the [facility] floor and managed with breathing treatments, IV azithromycin, Rocephin, and Solu-Medrol. She did report improvement did not require oxygen at discharge. She was discharged on a short burst of prednisone and 3 more days of azithromycin. She does have a follow-up appointment scheduled with pulmonology. So feeling better. Finished the antibiotic last night. Finishing the prednisone. Breathing feeling better. Cough is not too bad. Mucinex helped that, refers cough was more dry. Doesn't noticed a wheeze anymore. No CP, palpitations. Eating and drinking okay. Has a little more energy. Urinating and moving bowels. No hematochezia/melena. She did have an echocardiogram in the hospital. She reports that was she was told everything was normal. Echocardiogram received and shows that the severely dilated left ventricle. Moderately severe global left ventricular systolic dysfunction. EF 25%. She had been following with cardiology, however has not seen them in a little over a year. She does report that her breathing is better at this time. No chest pain. No palpitations. No orthopnea. No significant swelling of the feet or ankles. 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 MEDICATIONS Current Outpatient Medications Medication Sig predniSONE (DELTASONE) 20 mg tablet Take 2 tablets by mouth once daily. For 5 days (starting on 05/18/22) guaiFENesin (MUCINEX) 600 mg 12 hr tablet Take 2 tablets by mouth twice daily as needed for cold/allergy symptoms. benzonatate (TESSALON PERLES) 100 mg capsule Take 2 capsules by mouth three times daily as needed. albuterol HFA (PROAIR HFA) 90 mcg/actuation inhaler Inhale 2 Puffs as instructed every 6 hours as needed. rosuvastatin (CRESTOR) 10 mg tablet Take 1 tablet by mouth daily at bedtime. busPIRone (BUSPAR) 10 mg tablet Take 1 tablet by mouth three times daily. Current Facility-Administered Medications Medication Dose Route Frequency perflutren lipid microspheres 1.3 mL in NaCl (PF) 0.9% 10 mL injection (DEFINITY) INTRAVENOUS DIRECTED PRN sodium chloride 0.9 % (flush) 10 mL (BD POSIFLUSH) 10 mL INTRAVENOUS DIRECTED PRN FAMILY HISTORY Problem Relation Age of Onset Heart Mother Heart Father Alzheimer's Disease Brother Dementia None Maternal Grandmother None Maternal Grandfather None Paternal Grandmother None Paternal Grandfather None Son None Son Social History Tobacco Use Smoking status: Every Day Packs/day: 0.50 Years: 34.00 Pack years: 17.00 Types: Cigarettes Smokeless tobacco: Never Substance Use Topics Alcohol use: Yes Comment: socially Drug use: No EXAM: BP 122/82 Pulse 88 Resp 18 Wt 62.1 kg (137 lb) SpO2 97% BMI 23.52 kg/m? PHYSICAL EXAM: General Appearance: Well appearing, alert, in no acute distress, well-hydrated, well nourished.. Skin: Skin color, texture, turgor normal, no suspicious rashes or lesions. Head: Normocephalic, no masses, lesions, tenderness or abnormalities. Eyes: Anicteric sclera. Pupils are equally round and reactive to light. Extraocular movements are intact. . Ears: External ears normal, canals clear. Lungs: Lungs clear to auscultation. No wheezing, rhonchi, rales.. Heart: RRR without murmur, gallop, or rubs. No ectopy. Extremities: No deformities, edema, skin discoloration, clubbing or cyanosis. Good capillary refill. . Neurologic: Gait normal. Reflexes normal and symmetric. Sensation g (more content not included)... [facility] 05-21-2022 Miscellaneous Notes Summary: Lung Volumes Called PT to schedule lung volumes, PT is already scheduled with pulmonary on Tuesday, [facility] for PT to call back and schedule the procedure. Thanks, Akosua Brindle, PSS Schedulers; Please assist patient with scheduling lung volumes and Pulmonology consult appts. Patient returned call and went over results, notes from Rola Pickens DIRECTOR FUNDS DEVELOPMENT with understanding. Patient has to go to work so she will call tomorrow to get Pulmonary consult and lung volume breathing test appt set up. TC to pt. LM to call office, ask for triage nurse to get results. Princess Barton LPN I received the results of the breathing test. It does look like there could be some restrictive lung disease, which prevents the lungs from expanding fully. Lets have her do an additional breathing test and have her get set up with pulmonology for further evaluation. Orders are in. Rola Pickens APRN.BALLISTICS TESTER documented in this encounter [facility] 05-20-2022 Miscellaneous Notes Pt notified. Appt scheduled. Jony Miller LPN TC to pt, left message to return call to office. PLEASE ASSIST PT WITH SCHEDULING 40 MIN HOSPITAL FOLLOW UP WITH PCP. Jony Miller LPN Patient called to update that she has been admitted to [facility] and received her echocardiogram yesterday, 05/17/22. She reports that they plan to discharge her today. Her appointment with cardiology for today has been cancelled. documented in this encounter [facility] 05-06-2022 Note HNO ID: [id number] Author: KIMBERLY Yusuf Service: ? Author Type: Respiratory Therapist Type: Progress Notes Filed: 05/06/2022 1:41 PM Note Text: PULM FUNCTION SMARTBLOCK: Provider: Rola Pickens APRN.BALLISTICS TESTER Assisting Tech: KIMBERLY Yusuf Spirometry: 1 DLCO: 1 [facility] 05-06-2022 History of Presen t illness Narrative PULM FUNCTION SMARTBLOCK: Provider: Rola Pickens APRN.BALLISTICS TESTER Assisting Tech: KIMBERLY Yusuf Spirometry: 1 DLCO: 1 documented in this encounter [facility] 05-04-2022 Note HNO ID: [id number] Author: Rola Pickens APRN.BALLISTICS TESTER Service: ? Author Type: Nurse Practitioner Type: Progress Notes Filed: 05/04/2022 5:20 PM Note Text: This is a 61 year old female who presents today with: Patient presents with: Recheck: Urg Care follow up- shortness of breath HISTORY OF PRESENT ILLNESS: Stefanie Tobias is a 61 year old female. Patient presents with: Recheck: Urg Care follow up- shortness of breath Pt presents today with complaint of SOB. Has been going on for the last month, since seen in urgent care. Concerned about previous heart murmur, which she never followed up on. She did have an x-ray in urgent care which showed interstitial changes in the lungs that could be chronic or could be due to minimal congestion. She was treated with prednisone, Tessalon Perles, and albuterol inhaler. Did have some wheezing. Still a little bit, but not as bad. Cough is not as bad. More of a dry cough. No chest pains. Gets a little bit of palpitations at night -- just occasionally. No dizziness. No orthopnea. No edema. Smoker -- 1/2 ppd. History of hyperlipidemia. Family history of heart disease. Refers that she has a decrease in her activity tolerance. Become short of breath much more easily with just even walking. No chest pain. 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 MEDICATIONS Current Outpatient Medications Medication Sig albuterol HFA (PROAIR HFA) 90 mcg/actuation inhaler Inhale 2 Puffs as instructed every 6 hours as needed. benzonatate (TESSALON PERLES) 100 mg capsule Take 2 capsules by mouth three times daily as needed. rosuvastatin (CRESTOR) 10 mg tablet Take 1 tablet by mouth daily at bedtime. busPIRone (BUSPAR) 10 mg tablet Take 1 tablet by mouth three times daily. (Patient not taking: Reported on 04/05/2022) No current facility-administered medications for this visit. FAMILY HISTORY Problem Relation Age of Onset Heart Mother Heart Father Alzheimer's Disease Brother Dementia None Maternal Grandmother None Maternal Grandfather None Paternal Grandmother None Paternal Grandfather None Son None Son Social History Tobacco Use Smoking status: Every Day Packs/day: 0.50 Years: 34.00 Pack years: 17.00 Types: Cigarettes Smokeless tobacco: Never Substance Use Topics Alcohol use: Yes Comment: socially Drug use: No EXAM: BP 140/82 Pulse 101 Resp 18 Wt 62.1 kg (136 lb 12.8 oz) SpO2 97% BMI 23.48 kg/m? PHYSICAL EXAM: General Appearance: Well appearing, alert, in no acute distress, well-hydrated, well nourished.. Skin: Skin color, texture, turgor normal, no suspicious rashes or lesions. Head: Normocephalic, no masses, lesions, tenderness or abnormalities. Eyes: Anicteric sclera. Pupils are equally round and reactive to light. Extraocular movements are intact. Ears: External ears normal, canals clear. Oropharynx: Lips, mucosa, and tongue normal, teeth and gums normal, oropharynx normal. Neck: Supple, no adenopathy; thyroid symmetric, normal size, no bruits. Lungs: Lungs clear to auscultation. No wheezing, rhonchi, rales.. Heart: RRR without gallop, or rubs. No ectopy. + murmur. Abdomen: Abdomen soft, non-tender. Bowel sounds normal. No masses, organomegaly. Extremities: No deformities, edema, skin discoloration, clubbing or cyanosis. Good capillary refill. Neurologic: Gait normal. ASSESSMENT/PLAN: 1. SOB (shortness of breath) - ICD9: 786.05, ICD10: R06.02 (primary diagnosis) - ECG COMPLETE -sinus rhythm without ectopy. Possible left atrial enlargement. T wave abnormality in the lateral leads. - ECHO - PERFLUTREN LIPID MICROSPHERES 1.1 MG/ML INJECTION IN NS 10 ML - SODIUM CHLORIDE 0.9 % (FLUSH) INJECTION SYRINGE - CBC + DIFF - COMP METABOLIC PANEL - NT PRO BNP - LIPID PANEL, NONFASTING - MAGNESIUM BLD - TSH BLD - T4 FREE/FREE THYROX - XR CHEST 2V FRONTAL/LAT - SPIROMETRY WITH DILATOR IF OBSTRUCTED - LUNG DIFFUSION CAPACITY (DLCO) - NM CARDIAC PERF STRESS/PHARM - LEXISCAN 0.4 MG/5 ML INTRAVENOUS SYRINGE - INSERT IV ([place]) - IV DISCONTINUE We will go ahead and repeat echo to rule out progression of mitral valve and aortic valve regurg. We will go ahead and get stress testing due to worsening activity intolerance and the patient with tobacco abuse, hyperlipidemia and family history of heart disease. Patient cannot walk on the treadmill due to her shortness of breath and activity intolerance. We will go ahead and get PFTs due to yessy (more content not included)... [facility] 05-04-2022 Instructions Rola Pickens APRN.CNP - 05/04/2022 2:37 PM EST Get lab work. Get chest x-ray. Schedule echocardiogram. Schedule stress test. Schedule appointment to follow-up with cardiology. Schedule the breathing tests. Continue the albuterol inhaler as needed. documented in this encounter [facility] 05-04-2022 History of Presen t illness Narrative This is a 61 year old female who presents today with: Patient presents with: Recheck: Urg Care follow up- shortness of breath HISTORY OF PRESENT ILLNESS: Stefanie Tobias is a 61 year old female. Patient presents with: Recheck: Urg Care follow up- shortness of breath Pt presents today with complaint of SOB. Has been going on for the last month, since seen in urgent care. Concerned about previous heart murmur, which she never followed up on. She did have an x-ray in urgent care which showed interstitial changes in the lungs that could be chronic or could be due to minimal congestion. She was treated with prednisone, Tessalon Perles, and albuterol inhaler. Did have some wheezing. Still a little bit, but not as bad. Cough is not as bad. More of a dry cough. No chest pains. Gets a little bit of palpitations at night -- just occasionally. No dizziness. No orthopnea. No edema. Smoker -- 1/2 ppd. History of hyperlipidemia. Family history of heart disease. Refers that she has a decrease in her activity tolerance. Become short of breath much more easily with just even walking. No chest pain. 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 MEDICATIONS Current Outpatient Medications Medication Sig albuterol HFA (PROAIR HFA) 90 mcg/actuation inhaler Inhale 2 Puffs as instructed every 6 hours as needed. benzonatate (TESSALON PERLES) 100 mg capsule Take 2 capsules by mouth three times daily as needed. rosuvastatin (CRESTOR) 10 mg tablet Take 1 tablet by mouth daily at bedtime. busPIRone (BUSPAR) 10 mg tablet Take 1 tablet by mouth three times daily. (Patient not taking: Reported on 04/05/2022) No current facility-administered medications for this visit. FAMILY HISTORY Problem Relation Age of Onset Heart Mother Heart Father Alzheimer's Disease Brother Dementia None Maternal Grandmother None Maternal Grandfather None Paternal Grandmother None Paternal Grandfather None Son None Son Social History Tobacco Use Smoking status: Every Day Packs/day: 0.50 Years: 34.00 Pack years: 17.00 Types: Cigarettes Smokeless tobacco: Never Substance Use Topics Alcohol use: Yes Comment: socially Drug use: No EXAM: BP 140/82 Pulse 101 Resp 18 Wt 62.1 kg (136 lb 12.8 oz) SpO2 97% BMI 23.48 kg/m PHYSICAL EXAM: General Appearance: Well appearing, alert, in no acute distress, well-hydrated, well nourished.. Skin: Skin color, texture, turgor normal, no suspicious rashes or lesions. Head: Normocephalic, no masses, lesions, tenderness or abnormalities. Eyes: Anicteric sclera. Pupils are equally round and reactive to light. Extraocular movements are intact. Ears: External ears normal, canals clear. Oropharynx: Lips, mucosa, and tongue normal, teeth and gums normal, oropharynx normal. Neck: Supple, no adenopathy; thyroid symmetric, normal size, no bruits. Lungs: Lungs clear to auscultation. No wheezing, rhonchi, rales.. Heart: RRR without gallop, or rubs. No ectopy. + murmur. Abdomen: Abdomen soft, non-tender. Bowel sounds normal. No masses, organomegaly. Extremities: No deformities, edema, skin discoloration, clubbing or cyanosis. Good capillary refill. Neurologic: Gait normal. ASSESSMENT/PLAN: 1. SOB (shortness of breath) - ICD9: 786.05, ICD10: R06.02 (primary diagnosis) - ECG COMPLETE -sinus rhythm without ectopy. Possible left atrial enlargement. T wave abnormality in the lateral leads. - ECHO - PERFLUTREN LIPID MICROSPHERES 1.1 MG/ML INJECTION IN NS 10 ML - SODIUM CHLORIDE 0.9 % (FLUSH) INJECTION SYRINGE - CBC + DIFF - COMP METABOLIC PANEL - NT PRO BNP - LIPID PANEL, NONFASTING - MAGNESIUM BLD - TSH BLD - T4 FREE/FREE THYROX - XR CHEST 2V FRONTAL/LAT - SPIROMETRY WITH DILATOR IF OBSTRUCTED - LUNG DIFFUSION CAPACITY (DLCO) - NM CARDIAC PERF STRESS/PHARM - LEXISCAN 0.4 MG/5 ML INTRAVENOUS SYRINGE - INSERT IV ([place]) - IV DISCONTINUE We will go ahead and repeat echo to rule out progression of mitral valve and aortic valve regurg. We will go ahead and get stress testing due to worsening activity intolerance and the patient with tobacco abuse, hyperlipidemia and family history of heart disease. Patient cannot walk on the treadmill due to her shortness of breath and activity intolerance. We will go ahead and get PFTs due to long-term smoking history. Encouraged to follow-up with cardiology as she is already known to them. Also get basic labs. Repeat chest x-ray. 2. Nonrheumatic mitral valve regurgitation - ICD9: 424.0, ICD10: I34.0 As above. - ECHO - PERFLUTREN LIPID MICROSPHERES 1.1 MG/ML INJECTION IN NS 10 ML - SODIUM CHLORIDE 0.9 % (FLUSH) INJECTION SYRINGE 3. Nonrheumatic aortic valve insufficiency - ICD9: 424.1, ICD10: I35.1 As above. - ECHO - PERFLUTREN LIPID MICROSPHERES 1.1 MG/ML INJECTION IN NS 10 ML - SODIUM CHLORIDE 0.9 % (FLUSH) INJECTION SYRINGE 4. Tobacco abuse - ICD9: 305.1, ICD10: Z72.0 - Cessation encouraged. - Physiologic and physical aspects of tobacco addiction as well as strategies for quitting were discussed. - Counseling was given focusing on the harmful effects of this addiction especially given the patient's medical condition(s) which will be worsened because of the chemicals in tobacco. - SPIROMETRY WITH DILATOR IF OBSTRUCTED - LUNG DIFFUSION CAPACITY (DLCO) Discussed treatment plan and patient voices understanding. Patient's questions answered appropriately. Medications and potential side effects were discussed and patient voices understanding. Return to the office as scheduled or as needed for worsening/no improvement. Rola Pickens APRN.LE This note was partially generated using [employer] voice recognition system. Note was reviewed for accuracy. There may be minor misspellings or grammar miscues with [employer] voice recognition. documented in this encounter [facility] 04-05-2022 Note HNO ID: [id number] Author: Matti Woods PA-C Service: ? Author Type: Physician Production Manufacturing Worker Type: Progress Notes Filed: 04/05/2022 2:51 PM Note Text: This note was created using Note[employer]. Subjective Stefanie Tobias is a 61 year old female. HPI Patient presents with cough and shortness of breath over the past week. She is a smoker. Denies known history of asthma or COPD. The past few days she has gotten short of breath so she came in for evaluation. She does have a history of aortic valve insufficiency. Denies history of heart failure. No leg pain or swelling. She has had nasal congestion as well. Did have diarrhea for a day. No chest pain. No home COVID test done. Review of Systems Constitutional: Negative for fever. HENT: Positive for congestion. Negative for sore throat. Respiratory: Positive for cough. Negative for shortness of breath and wheezing. Cardiovascular: Negative. All other systems reviewed and are negative. 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 10 tablet 0 benzonatate (TESSALON PERLES) 100 mg capsule Take 2 capsules by mouth three times daily as needed. 30 capsule 0 albuterol HFA (PROAIR HFA) 90 mcg/actuation inhaler Inhale 2 Puffs as instructed every 6 hours as needed. 1 Each 0 rosuvastatin (CRESTOR) 10 mg tablet Take 1 tablet by mouth daily at bedtime. (Patient not taking: Reported on 04/05/2022) 90 tablet 3 busPIRone (BUSPAR) 10 mg tablet Take 1 tablet by mouth three times daily. (Patient not taking: Reported on 04/05/2022) 90 tablet 11 No current facility-administered medications for this visit. PAST SURGICAL HISTORY Procedure Laterality Date MOHS MICROGRAPHIC H/N/H/F/G 1ST STAGE 5 BLOCKS Left 06/2018 Basal Cell Cancer FAMILY HISTORY Problem Relation Age of Onset Heart Mother Heart Father Alzheimer's Disease Brother Dementia None Maternal Grandmother None Maternal Grandfather None Paternal Grandmother None Paternal Grandfather None Son None Son Social History Tobacco Use Smoking status: Every Day Packs/day: 0.50 Years: 34.00 Pack years: 17.00 Types: Cigarettes Smokeless tobacco: Never Substance Use Topics Alcohol use: Yes Comment: socially Drug use: No Objective BP 140/94 Pulse 96 Temp 36.6 ?C (97.8 ?F) Resp 20 Wt 63.3 kg (139 lb 9.6 oz) SpO2 98% BMI 23.96 kg/m? Physical Exam Vitals reviewed. Constitutional: Appearance: Normal appearance. HENT: Head: Normocephalic and atraumatic. Right Ear: Tympanic membrane, ear canal and external ear normal. Left Ear: Tympanic membrane, ear canal and external ear normal. Nose: Congestion present. Mouth/Throat: Mouth: Mucous membranes are moist. Pharynx: Oropharynx is clear. Cardiovascular: Rate and Rhythm: Normal rate and regular rhythm. Heart sounds: Normal heart sounds. Pulmonary: Effort: Pulmonary effort is normal. No respiratory distress. Breath sounds: Wheezing present. No rhonchi or rales. Musculoskeletal: Cervical back: Neck supple. Skin: General: Skin is warm and dry. Findings: No rash. Neurological: General: No focal deficit present. Mental Status: She is alert. Assessment and Plan ASSESSMENT/PLAN: 1. Acute URI - ICD9: 465.9, ICD10: J06.9 - Discussed viral etiology and rationale for treatment. - Symptomatic treatment with prn analgesia - Supportive care with fluids and rest -We will treat with prednisone, Tessalon and albuterol inhaler. Chest x-ray shows no focal consolidation. There are interstitial changes that are likely old per radiology. She does have cardiomegaly. No leg pain or swelling. No history of heart failure. I did make her a 2-day appointment with PCP and also give report on her. Discussed red flags for ER care. COVID and flu pending. Patient agreeable with plan. - XR CHEST 2V FRONTAL/LAT - COVID WITH FLUA+B, ROUTINE Matti Woods PA-C [facility] 04-05-2022 History of Presen t illness Narrative This note was created using [employer]. Subjective Stefanie Tobias is a 61 year old female. HPI Patient presents with cough and shortness of breath over the past week. She is a smoker. Denies known history of asthma or COPD. The past few days she has gotten short of breath so she came in for evaluation. She does have a history of aortic valve insufficiency. Denies history of heart failure. No leg pain or swelling. She has had nasal congestion as well. Did have diarrhea for a day. No chest pain. No home COVID test done. Review of Systems Constitutional: Negative for fever. HENT: Positive for congestion. Negative for sore throat. Respiratory: Positive for cough. Negative for shortness of breath and wheezing. Cardiovascular: Negative. All other systems reviewed and are negative. 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 10 tablet 0 benzonatate (TESSALON PERLES) 100 mg capsule Take 2 capsules by mouth three times daily as needed. 30 capsule 0 albuterol HFA (PROAIR HFA) 90 mcg/actuation inhaler Inhale 2 Puffs as instructed every 6 hours as needed. 1 Each 0 rosuvastatin (CRESTOR) 10 mg tablet Take 1 tablet by mouth daily at bedtime. (Patient not taking: Reported on 04/05/2022) 90 tablet 3 busPIRone (BUSPAR) 10 mg tablet Take 1 tablet by mouth three times daily. (Patient not taking: Reported on 04/05/2022) 90 tablet 11 No current facility-administered medications for this visit. PAST SURGICAL HISTORY Procedure Laterality Date MOHS MICROGRAPHIC H/N/H/F/G 1ST STAGE 5 BLOCKS Left 06/2018 Basal Cell Cancer FAMILY HISTORY Problem Relation Age of Onset Heart Mother Heart Father Alzheimer's Disease Brother Dementia None Maternal Grandmother None Maternal Grandfather None Paternal Grandmother None Paternal Grandfather None Son None Son Social History Tobacco Use Smoking status: Every Day Packs/day: 0.50 Years: 34.00 Pack years: 17.00 Types: Cigarettes Smokeless tobacco: Never Substance Use Topics Alcohol use: Yes Comment: socially Drug use: No Objective BP 140/94 Pulse 96 Temp 36.6 C (97.8 F) Resp 20 Wt 63.3 kg (139 lb 9.6 oz) SpO2 98% BMI 23.96 kg/m Physical Exam Vitals reviewed. Constitutional: Appearance: Normal appearance. HENT: Head: Normocephalic and atraumatic. Right Ear: Tympanic membrane, ear canal and external ear normal. Left Ear: Tympanic membrane, ear canal and external ear normal. Nose: Congestion present. Mouth/Throat: Mouth: Mucous membranes are moist. Pharynx: Oropharynx is clear. Cardiovascular: Rate and Rhythm: Normal rate and regular rhythm. Heart sounds: Normal heart sounds. Pulmonary: Effort: Pulmonary effort is normal. No respiratory distress. Breath sounds: Wheezing present. No rhonchi or rales. Musculoskeletal: Cervical back: Neck supple. Skin: General: Skin is warm and dry. Findings: No rash. Neurological: General: No focal deficit present. Mental Status: She is alert. Assessment and Plan ASSESSMENT/PLAN: 1. Acute URI - ICD9: 465.9, ICD10: J06.9 - Discussed viral etiology and rationale for treatment. - Symptomatic treatment with prn analgesia - Supportive care with fluids and rest -We will treat with prednisone, Tessalon and albuterol inhaler. Chest x-ray shows no focal consolidation. There are interstitial changes that are likely old per radiology. She does have cardiomegaly. No leg pain or swelling. No history of heart failure. I did make her a 2-day appointment with PCP and also give report on her. Discussed red flags for ER care. COVID and flu pending. Patient agreeable with plan. - XR CHEST 2V FRONTAL/LAT - COVID WITH FLUA+B, ROUTINE Matti Woods PA-C documented in this encounter [facility] 04-05-2022 Influenza virus A and B RNA and SARS-CoV-2 (COVID-19) N gene panel YEHUDA+probe (Resp) COVID 19 RESULT: SARS-CoV-2 (Agent of COVID-19) Not Detected by RT-PCR or equivalent method. perry [id number] (OTONIEL)_EUA This test was developed and its performance characteristics determined by [facility]. This test has been authorized by FDA under an Emergency Use Authorization (EUA). This test has been validated in accordance with the FDA's Guidance Document Policy for Diagnostics Testing in Laboratories Certified to Perform High Complexity Testing under CLIA prior to Emergency use Authorization for Coronavirus Disease 2019 during the Public Health Emergency issued on July 14, 2019. Test performed by [facility], [facility] [place], [address] [place] [address]. INFLUENZA A PCR: Negative for Influenza A by RT-PCR INFLUENZA B PCR: Negative for Influenza B by RT-PCR [facility] Diagnosis Acute URI- Primary Acute upper respiratory infections of unspecified site [facility] Diagnosis SOB (shortness of breath)- Primary Shortness of breath Nonrheumatic mitral valve regurgitation Nonrheumatic aortic valve insufficiency Aortic valve disorders Tobacco abuse Tobacco use disorder [facility] Diagnosis SOB (shortness of breath) Shortness of breath Tobacco abuse Tobacco use disorder [facility] Diagnosis SOB (shortness of breath) Shortness of breath Tobacco abuse Tobacco use disorder [facility] Diagnosis Stage 1 mild COPD by GOLD classification ([facility])- Primary Lung nodules Other nonspecific abnormal finding of lung field Dilated cardiomyopathy (HCC) Other primary cardiomyopathies PAH (pulmonary artery hypertension) ([facility]) Other chronic pulmonary heart diseases Cigarette smoker Tobacco use disorder [facility] Diagnosis SOB (shortness of breath)- Primary Shortness of breath [facility] Diagnosis Screening for ischemic heart disease- Primary [facility] Diagnosis Acute congestive heart failure, unspecified heart failure type (HCC)- Primary Chronic anxiety Anxiety state, unspecified Cardiac left ventricular ejection fraction 21-40 percent Other symptoms involving cardiovascular system Chronic obstructive pulmonary disease, unspecified COPD type ([facility]) [facility] Diagnosis Elevated liver enzymes- Primary Other nonspecific abnormal serum enzyme levels [facility] Diagnosis Chronic systolic heart failure (HCC)- Primary Chronic systolic heart failure NICM (nonischemic cardiomyopathy) ([facility]) Other primary cardiomyopathies Mixed hyperlipidemia Nonrheumatic aortic valve insufficiency Aortic valve disorders Mitral valve insufficiency, unspecified etiology Tobacco abuse Tobacco use disorder documented in this encounter [facility] note* Diagnosis Acute congestive heart failure, unspecified heart failure type (HCC)- Primary Cardiac left ventricular ejection fraction 21-40 percent Other symptoms involving cardiovascular system Tobacco abuse Tobacco use disorder documented in this encounter [facility] note* Diagnosis Encounter for screening mammogram for breast cancer documented in this encounter [facility] note* Diagnosis Chronic systolic heart failure (HCC) Chronic systolic heart failure documented in this encounter [facility] note* Diagnosis Elevated liver enzymes Other nonspecific abnormal serum enzyme levels documented in this encounter [facility] note* Diagnosis Chronic anxiety Anxiety state, unspecified documented in this encounter [facility] for referral (narrative)* Diagnostic Procedure Only (Routine) - Pending Review Specialty Diagnoses / Procedures Referred By Kaitlin clay Referred To Contact [facility] Diagnoses Encounter for screening mammogram for breast cancer Procedures VANNESA SCREENING SCREENING MAMMOGRAPHY BI 2-VIEW BREAST INC CAD Rola Pickens APRN.CNP [address] [place] [address] [facility] [address] [place] [address] Referral ID Status Reason Start Date Expiration Date Visits Requested Visits Authorized [id number] Pending Review Auto-Generat ed Referral 11/25/2021 12/25/2022 1 1 [facility] for referral (narrative)* Diagnostic Procedure Only (Routine) - Pending Review Specialty Diagnoses / Procedures Referred By Kaitlin clay Referred To Contact [facility]LECULAR [facility]AG[facility] Diagnoses SOB (shortness of breath) Procedures NM CARDIAC PERF STRESS/PHARM MYOCARDIAL SPECT MULTIPLE STUDIES Rola Pickens APRN.CNP [address] [place] [address] Molecular [facility] Functional Imaging [address] [place] [address] Referral ID Status Reason Start Date Expiration Date Visits Requested Visits Authorized [id number] Pending Review Auto-Generat ed Referral 06/03/2023 1 1 * Outpatient Procedure (Routine) - Authorized Specialty Diagnoses / Procedures Referred By Contac t Referred To Contact [facility] Diagnoses SOB (shortness of breath) Tobacco abuse Procedures LUNG DIFFUSION CAPACITY (DLCO) DIFFUSING CAPACITY Rola Pickens APRN.BALLISTICS TESTER [address] [place] [address] [facility] [place] [address] [place] [id number] Referral ID Status Reason Start Date Expiration Date Visits Requested Visits Authorized [id number] Authorized Auto-Generat ed Referral 2 06/03/2023 1 1 * Outpatient Procedure (Routine) - Authorized Specialty Diagnoses / Procedures Referred By Kaitlin t Referred To Contact [facility] Diagnoses SOB (shortness of breath) Tobacco abuse Procedures SPIROMETRY WITH DILATOR IF OBSTRUCTED BRNCDILAT RSPSE SPMTRY PRE&POST-BRNCDILAT ADMN Rola Pickens APRN.BALLISTICS TESTER [address] [place] [address] [facility] [place] [address] [place] [id number] Referral ID Status Reason Start Date Expiration Date Visits Requested Visits Authorized [id number] Authorized Auto-Generat ed Referral 2 06/03/2023 1 1 * Outpatient Procedure (Routine) - Additional Clinical Info Needed Specialty Diagnoses / Procedures Referred By Contac t Referred To Contact [facility] Diagnoses SOB (shortness of breath) Nonrheumatic mitral valve regurgitation Nonrheumatic aortic valve insufficiency Procedures ECHO ECHO TTHRC R-T 2D W/WOM-MODE COMPL SPEC&COLR D Rola Pickens APRN.BALLISTICS TESTER [address] [place] [address] [facility] [place] [address] [place] [address] Referral ID Status Reason Start Date Expiration Date Visits Requested Visits Authorized [id number] Additional Clinical Info Needed Auto-Generat ed Referral 2 05/04/2023 1 1 * Outpatient Procedure (Routine) - Closed Specialty Diagnoses / Procedures Referred By Contac t Referred To Contact [facility] Diagnoses SOB (shortness of breath) Procedures ECG COMPLETE ECG ROUTINE ECG W/LEAST 12 LDS W/I&R Rola Pickens APRN.BALLISTICS TESTER [address] [place], [place] [id number] [facility] [address] [address] Referral ID Status Reason Start Date Expiration Date V isits Requested Visits Authorized [id number] Closed Auto-Generate d Referral 05/04/2022 05/04/2023 1 1 [facility] for referral (narrative)* Outpatient Procedure (Routine) - Pending Review Specialty Diagnoses / Procedures Referred By Contac t Referred To Contact [facility] Diagnoses SOB (shortness of breath) Procedures LUNG VOLUMES Rola Pickens APRN.BALLISTICS TESTER [address] [place] [address] [facility] [place] [address] [place] [id number] Referral ID Status Reason Start Date Expiration Date Visits Requested Visits Authorized [id number] Pending Review Auto-Generat ed Referral 2 06/11/2023 1 1 [facility] for referral (narrative)* Diagnostic Procedure Only (Routine) - Authorized Specialty Diagnoses / Procedures Referred By Contac t Referred To Contact US IMAGING Diagnoses Elevated liver enzymes Procedures US ABD RT UPPER QUADRANT US ABDOMINAL REAL TIME W/IMAGE LIMITED Rola Pickens APRN.BALLISTICS TESTER [address] [place] [address] Us Imaging Referral ID Status Reason Start Date Expiration Date Visits Requested Visits Authorized [id number] Authorized Auto-Generat ed Referral 06/27/2022 07/27/2023 1 1 [facility] for referral (narrative)* Outpatient Procedure (Routine) - Pending Review Specialty Diagnoses / Procedures Referred By Kaitlin t Referred To [facility] Diagnoses Chronic systolic heart failure (HCC) Procedures ECHO ECHO TTHRC R-T 2D W/WOM-MODE COMPL SPEC&COLR D Neetu Hair APRN.BALLISTICS TESTER [address] [place] [address] [facility] [place] [address] [place] [address] Referral ID Status Reason Start Date Expiration Date Visits Requested Visits Authorized [id number] Pending Review Auto-Generat ed Referral 10/26/2022 07/26/2023 1 1 [facility] for referral (narrative)* Diagnostic Procedure Only (Routine) - Pending Review Specialty Diagnoses / Procedures Referred By Kaitlin t Referred To Contact [facility] IM[facility] Diagnoses Encounter for screening mammogram for breast cancer Procedures VANNESA SCREENING SCREENING MAMMOGRAPHY BI 2-VIEW BREAST INC CAD Rola Pickens APRN.BALLISTICS TESTER [address] [place] [address] [facility] [address] [place] [address] Referral ID Status Reason Start Date Expiration Date Visits Requested Visits Authorized [id number] Pending Review Auto-Generat ed Referral 11/17/2022 12/17/2023 1 1 [facility] for referral (narrative)* Diagnostic Procedure Only (Routine) - Closed Specialty Diagnoses / Procedures Referred By Kaitlin t Referred To Contact US IMAGING Diagnoses Elevated liver enzymes Procedures US ABD RT UPPER QUADRANT US ABDOMINAL REAL TIME W/IMAGE LIMITED Rola Pickens APRN.BALLISTICS TESTER [address] [place] [address] [place] [id number] Referral ID Status Reason Start Date Expiration Date V isits Requested Visits Authorized [id number] Closed Auto-Generate d Referral 06/27/2022 07/27/2023 1 1 [facility] for visit Narrative* Diagnostic Procedure Only (Routine) - Closed Specialty Diagnoses / Procedures Referred By Kaitlin t Referred To Contact [facility]AL [facility] Diagnoses SOB (shortness of breath) Procedures NM CARDIAC PERF STRESS/PHARM MYOCARDIAL SPECT MULTIPLE STUDIES Rola Pickens, MAYUR.BALLISTICS TESTER [address] [place] [address] Molecular & Functional Imaging [address] [place] [address] Referral ID Status Reason Start Date Expiration Date V isits Requested Visits Authorized [id number] Closed Auto-Generate d Referral 05/04/2022 06/03/2023 1 1 [facility] for visit Narrative* Outpatient Procedure (Routine) - Closed Specialty Diagnoses / Procedures Referred By Kaitlin t Referred To [facility] Diagnoses Chronic systolic heart failure (HCC) Procedures ECHO ECHO TTHRC R-T 2D W/WOM-MODE COMPL SPEC&COLR D Neetu Hair REPAIR DEPARTMENT SUPERVISOR.BALLISTICS TESTER [address] [place] [address] [facility] [place] [address] [place] [address] Referral ID Status Reason Start Date Expiration Date V isits Requested Visits Authorized [id number] Closed Auto-Generate d Referral 10/26/2022 07/26/2023 1 1 [facility] Summary Purpose Family History No Family History Records FoundNo Family History Records Found Advance Directives No Advanced Directives Records FoundNo Advanced Directives Records Found Health Concerns Infection Onset Date Last Indicated Resolved Time COVID-19 Rule-Out 04/05/2022 04/05/2022 Reason for Referral Specialty Diagnoses / Procedures Referred By Contac t Referred To Contact CT IMAGING Diagnoses Lung nodules Procedures CT CHEST WO IVCON DIAGNOSTIC COMPUTED TOMOGRAPHY THORAX W/O Ally Peres MD [address] [place] [address] Ct Imaging Referral ID Status Reason Start Date Expiration Date Visits Requested Visits Authorized [id number] Pending Review Auto-Generat ed Referral 07/26/2022 06/23/2023 1 1 Specialty Diagnoses / Procedures Referred By Kaitlin clay Referred To Contact Ally Sandoval MD [address] [place] [address] Referral ID Status Reason Start Date Expiration Date V isits Requested Visits Authorized [id number] Pending Review 1 1 Additional Source Comments INFORMATION SOURCE (unrecogn ized section and content) DATE CREATED AUTHOR AUTHOR'S ORGANIZ ATION 12/28/2022 [facility] Source Comments (unrecognize d section and content) In the event this informatio n is protected by the Federal Confidentiality of Alcohol and Drug Abuse Patient Records regulations: The Federal rules restrict any use of the information to criminally investigate or prosecute any alcohol or drug abuse patient.[facility] the event this information is protected by the Federal Confidentiality of Alcohol and Drug Abuse Patient Records regulations: The Federal rules restrict any use of the information to criminally investigate or prosecute any alcohol or drug abuse patient.[facility] the event this information is protected by the Federal Confidentiality of Alcohol and Drug Abuse Patient Records regulations: The Federal rules restrict any use of the information to criminally investigate or prosecute any alcohol or drug abuse patient.[facility] the event this information is protected by the Federal Confidentiality of Alcohol and Drug Abuse Patient Records regulations: The Federal rules restrict any use of the information to criminally investigate or prosecute any alcohol or drug abuse patient.[facility] the event this information is protected by the Federal Confidentiality of Alcohol and Drug Abuse Patient Records regulations: The Federal rules restrict any use of the information to criminally investigate or prosecute any alcohol or drug abuse patient.[facility] the event this information is protected by the Federal Confidentiality of Alcohol and Drug Abuse Patient Records regulations: The Federal rules restrict any use of the information to criminally investigate or prosecute any alcohol or drug abuse patient.[facility] the event this information is protected by the Federal Confidentiality of Alcohol and Drug Abuse Patient Records regulations: The Federal rules restrict any use of the information to criminally investigate or prosecute any alcohol or drug abuse patient.[facility] the event this information is protected by the Federal Confidentiality of Alcohol and Drug Abuse Patient Records regulations: The Federal rules restrict any use of the information to criminally investigate or prosecute any alcohol or drug abuse patient.[facility] the event this information is protected by the Federal Confidentiality of Alcohol and Drug Abuse Patient Records regulations: The Federal rules restrict any use of the information to criminally investigate or prosecute any alcohol or drug abuse patient.[facility] the event this information is protected by the Federal Confidentiality of Alcohol and Drug Abuse Patient Records regulations: The Federal rules restrict any use of the information to criminally investigate or prosecute any alcohol or drug abuse patient.[facility] the event this information is protected by the Federal Confidentiality of Alcohol and Drug Abuse Patient Records regulations: The Federal rules restrict any use of the information to criminally investigate or prosecute any alcohol or drug abuse patient.[facility] the event this information is protected by the Federal Confidentiality of Alcohol and Drug Abuse Patient Records regulations: The Federal rules restrict any use of the information to criminally investigate or prosecute any alcohol or drug abuse patient.[facility] Hospital[facility] the event this information is protected by the Federal Confidentiality of Alcohol and Drug Abuse Patient Records regulations: The Federal rules restrict any use of the information to criminally investigate or prosecute any alcohol or drug abuse patient.[facility] the event this information is protected by the Federal Confidentiality of Alcohol and Drug Abuse Patient Records regulations: The Federal rules restrict any use of the information to criminally investigate or prosecute any alcohol or drug abuse patient.[facility] the event this information is protected by the Federal Confidentiality of Alcohol and Drug Abuse Patient Records regulations: The Federal rules restrict any use of the information to criminally investigate or prosecute any alcohol or drug abuse patient.[facility] Hospital[facility] the event this information is protected by the Federal Confidentiality of Alcohol and Drug Abuse Patient Records regulations: The Federal rules restrict any use of the information to criminally investigate or prosecute any alcohol or drug abuse patient.[facility] Hospital[facility] the event this information is protected by the Federal Confidentiality of Alcohol and Drug Abuse Patient Records regulations: The Federal rules restrict any use of the information to criminally investigate or prosecute any alcohol or drug abuse patient.[facility] Hospital[facility] the event this information is protected by the Federal Confidentiality of Alcohol and Drug Abuse Patient Records regulations: The Federal rules restrict any use of the information to criminally investigate or prosecute any alcohol or drug abuse patient.[facility] Hospital[facility] the event this information is protected by the Federal Confidentiality of Alcohol and Drug Abuse Patient Records regulations: The Federal rules restrict any use of the information to criminally investigate or prosecute any alcohol or drug abuse patient.[facility] Hospital[facility] the event this information is protected by the Federal Confidentiality of Alcohol and Drug Abuse Patient Records regulations: The Federal rules restrict any use of the information to criminally investigate or prosecute any alcohol or drug abuse patient.[facility] HospitalIn the event this information is protected by the Federal Confidentiality of Alcohol and Drug Abuse Patient Records regulations: The Federal rules restrict any use of the information to criminally investigate or prosecute any alcohol or drug abuse patient.[facility] HospitalIn the event this information is protected by the Federal Confidentiality of Alcohol and Drug Abuse Patient Records regulations: The Federal rules restrict any use of the information to criminally investigate or prosecute any alcohol or drug abuse patient.[facility] Hospital[facility] the event this information is protected by the Federal Confidentiality of Alcohol and Drug Abuse Patient Records regulations: The Federal rules restrict any use of the information to criminally investigate or prosecute any alcohol or drug abuse patient.[facility] HospitalIn the event this information is protected by the Federal Confidentiality of Alcohol and Drug Abuse Patient Records regulations: The Federal rules restrict any use of the information to criminally investigate or prosecute any alcohol or drug abuse patient.[facility] HospitalIn the event this information is protected by the Federal Confidentiality of Alcohol and Drug Abuse Patient Records regulations: The Federal rules restrict any use of the information to criminally investigate or prosecute any alcohol or drug abuse patient.[facility] Care Teams (unrecognized sec tion and content) Terrazzo Layer Helper Relationship Specialty Start Date End Date Rola Pickens APRN.BALLISTICS TESTER [address] [place] [address] PCP - General Family Medicine 11/04/20 Terrazzo Layer Helper Relationship Specialty Start Date End Date Rola Pickens APRN.BALLISTICS TESTER [address] [place] [address] PCP - General Family Medicine 11/04/20 Terrazzo Layer Helper Relationship Specialty Start Date End Date Rola Pickens, REPAIR DEPARTMENT SUPERVISOR.BALLISTICS TESTER [address] [facility] [place] [address] PCP - General Family Medicine 11/04/20 Terrazzo Layer Helper Relationship Specialty Start Date End Date Rola Pickens, REPAIR DEPARTMENT SUPERVISOR.BALLISTICS TESTER [address] [place] [address] PCP - General Family Medicine 11/04/20 Terrazzo Layer Helper Relationship Specialty Start Date End Date Rola Pickens, REPAIR DEPARTMENT SUPERVISOR.BALLISTICS TESTER [address] [place] [address] PCP - General Family Medicine 11/04/20 Terrazzo Layer Helper Relationship Specialty Start Date End Date Rola Pickens, REPAIR DEPARTMENT SUPERVISOR.BALLISTICS TESTER [address] [place] [address] PCP - General Family Medicine 11/04/20 Terrazzo Layer Helper Relationship Specialty Start Date End Date Rola Pickens, REPAIR DEPARTMENT SUPERVISOR.BALLISTICS TESTER [address] [place] [address] PCP - General Family Medicine 11/04/20 Terrazzo Layer Helper Relationship Specialty Start Date End Date Rola Pickens, REPAIR DEPARTMENT SUPERVISOR.BALLISTICS TESTER [address] [place] [address] PCP - General Family Medicine 11/04/20 Terrazzo Layer Helper Relationship Specialty Start Date End Date Rola Pickens, REPAIR DEPARTMENT SUPERVISOR.BALLISTICS TESTER [address] [facility] [place] [address] PCP - General Family Medicine 11/04/20 Terrazzo Layer Helper Relationship Specialty Start Date End Date Rola Pickens, REPAIR DEPARTMENT SUPERVISOR.BALLISTICS TESTER [address] [place] [address] PCP - General Family Medicine 11/04/20 Terrazzo Layer Helper Relationship Specialty Start Date End Date Rola Pickens, REPAIR DEPARTMENT SUPERVISOR.BALLISTICS TESTER [address] [facility] [place] [address] PCP - General Family Medicine 11/04/20 Terrazzo Layer Helper Relationship Specialty Start Date End Date Rola Pickens, REPAIR DEPARTMENT SUPERVISOR.BALLISTICS TESTER [address] [facility] [place] [address] PCP - General Family Medicine 11/04/20 Terrazzo Layer Helper Relationship Specialty Start Date End Date Rola Pickens, REPAIR DEPARTMENT SUPERVISOR.BALLISTICS TESTER [address] [facility] [place] [address] PCP - General Family Medicine 11/04/20 Terrazzo Layer Helper Relationship Specialty Start Date End Date Rola Pickens, REPAIR DEPARTMENT SUPERVISOR.BALLISTICS TESTER [address] [place] [address] PCP - General Family Medicine 11/04/20 Terrazzo Layer Helper Relationship Specialty Start Date End Date Rola Pickens, REPAIR DEPARTMENT SUPERVISOR.BALLISTICS TESTER [address] [place] [address] PCP - General Family Medicine 11/04/20 Terrazzo Layer Helper Relationship Specialty Start Date End Date Rola Pickens, REPAIR DEPARTMENT SUPERVISOR.BALLISTICS TESTER [address] [facility] [place] [address] PCP - General Family Medicine 11/04/20 Terrazzo Layer Helper Relationship Specialty Start Date End Date Rola Pickens, REPAIR DEPARTMENT SUPERVISOR.BALLISTICS TESTER [address] [facility] [place] [address] PCP - General Family Medicine 11/04/20 Terrazzo Layer Helper Relationship Specialty Start Date End Date Rola Pickens, REPAIR DEPARTMENT SUPERVISOR.BALLISTICS TESTER [address] [facility] [place] [address] PCP - General Family Medicine 11/04/20 Terrazzo Layer Helper Relationship Specialty Start Date End Date Rola Pickens APRN.BALLISTICS TESTER [address] [place], [place] [address] PCP - General Family Medicine 11/04/20 Terrazzo Layer Helper Relationship Specialty Start Date End Date Rola Pickens APRN.BALLISTICS TESTER [address] [place], [place] [address] PCP - General Family Medicine 11/04/20 Terrazzo Layer Helper Relationship Specialty Start Date End Date Rola Pickens APRN.BALLISTICS TESTER [address] [place], [place] [id number] PCP - General Family Medicine 11/04/20 Terrazzo Layer Helper Relationship Specialty Start Date End Date Rola Pickens APRN.BALLISTICS TESTER [address] [place], [place] [id number] PCP - General Family Medicine 11/04/20 Reason for Visit (unrecogniz ed section and content) Reason Comments Recheck Urg Care follow up- shortness of breath Reason Comments Spirometry Specialty Diagnoses / Procedures Referred By Kaitlin clay Referred To Contact [facility] Diagnoses SOB (shortness of breath) Tobacco abuse Procedures SPIROMETRY WITH DILATOR IF OBSTRUCTED BRNCDILAT RSPSE SPMTRY PRE&POST-BRNCDILAT ADMN Rola Pickens APRN.BALLISTICS TESTER [address] [place] [address] [facility] [address] [place] [address] Referral ID Status Reason Start Date Expiration Date V isits Requested Visits Authorized [id number] Closed Auto-Generate d Referral 05/04/2022 06/03/2023 1 1 Specialty Diagnoses / Procedures Referred By Kaitlin clay Referred To Contact [facility] Diagnoses SOB (shortness of breath) Tobacco abuse Procedures LUNG DIFFUSION CAPACITY (DLCO) DIFFUSING CAPACITY Rola Pickens APRN.BALLISTICS TESTER [address] [place] [address] [facility] [place] [address] [place] [address] Referral ID Status Reason Start Date Expiration Date V isits Requested Visits Authorized [id number] Closed Auto-Generate d Referral 05/04/2022 06/03/2023 1 1 Reason Comments Patient Update Reason Comments Shortness of Breath Reason Comments Results Orders Reason Comments Appointment Cardiology F/U Reason Comments Forms Reason Comments ER F/U [facility] ER 2 dx: short ness of breath Reason Comments Results Reason Comments Return To Work Letter Reason Comments Established Patient Follow-Up Reason Comments Recheck 1 month follow up Reason Comments Results Reason Onset Date Comments Refill Request 02/16/2023 Reason Comments Radiology NM Specialty Diagnoses / Procedures Referred By Contac t Referred To Contact [facility]AL [facility]AGING Diagnoses SOB (shortness of breath) Procedures NM CARDIAC PERF STRESS/PHARM MYOCARDIAL SPECT MULTIPLE STUDIES Rola Pickens APRN.BALLISTICS TESTER [address] [place] [address] Molecular & Functional Imaging [address] [place] [id number] Referral ID Status Reason Start Date Expiration Date V isits Requested Visits Authorized [id number] Closed Auto-Generate d Referral 05/04/2022 06/03/2023 1 1 Reason Comments Radiology US Specialty Diagnoses / Procedures Referred By Kaitlin t Referred To Contact US IMAGING Diagnoses Elevated liver enzymes Procedures US ABD RT UPPER QUADRANT US ABDOMINAL REAL TIME W/IMAGE LIMITED Rola Pickens, MAYUR.BALLISTICS TESTER [address] [place] [address] Us Imaging [id number] Referral ID Status Reason Start Date Expiration Date V isits Requested Visits Authorized [id number] Closed Auto-Generate d Referral 06/27/2022 07/27/2023 1 1 Reason Onset Date Comments Refill Request 06/29/2023 FOR RECORDS PERTAINING TO PATIENTS WHO ARE OR HAVE BEEN ENROLLED IN A CHEMICAL DEPENDENCY/SUBSTANCEABUSE PROGRAM, SOME INFORMATION MAY BE OMITTED. This clinical summary was aggregated from multiple sources. Caution should be exercised in using it in the provision of clinical care. This summary normalizes information from multiple sources, and as a consequence, information in this document may materially change the coding, format and clinical context of patient data. In addition, data may be omitted in some cases. CLINICAL DECISIONS SHOULD BE BASED ON THE PRIMARY CLINICAL RECORDS. [facility] [employer] [facility]. provides no warranty or guarantee of the accuracy or completeness of information in this document.
== END 2023-07-06 17:51 | disposition home or self-care (01) ==
PROVIDERS: Emergency Provider Student in an Organized Health Care Education/Training Program; PCP Registered Nurse; Visit Provider Student in an Organized Health Care Education/Training Program
DX: M54.30 Sciatica, unspecified side (principal); J44.9 Chronic obstructive pulmonary disease, unspecified; I50.9 Heart failure, unspecified; Z87.891 Personal history of nicotine dependence; E78.49 Other hyperlipidemia; Z79.899 Other long term (current) drug therapy; Z79.82 Long term (current) use of aspirin; F41.9 Anxiety disorder, unspecified
CPT/HCPCS: 99282